=== PATIENT | female | born 1935 | race Caucasian/White ===

== ENCOUNTER 2016-11-30 16:04 | Observation (INO) | payer BC, OTHER ==
--- NOTE | 2016-11-30 16:16 | PDOC ---
History of Present Illness - General History Source: Patient, Old Records, Primary Care Provider Exam Limitations: No Limitations <Garrett Sinclair - Last Filed: 11/30/16 17:12> - General History Source: Patient Exam Limitations: No Limitations <Suzie Martin - Last Filed: 11/30/16 17:41> - General Chief Complaint: Palpitations Stated Complaint: WEAKNESS, NEW ONSET AFIB Time Seen by Provider: 11/30/16 16:11 - History of Present Illness Initial Comments: 11/30/16 17:12 The patient is 81 a year old female, with a significant past medical history of HTN, COPD and colon CA s/p colon resection, who presents to the emergency department after being sent by her PMD for new onset AFIB. She reports that over the last couple of days she has been experience episodes of chest heaviness and fatigue, lasting roughly a couple of minutes before resolving. The patient denies shortness of breath, headache and dizziness. Denies fever, chills, nausea, vomit, diarrhea and constipation. Denies dysuria, frequency, urgency and hematuria. Allergies: Past surgical history: Colon resection (2000) Social history: Cigarette use (5 daily). No alcohol or drug use reported PMD - Dr. Simon (Garrett Sinclair) Past History <Garrett Sinclair - Last Filed: 11/30/16 17:12> - Past Medical History Anemia: No Asthma: No Cancer: Yes (coloc cancer) Cardiac Disorders: No CVA: No COPD: Yes CHF: No Dementia: No Diabetes: No GI Disorders: No Disorders: No HTN: Yes Hypercholesterolemia: No Liver Disease: No Suicide Attempt (Hx): No Seizures: No Thyroid Disease: No - Surgical History Abdominal Surgery: Yes (COLON RESECTION 2000) Appendectomy: No Cardiac Surgery: No Cholecystectomy: No Lung Surgery: No Neurologic Surgery: No Orthopedic Surgery: No - Immunization History Td Vaccination: Yes Immunization Up to Date: Yes - Psycho/Social/Smoking Cessation Hx Anxiety: No Suicidal Ideation: No Smoking Status: Yes Smoking History: Current every day smoker Have you smoked in the past 12 months: Yes Number of Cigarettes Smoked Daily: 5 Information on smoking cessation initiated: Yes 'Breaking Loose' booklet given: 11/30/16 Hx Alcohol Use: No Drug/Substance Use Hx: No Substance Use Type: None Hx Substance Use Treatment: No <Suzie Martin - Last Filed: 11/30/16 17:41> - Past Medical History Allergies/Adverse Reactions: Allergies Allergy/AdvReac Type Severity Reaction Status Date / Time No Known Allergies Allergy Verified 12/06/14 00:38 Home Medications: Ambulatory Orders Albuterol So4/Ipratropium [Combivent] 1 inh PO PRN PRN 01/31/13 Ramipril 10 mg PO DAILY 01/31/13 Albuterol Sulfate [Proair Respiclick] 90 mcg IH PRN PRN 11/30/16 Cardiac Specific PMH - Complaint Specific PMHX Pacemaker: No <Suzie Martin - Last Filed: 11/30/16 17:41> Review of Systems - Review of Systems Able to Perform ROS?: Yes <Garrett Sinclair - Last Filed: 11/30/16 17:12> <Suzie Martin - Last Filed: 11/30/16 17:41> - Review of Systems Comments:: 11/30/16 17:13 GENERAL/CONSTITUTIONAL: No: fever, chills, weakness, loss of appetite. HEAD, EYES, EARS, NOSE AND THROAT: No: change in vision, ear pain, discharge, sore throat, throat swelling. CARDIOVASCULAR: +Chest heaviness. No: lightheadedness, palpitations, syncope RESPIRATORY: No: cough, shortness of breath, wheezing, hemoptysis, stridor. GASTROINTESTINAL: No: nausea, vomiting, abdominal cramping, diarrhea, rectal bleeding, constipation. GENITOURINARY: No: dysuria, hematuria, frequency, urgency, flank pain. MUSCULOSKELETAL: No: back pain, neck pain, joint pain, muscle swelling or pain SKIN AND BREASTS: No: lesions, pallor, rash or easy bruising. NEUROLOGIC: No: headache, vertigo, paresthesias, weakness ENDOCRINE: No: unexplained weight gain or loss HEMATOLOGIC/LYMPHATIC: No: anemia, easy bleeding, swelling nodes (Garrett Sinclair) *Physical Exam <Garrett Sinclair - Last Filed: 11/30/16 17:12> <Suzie Martin - Last Filed: 11/30/16 17:41> - Vital Signs Last Vital Signs Temp Pulse Resp BP Pulse Ox 97.6 F 96 H 18 124/64 95 11/30/16 16:05 11/30/16 17:24 11/30/16 17:24 11/30/16 17:24 11/30/16 17:24 - Physical Exam Comments: 11/30/16 17:13 GENERAL: The patient is in no acute distress. HEAD: Normal with no signs of trauma. EYES: PERRLA, EOMI, sclera anicteric, conjunctiva clear. ENT: Ears normal, nares patent, oropharynx clear without exudates. Moist mucous membranes. NECK: Normal range of motion, supple without lymphadenopathy, JVD, or masses. LUNGS: Breath sounds equal, clear to auscultation bilaterally. No wheezes, and no crackles. HEART:Regular rate and rhythm, normal S1 and S2 without murmur, rub or gallop. ABDOMEN: Soft, nontender, normoactive bowel sounds. No guarding, no rebound. EXTREMITIES: Normal range of motion, no edema. No clubbing or cyanosis. No erythema, or tenderness. NEUROLOGICAL: Cranial nerves II through XII grossly intact. Normal speech. No focal neurological deficits. MUSCULOSKELETAL: Back non-tender to palpation, no CVA tenderness SKIN: Warm, Dry, normal turgor, no rashes or lesions noted. (Garrett Sinclair) Heart Score/ECG Review <Garrett Sinclair - Last Filed: 11/30/16 17:12> #1 ECG reviewed & interpreted by me at: 16:19 General ECG Interpretation: Sinus Rhythm, Normal Rate, Normal Intervals, No acute ischemic changes <Suzie Martin - Last Filed: 11/30/16 17:41> #1 11/30/16 16:19 Left ventricular hypertrophy, no ST segment elevation or depression. Upright T waves (Suzie Martin) ED Treatment Course - LABORATORY CBC & Chemistry Diagram: 11/30/16 16:39 11/30/16 16:39 <Garrett Sinclair - Last Filed: 11/30/16 17:12> - LABORATORY CBC & Chemistry Diagram: 11/30/16 16:39 11/30/16 16:39 <Suzie Martin - Last Filed: 11/30/16 17:41> - ADDITIONAL ORDERS Additional order review: Laboratory Results 11/30/16 11/30/16 11/30/16 16:39 16:39 16:39 INR 1.04 PTT (Actin FS) 30.1 Sodium 135 L Potassium 4.7 Chloride 97 L Carbon Dioxide 30 H Anion Gap 8 BUN 19 H Creatinine 0.8 D Creat Clearance w eGFR > 60 Random Glucose 95 D Calcium 9.9 D Total Bilirubin 0.6 D AST 27 ALT 15 D Alkaline Phosphatase 68 Creatine Kinase 77 Troponin I 0.03 Total Protein 6.5 D Albumin 3.8 D 11/30/16 16:39 RBC 5.59 H MCV 88.6 MCHC 32.9 RDW 13.1 MPV 10.2 D Neutrophils % 80.3 Lymphocytes % 10.1 D Monocytes % 9.0 D Eosinophils % 0.2 D Basophils % 0.4 - RADIOLOGY Radiology Studies Ordered: Category Date Time Status CHEST X-RAY PORTABLE* [RAD] Stat Radiology 11/30/16 16:42 Taken Medical Decision Making <Garrett Sinclair - Last Filed: 11/30/16 17:12> <Suzie Martin - Last Filed: 11/30/16 17:41> - Medical Decision Making 11/30/16 16:16 A portion of this note was documented by scribe services under my direction. I have reviewed the details of the note, within reason, and agree with the documentation with the following case summary and management plan written by me. Nursing documentation reviewed and incorporated into medical decision making 11/30/16 16:46 This is an 81 yo F with a history of HTN, COPD, Colon Cancer who presents from her PMDs office due to chest pain Pt states that two nights ago, she awoke with chest pressure which lasted approximately 1 hour and 15 minutes She took tums and states that it got better This morning at approximately 10 am, she again developed indigestion, unable to eat her breakfast She was seen by her PMD today In the office, EKG = Afib wtih RVR Pt sent to the ER In the ER, EKG SR, no ischemic changes DD: ACS, Paroxysmal Afib Will do: labs, CXR, Cardiology consult Will place on observation to hospitalist 11/30/16 17:01 Laboratory Tests 11/30/16 16:39 WBC 11.3 H D Hgb 16.3 H D Hct 49.5 H Plt Count 226 Neutrophils % 80.3 Lymphocytes % 10.1 D 01/20/17 17:38 Pt heart rate increased to 140s Will repeat EKG Case reviewed with LIABILITY CLAIMS EXAMINER Myranda Pt should be given Lovenox Will give Cardizem if heart rate remains high 11/30/16 17:40 Laboratory Tests 11/30/16 11/30/16 16:39 16:39 Sodium 135 L Potassium 4.7 Chloride 97 L Carbon Dioxide 30 H BUN 19 H Creatinine 0.8 D Random Glucose 95 D Creatine Kinase 77 Troponin I 0.03 (Suzie Martin) *DC/Admit/Observation/Transfer <Garrett Sinclair - Last Filed: 11/30/16 17:12> - Discharge Dispostion Admit: Yes <Suzie Martin - Last Filed: 11/30/16 17:41> Diagnosis at time of Disposition: Paroxysmal atrial fibrillation Chest pain Qualifiers: Chest pain type: other chest pain Qualified Code(s): R07.89 - Other chest pain ; R07.8 - Other chest pain - Discharge Dispostion Condition at time of disposition: Stable - Referrals Referrals: Griffin Simon MD [Primary Care Provider] - - Attestations Scribe Attestion: 11/30/16 17:13 Documentation prepared by Garrett Sinclair, acting as certified medical records coder for Suzie Martin MD. (Garrett Sinclair)
[2016-11-30 16:46] VITALS: BMI 19.9
[2016-11-30 16:50] LABS: BASOPHIL 0.4 % (0-2.0); EOSINOPHIL 0.2 % (0-4.5); MCH 29.1 pg (25.7-33.7); MCHC 32.9 g/dl (32.0-36.0); MEAN CELL VOLUME 88.6 fl (80-96); MEAN PLT VOLUME 10.2 fl (7.5-11.1); NEUTROPHILS 80.3 % (42.8-82.8); PLATELET COUNT 226 K/MM3 (134-434); RDW 13.1 % (11.6-15.6); WHITE BLOOD COUNT 11.3 K/mm3 (4.0-10.0)
[2016-11-30 17:06] LABS: ACTIVATED PTT 30.1 SECONDS (24.0-38.9)
[2016-11-30 17:08] LABS: ALBUMIN 3.8 g/dl (3.5-5.0); ALK PHOS 68 U/L (32-92); ANION GAP 8 (8-16); BILIRUBIN,TOTAL 0.6 mg/dl (0.2-1.0); CALCIUM 9.9 mg/dl (8.4-10.2); CO2 30 mmol/L (22-28); CREATININE 0.8 mg/dl (0.6-1.3); GLUCOSE,RANDOM 95 mg/dl (74-106); SGOT/AST 27 U/L (10-42); SGPT/ALT 15 U/L (10-40); TOT PROT 6.5 g/dl (6.4-8.3)
[2016-11-30 17:11] LABS: INR 1.04 (0.82-1.09); PROTHROMBIN TIME (PATIENT) 11.3 SEC (10.2-13.0)
[2016-11-30 17:18] LABS: TROPONIN I (DFP) 0.03 ng/ml (0.03-0.50)
[2016-11-30] MEDS ORDERED: dilTIAZem HCL 50 MG/10 ML - 10 ML VIAL IVPUSH ONE (17:31)
[2016-11-30] MEDS ORDERED: ENOXAPARIN NA (PORCINE) 60 MG/0.6 ML DISP.SYRIN SQ ONE (17:44)
[2016-11-30] MEDS ORDERED: ENOXAPARIN NA (PORCINE) 80 MG/0.8 ML DISP.SYRIN SQ SCH (17:45)
--- NOTE | 2016-11-30 20:03 | HP ---
CHIEF COMPLAINT: Chest Heaviness, Fatigue PCP: Dr. Simon HISTORY OF PRESENT ILLNESS: This is a 81 year old woman with a past medical history of Hypertension, COPD, Colon Ca (s/p Colon Resection), Smoker. who presents to the emergency department from her PCP's office with New Onset Afib, chest heaviness and fatigue. Patient reports feeling "funny"- heartburn around 2am last Saturday, taking 2 Tums with relief. Patient reports no further episode continuing her daily activities without incident until, this morning, feeling fatigued and shaky. Patient denies fever, chills, dizziness, SOB, CP, palpitations, AP, N/V/D , constipation, dysuria. ER course was notable for: (1) EKG NSR 89 bpm, LVH, cannot rule out Septal Infarct, age undetermined (2) Cardiac Enzyme neg x1 (3) Recent Travel: None PAST MEDICAL HISTORY: See HPI PAST SURGICAL HISTORY: R- femur Hysterectomy Colon Ca resection (2000) Social History: Smoking: Cigarettes 4 per day x 50 yrs Alcohol: None Drugs: None Family History: Father: Cardiac, Stroke Mother: Dementia Sister: Breast Ca Brother: Colon Ca Brother: Prostate Ca Allergies No Known Allergies Allergy (Verified 12/06/14 00:38) HOME MEDICATIONS: Medication Instructions Recorded Albuterol So4/Ipratropium 1 inh PO PRN PRN 01/31/13 [Combivent] Ramipril 10 mg PO DAILY 01/31/13 REVIEW OF SYSTEMS CONSTITUTIONAL: fatigue Absent: fever, chills, diaphoresis, generalized weakness, malaise, loss of appetite, weight change HEENT: Absent: rhinorrhea, nasal congestion, throat pain, throat swelling, difficulty swallowing, mouth swelling, ear pain, eye pain, visual changes CARDIOVASCULAR: chest pain Absent: syncope, palpitations, irregular heart rate, lightheadedness, peripheral edema RESPIRATORY: Absent: cough, shortness of breath, dyspnea with exertion, orthopnea, wheezing, stridor, hemoptysis GASTROINTESTINAL: Absent: abdominal pain, abdominal distension, nausea, vomiting, diarrhea, constipation, melena, hematochezia GENITOURINARY: Absent: dysuria, frequency, urgency, hesitancy, hematuria, flank pain, genital pain MUSCULOSKELETAL: Absent: myalgia, arthralgia, joint swelling, back pain, neck pain SKIN: Absent: rash, itching, pallor HEMATOLOGIC/IMMUNOLOGIC: Absent: easy bleeding, easy bruising, lymphadenopathy, frequent infections ENDOCRINE: Absent: unexplained weight gain, unexplained weight loss, heat intolerance, cold intolerance NEUROLOGIC: Absent: headache, focal weakness or paresthesias, dizziness, unsteady gait, seizure, mental status changes, bladder or bowel incontinence PSYCHIATRIC: Absent: anxiety, depression, suicidal or homicidal ideation, hallucinations. PHYSICAL EXAMINATION Vital Signs - 24 hr 11/30/16 11/30/16 18:21 18:26 Temperature 97.8 F Pulse Rate 97 H Respiratory 19 Rate Blood Pressure 140/67 O2 Sat by Pulse 94 L Oximetry (%) GENERAL: Awake, alert, and fully oriented, in no acute distress. HEAD: Normal with no signs of trauma. EYES: Pupils equal, round and reactive to light, extraocular movements intact, sclera anicteric, conjunctiva clear. No lid lag. EARS, NOSE, THROAT: Ears normal, nares patent, oropharynx clear without exudates. Moist mucous membranes. NECK: Normal range of motion, supple without lymphadenopathy, JVD, or masses. LUNGS: Breath sounds equal, clear to auscultation bilaterally.+Bibasilar wheezes , no crackles. No accessory muscle use. HEART: Irregular rate and rhythm, normal S1 and S2 without murmur, rub or gallop. ABDOMEN: Soft, nontender, not distended, normoactive bowel sounds, no guarding, no rebound, no masses. No hepatomegaly or splenomegaly. MUSCULOSKELETAL: Normal range of motion at all joints. No bony deformities or tenderness. No CVA tenderness. UPPER EXTREMITIES: 2+ pulses, warm, well-perfused. No cyanosis. No clubbing. Cap refill <2 seconds. No peripheral edema. LOWER EXTREMITIES: 2+ pulses, warm, well-perfused. No calf tenderness. No peripheral edema. NEUROLOGICAL: Cranial nerves II-XII intact. Normal speech. Normal gait. PSYCHIATRIC: Cooperative. Good eye contact. Appropriate mood and affect. SKIN: Warm, dry, normal turgor, no rashes or lesions noted. Laboratory Results - last 24 hr 11/30/16 11/30/16 11/30/16 16:35 16:39 16:39 WBC 11.3 H D RBC 5.59 H Hgb 16.3 H D Hct 49.5 H MCV 88.6 MCHC 32.9 RDW 13.1 Plt Count 226 MPV 10.2 D Neutrophils % 80.3 Lymphocytes % 10.1 D Monocytes % 9.0 D Eosinophils % 0.2 D Basophils % 0.4 INR 1.04 PTT (Actin FS) 30.1 Sodium Potassium Chloride Carbon Dioxide Anion Gap BUN Creatinine Creat Clearance w eGFR Random Glucose Calcium Total Bilirubin AST ALT Alkaline Phosphatase Creatine Kinase Troponin I Total Protein Albumin Blood Type A POSITIVE Antibody Screen 11/30/16 11/30/16 11/30/16 16:39 16:39 16:39 WBC RBC Hgb Hct MCV MCHC RDW Plt Count MPV Neutrophils % Lymphocytes % Monocytes % Eosinophils % Basophils % INR PTT (Actin FS) Sodium 135 L Potassium 4.7 Chloride 97 L Carbon Dioxide 30 H Anion Gap 8 BUN 19 H Creatinine 0.8 D Creat Clearance w eGFR > 60 Random Glucose 95 D Calcium 9.9 D Total Bilirubin 0.6 D AST 27 ALT 15 D Alkaline Phosphatase 68 Creatine Kinase 77 Troponin I 0.03 Total Protein 6.5 D Albumin 3.8 D Blood Type A POSITIVE Antibody Screen Negative ASSESSMENT/PLAN: This is a 81 year old woman with a PMHx of: HTN, COPD, Colon Ca ( s/p colon resection), Smoker. Who presents to the ED New Onset Afib, chest heaviness, fatigue. Placed on Tele Observation for New Onset Afib for further evaluation of their emergent condition. Plan: 1. Card: Paroxysmal Afib/HTN - New Onset - Tele monitoring - [id number] Score 4 - Appreciate Cardiology Consult - Lovenox given in ED, will continue - BB - Cardiac Enzyme neg x1, will trend x2 - Continue home med for BP 2. Pulm: COPD - Controlled - Duoneb prn 3. DVT Prophylaxis - OOB - Continue Lovenox 4. F/E/N - PO Fluids - Replete lytes prn - Low Na Diet Code Status: Patient is a Full Code Problem List - Problem (1) Chest pain Code(s): R07.9 - CHEST PAIN, UNSPECIFIED Qualifiers: Chest pain type: other chest pain Qualified Code(s): R07.89 - Other chest pain; R07.8 - Other chest pain (2) Paroxysmal a-fib Code(s): I48.0 - PAROXYSMAL ATRIAL FIBRILLATION (3) HTN (hypertension) Code(s): I10 - ESSENTIAL (PRIMARY) HYPERTENSION (4) History of COPD Code(s): Z87.09 - PERSONAL HISTORY OF OTHER DISEASES OF THE RESPIRATORY SYSTEM (5) History of colon cancer Code(s): Z85.038 - PERSONAL HISTORY OF MALIGNANT NEOPLASM OF LARGE INTESTINE (6) DVT prophylaxis Code(s): MHN8950 - Visit type - Emergency Visit Emergency Visit: Yes ED Registration Date: 11/30/16 Care time: The patient presented to the Emergency Department on the above date and was hospitalized for further evaluation of their emergent condition. - New Patient This patient is new to me today: Yes Date on this admission: 11/30/16 - Critical Care Critical Care patient: No
[2016-11-30] MEDS ORDERED: ALBUTEROL SO4 2.5/IPRATROPIUM 0.5 INH SOL 3 ML VIAL.NEB. NEB PRN (22:03)
[2016-11-30 23:28] LABS: TROPONIN I (DFP) 0.07 ng/ml (0.03-0.50)
[2016-12-01 06:12] VITALS: TEMP 98.4
--- NOTE | 2016-12-01 07:46 | CON.CARD ---
Consult Consult Specialty:: cardio Referred by:: krish Reason for Consultation:: afib - History of Present Illness Chief Complaint: chest discomfort History of Present Illness: 81 yo female sent from pmd office for afib. seated at home one day this week and felt upper chest discomfort, "like indigestion"; and body was shaking slightly; with profuse weakness. took two tums and sx's resolved. no LH/presyncope or sob with that. yesterday felt the weakness again--very active and rushing always but yest couldn't get up and do stuff b/c diffuse weakness. no indigestion/cp with that episode. sx persisted so went to dr rutherford--ekg abnormal--to ER. 3-4 yrs ago was in [employer] and tripped and injured herself--was told of irregular heart rhythm then and doctors wanted to give her blood thinner but she refused never felt palpitations. no cp with exertion; mild sob sometimes longstanding copd baseline she says denies etoh denies h/o GIB/PUD denies h/o balance problems/falls PMH: copd HTN colon Ca s/p resection +cigs--active - Past Medical History ...: No - Alcohol/Substance Use Hx Alcohol Use: No - Smoking History Smoking history: Current every day smoker Have you smoked in the past 12 months: Yes Aproximately how many cigarettes per day: 5 Home Medications - Allergies Allergies/Adverse Reactions: Allergies Allergy/AdvReac Type Severity Reaction Status Date / Time No Known Allergies Allergy Verified 12/06/14 00:38 - Home Medications Home Medications: Ambulatory Orders Albuterol So4/Ipratropium [Combivent] 1 inh PO PRN PRN 01/31/13 Ramipril 10 mg PO DAILY 01/31/13 Family Disease History - Family Disease History Family History: Denies (no cmp) Review of Systems - Review of Systems Constitutional: denies: Chills, Fever Eyes: denies: Eye Pain HENT: denies: Nasal Congestion Neck: denies: Stiffness Cardiovascular: denies: Palpitations Respiratory: denies: Orthopnea, PND Gastrointestinal: denies: Diarrhea, Rectal Bleeding Genitourinary: denies: Burning, Hematuria Musculoskeletal: denies: Muscle Pain Integumentary: denies: Rash Neurological: denies: Numbness, Seizure, Syncope Endocrine: denies: Excessive Sweating Hematology/Lymphatic: denies: Excessive Bleeding Vital Signs: Vital Signs Temperature 98.4 F 12/01/16 06:00 Pulse Rate 92 H 12/01/16 06:00 Respiratory Rate 18 12/01/16 06:00 Blood Pressure 175/80 12/01/16 06:00 O2 Sat by Pulse Oximetry (%) 94 L 11/30/16 18:21 Constitutional: Yes: Well Nourished, No Distress Eyes: No: Sclera Icterus HENT: No: Nasal Congestion Neck: No: Decreased ROM Respiratory: Yes: CTA Bilaterally, Wheezes (faint). No: Accessory Muscle Use Gastrointestinal: Yes: Normal Bowel Sounds. No: Distention, Hepatomegaly, Palpable Mass, Tenderness Cardiovascular: Yes: Regular Rate and Rhythm JVD: No Carotid Bruit: No PMI: Non-Displaced Heart Sounds: Yes: S1, S2. No: Gallop Murmur: No: Systolic Murmur, Diastolic Murmur Musculoskeletal: Yes: Other (No kyphosis) Extremities: No: Cold, Cyanosis Edema: No Peripheral Pulses: 2+ Left Carotid, 2+ Right Carotid, 2+ Left Doralis Pedis, 2+ Right Dorsalis Pedis Integumentary: No: Jaundice Neurological: Yes: Alert, Oriented (x3) Psychiatric: No: Agitated - Other Data Labs, Other Data: INR, PTT INR 1.04 (0.82-1.09) 11/30/16 16:39 Troponin, BNP 11/30/16 22:45 Troponin I 0.07 Troponin, BNP 11/30/16 22:45 Troponin I 0.07 Laboratory Tests 11/30/16 11/30/16 11/30/16 16:39 16:39 16:39 WBC 11.3 H D Hgb 16.3 H D Plt Count 226 Sodium 135 L Potassium 4.7 Carbon Dioxide 30 H BUN 19 H Creatinine 0.8 D AST 27 ALT 15 D Troponin I 0.03 11/30/16 22:45 WBC Hgb Plt Count Sodium Potassium Carbon Dioxide BUN Creatinine AST ALT Troponin I 0.07 ekg 11/30 (15:34)--pmd office: MAT vs afib, HR 130; LVH; ? old septal AR; nonsp ST depressions lateral leads likely LVH related; (no old to compare) ER ekg's x 2: NSR, normal axis/intervals; LVH with CORTEZ; ST depressions resolved telemetry: NSR Imaging - Results Chest X-ray: Image Reviewed ((not yet reported) my read: incr'd marking) Assessment/Plan paroxysmal AF: -initial portion of PMD ecg is suspicious for AF, however cannot definitively diagnose based on that tracing, given the latter half of it looks very much like MAT...possible that she had afib which transitioned into MAT; -was in sinus by the time she had ECGs done in ER--remains in sinus on tele overnight -CHADS VASC = 3, hence non-trivial risk of CVA from recurrent PAF -would recommend erring on the side of CVA prevention (given no hi risk clinical factors for bleeding) and start Eliquis -i d/w'd pt the uncertainty in her dx, but the relative risks of CVA being >> serious bleeding from AC rx; she verbalizes understanding but doesn't want to start AC at this time; she agrees to do outpt tele monitor and reconsider AC then, but insists she wants to wait until back from cruise she is leaving on in 6 days from today; -SHE SHOULD F/U WITH US OUTPT FOR 7-14 DAY MONITOR (when back from cruise) TO TRY TO BETTER CLARIFY THE UNDERLYING RHYTHM and PAF frequency, AND DETERMINE WHETHER IN FACT [facility] AC IS APPROPRIATE TO BE CONTINUED -add diltiazem for HR control purposes in future -no BB given copd with faint wheezing on exam -check TSH -check echo -initial ecg with nonsp ST changes, likely related to LVH in presence of tachycardia--resolved on subsequent -cardiac enzymes x 2 unremarkable--3rd pending -willing to take ASA 81 for now--advised she start -i advised pt she needs to have nuclear stress test (reasons below) and echo PRIOR TO LEAVING FOR HER CRUISE and she agrees to do these in my office saturday and saturday of next week; arrangements made with her -MUST F/U 3RD TROPONIN THIS AM--IF NEGATIVE, PT IS AT LOW-RISK FOR CV EVENTS AND MAY BE D/C'D FROM MY P.O.V. (on aspirin 81, diltiazem 120, ramipril 5mg) atypical CP: -felt like "indigestion", resolved with TUMS--suspect GERD -? atyp angina related to rapid HR at the time, rianna in setting of signif LVH ( LVH noted on CT chest 2012 and present on ekg) -r/o underlying coronary obstruction--will have nuclear stress test saturday HTN: -adding diltiazem (120) for AF/MAT -would reduce ramipril to 5mg daily to avoid over-aggressive bp lowering -currently sbp 170s copd, without a.e.: -stable sx's at home -faint wheezing on exam -per pmd
[2016-12-01 08:03] LABS: BASOPHIL 0.3 % (0-2.0); MCH 28.6 pg (25.7-33.7); MCHC 31.9 g/dl (32.0-36.0); MEAN CELL VOLUME 89.5 fl (80-96); MEAN PLT VOLUME 10.8 fl (7.5-11.1); PLATELET COUNT 218 K/MM3 (134-434); RDW 13.3 % (11.6-15.6); WHITE BLOOD COUNT 9.4 K/mm3 (4.0-10.0)
[2016-12-01 08:11] LABS: ALBUMIN 3.5 g/dl (3.5-5.0); ALK PHOS 63 U/L (32-92); ANION GAP 7 (8-16); BILIRUBIN,TOTAL 0.6 mg/dl (0.2-1.0); CALCIUM 9.1 mg/dl (8.4-10.2); CO2 33 mmol/L (22-28); CREATININE 0.7 mg/dl (0.6-1.3); GLUCOSE,RANDOM 91 mg/dl (74-106); SGOT/AST 23 U/L (10-42); SGPT/ALT 15 U/L (10-40); TOT PROT 5.7 g/dl (6.4-8.3)
[2016-12-01 08:14] LABS: CHOLESTEROL 218 mg/dl
[2016-12-01 08:26] VITALS: BP 155/75; PULSE 99
[2016-12-01 09:53] LABS: TROPONIN I (DFP) 0.06 ng/ml (0.03-0.50)
[2016-12-01] MEDS ORDERED: ASPIRIN COATED 81 MG TABLET.EC PO SCH (10:00)
[2016-12-01] MEDS ORDERED: ENOXAPARIN NA (PORCINE) 40 MG/0.4 ML DISP.SYRIN SQ SCH (10:00)
[2016-12-01] MEDS ORDERED: RAMIPRIL 5 MG CAPSULE (FP) PO SCH ×2 (10:00)
[2016-12-01] MEDS ORDERED: ALBUTEROL SO4 6.7 GM HFA INHALER IH PRN (10:20)
--- NOTE | 2016-12-01 10:25 | DS ---
Physical Exam: SUBJECTIVE: Patient seen and examined. No further complaints on exam. No weakness, palpitations, chest pain or SOB. OBJECTIVE: Vital Signs - 24 hr 3 11/30/16 11/30/16 11/30/16 16:05 17:24 18:21 Temperature 97.6 F Pulse Rate 96 H Pulse Rate [ 96 H Apical] Respiratory 18 18 Rate Blood Pressure 146/73 Blood Pressure 124/64 [Right Arm] O2 Sat by Pulse 95 95 94 L Oximetry (%) 3 11/30/16 11/30/16 12/01/16 18:26 22:44 06:00 Temperature 97.8 F 98.1 F 98.4 F Pulse Rate 97 H 91 H 92 H Pulse Rate [ Apical] Respiratory 19 20 18 Rate Blood Pressure 140/67 170/81 175/80 Blood Pressure [Right Arm] O2 Sat by Pulse Oximetry (%) 3 12/01/16 12/01/16 08:26 08:43 Temperature Pulse Rate 99 H Pulse Rate [ Apical] Respiratory 18 Rate Blood Pressure 155/75 Blood Pressure [Right Arm] O2 Sat by Pulse 92 L Oximetry (%) PHYSICAL EXAM GENERAL: The patient is awake, alert, and fully oriented, in no acute distress. HEAD: Normal with no signs of trauma. EYES: PERRL, extraocular movements intact, sclera anicteric, conjunctiva clear. ENT: Ears normal, nares patent, oropharynx clear without exudates, moist mucous membranes. NECK: Trachea midline, full range of motion, supple. LUNGS: Breath sounds equal, clear to auscultation bilaterally, no crackles, no accessory muscle use. slight expiratory wheeze bilat HEART: Regular rate and rhythm, S1, S2 without rub or gallop. + murmur 5th ICS LSB, 2/6 ABDOMEN: Soft, nontender, nondistended, normoactive bowel sounds, no guarding, no rebound, no hepatosplenomegaly, no masses. EXTREMITIES: 2+ pulses, warm, well-perfused, no edema. NEUROLOGICAL: Cranial nerves II through XII grossly intact. Normal speech, gait not observed. PSYCH: Normal mood, normal affect. SKIN: Warm, dry, normal turgor, no rashes or lesions noted. Laboratory Results - last 24 hr 3 11/30/16 12/01/16 12/01/16 22:45 07:00 07:00 WBC RBC Hgb Hct MCV MCHC RDW Plt Count MPV Neutrophils % Lymphocytes % Monocytes % Eosinophils % Basophils % Sodium 141 Potassium 4.6 Chloride 101 Carbon Dioxide 33 H Anion Gap 7 L BUN 17 Creatinine 0.7 Creat Clearance w eGFR > 60 Random Glucose 91 Calcium 9.1 Total Bilirubin 0.6 AST 23 ALT 15 Alkaline Phosphatase 63 Creatine Kinase 71 61 Troponin I 0.07 0.06 Total Protein 5.7 L Albumin 3.5 Triglycerides Cholesterol Total LDL Cholesterol HDL Cholesterol 3 12/01/16 12/01/16 07:00 07:00 WBC 9.4 RBC 5.32 H Hgb 15.2 Hct 47.6 H MCV 89.5 MCHC 31.9 L RDW 13.3 Plt Count 218 MPV 10.8 Neutrophils % 69.0 Lymphocytes % 19.0 D Monocytes % 10.7 H Eosinophils % 1.0 D Basophils % 0.3 Sodium Potassium Chloride Carbon Dioxide Anion Gap BUN Creatinine Creat Clearance w eGFR Random Glucose Calcium Total Bilirubin AST ALT Alkaline Phosphatase Creatine Kinase Troponin I Total Protein Albumin Triglycerides 132 Cholesterol 218 Total LDL Cholesterol 121 HDL Cholesterol 71 HOSPITAL COURSE: Date of Admission:11/30/16 Date of Discharge: 12/01/16 This is an 81 year old female, with a significant past medical history of HTN, COPD and colon CA s/p colon resection, who presented to the emergency department after being sent by her PMD for new onset AFIB. Pt was admitted to telemetry, acute IA r/o, 3 troponin negative. Rate was controlled with cardizem via IV in the ER and she was started on po. Pt was evaluated by cardiology and cleared for dc as troponins negative and no ectopy on monitor. Pt declined anticoagulation at this time. Pt instructed to contact Dr. Shirley's office for stress test this week (prior to leaving for her cruise next week.) She will also need outpatient 7-14 day monitoring to determine true nature of arrhythmia (afib vs multifocal atrial tachycardia). Beta osmin was not given for rate control as pt with slight wheeze and COPD. Spiriva added to pts medication regimen outpatient and pt instructed to f/u with PCP for further COPD management. Atypical Chest pain - IA r/o, f/u with cardiology as outpatient for stress test. Atrial fibrillation - cardizem for rate control - pt declined AC despite counseling center manager by cardiology - f/u with cardiology as outpatient HTN - decrease ramipril to 5mg daily given addition of cardizem COPD - add spiriva to home regimen - duoneb given x 1 - cont home proair Minutes to complete discharge: 45 Discharge Summary Reason For Visit: CHEST PAIN/ AFIB Current Active Problems Chest pain (Acute) DVT prophylaxis (Acute) HTN (hypertension) (Acute) History of COPD (Acute) History of colon cancer (Acute) Paroxysmal a-fib (Acute) Condition: Stable - Instructions Diet, Activity, Other Instructions: Return to the Emergency Department for any new, worsening or persistent symptoms such as shortness of breath, chest pain or weakness. Call Dr. Shirley's office on SATURDAY MORNING to schedule a stress test for THIS week prior to going on your cruise. Referrals: Emerson Shirley MD [Staff Physician] - (call Saturday for an appointment for a stress test THIS week.) Griffin Simon MD [Primary Care Provider] - Disposition: HOME - Home Medications Comprehensive Discharge Medication List: Ambulatory Orders Albuterol Sulfate Inhaler - [Ventolin HFA Inhaler -] 2 puff IH Q4H PRN #0 inhaler 12/01/16 Aspirin Coated [Ecotrin -] 81 mg PO DAILY #30 tablet.ec 12/01/16 Diltiazem Cd [Cardizem Cd -] 120 mg PO DAILY #30 cap.cd.24h 12/01/16 Ramipril [Altace] 5 mg PO DAILY #30 capsule 12/01/16 Tiotropium [place] [Spiriva] 18 puff IH DAILY #1 inh 12/01/16 This patient is new to me today: Yes Date on this admission: 12/01/16 Emergency Visit: Yes ED Registration Date: 11/30/16 Care time: The patient presented to the Emergency Department on the above date and was hospitalized for further evaluation of their emergent condition. Critical Care patient: No - Discharge Referral Referred to [facility] Yes Physician Referral: Griffin Simon MD ([facility]) (current PCP)
[2016-12-01 12:43] LABS: THYROID STIMULATING HORMONE 2.46 uIU/ml (0.358-3.74)
[2016-12-02] MEDS ORDERED: TIOTROPIUM BROMIDE 18 MCG/INH (DEVICE W/ 30 CAPSULES) IH SCH (10:00)
--- NOTE | 2016-12-03 12:33 | EKG ---
Test Reason : Blood Pressure : / mmHG Vent. Rate : 098 BPM Atrial Rate : 098 BPM P-R Int : 144 ms QRS Dur : 092 ms QT Int : 372 ms P-R-T Axes : 010 048 043 degrees QTc Int : 474 ms NORMAL SINUS RHYTHM SEPTAL INFARCT (CITED ON OR BEFORE 30-NOV-2016) ABNORMAL ECG WHEN COMPARED WITH ECG OF 30-NOV-2016 16:16, T WAVE VARIATION Confirmed by ALISSA ANGEL MD ([id number]) on 12/03/2016 12:32:39 PM Referred By: Confirmed By:ALISSA ANGEL MD
--- NOTE | 2016-12-03 12:47 | EKG ---
Test Reason : Blood Pressure : / mmHG Vent. Rate : 089 BPM Atrial Rate : 089 BPM P-R Int : 160 ms QRS Dur : 082 ms QT Int : 368 ms P-R-T Axes : 080 055 081 degrees QTc Int : 447 ms NORMAL SINUS RHYTHM POSSIBLE LEFT ATRIAL ENLARGEMENT LEFT VENTRICULAR HYPERTROPHY CANNOT RULE OUT SEPTAL INFARCT , AGE UNDETERMINED ABNORMAL ECG NO PREVIOUS ECGS AVAILABLE Confirmed by ALISSA ANGEL MD ([id number]) on 12/03/2016 12:47:33 PM Referred By: MD STOKES Confirmed By:ALISSA ANGEL MD
== END 2016-12-01 11:41 | disposition home or self-care (01) ==
LOC: FER 16:04 → FM/S 17:59
PROVIDERS: ADMIT Internal Medicine; ATTEND Nurse Practitioner Family
DX: I48.0 Paroxysmal atrial fibrillation (principal); K21.9 Gastro-esophageal reflux disease without esophagitis; I10 Essential (primary) hypertension; J44.9 Chronic obstructive pulmonary disease, unspecified; F17.210 Nicotine dependence, cigarettes, uncomplicated; Z85.038 Personal history of other malignant neoplasm of large intestine; R07.89 Other chest pain
CPT/HCPCS: 36415; 71010-TC; 80053; 80061; 82550; 84443; 84484; 85025; 85610; 85730; 86850; 86900; 86901; 93005; 94640; 99285-25; G0378

== ENCOUNTER 2017-01-07 21:56 | Inpatient (IN) | payer OTHER ==
--- NOTE | 2017-01-07 22:06 | PDOC ---
History of Present Illness - History of Present Illness Initial Comments: 01/07/17 23:49 Patient is an 81 year old female with significant medical hx of COPD, HTN, colon CA s/p resection, and new onset paroxysmal AFib who is presenting to the ED for respiratory distress. The patient has been in respiratory distress for the past three days at home; according to family member, this is a chronic issue. The patient does not use O2 at home because she doesn't like using it. She was hypoxic at home for days, today her O2Sat was found at 69% on room air. The patient is having difficulty speaking full sentences and she is using accessory muscles to breathe. She was brought to the ED today because her symptoms worsened. Denies fever, chills. Social Hx: 50 year history of tobacco use Surgical Hx: right femur sx, colon CA resection, hysterectomy PMD: Griffin Simon MD <Neema Moser - Last Filed: 01/07/17 23:48> <Maria Del Carmen Jennings - Last Filed: 01/08/17 01:06> - General Chief Complaint: Respiratory Stated Complaint: SHORTNESS OF BREATH Past History <Neema Moser - Last Filed: 01/07/17 23:48> - Past Medical History Anemia: No Asthma: No Cancer: Yes (coloc cancer) Cardiac Disorders: No CVA: No COPD: Yes CHF: No Dementia: No Diabetes: No GI Disorders: No Disorders: No HTN: Yes Hypercholesterolemia: No Liver Disease: No Suicide Attempt (Hx): No Seizures: No Thyroid Disease: No - Surgical History Abdominal Surgery: Yes (COLON RESECTION 2000) Appendectomy: No Cardiac Surgery: No Cholecystectomy: No Lung Surgery: No Neurologic Surgery: No Orthopedic Surgery: No - Immunization History Td Vaccination: Yes Immunization Up to Date: Yes - Psycho/Social/Smoking Cessation Hx Anxiety: No Suicidal Ideation: No Smoking Status: Yes Smoking History: Current every day smoker Have you smoked in the past 12 months: Yes Number of Cigarettes Smoked Daily: 5 Information on smoking cessation initiated: Yes 'Breaking Loose' booklet given: 01/07/17 Hx Alcohol Use: No Drug/Substance Use Hx: No Substance Use Type: None Hx Substance Use Treatment: No <Maria Del Carmen Jennings - Last Filed: 01/08/17 01:06> - Past Medical History Allergies/Adverse Reactions: Allergies Allergy/AdvReac Type Severity Reaction Status Date / Time No Known Allergies Allergy Verified 01/07/17 22:01 Home Medications: Ambulatory Orders Albuterol Sulfate Inhaler - [Ventolin HFA Inhaler -] 2 puff IH Q4H PRN #0 inhaler 12/01/16 Aspirin Coated [Ecotrin -] 81 mg PO DAILY #30 tablet.ec 12/01/16 Diltiazem Cd [Cardizem Cd -] 120 mg PO DAILY #30 cap.cd.24h 12/01/16 Ramipril [Altace] 5 mg PO DAILY #30 capsule 12/01/16 Tiotropium [place] [Spiriva] 18 puff IH DAILY #1 inh 12/01/16 Review of Systems - Review of Systems Comments:: 01/07/17 23:53 CONSTITUTIONAL: Absent: fever, chills, diaphoresis, generalized weakness, malaise, loss of appetite HEENT: Absent: rhinorrhea, nasal congestion, throat pain, throat swelling, difficulty swallowing, mouth swelling, ear pain, eye pain, visual changes CARDIOVASCULAR: Absent: chest pain, syncope, palpitations, irregular heart rate, lightheadedness , peripheral edema RESPIRATORY: Present: respiratory distress, difficulty speaking sentences Absent: cough, orthopnea, wheezing, stridor, hemoptysis GASTROINTESTINAL: Absent: abdominal pain, abdominal distension, nausea, vomiting, diarrhea, constipation, melena, hematochezia GENITOURINARY: Absent: dysuria, frequency, urgency, hesitancy, hematuria, flank pain, genital pain MUSCULOSKELETAL: Absent: myalgia, arthralgia, joint swelling SKIN: Absent: rash, itching, pallor HEMATOLOGIC/IMMUNOLOGIC: Absent: easy bleeding, easy bruising, lymphadenopathy, frequent infections ENDOCRINE: Absent: unexplained weight gain, unexplained weight loss, heat intolerance, cold intolerance NEUROLOGIC: Absent: headache, focal weakness or paresthesia, dizziness, unsteady gait, seizure, mental status changes, bladder or bowel incontinence. PSYCHIATRIC: Absent: anxiety, depression, suicidal or homicidal ideation, hallucinations <Neema Moser - Last Filed: 01/07/17 23:48> *Physical Exam - Vital Signs Last Vital Signs Temp Pulse Resp BP Pulse Ox 98.2 F 83 18 136/69 98 01/07/17 23:13 01/07/17 23:13 01/07/17 23:13 01/07/17 23:13 01/07/17 23:13 - Physical Exam Comments: 01/07/17 23:54 GENERAL: Well developed, well nourished. Awake and alert. No acute distress. HEENT: Normocephalic, atraumatic. PERRLA, EOMI. No conjunctival pallor. Sclera are non- icteric. Moist mucous membranes. Oropharynx is clear. NECK: Supple. Full ROM. No JVD. Carotid pulses 2+ and symmetric, without bruits. No thyromegaly. No lymphadenopathy. CARDIOVASCULAR: Regular rate and rhythm. No murmurs, rubs, or gallops. Distal pulses are 2+ and symmetric. PULMONARY: Respiratory distress. Silent chest (moving air now). Using accessory muscles. Difficulty speaking in full sentences. O2Sat 69% on room air. ABDOMINAL: Soft. Non-tender. Non-distended. No rebound or guarding. No organomegaly. Normoactive bowel sounds. MUSCULOSKELETAL: Normal range of motion at all joints. No bony deformities or tenderness. No CVA tenderness. EXTREMITIES: No cyanosis. No clubbing. No edema. No calf tenderness. SKIN: Warm and dry. Normal capillary refill. No rashes. No jaundice. NEUROLOGICAL: Alert, awake, appropriate. Cranial nerves 2-12 intact. Normal speech. PSYCHIATRIC: Cooperative. Good eye contact. Appropriate mood and affect. <Neema Moser - Last Filed: 01/07/17 23:48> - Vital Signs Last Vital Signs Temp Pulse Resp BP Pulse Ox 104 H 18 119/59 69 L 01/07/17 22:01 01/07/17 22:01 01/07/17 22:01 01/07/17 22:01 <Maria Del Carmen Jennings - Last Filed: 01/08/17 01:06> ED Treatment Course - ADDITIONAL ORDERS Additional order review: Laboratory Results 01/07/17 22:30 PTT (Actin FS) 29.3 - Medications Given in the ED: ED Medications Discontinued Medications Generic Name Dose Route Start Last Admin Trade Name Freq PRN Reason Stop Dose Admin Albuterol/Ipratropium 1 amp 01/07/17 22:30 01/07/17 23:05 Duoneb - NEB 01/07/17 23:16 1 amp Q15M MASON Administration Magnesium Sulfate 2 gm 01/07/17 22:33 01/07/17 22:34 Magnesium Sulfate IVPB 01/07/17 22:34 2 gm NOW ONE Administration Methylprednisolone Sodium Succinate 125 mg 01/07/17 22:34 01/07/17 22:34 Solu-Medrol - IVPB 01/07/17 22:35 125 mg NOW ONE Administration <Neema Moser - Last Filed: 01/07/17 23:48> *DC/Admit/Observation/Transfer - Attestations Scribe Attestion: 01/07/17 23:56 Documentation prepared by Neema Moser, acting as medical nurse for Maria Del Carmen Jennings MD. <Neema Moser - Last Filed: 01/07/17 23:48> - Discharge Dispostion Admit: Yes <Maria Del Carmen Jennings - Last Filed: 01/08/17 01:06> Diagnosis at time of Disposition: Obstructive chronic bronchitis with exacerbation - Referrals Referrals: Griffin Simon MD [Primary Care Provider] -
[2017-01-07] MEDS ORDERED: MAGNESIUM SULF 50% (8.12 MEQ/2 ML-1 GM VIAL) ONE (22:08)
[2017-01-07] MEDS ORDERED: methylPREDNISolone NA SUCC 125 MG/2 ML VIAL ONE (22:08)
[2017-01-07] MEDS ORDERED: MAGNESIUM SULF 50% (8.12 MEQ/2 ML-1 GM VIAL) IVPB ONE (22:33)
[2017-01-07] MEDS: ALBUTEROL SO4 2.5/IPRATROPIUM 0.5 INH SOL 3 ML VIAL.NEB. NEB SCH ×3 (22:33→23:05)
[2017-01-07] MEDS ORDERED: methylPREDNISolone NA SUCC 125 MG/2 ML VIAL IVPB ONE (22:34)
[2017-01-07] MEDS ORDERED: ALBUTEROL SO4 2.5/IPRATROPIUM 0.5 INH SOL 3 ML VIAL.NEB. NEB ONE (22:42)
[2017-01-07] MEDS ORDERED: ALBUTEROL SO4 0.083% IH SOL 2.5 MG/3 ML VIAL.NEB. NEB ONE (22:43)
--- NOTE | 2017-01-08 00:46 | PN ---
<Miles Garcia - Last Filed: 01/08/17 03:37> Teaching Attending Note ATTENDING PHYSICIAN STATEMENT I saw and evaluated the patient. I reviewed the resident's note and discussed the case with the resident. I agree with the resident's findings and plan as documented. SUBJECTIVE: Patient is an 81 year old female with significant medical history of COPD, HTN, colon CA s/ resection, current smoker, who presented to ED in respiratory distress for three days. The patient stated that she is suppose to be on home O2 but she does not like using O2 at home. Patient reported that before she presented to the ED her O2sat was found to be 69% on room air. Upon arrival patient was found to be hypoxic. In the ED patient was having difficulty speaking in full sentences and was placed on bipap with SOB. OBJECTIVE: Vital Signs: Last Vital Signs Temp Pulse Resp BP Pulse Ox 98.2 F 83 18 136/69 98 01/07/17 23:13 01/07/17 23:13 01/07/17 23:13 01/07/17 23:13 01/07/17 23:13 Physical Exam: GEN: NAD HEENT: NCAT, PERRL CARD: RRR, S1 S2 RESP: Course bilateral breath sounds ABD: NT, BWS x4 EXT: - CCE Labs: Imaging: ASSESSMENT AND PLAN: Patient is an 81 year old female with significant medical history of COPD, HTN, colon CA s/p resection, current smoker who presented with SOB, being admitted for COPD exacerbation. 1. COPD exacerbation -Duoneb -ATC/PRN -Continue with Solumedrol 60 mg Q8H -Sethtriaxone -ABG -Will attempt to wean off bipap -Continue Spiriva in AM 2. Questionable AFIB- Rate controlled -Continue with Brotizolam -Patient refused AC at last visit -Hypertension continue with Ramipril 3. Lung mass -Follow up biopsy at [place] 4. DVT PPX -Heparin 5000 Q8H Admit to med surg. Documentation prepared by Miles Garcia, acting as medical staff credentialing coordinator for Dr. Shona Masters MD. <Shona Masters - Last Filed: 01/08/17 06:02> Teaching Attending Note Name of Resident: [place] AFIB?/MAT - C.w. Diltiazem - Pt. Initially refused AC - Currently in SR ACUTE EXACERBATION of COPD - Ceftriaxone - Duonebs ATC/PRN - Steriods (FS/RAISS) - -93% Rest as per above note
[2017-01-08 00:49] LABS: ARTERIAL BLD GAS O2 SATURATION 97.6 % (90-98.9); ARTERIAL BLOOD GAS BASE EXCESS 3.8 meq/l (-2-2); ARTERIAL BLOOD GAS pH 7.33 (7.35-7.45); METHEMOGLOBIN 1.2 % (0.4-1.5)
[2017-01-08] MEDS ORDERED: ONDANSETRON 4 MG/2 ML VIAL IVPB PRN (00:49)
[2017-01-08] MEDS ORDERED: ALBUTEROL SO4 0.083% IH SOL 2.5 MG/3 ML VIAL.NEB. NEB PRN (00:49)
[2017-01-08] MEDS ORDERED: ACETAMINOPHEN 325 MG TABLET (FP) PO PRN (00:49)
[2017-01-08 00:50] LABS: ALLENS TEST POSITIVE; ART PUNCT SITE LEFT RADIAL; LPM/O2% 50%; PT. ON O2? YES; TYPE OF O2 BIPAP; VENT RATE 14; VT/PRESS 14/4
[2017-01-08 00:51] LABS: ARTERIAL BLOOD GAS HCO3 30.6 meq/L (22-26)
--- NOTE | 2017-01-08 00:52 | HP ---
CHIEF COMPLAINT: SOB PCP: Griffin Simon MD HISTORY OF PRESENT ILLNESS: 81 yo F with PMHx of COPD, HTN, colon CA s/p resection, current smoker, who presented to ED in respiratory distress for three days. Patient admits to being non compliant with home oxygen and inhalers. As per son she was found to have a home O2 sat of 69% today and "looked [place]" She also mentions that for the past week she has been having a runny nose and productive cough. Sputum is clear without hemoptysis. Upon arrival patient was found to be hypoxic. In the ED patient was having difficulty speaking in full sentences and was placed on bipap with SOB. She was discharged last Saturday01/01/17 from [facility] s/p aortic balloon valvuloplasty for stenosis. Her senior design engineer is Dr. Shirley. Also has history of parax. Afib? Denies fevers, CP, BOLES, palpitations, abd. pain, n/v. ER course was notable for: (1)ABG showed respiratory acidosis PCO2 59.5 (2)Given 125mg IV Solumedrol (3)Placed on BiPaP with improvement of symptoms. Recent Travel:Denies PAST MEDICAL HISTORY: COPD, HTN, colon CA s/p resection, PAST SURGICAL HISTORY: Colon resection, balloon valvuloplasty Social History: Smokin-3 cigs/day Alcohol:denies Drugs: denies Family History: Allergies No Known Allergies Allergy (Verified 01/07/17 22:01) HOME MEDICATIONS: Home Medications Medication Instructions Recorded Albuterol Sulfate Inhaler - 2 puff IH Q4H PRN #0 inhaler 12/01/16 [Ventolin HFA Inhaler -] Aspirin Coated [Ecotrin -] 81 mg PO DAILY #30 tablet.ec 12/01/16 Diltiazem Cd [Cardizem Cd -] 120 mg PO DAILY #30 cap.cd.24h 12/01/16 Ramipril [Altace] 5 mg PO DAILY #30 capsule 12/01/16 Tiotropium [place] [Spiriva] 18 puff IH DAILY #1 inh 12/01/16 REVIEW OF SYSTEMS CONSTITUTIONAL: Absent: fever, chills, diaphoresis, generalized weakness, malaise, loss of appetite, weight change HEENT: Absent: rhinorrhea, nasal congestion, throat pain, throat swelling, difficulty swallowing, mouth swelling, ear pain, eye pain, visual changes CARDIOVASCULAR: Absent: chest pain, syncope, palpitations, irregular heart rate, lightheadedness , peripheral edema RESPIRATORY: (+)cough, shortness of breath, dyspnea with exertion,wheezing Absent: orthopnea, , stridor, hemoptysis GASTROINTESTINAL: Absent: abdominal pain, abdominal distension, nausea, vomiting, diarrhea, constipation, melena, hematochezia GENITOURINARY: Absent: dysuria, frequency, urgency, hesitancy, hematuria, flank pain, genital pain MUSCULOSKELETAL: Absent: myalgia, arthralgia, joint swelling, back pain, neck pain SKIN: Absent: rash, itching, pallor HEMATOLOGIC/IMMUNOLOGIC: Absent: easy bleeding, easy bruising, lymphadenopathy, frequent infections ENDOCRINE: Absent: unexplained weight gain, unexplained weight loss, heat intolerance, cold intolerance NEUROLOGIC: Absent: headache, focal weakness or paresthesias, dizziness, unsteady gait, seizure, mental status changes, bladder or bowel incontinence PSYCHIATRIC: Absent: anxiety, depression, suicidal or homicidal ideation, hallucinations. PHYSICAL EXAMINATION Vital Signs - 24 hr 01/07/17 01/07/17 01/07/17 22:01 22:47 22:59 Temperature Pulse Rate 104 H Pulse Rate [ Right Radial] Respiratory 18 Rate Blood Pressure 119/59 Blood Pressure [Left Arm] O2 Sat by Pulse 69 L 70 L 100 Oximetry (%) 01/07/17 23:13 Temperature 98.2 F Pulse Rate Pulse Rate [ 83 Right Radial] Respiratory 18 Rate Blood Pressure Blood Pressure 136/69 [Left Arm] O2 Sat by Pulse 98 Oximetry (%) GENERAL: Awake, alert, and fully oriented, mild distress. HEAD: Normal with no signs of trauma. EYES: Pupils equal, round and reactive to light, extraocular movements intact, sclera anicteric, conjunctiva clear. No lid lag. EARS, NOSE, THROAT: diminished hearing NECK:supple, no jvd or masses LUNGS: On BiPaP, course scattered rhonchi and wheezing, No accessory muscle use. HEART: Regular rate and rhythm, normal S1 and S2, 3/6 Systolic Ejection murmur, no rub or gallop. ABDOMEN: Soft, nontender, not distended, normoactive bowel sounds, no guarding, no rebound, no masses. No hepatomegaly or splenomegaly. MUSCULOSKELETAL: Normal range of motion at all joints. No bony deformities or tenderness. No CVA tenderness. UPPER EXTREMITIES: 2+ pulses, warm, well-perfused. No cyanosis. No peripheral edema. LOWER EXTREMITIES: 2+ pulses, warm, well-perfused. No calf tenderness. No peripheral edema. NEUROLOGICAL: Normal speech. gait not observed. PSYCHIATRIC: Cooperative. Good eye contact. Appropriate mood and affect. SKIN: Warm, dry, normal turgor, no rashes or lesions noted. Laboratory Results - last 24 hr 01/07/17 01/08/17 22:30 00:48 PTT (Actin FS) 29.3 Anticoagulation Therapy Y Puncture Site Left radial ABG pH 7.33 L ABG pCO2 at Pt Temp 59.5 H ABG pO2 at Pt Temp 118.0 H D ABG HCO3 30.6 H ABG O2 Sat (Measured) 97.6 ABG O2 Content 16.2 ABG Base Excess 3.8 H Adrci Test Positive Carboxyhemoglobin 1.9 Methemoglobin 1.2 O2 Delivery Device Bipap Oxygen Flow Rate 50% Vent Mode S/t Vent Rate 14 Mechanical Rate Y PEEP 0.0 Pressure Support Vent 14/4 ASSESSMENT/PLAN: 81 yo F with PMhx of COPD, HTN, colon CA s/p resection, current smoker admitted for acute exacerbation of COPD. Problem List - Problem (1) COPD with acute exacerbation Assessment/Plan: * Continue BiPaP overnight * maintain SpO2 >90% * Duonebs QID * Albuterol Q4H PRN * Solumedrol 40mg IV BID - BGM/RISS ACHS * Rocephin 1gm daily * Continue Aclidinium [place] ([place] -) 1 puff IH BID * ABG in AM (2) Paroxysmal a-fib Assessment/Plan: * Continue Cardizem 120 mg PO daily * not on AC as patient refused. * Consider Cardiology consult; Dr. Shirley - she was scheduled for event monitor as outpatient. (3) HTN (hypertension) Assessment/Plan: * Continue- Ramipril (Altace -) 5 mg PO DAILY * hold for SBP <100 (4) History of colon cancer Assessment/Plan: * s/p resection 2000 (5) DVT prophylaxis Assessment/Plan: * Heparin 5000 units BID. Visit type - Emergency Visit Emergency Visit: Yes ED Registration Date: 01/08/17 Care time: The patient presented to the Emergency Department on the above date and was hospitalized for further evaluation of their emergent condition. - New Patient This patient is new to me today: Yes Date on this admission: 01/08/17 - Critical Care Critical Care patient: No
[2017-01-08] MEDS ORDERED: ALBUTEROL SO4 2.5/IPRATROPIUM 0.5 INH SOL 3 ML VIAL.NEB. NEB ONE ×2 (01:55→06:27)
[2017-01-08] MEDS ORDERED: IPRATROPIUM BR 0.02% 0.5 MG/2.5 ML VIAL.NEB. NEB ONE (01:57)
[2017-01-08] MEDS: ALBUTEROL SO4 2.5/IPRATROPIUM 0.5 INH SOL 3 ML VIAL.NEB. NEB SCH ×4 (01:59→17:14)
[2017-01-08 02:41] LABS: INR 1.11 (0.82-1.09); PROTHROMBIN TIME (PATIENT) 12.2 SEC (9.98-11.88)
[2017-01-08 02:51] LABS: BASOPHIL 0.2 % (0-2.0); MCH 30.1 pg (25.7-33.7); MCHC 32.9 g/dl (32.0-36.0); MEAN CELL VOLUME 91.3 fl (80-96); NEUTROPHILS 94.3 % (42.8-82.8); PLATELET COUNT 217 K/MM3 (134-434); RDW 14.3 % (11.6-15.6); WHITE BLOOD COUNT 9.9 K/mm3 (4.0-10.0)
[2017-01-08 03:05] LABS: ALBUMIN 3.1 g/dl (3.4-5.0); ANION GAP 7 (8-16); BILIRUBIN,TOTAL 0.2 mg/dL (0.2-1.0); CALCIUM 7.9 mg/dL (8.5-10.1); CO2 32 mmol/L (21-32); CREATININE 0.6 mg/dL (0.55-1.02); GLUCOSE,RANDOM 141 mg/dL (74-106); SGOT/AST 23 U/L (15-37); SGPT/ALT 22 U/L (12-78); TOT PROT 5.9 g/dl (6.4-8.2)
[2017-01-08 03:06] LABS: ALK PHOS 64 U/L (45-117); TROPONIN I 0.02 ng/ml (0.00-0.05)
[2017-01-08] MEDS ORDERED: ALBUTEROL SO4 0.083% IH SOL 2.5 MG/3 ML VIAL.NEB. NEB ONE (06:28)
[2017-01-08] MEDS ORDERED: INSULIN SLIDING SCALE (NOVOLOG) 1 VIAL SQ SCH (07:00)
--- NOTE | 2017-01-08 09:34 | MSN ---
Progress Note (short form) - Note Progress Note: SUBJECTIVE: Pt seen and examined at bedside in ED. JAUN overnight. Pt has no complaints this morning and states her breathing is much improved since presenting to the ED last night. Admits to a productive cough with clear mucus and generalized weakness. Denies fevers, chills, chest pain, palpitations, nausea, vomiting, abdominal pain, diaphoresis, change in bowel movement, dysuria, or frequency. Active Medications Generic Name Dose Route Start Last Admin Trade Name Freq PRN Reason Stop Dose Admin Acetaminophen 650 mg 01/08/17 00:49 Tylenol - PO Q4H PRN FEVER OR PAIN Aclidinium [place] 1 puff 01/08/17 10:00 01/08/17 09:55 Tudorza - IH Not Given BID MASON Albuterol Sulfate 1 amp 01/08/17 00:49 Ventolin 0.083% Nebulizer Soln - NEB Q4H PRN SHORT OF BREATH/WHEEZING Albuterol/Ipratropium 1 amp 01/08/17 06:00 01/08/17 06:30 Duoneb - NEB 1 amp QIDR MASON Administration Aspirin 81 mg 01/08/17 10:00 01/08/17 10:01 Ecotrin - PO 81 mg DAILY MASON Administration Ceftriaxone Sodium 1 gm 01/08/17 10:00 01/08/17 10:58 Rocephin 1gm Ivpb (Pre-Docked) IVPB 1 gm DAILY MASON Administration Protocol Diltiazem HCl 120 mg 01/08/17 10:00 01/08/17 10:01 Cardizem Cd - PO 120 mg DAILY MASON Administration Heparin Sodium (Porcine) 5,000 unit 01/08/17 10:00 01/08/17 10:01 Heparin - SQ 5,000 unit BID MASON Administration Methylprednisolone Sodium Succinate 40 mg 01/08/17 10:00 01/08/17 10:02 Solu-Medrol - IVPB 40 mg BID MASON Administration Ondansetron HCl 4 mg 01/08/17 00:49 Zofran Injection IVPB Q6H PRN NAUSEA Pantoprazole Sodium 40 mg 01/08/17 10:00 01/08/17 10:01 Protonix - PO Not Given DAILY MASON Ramipril 5 mg 01/08/17 10:00 01/08/17 10:01 Altace - PO 5 mg DAILY [facility]ON Administration OBJECTIVE: Vital Signs Temperature 98.2 F 01/07/17 23:13 Pulse Rate 79 01/08/17 11:03 Respiratory Rate 18 01/08/17 11:03 Blood Pressure 138/67 01/08/17 11:03 O2 Sat by Pulse Oximetry (%) 95 01/08/17 11:03 GENERAL: AAOx3 in NAD on BiPAP 40% FiO2 HEAD: Normocephalic, atraumatic. PERRLA NECK: Trachea midline. No JVD. No LAD. No carotid bruits BL. Supple HEART: Regular rate and rhythm. +S1/S2. 2/6 systolic murmur heard best at R 2nd ICS > L 2nd ICS. No rubs/gallops LUNGS: CTAB with decreased breath sounds BL. No crackles/wheezing ABDOMEN: Soft, nondistended. Nontender to palpation. Normal BS heard. Dullness to percussion. No guarding/rebound EXTREMITIES: No edema in BL LE. Motor and sensation grossly intact. 5/5 elbow flexion/hip flexion/DF/PF. +2 DP pulse, +2 radial pulse NEURO: Normal speech. CNII-XII intact. CBC, BMP 01/08/17 02:28 01/08/17 02:28 A/P: Pt is a 81 yo F with a PMHx of COPD, HTN, and pAfib, brought into ED by son with respiratory distress and low oxygen saturation levels at home. Pt is being admitted for further management and observation. 1. Acute exacerbation of COPD -Improving. Pt was taken off BiPAP and is now saturating @95% on 3L NC -SoluMedrol 40mg IV BID. Given 125mg IV in ED -Tudorza 1 puff BID -DuoNeb 1 amp QID -Albuterol inhaler 1 amp Q4H prn -Rocephin 1gm IV daily. 1gm IV given in ED. Consider DC'ing. Pt is not presenting with CAP and has not met SIRS criteria since presentation. 2. pAfib -Continue Cardizem -Continue ASA 81mg PO daily -[id number] score: 4. AC indicated. -Discuss starting AC with pt or have pt FU with [employer] outpt 3. HTN -Stable -Continue Ramipril 5mg PO daily 4. Lung mass -s/p PET scan performed at [facility] -FU at [facility] for biopsy -Consider inpatient pulmonary consult 5. Aortic stenosis -s/p balloon valvuloplasty on 01/01/17 6. DVT/GI ppx -Heparin 5000U SQ BID -Protonix 40mg PO daily 7. FEN -No IVF -CBC, BMP WNL -Elevated glucose readings x2 (141, 184) -Start pt on sliding scale and BGMs -PO regular diet 8. Dispo -Admit to telemetry for further monitoring and management Jose Alberto Pelayo, MS3 Problem List - Problems (1) COPD with acute exacerbation (2) DVT prophylaxis (3) HTN (hypertension) (4) History of COPD (5) History of colon cancer (6) Paroxysmal a-fib
[2017-01-08] MEDS: ACLIDINIUM BROMIDE 400 MCG/INH AERO.POWD IH SCH ×2 (09:55→22:37)
[2017-01-08] MEDS: HEPARIN NA (PORCINE) 5,000 UNITS/ML 1ML VIAL SQ SCH ×2 (10:01→21:38)
[2017-01-08] MEDS: RAMIPRIL 5 MG CAPSULE (FP) PO SCH (10:01)
[2017-01-08] MEDS: ASPIRIN COATED 81 MG TABLET.EC PO SCH (10:01)
[2017-01-08] MEDS: PANTOPRAZOLE 40 MG TABLET (FP) PO SCH (10:01)
[2017-01-08] MEDS: methylPREDNISolone NA SUCC 40 MG/1 ML VIAL IVPB SCH ×2 (10:02→21:38)
[2017-01-08] MEDS ORDERED: CEFTRIAXONE 50 ML ONE (10:10)
[2017-01-08] MEDS: cefTRIAXone 1 GM/50 ML BAG (PRE-DOCKED) IVPB SCH (10:58)
[2017-01-08 11:56] VITALS: BMI 19.0
--- NOTE | 2017-01-08 13:08 | EKG ---
Test Reason : Blood Pressure : / mmHG Vent. Rate : 083 BPM Atrial Rate : 083 BPM P-R Int : 172 ms QRS Dur : 088 ms QT Int : 388 ms P-R-T Axes : 088 066 086 degrees QTc Int : 455 ms NORMAL SINUS RHYTHM POOR R WAVE PROGRESSION ANTERIOR INFARCT (CITED ON OR BEFORE 30-NOV-2016) ABNORMAL ECG WHEN COMPARED WITH ECG OF 30-NOV-2016 17:38, VENT. RATE HAS DECREASED Confirmed by ALISSA ANGEL MD ([id number]) on 01/08/2017 1:08:14 PM Referred By: Confirmed By:ALISSA ANGEL MD
--- NOTE | 2017-01-08 13:33 | CON.CARD ---
Cardiology Consult (text) - Consultation Consultation Note: 3/6 early PRESTON heard in apex, radiating to LUSB (?); decreases with Valsalva; no features concerning for severe ; Chief Complaint: sob History of Present Illness: 81 yo smoker with h/o recent diagnosis of severe undergoing [place]AVR eval [place] [facility] htn, afib, copd with hypoxia, recent diagnosis of lung mass , colon ca s/p resection presents with sob. Persistent hypoxia on that recent admission thought to be 2/2 severe copd. Was d/c on home oxygen but she returned it. Was using portable oxygen tank which was less cumbersome but it ran out of oxygen a few days ago. Since then with increasing fatigue. On day of presentation noted that her oxygen was low . + nasal congestion, myalgias 5 days ago. No f/c/s. + cough. hasn't smoked a cigarette in the past two weeks. no cp, stable sob, no orthopnea, pnd, le edema, palps, dizziness, bleeding or transient neurologic symptoms. No f/c/s, n/v/d, headache, rashes. PMH/PSHx: per hpi social: smoker, no etoh fam hx: Denies (no cmp) ros: per hpi Ambulatory Orders Albuterol Sulfate Inhaler - [Ventolin HFA Inhaler -] 2 puff IH Q4H PRN #0 inhaler 12/01/16 Aspirin Coated [Ecotrin -] 81 mg PO DAILY #30 tablet.ec 12/01/16 Diltiazem Cd [Cardizem Cd -] 120 mg PO DAILY #30 cap.cd.24h 12/01/16 Ramipril [Altace] 5 mg PO DAILY #30 capsule 12/01/16 Tiotropium [place] [Spiriva] 18 puff IH DAILY #1 inh 12/01/16 Current Medications Acetaminophen (Tylenol -) 650 mg PO Q4H PRN PRN Reason: FEVER OR PAIN Aclidinium [place] (Tudorza -) 1 puff IH BID [facility] Last Admin: 01/08/17 09:55 Dose: Not Given Albuterol Sulfate (Ventolin 0.083% Nebulizer Soln -) 1 amp NEB Q4H PRN PRN Reason: SHORT OF BREATH/WHEEZING Albuterol/Ipratropium (Duoneb -) 1 amp NEB QIDR [facility] Last Admin: 01/08/17 06:30 Dose: 1 amp Aspirin (Ecotrin -) 81 mg PO DAILY [facility] Last Admin: 01/08/17 10:01 Dose: 81 mg Ceftriaxone Sodium (Rocephin 1gm Ivpb (Pre-Docked)) 1 gm IVPB DAILY [facility] PRN Reason: Protocol Last Admin: 01/08/17 10:58 Dose: 1 gm Diltiazem HCl (Cardizem Cd -) 120 mg PO DAILY [facility] Last Admin: 01/08/17 10:01 Dose: 120 mg Heparin Sodium (Porcine) (Heparin -) 5,000 unit SQ BID [facility] Last Admin: 01/08/17 10:01 Dose: 5,000 unit Methylprednisolone Sodium Succinate (Solu-Medrol -) 40 mg IVPB BID [facility] Last Admin: 01/08/17 10:02 Dose: 40 mg Ondansetron HCl (Zofran Injection) 4 mg IVPB Q6H PRN PRN Reason: NAUSEA Pantoprazole Sodium (Protonix -) 40 mg PO DAILY [facility] Last Admin: 01/08/17 10:01 Dose: Not Given Ramipril (Altace -) 5 mg PO DAILY [facility] Last Admin: 01/08/17 10:01 Dose: 5 mg Vital Signs - 24 hr 01/07/17 01/07/17 01/07/17 22:01 22:47 22:59 Temperature Pulse Rate 104 H Pulse Rate [ Right Radial] Respiratory 18 Rate Blood Pressure 119/59 Blood Pressure [Left Arm] O2 Sat by Pulse 69 L 70 L 100 Oximetry (%) 01/07/17 01/08/17 01/08/17 23:13 02:53 04:30 Temperature 98.2 F Pulse Rate Pulse Rate [ 83 76 Right Radial] Respiratory 18 22 Rate Blood Pressure Blood Pressure 136/69 129/57 [Left Arm] O2 Sat by Pulse 98 90 L 96 Oximetry (%) 01/08/17 01/08/17 01/08/17 07:32 08:30 08:41 Temperature Pulse Rate 77 Pulse Rate [ 80 Right Radial] Respiratory 23 Rate Blood Pressure Blood Pressure 125/73 [Left Arm] O2 Sat by Pulse 98 96 98 Oximetry (%) 01/08/17 01/08/17 01/08/17 10:02 10:15 11:03 Temperature Pulse Rate 66 Pulse Rate [ 78 79 Right Radial] Respiratory 22 18 18 Rate Blood Pressure 117/70 Blood Pressure 146/88 138/67 [Left Arm] O2 Sat by Pulse 95 91 L 95 Oximetry (%) 01/08/17 11:25 Temperature Pulse Rate 73 Pulse Rate [ Right Radial] Respiratory Rate Blood Pressure Blood Pressure [Left Arm] O2 Sat by Pulse 92 L Oximetry (%) Intake & Output 01/06/17 01/07/17 01/08/17 01/09/17 07:59 07:59 07:59 07:59 Weight 91 lb 91 lb 0.003 oz Constitutional: Yes: Well Nourished, No Distress Eyes: No: Sclera Icterus HENT: No: Nasal Congestion Neck: No: Decreased ROM Respiratory: Yes: diminished breath sounds, Wheezes (faint). No: Accessory Muscle Use Gastrointestinal: Yes: Normal Bowel Sounds. No: Distention, Hepatomegaly, Palpable Mass, Tenderness Cardiovascular: Yes: Regular Rate and Rhythm JVD: No Carotid Bruit: No PMI: Non-Displaced Heart Sounds: Yes: S1, S2. No: Gallop Murmur: 2/6 sys murmur at sternal border. Musculoskeletal: Yes: Other (No kyphosis) Extremities: No: Cold, Cyanosis Edema: No Peripheral Pulses: 2+ Left Carotid, 2+ Right Carotid, 2+ Left Doralis Pedis, 2+ Right Dorsalis Pedis Integumentary: No: Jaundice Neurological: Yes: Alert, Oriented (x3) Psychiatric: No: Agitated - Other Data Labs, Other Data: CBC, BMP 01/08/17 02:28 01/08/17 02:28 Laboratory Tests 01/07/17 01/08/17 01/08/17 23:30 00:48 02:28 INR 1.11 ABG pH 7.33 L ABG pCO2 at Pt Temp 59.5 H ABG pO2 at Pt Temp 118.0 H D O2 Delivery Device Bipap Oxygen Flow Rate 50% Total Bilirubin 0.2 AST 23 ALT 22 Alkaline Phosphatase 64 Creatine Kinase Troponin I Albumin 3.1 L 01/08/17 02:28 INR ABG pH ABG pCO2 at Pt Temp ABG pO2 at Pt Temp O2 Delivery Device Oxygen Flow Rate Total Bilirubin AST ALT Alkaline Phosphatase Creatine Kinase 66 Troponin I 0.02 Albumin ekg: NSR, poor rwave progression cxr: no acute abnormalities per report. By my review evidence of chronic interstital changes. Poor penetration to assess YADIRA where patient has known consolidation. RHC/LHC with BAV: Pre and post BAV hemodynamics. LVEDP 22 --> 16, RA 10 --> 8, mPAP 35--> 25 AV peak grad 50 --> 20. 30-50% RCA disease, otherwise nl cors. [place] [facility] [place]: severe , severe calcification of asc aorta with protruding atheroma. severe asymmetric LV hypertrophy (1.8 at base), small focal LV aneursym. LLL spiculated mass concerning for malignancy F/u CT scan 12/2016: new mucus impaction of peripheral bronchial tree. patulous esophagus c/w dysmotility or reflux . PET [facility] [place]: Increased size of LLL area of consolidation 2.8 x 3.3 cm --> 6 x 6 cm. Heterogenous uptake LLL uptake with central focus (suspicious for malignancy). Uptake in left hilar node reactive vs metastatic. YADIRA mildly hypermetabolic ground glass changes infection/ inflammation Assessment/Plan SOB/hypoxia: - Patient with known hypoxia 2/2 copd and was off of home oxygen. - [place] [facility] [place]action of peripheral bronchial tree. At the time pulmonary consult felt there were no clinical signs of infection and therefore did not treat for pna, by their review there was no significant change from earlier CTA that admit. - Recent sick contacts and uri sx's would rule out superimposed infection, aspiration evaluation at discretion of pmd - mgm't of copd and coordination of home oxygen per pmd/pulm paroxysmal AF: - currently in SR. -CHADS VASC = 3, hence non-trivial risk of CVA from recurrent PAF, but has declined AC, willing to take ASA 81 would continue -no BB given copd with faint wheezing on exam. 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 Currently no signs or symptoms of valvular decompensation. HTN: -con't dilt, ramipril copd, without a.e.: -per pmd/pulm + tobacco - smoking cessation counseling.
--- NOTE | 2017-01-08 17:36 | PN ---
Physical Exam: SUBJECTIVE: Patient seen and examined OBJECTIVE: Vital Signs Period Temp Pulse Resp BP Sys/[place] Pulse Ox Last 24 Hr 98.4 F 66-80 18-23 117-146/57-88 90-98 GENERAL: The patient is awake, alert, and fully oriented, in no acute distress. HEAD: Normal with no signs of trauma. EYES: PERRL, extraocular movements intact, sclera anicteric, conjunctiva clear. No ptosis. ENT: Ears normal, nares patent, oropharynx clear without exudates, moist mucous membranes. NECK: Trachea midline, full range of motion, supple. LUNGS: Breath sounds equal, clear to auscultation bilaterally, no wheezes, no crackles, no accessory muscle use. HEART: Regular rate and rhythm, S1, S2 without murmur, rub or gallop. ABDOMEN: Soft, nontender, nondistended, normoactive bowel sounds, no guarding, no rebound, no hepatosplenomegaly, no masses. EXTREMITIES: 2+ pulses, warm, well-perfused, no edema. NEUROLOGICAL: Cranial nerves II through XII grossly intact. Normal speech, gait not observed. PSYCH: Normal mood, normal affect. SKIN: Warm, dry, normal turgor, no rashes or lesions noted Laboratory Results - last 24 hr 01/08/17 01/08/17 01/08/17 02:28 02:28 02:28 WBC 9.9 RBC 4.01 Hgb 12.1 Hct 36.6 MCV 91.3 MCHC 32.9 RDW 14.3 Plt Count 217 MPV 9.0 Neutrophils % 94.3 H Lymphocytes % 2.9 L Monocytes % 2.6 L Eosinophils % 0.0 Basophils % 0.2 Sodium 140 Potassium 4.6 Chloride 101 Carbon Dioxide 32 Anion Gap 7 L BUN 23 H Creatinine 0.6 Creat Clearance w eGFR > 60 POC Glucometer Random Glucose 141 H Calcium 7.9 L Total Bilirubin 0.2 AST 23 ALT 22 Alkaline Phosphatase 64 Creatine Kinase 66 Troponin I 0.02 Total Protein 5.9 L Albumin 3.1 L 01/08/17 08:31 WBC RBC Hgb Hct MCV MCHC RDW Plt Count MPV Neutrophils % Lymphocytes % Monocytes % Eosinophils % Basophils % Sodium Potassium Chloride Carbon Dioxide Anion Gap BUN Creatinine Creat Clearance w eGFR POC Glucometer 184.90000 Random Glucose Calcium Total Bilirubin AST ALT Alkaline Phosphatase Creatine Kinase Troponin I Total Protein Albumin Active Medications Generic Name Dose Route Start Last Admin Trade Name Manoj PRN Reason Stop Dose Admin Acetaminophen 650 mg 01/08/17 00:49 Tylenol - PO Q4H PRN FEVER OR PAIN Aclidinium [place] 1 puff 01/08/17 10:00 01/08/17 09:55 Tudorza - IH Not Given BID MASON Albuterol Sulfate 1 amp 01/08/17 00:49 Ventolin 0.083% Nebulizer Soln - NEB Q4H PRN SHORT OF BREATH/WHEEZING Albuterol/Ipratropium 1 amp 01/08/17 06:00 01/08/17 14:45 Duoneb - NEB Not Given QIDR [facility]ON Aspirin 81 mg 01/08/17 10:00 01/08/17 10:01 Ecotrin - PO 81 mg DAILY [facility]ON Administration Ceftriaxone Sodium 1 gm 01/08/17 10:00 01/08/17 10:58 Rocephin 1gm Ivpb (Pre-Docked) IVPB 1 gm DAILY [facility]ON Administration Protocol Diltiazem HCl 120 mg 01/08/17 10:00 01/08/17 10:01 Cardizem Cd - PO 120 mg DAILY [facility]ON Administration Heparin Sodium (Porcine) 5,000 unit 01/08/17 10:00 01/08/17 10:01 Heparin - SQ 5,000 unit BID MASON Administration Methylprednisolone Sodium Succinate 40 mg 01/08/17 10:00 01/08/17 10:02 Solu-Medrol - IVPB 40 mg BID MASON Administration Ondansetron HCl 4 mg 01/08/17 00:49 Zofran Injection IVPB Q6H PRN NAUSEA Pantoprazole Sodium 40 mg 01/08/17 10:00 01/08/17 10:01 Protonix - PO Not Given DAILY MASON Ramipril 5 mg 01/08/17 10:00 01/08/17 10:01 Altace - PO 5 mg DAILY [facility]ON Administration ASSESSMENT/PLAN:
--- NOTE | 2017-01-08 18:17 | PN ---
Teaching Attending Note Name of Resident: Gosia Espinosa ATTENDING PHYSICIAN STATEMENT I saw and evaluated the patient. I reviewed the resident's note and discussed the case with the resident. I agree with the resident's findings and plan as documented. SUBJECTIVE: Patient says cough and shortness of breath are "98% better". However , she becomes very dyspneic while speaking. OBJECTIVE: Vital Signs Period Temp Pulse Resp BP Sys/[place] Pulse Ox Last 24 Hr 98.2 F-98.4 F 66-104 18-23 117-146/57-88 69-100 HEART: S1 S2, RRR, (+) 2/6 systolic murmur LUNGS: Few wheezes ABDOMEN: Soft, non-tender, non-distended, normal BS EXTREMITIES: No edema ASSESSMENT AND PLAN: This is an 81-year-old woman with a history of COPD, HTN, colon cancer, severe , PAF who presented with cough and SOB. 1. Acute hypoxic and hypercapnic respiratory failure - Continue oxygen to maintain saturation >90% - BiPAP as needed - Pulmonary consult 2. Acute exacerbation of COPD - Continue SoluMedrol, Tudorza, DuoNeb, Albuterol nebs as needed 3. Lung mass - Had PET scan at [facility] 4. Probable chronic hypoxic respiratory failure - Patient was discharged from [facility] with oxygen but she refused it - Will re-evaluate for home O2 when stable prior to discharge 5. Hypertension - Continue Cardizem, Altace 6. Colon cancer, history of resection 7. Severe aortic stenosis - s/p balloon valvuloplasty at [facility] 8. Paroxysmal atrial fibrillation - Currently in sinus rhythm - Continue Cardizem - On aspirin because she has refused anticoagulation
--- NOTE | 2017-01-08 18:45 | PN ---
Physical Exam: SUBJECTIVE: Patient seen and examined. She states that her breathing is much better today. She denies cough, fever, chills, chest pain. She is on NC. OBJECTIVE: Vital Signs Period Temp Pulse Resp BP Sys/[place] Pulse Ox Last 24 Hr 98.4 F 66-80 18-23 117-146/57-88 90-98 GENERAL: The patient is awake, alert, and fully oriented, in no acute distress. HEAD: Normal with no signs of trauma. EYES: PERRL, extraocular movements intact, sclera anicteric, conjunctiva clear. No ptosis. ENT: Ears normal, nares patent, oropharynx clear without exudates, moist mucous membranes. NECK: Trachea midline, full range of motion, supple. LUNGS: wheezing bilaterally, no crackles, no accessory muscle use. HEART: Regular rate and rhythm, S1, S2 systolic murmur over right and left sternal border,no rub or gallop. ABDOMEN: Soft, nontender, nondistended, normoactive bowel sounds, no guarding, no rebound, no hepatosplenomegaly, no masses. EXTREMITIES: 2+ pulses, warm, well-perfused, no edema. NEUROLOGICAL: Normal speech, gait not observed. PSYCH: Normal mood, normal affect. SKIN: Warm, dry, normal turgor, no rashes or lesions noted Laboratory Results - last 24 hr 01/08/17 01/08/17 01/08/17 02:28 02:28 02:28 WBC 9.9 RBC 4.01 Hgb 12.1 Hct 36.6 MCV 91.3 MCHC 32.9 RDW 14.3 Plt Count 217 MPV 9.0 Neutrophils % 94.3 H Lymphocytes % 2.9 L Monocytes % 2.6 L Eosinophils % 0.0 Basophils % 0.2 Sodium 140 Potassium 4.6 Chloride 101 Carbon Dioxide 32 Anion Gap 7 L BUN 23 H Creatinine 0.6 Creat Clearance w eGFR > 60 POC Glucometer Random Glucose 141 H Calcium 7.9 L Total Bilirubin 0.2 AST 23 ALT 22 Alkaline Phosphatase 64 Creatine Kinase 66 Troponin I 0.02 Total Protein 5.9 L Albumin 3.1 L 01/08/17 08:31 WBC RBC Hgb Hct MCV MCHC RDW Plt Count MPV Neutrophils % Lymphocytes % Monocytes % Eosinophils % Basophils % Sodium Potassium Chloride Carbon Dioxide Anion Gap BUN Creatinine Creat Clearance w eGFR POC Glucometer 184.66663 Random Glucose Calcium Total Bilirubin AST ALT Alkaline Phosphatase Creatine Kinase Troponin I Total Protein Albumin Active Medications Generic Name Dose Route Start Last Admin Trade Name Freq PRN Reason Stop Dose Admin Acetaminophen 650 mg 01/08/17 00:49 Tylenol - PO Q4H PRN FEVER OR PAIN Aclidinium [place] 1 puff 01/08/17 10:00 01/08/17 09:55 Tudorza - IH Not Given BID MASON Albuterol Sulfate 1 amp 01/08/17 00:49 Ventolin 0.083% Nebulizer Soln - NEB Q4H PRN SHORT OF BREATH/WHEEZING Albuterol/Ipratropium 1 amp 01/08/17 06:00 01/08/17 17:14 Duoneb - NEB 1 amp QIDR [facility] Administration Aspirin 81 mg 01/08/17 10:00 01/08/17 10:01 Ecotrin - PO 81 mg DAILY [facility] Administration Ceftriaxone Sodium 1 gm 01/08/17 10:00 01/08/17 10:58 Rocephin 1gm Ivpb (Pre-Docked) IVPB 1 gm DAILY [facility] Administration Protocol Diltiazem HCl 120 mg 01/08/17 10:00 01/08/17 10:01 Cardizem Cd - PO 120 mg DAILY [facility] Administration Heparin Sodium (Porcine) 5,000 unit 01/08/17 10:00 01/08/17 10:01 Heparin - SQ 5,000 unit BID [facility] Administration Methylprednisolone Sodium Succinate 40 mg 01/08/17 10:00 01/08/17 10:02 Solu-Medrol - IVPB 40 mg BID [facility] Administration Ondansetron HCl 4 mg 01/08/17 00:49 Zofran Injection IVPB Q6H PRN NAUSEA Pantoprazole Sodium 40 mg 01/08/17 10:00 01/08/17 10:01 Protonix - PO Not Given DAILY [facility] Ramipril 5 mg 01/08/17 10:00 01/08/17 10:01 Altace - PO 5 mg DAILY [facility] Administration ASSESSMENT/PLAN: This is an 81-year-old woman with a history of COPD, HTN, colon cancer, severe , PAF who presented with cough and SOB. Acute hypoxic and hypercapnic respiratory failure/acute exacerbation of COPD - Continue oxygen to maintain saturation >90% - continue nebulizers, Solu-medrol 40 mg BID, - BiPAP as needed - Pulmonary consult -Tudorza, DuoNeb, Albuterol nebs as needed Lung mass - f/u Pulmonary recommendation, possible biopsy -she had PET scan at [facility] - Patient was discharged from [facility] with oxygen but she refused it Hypertension - Continue Cardizem, Altace Colon cancer -history of colon resection Severe aortic stenosis - s/p balloon valvuloplasty at [facility] Paroxysmal atrial fibrillation - Currently in sinus rhythm - Continue Cardizem - On aspirin because she has refused anticoagulation DVT PPX: -Heparin 5000 u SQ Disposition: Med surg, no plan for dc yet Visit type - Emergency Visit Emergency Visit: Yes ED Registration Date: 01/08/17 Care time: The patient presented to the Emergency Department on the above date and was hospitalized for further evaluation of their emergent condition. - New Patient This patient is new to me today: No - Critical Care Critical Care patient: No - Discharge Referral Referred to [facility] No
[2017-01-09] MEDS: ALBUTEROL SO4 2.5/IPRATROPIUM 0.5 INH SOL 3 ML VIAL.NEB. NEB SCH ×4 (00:19→18:35)
[2017-01-09] MEDS ORDERED: ACETAMINOPHEN 325 MG TABLET (FP) ONE (07:46)
[2017-01-09] MEDS ORDERED: PT OWN MED DRAWER 7, Y5N ONE (07:48)
[2017-01-09 07:54] LABS: BASOPHIL 0.2 % (0-2.0); MCH 29.4 pg (25.7-33.7); MCHC 31.8 g/dl (32.0-36.0); MEAN CELL VOLUME 92.4 fl (80-96); MEAN PLT VOLUME 8.9 fl (7.5-11.1); NEUTROPHILS 88.6 % (42.8-82.8); PLATELET COUNT 226 K/MM3 (134-434); RDW 14.1 % (11.6-15.6); WHITE BLOOD COUNT 16.4 K/mm3 (4.0-10.0)
[2017-01-09 08:22] LABS: ALBUMIN 2.7 g/dl (3.4-5.0); ANION GAP 8 (8-16); CO2 33 mmol/L (21-32); GLUCOSE,RANDOM 111 mg/dL (74-106); MAGNESIUM 2.6 mg/dL (1.8-2.4)
[2017-01-09 08:24] LABS: ALK PHOS 60 U/L (45-117); BILIRUBIN,TOTAL 0.2 mg/dL (0.2-1.0); CREATININE 0.5 mg/dL (0.55-1.02); SGOT/AST 31 U/L (15-37); SGPT/ALT 31 U/L (12-78); TOT PROT 5.5 g/dl (6.4-8.2)
[2017-01-09] MEDS: ACLIDINIUM BROMIDE 400 MCG/INH AERO.POWD IH SCH (10:50)
[2017-01-09] MEDS: cefTRIAXone 1 GM/50 ML BAG (PRE-DOCKED) IVPB SCH (10:55)
[2017-01-09] MEDS: PANTOPRAZOLE 40 MG TABLET (FP) PO SCH (10:55)
[2017-01-09] MEDS: HEPARIN NA (PORCINE) 5,000 UNITS/ML 1ML VIAL SQ SCH ×2 (10:55→21:57)
[2017-01-09] MEDS: ASPIRIN COATED 81 MG TABLET.EC PO SCH (10:55)
[2017-01-09] MEDS: RAMIPRIL 5 MG CAPSULE (FP) PO SCH (10:55)
[2017-01-09] MEDS: methylPREDNISolone NA SUCC 40 MG/1 ML VIAL IVPB SCH ×2 (10:55→17:38)
--- NOTE | 2017-01-09 11:15 | MSN ---
Progress Note (short form) - Note Progress Note: SUBJECTIVE: Pt seen and examined at bedside on floor. JAUN overnight. Pt has no complaints this morning and states her breathing is much improved since presenting to the ED. Denies fevers, chills, chest pain, SOB, palpitations, nausea, vomiting, abdominal pain, diaphoresis, change in bowel movement, dysuria, or frequency. Active Medications Generic Name Dose Route Start Last Admin Trade Name Freq PRN Reason Stop Dose Admin Acetaminophen 650 mg 01/08/17 00:49 Tylenol - PO Q4H PRN FEVER OR PAIN Aclidinium [place] 1 puff 01/08/17 10:00 01/09/17 10:50 Tudorza - IH Not Given BID MASON Albuterol Sulfate 1 amp 01/08/17 00:49 Ventolin 0.083% Nebulizer Soln - NEB Q4H PRN SHORT OF BREATH/WHEEZING Albuterol/Ipratropium 1 amp 01/08/17 06:00 01/09/17 05:52 Duoneb - NEB 1 amp QIDR MASON Administration Aspirin 81 mg 01/08/17 10:00 01/09/17 10:55 Ecotrin - PO 81 mg DAILY MASON Administration Ceftriaxone Sodium 1 gm 01/08/17 10:00 01/09/17 10:55 Rocephin 1gm Ivpb (Pre-Docked) IVPB 1 gm DAILY MASON Administration Protocol Diltiazem HCl 120 mg 01/08/17 10:00 01/09/17 10:55 Cardizem Cd - PO 120 mg DAILY MASON Administration Heparin Sodium (Porcine) 5,000 unit 01/08/17 10:00 01/09/17 10:55 Heparin - SQ 5,000 unit BID MASON Administration Methylprednisolone Sodium Succinate 40 mg 01/09/17 10:00 01/09/17 10:55 Solu-Medrol - IVPB 40 mg Q8H-IV MASON Administration Ondansetron HCl 4 mg 01/08/17 00:49 Zofran Injection IVPB Q6H PRN NAUSEA Pantoprazole Sodium 40 mg 01/08/17 10:00 01/09/17 10:55 Protonix - PO 40 mg DAILY MASON Administration Ramipril 5 mg 01/08/17 10:00 01/09/17 10:55 Altace - PO 5 mg DAILY MASON Administration OBJECTIVE: Vital Signs Period Temp Pulse Resp BP Sys/[place] Pulse Ox Last 24 Hr 97.6 F-98.4 F 66-80 18-20 120-136/59-78 91-97 GENERAL: AAOx3 in NAD on 3L NC. HEAD: Normocephalic, atraumatic. PERRLA NECK: Trachea midline. No JVD. Supple HEART: Regular rate and rhythm. +S1/S2. 2/6 systolic murmur heard best at R 2nd ICS > L 2nd ICS. No rubs/gallops LUNGS: Diffuse end expiratory rhonchi heard BL. Decreased lung sounds BL. No crackles heard ABDOMEN: Soft, nondistended. Nontender to palpation. Normal BS heard. Dullness to percussion. No guarding/rebound EXTREMITIES: No edema in BL LE. Motor and sensation grossly intact. NEURO: Normal speech. CNII-XII intact. CBC, BMP 01/09/17 06:00 01/09/17 06:00 A/P: Pt is a 81 yo F with a PMHx of COPD, HTN, and pAfib, brought into ED by son with respiratory distress and low oxygen saturation levels at home. Pt is being admitted for further management and observation. 1. Acute exacerbation of COPD -Improving. Pt was taken off BiPAP and is now saturating @89% on 3L NC -Change to SoluMedrol 40mg IV Q8H -Tudorza 1 puff BID -DuoNeb 1 amp QID -Albuterol inhaler 1 amp Q4H prn -Rocephin 1gm IV daily (3 doses total) 2. pAfib -Cardio consult appreciated -Continue Cardizem 120mg PO daily -Continue ASA 81mg PO daily -[id number] score: 4 -Discuss starting AC with pt or have pt FU with [facility] 3. HTN -Stable -Continue Ramipril 5mg PO daily 4. Lung mass -s/p PET scan performed at [facility] -FU at [facility] for biopsy -Pulmonary consult 5. Aortic stenosis -s/p balloon valvuloplasty on 01/01/17 6. DVT/GI ppx -Heparin 5000U SQ BID -Protonix 40mg PO daily 7. FEN -No IVF -CBC, BMP WNL -Diet changed to sodium restricted 8. Dispo -Admit to telemetry for further monitoring and management -Pt can be discharged home when breathing has improved clinically -Will need SW to assist in getting home oxygen for the pt Jose Alberto Pelayo, MS3 Problem List - Problems (1) COPD with acute exacerbation (2) DVT prophylaxis (3) HTN (hypertension) (4) History of COPD (5) History of colon cancer (6) Paroxysmal a-fib
[2017-01-09 11:18] LABS: URINE APPEARANCE CLEAR; URINE BILIRUBIN NEGATIVE (NEGATIVE); URINE BLOOD NEGATIVE (NEGATIVE); URINE COLOR YELLOW; URINE GLUCOSE (UA) NEGATIVE (NEGATIVE); URINE KETONE NEGATIVE (NEGATIVE); URINE LEUK ESTERASE NEGATIVE (NEGATIVE); URINE NITRITE NEGATIVE (NEGATIVE); URINE PROTEIN NEGATIVE (NEGATIVE); URINE UROBILINOGEN NEGATIVE E.U./dl (0.2-1.0)
--- NOTE | 2017-01-09 11:25 | CONSULT ---
Consultation: REQUESTING PROVIDER: CONSULT REQUEST: We have been asked to medically evaluate this patient for sob. HISTORY OF PRESENT ILLNESS: This is an 81 yo F heavy smoker (quit 2 w ago) with PMH of COPD O2 dependent, lung mass, HTN, Colon CA s/p resection, paroxysmal a fib and aortic stenosis s/ p balloon valvuloplasty, who presents due to worsening sob x 3d. She was at [place] recently for aortic balloon valvuloplasty. At that time CT scan showed a lung mass, It was PET enhancing and needle biopsy is planned outpatient at [facility]. She was d/cd on with home O2 2L (for the first time), with which she has been noncompliant on d/c. She also refused a/c. She states that at baseline she is never sob, even with climbing stairs. She felt well initially on d/c until 3 d ago she developed rhinorrhea, productive cough with clear sputum and worsening sob. her nebs alleviated sob only partially. She was found at home by her son, rivera on color with O2 sat 69%. She was initially placed on BIPAP but now sats 91% on 3L NC. she states she feels better and is ambulating in hallway. She denies f/c. She denies chest pain, abd pain, n/v, hemoptysis, diarrhea, h/a. REVIEW OF SYSTEMS: CONSTITUTIONAL: Absent: fever, chills, malaise, loss of appetite, weight change HEENT: Absent: throat pain, difficulty swallowing CARDIOVASCULAR: Absent: chest pain, syncope, palpitations, peripheral edema RESPIRATORY: Absent: orthopnea, wheezing, stridor, hemoptysis GASTROINTESTINAL: Absent: abdominal pain, abdominal distension, nausea, vomiting, diarrhea GENITOURINARY: Absent: dysuria MUSCULOSKELETAL: Absent:back pain, neck pain SKIN: Absent: rash, itching, pallor HEMATOLOGIC/IMMUNOLOGIC: Absent: frequent infections ENDOCRINE: Absent: unexplained weight gain, unexplained weight loss NEUROLOGIC: Absent: headache, focal weakness or paresthesias, dizziness PSYCHIATRIC: Absent: anxiety, depression PHYSICAL EXAMINATION Vital Signs - 24 hr 01/08/17 01/08/17 01/08/17 14:00 14:48 18:54 Temperature 98.4 F 97.7 F Pulse Rate 80 71 Respiratory 18 18 18 Rate Blood Pressure 120/78 134/59 O2 Sat by Pulse 93 L Oximetry (%) 01/08/17 01/08/17 01/09/17 21:00 22:00 00:19 Temperature 98 F Pulse Rate 74 66 Respiratory 20 Rate Blood Pressure 136/67 O2 Sat by Pulse 97 97 Oximetry (%) 01/09/17 01/09/17 01/09/17 02:00 06:00 10:33 Temperature 97.7 F 97.6 F Pulse Rate 69 70 80 Respiratory 20 18 Rate Blood Pressure 131/77 127/70 O2 Sat by Pulse 91 L Oximetry (%) GENERAL: Awake, alert, and fully oriented, in no acute distress. HEAD: Normal with no signs of trauma. EYES: Pupils equal, round and reactive to light, extraocular movements intact, sclera anicteric, conjunctiva clear. EARS, NOSE, THROAT: Moist mucous membranes. NECK: supple without JVD, or masses. LUNGS: diffusely restricted breath sounds, diffuse wheezed HEART: Regular rate and rhythm, normal S1 and S2 ABDOMEN: Soft, nontender, not distended, normoactive bowel sounds MUSCULOSKELETAL: No CVA tenderness. UPPER EXTREMITIES: 2+ pulses No peripheral edema. LOWER EXTREMITIES: 2+ pulses, No peripheral edema. NEUROLOGICAL: Cranial nerves II-XII grossly intact. PSYCHIATRIC: Cooperative. Good eye contact. Appropriate mood and affect. SKIN: Warm, dry Laboratory Results - last 24 hr 01/09/17 01/09/17 01/09/17 06:00 06:00 06:00 WBC 16.4 H D RBC 4.01 Hgb 11.8 Hct 37.0 MCV 92.4 MCHC 31.8 L RDW 14.1 Plt Count 226 MPV 8.9 Neutrophils % 88.6 H Lymphocytes % 4.2 L D Monocytes % 7.0 D Eosinophils % 0.0 Basophils % 0.2 PTT (Actin FS) 28.7 Sodium 140 Potassium 5.2 H Chloride 99 Carbon Dioxide 33 H Anion Gap 8 BUN 24 H Creatinine 0.5 L Creat Clearance w eGFR > 60 POC Glucometer Random Glucose 111 H D Calcium 8.0 L Phosphorus 4.0 Magnesium 2.6 H Total Bilirubin 0.2 AST 31 D ALT 31 D Alkaline Phosphatase 60 Total Protein 5.5 L Albumin 2.7 L 01/09/17 07:09 WBC RBC Hgb Hct MCV MCHC RDW Plt Count MPV Neutrophils % Lymphocytes % Monocytes % Eosinophils % Basophils % PTT (Actin FS) Sodium Potassium Chloride Carbon Dioxide Anion Gap BUN Creatinine Creat Clearance w eGFR POC Glucometer 120 Random Glucose Calcium Phosphorus Magnesium Total Bilirubin AST ALT Alkaline Phosphatase Total Protein Albumin Active Medications Generic Name Dose Route Start Last Admin Trade Name Freq PRN Reason Stop Dose Admin Acetaminophen 650 mg 01/08/17 00:49 Tylenol - PO Q4H PRN FEVER OR PAIN Aclidinium [place] 1 puff 01/08/17 10:00 01/09/17 10:50 Tudorza - IH Not Given BID MASON Albuterol Sulfate 1 amp 01/08/17 00:49 Ventolin 0.083% Nebulizer Soln - NEB Q4H PRN SHORT OF BREATH/WHEEZING Albuterol/Ipratropium 1 amp 01/08/17 06:00 01/09/17 05:52 Duoneb - NEB 1 amp QIDR MASON Administration Aspirin 81 mg 01/08/17 10:00 01/09/17 10:55 Ecotrin - PO 81 mg DAILY MASON Administration Ceftriaxone Sodium 1 gm 01/08/17 10:00 01/09/17 10:55 Rocephin 1gm Ivpb (Pre-Docked) IVPB 1 gm DAILY MASON Administration Protocol Diltiazem HCl 120 mg 01/08/17 10:00 01/09/17 10:55 Cardizem Cd - PO 120 mg DAILY MASON Administration Heparin Sodium (Porcine) 5,000 unit 01/08/17 10:00 01/09/17 10:55 Heparin - SQ 5,000 unit BID MASON Administration Methylprednisolone Sodium Succinate 40 mg 01/09/17 10:00 01/09/17 10:55 Solu-Medrol - IVPB 40 mg Q8H-IV MASON Administration Ondansetron HCl 4 mg 01/08/17 00:49 Zofran Injection IVPB Q6H PRN NAUSEA Pantoprazole Sodium 40 mg 01/08/17 10:00 01/09/17 10:55 Protonix - PO 40 mg DAILY MASON Administration Ramipril 5 mg 01/08/17 10:00 01/09/17 10:55 Altace - PO 5 mg DAILY MASON Administration ASSESSMENT/PLAN: Acute on chronic COPD exacerbation -likely superimposed URI -cant r/o PNA -afebrile -CXR no obvious infiltrate or mass -leukocytosis resolved -continue supplemental O2, will need O2 outpatient -Rocephin day 1 -albuterol, duoneb, spiriva -medrol 40 q8h Lung Mass -PET enhancing -fine needle biopsy planned at [facility] Aortic stenosis -s/p balloon valvuloplasty -refusing a/c -continue home cardiac meds -f/u with [facility] team Dispo: We will continue to follow the patient. Thank you for this consultative opportunity. Problem List - Problems (1) COPD with acute exacerbation Code(s): J44.1 - CHRONIC OBSTRUCTIVE PULMONARY DISEASE W (ACUTE) EXACERBATION (2) DVT prophylaxis Code(s): DVW9613 - (3) HTN (hypertension) Code(s): I10 - ESSENTIAL (PRIMARY) HYPERTENSION Qualifiers: Hypertension type: essential hypertension Qualified Code(s): I10 - Essential (primary) hypertension (4) History of COPD Code(s): Z87.09 - PERSONAL HISTORY OF OTHER DISEASES OF THE RESPIRATORY SYSTEM (5) History of colon cancer Code(s): Z85.038 - PERSONAL HISTORY OF MALIGNANT NEOPLASM OF LARGE INTESTINE (6) Paroxysmal a-fib Code(s): I48.0 - PAROXYSMAL ATRIAL FIBRILLATION (7) Lung mass Code(s): R91.8 - OTHER NONSPECIFIC ABNORMAL FINDING OF LUNG FIELD Visit type - Emergency Visit Emergency Visit: Yes ED Registration Date: 01/08/17 Care time: The patient presented to the Emergency Department on the above date and was hospitalized for further evaluation of their emergent condition. - New Patient This patient is new to me today: Yes Date on this admission: 01/09/17 - Critical Care Critical Care patient: No
--- NOTE | 2017-01-09 12:22 | CON.PULM ---
Consult Consult Specialty:: PULMONARY Referred by:: TRAN Reason for Consultation:: COPD/RESP FAILURE/HYPOXEMIA - History of Present Illness Chief Complaint: SOB/COUGH/WHEEZE History of Present Illness: 81 W FEMALE RECENT BALOON AORTIC VALVE REPAIR AT [facility] 2-3 WEEKS AGO FOUND TO HAVE A HYPERMETABOLIC LESION ON PET OF CHEST AND A NODE WITH [facility] ALSO RECENT AF TREATED WITH CARDIAZEM/PATIENT DECLINED ANTICOAGULTION NOW ADMITTED WITH ACUTE ON CHRONIC HYPOXEMIC RESPIRATORY FAILURE PATIENT WAS DISCHARGED FROM [facility] WITH HOME O2 WHICH SHE RETURNED. SHE HAD A RECENT SICK CONTACT AT HOME AND DOES ADMIT TO NASAL CONGESTION AND INCREASE IN COUGH WITH SCANT SPUTUM. - History Source History Provided By: Patient, Medical Record, Caregiver Limitations to Obtaining History: No Limitations - Past Medical History DENIAL RESOLUTION SPECIALIST: No: Alzheimer's Cardio/Vascular: Yes: AFIB, Aortic Stenosis, HTN, Pulmonary Hypertension Pulmonary: Yes: COPD, O2 Dependent, Pneumonia Gastrointestinal: No: Ascites Hepatobiliary: No: Cirrhosis Renal/: No: Renal Failure Reproductive: Yes: Postmenopausal Heme/Onc: Yes: Anemia Infectious Disease: No: AIDS Psych: No: Addictions Musculoskeletal: Yes: Osteoarthritis Rheumatology: No: Fibromyalgia Endocrine: No: Diabetes Mellitus - Past Surgical History Past Surgical History: Yes: Colectomy Additional Surgical History: BALLOON AORTIC LINDA RECENT REPAIR. AWAITING TAVR - Alcohol/Substance Use Hx Alcohol Use: No History of Substance Use: denies: None - Smoking History Smoking history: Current every day smoker Have you smoked in the past 12 months: Yes Aproximately how many cigarettes per day: 5 - Social History Usual Living Arrangement: With Child ADL: Independent Place of : [facility] History of Recent Travel: Yes ([place]) Home Medications - Allergies Allergies/Adverse Reactions: Allergies Allergy/AdvReac Type Severity Reaction Status Date / Time No Known Allergies Allergy Verified 01/07/17 22:01 - Home Medications Home Medications: Ambulatory Orders Albuterol Sulfate Inhaler - [Ventolin HFA Inhaler -] 2 puff IH Q4H PRN #0 inhaler 12/01/16 Aspirin Coated [Ecotrin -] 81 mg PO DAILY #30 tablet.ec 12/01/16 Diltiazem Cd [Cardizem Cd -] 120 mg PO DAILY #30 cap.cd.24h 12/01/16 Ramipril [Altace] 5 mg PO DAILY #30 capsule 12/01/16 Tiotropium [place] [Spiriva] 18 puff IH DAILY #1 inh 12/01/16 Family Disease History - Family Disease History Family History: Unremarkable Review of Systems - Review of Systems Constitutional: denies: Chills, Fever, Night Sweats, Unintentional Wgt. Loss Eyes: denies: Blind Spots HENT: denies: Difficult Swallowing Neck: denies: Decreased ROM Cardiovascular: reports: Palpitations, Shortness of Breath Respiratory: reports: Cough, SOB, SOB on Exertion, Wheezing. denies: Hemoptysis Gastrointestinal: denies: Abdominal Pain Genitourinary: reports: No Symptoms Breasts: reports: No Symptoms Reported Musculoskeletal: reports: No Symptoms Integumentary: reports: No Symptoms Neurological: reports: No Symptoms Endocrine: reports: No Symptoms Hematology/Lymphatic: reports: No Symptoms Psychiatric: reports: No Symptoms Physical Exam Vital Sings: Vital Signs Temperature 97.6 F 01/09/17 06:00 Pulse Rate 80 01/09/17 10:33 Respiratory Rate 18 01/09/17 06:00 Blood Pressure 127/70 01/09/17 06:00 O2 Sat by Pulse Oximetry (%) 91 L 01/09/17 10:33 Constitutional: Yes: Calm Eyes: Yes: EOM Intact HENT: Yes: Normocephalic Neck: Yes: Trachea Midline Cardiovascular: Yes: Regular Rate and Rhythm, Tachycardia Respiratory: Yes: Cough, Wheezes ...Clubbing: No Gastrointestinal: Yes: Normal Bowel Sounds Renal/: Yes: WNL Musculoskeletal: Yes: WNL Extremities: Yes: WNL Neurological: Yes: Alert ...Motor Strength: WNL Psychiatric: Yes: WNL Labs: CBC, BMP 01/09/17 06:00 01/09/17 06:00 ABG Results ABG pH 7.33 (7.35-7.45) L 01/08/17 00:48 ABG pCO2 at Pt Temp 59.5 mmHg (35-45) H 01/08/17 00:48 ABG pO2 at Pt Temp 118.0 mmHg (68-100) H D 01/08/17 00:48 ABG HCO3 30.6 meq/L (22-26) H 01/08/17 00:48 ABG O2 Sat (Measured) 97.6 % (90-98.9) 01/08/17 00:48 ABG O2 Content 16.2 % vol (15-22) 01/08/17 00:48 ABG Base Excess 3.8 meq/l (-2-2) H 01/08/17 00:48 REST REVIEWED Imaging - Results Chest X-ray: Image Reviewed EKG: Image Reviewed Problem List - Problems (1) COPD with acute exacerbation Code(s): J44.1 - CHRONIC OBSTRUCTIVE PULMONARY DISEASE W (ACUTE) EXACERBATION (2) HTN (hypertension) Code(s): I10 - ESSENTIAL (PRIMARY) HYPERTENSION Qualifiers: Hypertension type: essential hypertension Qualified Code(s): I10 - Essential (primary) hypertension (3) History of colon cancer Code(s): Z85.038 - PERSONAL HISTORY OF MALIGNANT NEOPLASM OF LARGE INTESTINE (4) Paroxysmal a-fib Code(s): I48.0 - PAROXYSMAL ATRIAL FIBRILLATION Assessment/Plan HAVE SPOKEN AT LENGTH WITH CUSTOM STUDIO COORDINATOR(DR GREY) WILL TREAT A/E COPD/CHRONIC RESP FAILURE PATIENT HAS A TEAM OF PHYSICIANS AT [facility] THAT WILL PERFORM A TRANS-THORACIC NEEDLE BX WHEN SHE IS CLINICALLY STABLE WE WILL TREAT WITH [facility]/LAMA/LABA/ICS/O2 SUPPLEMENTATION/ANTIBIOTICS WOULD ORDER INFLUENZA SWAB/SPUTUM CULTURE/GRAM STAIN/URINE ANTIGENS PATIENT NEEDS HOME O2 WILL FOLLOW THANKS FOR THE CONSULT Edmundo KENNY MD
[2017-01-09] MEDS ORDERED: ALBUTEROL SO4 0.083% IH SOL 2.5 MG/3 ML VIAL.NEB. NEB PRN (12:34)
--- NOTE | 2017-01-09 15:28 | PN ---
Teaching Attending Note Name of Resident: Gosia Espinosa ATTENDING PHYSICIAN STATEMENT I saw and evaluated the patient. I reviewed the resident's note and discussed the case with the resident. I agree with the resident's findings and plan as documented. Comfortable but still having some Rhonchi. Vital Signs Temperature 98.6 F 01/09/17 13:49 Pulse Rate 63 01/09/17 13:49 Respiratory Rate 16 01/09/17 13:49 Blood Pressure 110/51 01/09/17 13:49 O2 Sat by Pulse Oximetry (%) 91 L 01/09/17 14:40 CBCD WBC 16.4 K/mm3 (4.0-10.0) H D 01/09/17 06:00 RBC 4.01 M/mm3 (3.60-5.2) 01/09/17 06:00 Hgb 11.8 GM/dL (10.7-15.3) 01/09/17 06:00 Hct 37.0 % (32.4-45.2) 01/09/17 06:00 MCV 92.4 fl (80-96) 01/09/17 06:00 MCHC 31.8 g/dl (32.0-36.0) L 01/09/17 06:00 RDW 14.1 % (11.6-15.6) 01/09/17 06:00 Plt Count 226 K/MM3 (134-434) 01/09/17 06:00 MPV 8.9 fl (7.5-11.1) 01/09/17 06:00 CMP Sodium 140 mmol/L (136-145) 01/09/17 06:00 Potassium 5.2 mmol/L (3.5-5.1) H 01/09/17 06:00 Chloride 99 mmol/L (98-107) 01/09/17 06:00 Carbon Dioxide 33 mmol/L (21-32) H 01/09/17 06:00 Anion Gap 8 (8-16) 01/09/17 06:00 BUN 24 mg/dL (7-18) H 01/09/17 06:00 Creatinine 0.5 mg/dL (0.55-1.02) L 01/09/17 06:00 Creat Clearance w eGFR > 60 (>60) 01/09/17 06:00 Random Glucose 111 mg/dL (74-106) H D 01/09/17 06:00 Calcium 8.0 mg/dL (8.5-10.1) L 01/09/17 06:00 Total Bilirubin 0.2 mg/dL (0.2-1.0) 01/09/17 06:00 AST 31 U/L (15-37) D 01/09/17 06:00 ALT 31 U/L (12-78) D 01/09/17 06:00 Alkaline Phosphatase 60 U/L (45-117) 01/09/17 06:00 Total Protein 5.5 g/dl (6.4-8.2) L 01/09/17 06:00 Albumin 2.7 g/dl (3.4-5.0) L 01/09/17 06:00 CARDIAC ENZYMES Creatine Kinase 66 IU/L (26-192) 01/08/17 02:28 Troponin I 0.02 ng/ml (0.00-0.05) 01/08/17 02:28 Current Medications Generic Name Dose Route Start Last Admin Trade Name Freq PRN Reason Stop Dose Admin Acetaminophen 650 mg 01/08/17 00:49 Tylenol - PO Q4H PRN FEVER OR PAIN Albuterol Sulfate 1 amp 01/09/17 12:34 01/09/17 14:46 Ventolin 0.083% Nebulizer Soln - NEB 1 amp Q1H PRN Administration SHORT OF BREATH/WHEEZING Albuterol/Ipratropium 1 amp 01/08/17 06:00 01/09/17 12:10 Duoneb - NEB 1 amp QIDR MASON Administration Aspirin 81 mg 01/08/17 10:00 01/09/17 10:55 Ecotrin - PO 81 mg DAILY MASON Administration Ceftriaxone Sodium 1 gm 01/08/17 10:00 01/09/17 10:55 Rocephin 1gm Ivpb (Pre-Docked) IVPB 1 gm DAILY MASON Administration Protocol Diltiazem HCl 120 mg 01/08/17 10:00 01/09/17 10:55 Cardizem Cd - PO 120 mg DAILY MASON Administration Heparin Sodium (Porcine) 5,000 unit 01/08/17 10:00 01/09/17 10:55 Heparin - SQ 5,000 unit BID MASON Administration Methylprednisolone Sodium Succinate 40 mg 01/09/17 10:00 01/09/17 10:55 Solu-Medrol - IVPB 40 mg Q8H-IV MASON Administration Ondansetron HCl 4 mg 01/08/17 00:49 Zofran Injection IVPB Q6H PRN NAUSEA Pantoprazole Sodium 40 mg 01/08/17 10:00 01/09/17 10:55 Protonix - PO 40 mg DAILY MASON Administration Ramipril 5 mg 01/08/17 10:00 01/09/17 10:55 Altace - PO 5 mg DAILY MASON Administration Home Medications Medication Instructions Recorded Albuterol Sulfate Inhaler - 2 puff IH Q4H PRN #0 inhaler 12/01/16 [Ventolin HFA Inhaler -] Aspirin Coated [Ecotrin -] 81 mg PO DAILY #30 tablet.ec 12/01/16 Diltiazem Cd [Cardizem Cd -] 120 mg PO DAILY #30 cap.cd.24h 12/01/16 Ramipril [Altace] 5 mg PO DAILY #30 capsule 12/01/16 Tiotropium [place] [Spiriva] 18 puff IH DAILY #1 inh 12/01/16 HEART: S1 S2, RRR, (+) 2/6 systolic murmur LUNGS: positive for Rhonchi BL ABDOMEN: Soft, non-tender, non-distended, normal BS EXTREMITIES: No edema, no C/C/E ASSESSMENT AND PLAN: This is an 81-year-old woman with a history of COPD, HTN, colon cancer, severe , PAF who presented with cough and SOB. # Acute hypoxic on chronic hypoxic respiratory failure and hypercapnic respiratory failure due to COPD exacerbation and due to having Lung Mass on 3L oxygen keep saturation >90%, Patient was discharged from [facility] with oxygen but she refused it. On Rocephin continue BiPAP as needed, Pulmonary consult appreciated , on Neb.treatments, Will re- evaluate for home O2 prior to discharge, but as per patient is getting Oxygen delivered to her house . will check with a family member. # Acute Leukocytosis due to SoluMedrol will monitor # Acute exacerbation of COPD on SoluMedrol, Tudorza, DuoNeb, Albuterol nebs as needed # Lung mass s/p PET scan at [facility], don't have the result , upon discharge patient will follow up with her own Physicians at [place] # Hypertension continue Cardizem, Altace #Hx of Colon cancer with resection # Severe aortic stenosis s/p balloon valvuloplasty at [facility] # Paroxysmal atrial fibrillation currently in sinus rhythm, continue Cardizem, on aspirin 81mg since patient is refusing anticoagulation DVT Px: Heparin sq
--- NOTE | 2017-01-09 15:32 | PN ---
Physical Exam: SUBJECTIVE: Patient seen and examined. She is feeling good today. Her SOB improved. No overnight events. OBJECTIVE: Vital Signs Period Temp Pulse Resp BP Sys/Monroe Pulse Ox Last 24 Hr 97.6 F-98.6 F 63-80 16-20 110-136/51-77 91-97 GENERAL: The patient is awake, alert, and fully oriented, in no acute distress. HEAD: Normal with no signs of trauma. EYES: PERRL, extraocular movements intact, sclera anicteric, conjunctiva clear. No ptosis. ENT: Ears normal, nares patent, oropharynx clear without exudates, moist mucous membranes. NECK: Trachea midline, full range of motion, supple. LUNGS: wheezing bilaterally, no crackles, no accessory muscle use. HEART: Regular rate and rhythm, S1, S2 systolic murmur, rub or gallop. ABDOMEN: Soft, nontender, nondistended, normoactive bowel sounds, no guarding, no rebound, no hepatosplenomegaly, no masses. EXTREMITIES: 2+ pulses, warm, well-perfused, no edema. NEUROLOGICAL: Normal speech, gait not observed. PSYCH: Normal mood, normal affect. SKIN: Warm, dry, normal turgor, no rashes or lesions noted Laboratory Results - last 24 hr 01/09/17 01/09/17 01/09/17 06:00 06:00 06:00 WBC 16.4 H D RBC 4.01 Hgb 11.8 Hct 37.0 MCV 92.4 MCHC 31.8 L RDW 14.1 Plt Count 226 MPV 8.9 Neutrophils % 88.6 H Lymphocytes % 4.2 L D Monocytes % 7.0 D Eosinophils % 0.0 Basophils % 0.2 PTT (Actin FS) 28.7 Sodium 140 Potassium 5.2 H Chloride 99 Carbon Dioxide 33 H Anion Gap 8 BUN 24 H Creatinine 0.5 L Creat Clearance w eGFR > 60 POC Glucometer Random Glucose 111 H D Calcium 8.0 L Phosphorus 4.0 Magnesium 2.6 H Total Bilirubin 0.2 AST 31 D ALT 31 D Alkaline Phosphatase 60 Total Protein 5.5 L Albumin 2.7 L Urine Color Urine Appearance Urine pH Ur Specific [place] Urine Protein Urine Glucose (UA) Urine Ketones Urine Blood Urine Nitrite Urine Bilirubin Urine Urobilinogen Ur Leukocyte Esterase 01/09/17 01/09/17 07:09 10:30 WBC RBC Hgb Hct MCV MCHC RDW Plt Count MPV Neutrophils % Lymphocytes % Monocytes % Eosinophils % Basophils % PTT (Actin FS) Sodium Potassium Chloride Carbon Dioxide Anion Gap BUN Creatinine Creat Clearance w eGFR POC Glucometer 120 Random Glucose Calcium Phosphorus Magnesium Total Bilirubin AST ALT Alkaline Phosphatase Total Protein Albumin Urine Color Yellow Urine Appearance Clear Urine pH 6.0 Ur Specific [place] 1.025 Urine Protein Negative Urine Glucose (UA) Negative Urine Ketones Negative Urine Blood Negative Urine Nitrite Negative Urine Bilirubin Negative Urine Urobilinogen Negative Ur Leukocyte Esterase Negative Active Medications Generic Name Dose Route Start Last Admin Trade Name Freq PRN Reason Stop Dose Admin Acetaminophen 650 mg 01/08/17 00:49 Tylenol - PO Q4H PRN FEVER OR PAIN Albuterol Sulfate 1 amp 01/09/17 12:34 01/09/17 14:46 Ventolin 0.083% Nebulizer Soln - NEB 1 amp Q1H PRN Administration SHORT OF BREATH/WHEEZING Albuterol/Ipratropium 1 amp 01/08/17 06:00 01/09/17 12:10 Duoneb - NEB 1 amp QIDR [facility] Administration Aspirin 81 mg 01/08/17 10:00 01/09/17 10:55 Ecotrin - PO 81 mg DAILY [facility] Administration Ceftriaxone Sodium 1 gm 01/08/17 10:00 01/09/17 10:55 Rocephin 1gm Ivpb (Pre-Docked) IVPB 1 gm DAILY [facility] Administration Protocol Diltiazem HCl 120 mg 01/08/17 10:00 01/09/17 10:55 Cardizem Cd - PO 120 mg DAILY [facility] Administration Heparin Sodium (Porcine) 5,000 unit 01/08/17 10:00 01/09/17 10:55 Heparin - SQ 5,000 unit BID [facility] Administration Methylprednisolone Sodium Succinate 40 mg 01/09/17 10:00 01/09/17 10:55 Solu-Medrol - IVPB 40 mg Q8H-IV [facility] Administration Ondansetron HCl 4 mg 01/08/17 00:49 Zofran Injection IVPB Q6H PRN NAUSEA Pantoprazole Sodium 40 mg 01/08/17 10:00 01/09/17 10:55 Protonix - PO 40 mg DAILY [facility] Administration Ramipril 5 mg 01/08/17 10:00 01/09/17 10:55 Altace - PO 5 mg DAILY [facility] Administration ASSESSMENT/PLAN: This is an 81-year-old woman with a history of COPD, HTN, colon cancer, severe , PAF who presented with cough and SOB. Acute hypoxic and hypercapnic respiratory failure/acute exacerbation of COPD - Continue oxygen to maintain saturation >90% - continue nebulizers, Solu-medrol 40 mg BID, changed to Q8H - BiPAP as needed, currently on venti mask 40% - f/u Pulmonary consult -Tudorviolette DuoNeb, Albuterol nebs as needed Lung mass - f/u Pulmonary recommendation, possible biopsy -she had PET scan at [facility] - Patient was discharged from [facility] with oxygen but she refused it Hypertension - Continue Cardizem, Altace Colon cancer -history of colon resection Severe aortic stenosis - s/p balloon valvuloplasty at [facility] Paroxysmal atrial fibrillation - Currently in sinus rhythm - Continue Cardizem - On aspirin because she has refused anticoagulation DVT PPX: -Heparin 5000 u SQ Disposition: Med surg, no plan for dc yet Problem List - Problems (1) COPD with acute exacerbation Code(s): J44.1 - CHRONIC OBSTRUCTIVE PULMONARY DISEASE W (ACUTE) EXACERBATION (2) Lung mass Code(s): R91.8 - OTHER NONSPECIFIC ABNORMAL FINDING OF LUNG FIELD (3) DVT prophylaxis Code(s): NGN4298 - (4) History of colon cancer Code(s): Z85.038 - PERSONAL HISTORY OF MALIGNANT NEOPLASM OF LARGE INTESTINE Visit type - Emergency Visit Emergency Visit: Yes ED Registration Date: 01/08/17 Care time: The patient presented to the Emergency Department on the above date and was hospitalized for further evaluation of their emergent condition. - New Patient This patient is new to me today: No - Critical Care Critical Care patient: No - Discharge Referral Referred to [facility] Med [facility] No
--- NOTE | 2017-01-09 15:49 | PN ---
Progress Note (short form) - Note Progress Note: Chief Complaint: sob S: Denies sob, cp, palps, dizziness, cough. Still with overall fatigue. Ambulating. Hyperkalemic today Current Medications Acetaminophen (Tylenol -) 650 mg PO Q4H PRN PRN Reason: FEVER OR PAIN Albuterol Sulfate (Ventolin 0.083% Nebulizer Soln -) 1 amp NEB Q1H PRN PRN Reason: SHORT OF BREATH/WHEEZING Last Admin: 01/09/17 14:46 Dose: 1 amp Albuterol/Ipratropium (Duoneb -) 1 amp NEB QIDR [facility] Last Admin: 01/09/17 12:10 Dose: 1 amp Aspirin (Ecotrin -) 81 mg PO DAILY [facility] Last Admin: 01/09/17 10:55 Dose: 81 mg Ceftriaxone Sodium (Rocephin 1gm Ivpb (Pre-Docked)) 1 gm IVPB DAILY [facility] PRN Reason: Protocol Last Admin: 01/09/17 10:55 Dose: 1 gm Diltiazem HCl (Cardizem Cd -) 120 mg PO DAILY [facility] Last Admin: 01/09/17 10:55 Dose: 120 mg Heparin Sodium (Porcine) (Heparin -) 5,000 unit SQ BID [facility] Last Admin: 01/09/17 10:55 Dose: 5,000 unit Methylprednisolone Sodium Succinate (Solu-Medrol -) 40 mg IVPB Q8H-IV [facility] Last Admin: 01/09/17 10:55 Dose: 40 mg Ondansetron HCl (Zofran Injection) 4 mg IVPB Q6H PRN PRN Reason: NAUSEA Pantoprazole Sodium (Protonix -) 40 mg PO DAILY [facility] Last Admin: 01/09/17 10:55 Dose: 40 mg Ramipril (Altace -) 5 mg PO DAILY [facility] Last Admin: 01/09/17 10:55 Dose: 5 mg Vital Signs - 24 hr 01/08/17 01/08/17 01/08/17 18:54 21:00 22:00 Temperature 97.7 F 98 F Pulse Rate 71 74 Respiratory 18 20 Rate Blood Pressure 134/59 136/67 O2 Sat by Pulse 97 Oximetry (%) 01/09/17 01/09/17 01/09/17 00:19 02:00 06:00 Temperature 97.7 F 97.6 F Pulse Rate 66 69 70 Respiratory 20 18 Rate Blood Pressure 131/77 127/70 O2 Sat by Pulse 97 Oximetry (%) 01/09/17 01/09/17 01/09/17 09:00 10:33 13:49 Temperature 98.6 F Pulse Rate 80 63 Respiratory 16 16 Rate Blood Pressure 110/51 O2 Sat by Pulse 93 L 91 L Oximetry (%) 01/09/17 14:40 Temperature Pulse Rate Respiratory Rate Blood Pressure O2 Sat by Pulse 91 L Oximetry (%) Intake & Output 01/07/17 01/08/17 01/09/17 01/10/17 07:59 07:59 07:59 07:59 Intake Total 1400 350 Balance 1400 350 Weight 91 lb 91 lb 0.003 oz Constitutional: Yes: Well Nourished, No Distress Eyes: No: Sclera Icterus HENT: No: Nasal Congestion Neck: No: Decreased ROM Respiratory: Yes: diminished breath sounds, Wheezes (faint). No: Accessory Muscle Use Gastrointestinal: Yes: Normal Bowel Sounds. No: Distention, Hepatomegaly, Palpable Mass, Tenderness Cardiovascular: Yes: Regular Rate and Rhythm JVD: No Carotid Bruit: No PMI: Non-Displaced Heart Sounds: Yes: S1, S2. No: Gallop Murmur: 2/6 sys murmur at sternal border. Musculoskeletal: Yes: Other (No kyphosis) Extremities: No: Cold, Cyanosis Edema: No Peripheral Pulses: 2+ Left Carotid, 2+ Right Carotid, 2+ Left Doralis Pedis, 2+ Right Dorsalis Pedis Integumentary: No: Jaundice Neurological: Yes: Alert, Oriented (x3) Psychiatric: No: Agitated - Other Data Labs, Other Data: CBC, BMP 01/09/17 06:00 01/09/17 06:00 Laboratory Tests 01/09/17 06:00 Magnesium 2.6 H Albumin 2.7 L ekg: NSR, poor rwave progression cxr: no acute abnormalities per report. By my review evidence of chronic interstital changes. Poor penetration to assess YADIRA where patient has known consolidation. RHC/LHC with BAV: Pre and post BAV hemodynamics. LVEDP 22 --> 16, RA 10 --> 8, mPAP 35--> 25 AV peak grad 50 --> 20. 30-50% RCA disease, otherwise nl cors. [place] [facility] [place]: severe , severe calcification of asc aorta with protruding atheroma. severe asymmetric LV hypertrophy (1.8 at base), small focal LV aneursym. LLL spiculated mass concerning for malignancy F/u CT scan 12/2016: new mucus impaction of peripheral bronchial tree. patulous esophagus c/w dysmotility or reflux . [place] [facility] [place]: Increased size of LLL area of consolidation 2.8 x 3.3 cm --> 6 x 6 cm. Heterogenous uptake LLL uptake with central focus (suspicious for malignancy). Uptake in left hilar node reactive vs metastatic. YADIRA mildly hypermetabolic ground glass changes infection/ inflammation Assessment/Plan SOB/hypoxia: - Patient with known hypoxia thought to be 2/2 copd and was off of home oxygen. - Recent CT scan at [facility] [place] with mucus impaction of peripheral bronchial tree. At the time pulmonary consult felt there were no clinical signs of infection and therefore did not treat for pna, by their review there was no significant change from earlier CTA that admit. - Recent sick contacts and uri sx's. Infectous evaluation per pmd/pulm - mgm't of copd and coordination of home oxygen per pmd/pulm paroxysmal AF: - currently in SR. -CHADS VASC = 3, hence non-trivial risk of CVA from recurrent PAF, but has declined AC, willing to take ASA 81 would continue -no BB given copd with faint wheezing on exam. 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 Currently no signs or symptoms of valvular decompensation. - currently off diuretics. daily standing weights. HTN: -con't dilt, ramipril. Hyperkalemic today. Will hold ramipril tomorrow. copd, without a.e.: -per pmd/pulm + tobacco - smoking cessation counseling.
[2017-01-10] MEDS: ALBUTEROL SO4 2.5/IPRATROPIUM 0.5 INH SOL 3 ML VIAL.NEB. NEB SCH ×3 (00:17→11:45)
[2017-01-10] MEDS: methylPREDNISolone NA SUCC 40 MG/1 ML VIAL IVPB SCH ×3 (02:45→18:14)
[2017-01-10 07:39] LABS: MCH 29.9 pg (25.7-33.7); MCHC 32.4 g/dl (32.0-36.0); MEAN CELL VOLUME 92.2 fl (80-96); MEAN PLT VOLUME 9.3 fl (7.5-11.1); PLATELET COUNT 248 K/MM3 (134-434); RDW 14.4 % (11.6-15.6); WHITE BLOOD COUNT 22.2 K/mm3 (4.0-10.0)
[2017-01-10 08:03] LABS: CALCIUM 8.1 mg/dL (8.5-10.1)
[2017-01-10 08:06] LABS: CREATININE 0.7 mg/dL (0.55-1.02)
--- NOTE | 2017-01-10 08:24 | MSN ---
Progress Note (short form) - Note Progress Note: SUBJECTIVE: Pt seen and examined at bedside on floor. JAUN overnight. Pt c/o noticing new onset of swelling in her feet. Pt states she feels much better and breathing has improved significantly. Denies fevers, chills, chest pain, SOB, palpitations , nausea, vomiting, abdominal pain, diaphoresis, change in bowel movement, dysuria, or frequency. Pt admits to having BM yesterday. Active Medications Generic Name Dose Route Start Last Admin Trade Name Freq PRN Reason Stop Dose Admin Acetaminophen 650 mg 01/08/17 00:49 Tylenol - PO Q4H PRN FEVER OR PAIN Albuterol Sulfate 1 amp 01/09/17 12:34 01/09/17 14:46 Ventolin 0.083% Nebulizer Soln - NEB 1 amp Q1H PRN Administration SHORT OF BREATH/WHEEZING Albuterol/Ipratropium 1 amp 01/08/17 06:00 01/10/17 06:50 Duoneb - NEB 1 amp QIDR [facility] Administration Aspirin 81 mg 01/08/17 10:00 01/09/17 10:55 Ecotrin - PO 81 mg DAILY [facility] Administration Ceftriaxone Sodium 1 gm 01/08/17 10:00 01/09/17 10:55 Rocephin 1gm Ivpb (Pre-Docked) IVPB 1 gm DAILY [facility] Administration Protocol Diltiazem HCl 120 mg 01/08/17 10:00 01/09/17 10:55 Cardizem Cd - PO 120 mg DAILY [facility] Administration Heparin Sodium (Porcine) 5,000 unit 01/08/17 10:00 01/09/17 21:57 Heparin - SQ 5,000 unit BID [facility] Administration Methylprednisolone Sodium Succinate 40 mg 01/09/17 10:00 01/10/17 02:45 Solu-Medrol - IVPB 40 mg Q8H-IV [facility] Administration Ondansetron HCl 4 mg 01/08/17 00:49 Zofran Injection IVPB Q6H PRN NAUSEA Pantoprazole Sodium 40 mg 01/08/17 10:00 01/09/17 10:55 Protonix - PO 40 mg DAILY [facility] Administration OBJECTIVE: Vital Signs Period Temp Pulse Resp BP Sys/Monroe Pulse Ox Last 24 Hr 98 F-98.6 F 63-80 16-18 110-134/51-58 91-94 GENERAL: AAOx3 in NAD on 3L NC. HEAD: Normocephalic, atraumatic. PERRLA NECK: Trachea midline. No JVD. Supple HEART: Regular rate and rhythm. +S1/S2. 2/6 systolic murmur heard globally. LUNGS: Diffuse end expiratory rhonchi heard BL. Decreased lung sounds BL. No crackles heard ABDOMEN: Soft, nondistended. Nontender to palpation. Normal BS heard. No guarding/rebound EXTREMITIES: BL trace pedal edema. Motor and sensation grossly intact. NEURO: Normal speech. CNII-XII intact. A/P: Pt is a 81 yo F with a PMHx of COPD, HTN, and pAfib, brought into ED by son with respiratory distress and low oxygen saturation levels at home. Pt was admitted for further management and observation. 1. Acute exacerbation of COPD -Improving. Pt is saturating >90% on 3L NC consistently. -SoluMedrol 40mg IV Q8H -DuoNeb 1 amp QID -Albuterol inhaler 1 amp Q4H prn -Rocephin 1gm IV daily (3 doses total). 4th dose today -Pre/Post Results: Pre - 86% no O2. During - 84% no O2, 93% w/ 3L NC. 2. pAfib -Cardio consult appreciated -Continue Cardizem 120mg PO daily -Continue ASA 81mg PO daily -[id number] score: 4 -Have pt FU with seasoner hand to discuss AC 3. HTN -Stable -Ramipril 5mg PO daily held today per cardio rec 2/2 K+ of 5.2 yesterday 4. Lung mass -Pulmonary consult appreciated -Flu swab negative -Sputum gram stain/Cx pending -Urine Ag for legionella and S. pneumoniae negative -s/p PET scan performed at [facility] -FU at [facility] for biopsy per pulm rec 5. Aortic stenosis -s/p balloon valvuloplasty on 01/01/17 6. DVT/GI ppx -Heparin 5000U SQ BID -Protonix 40mg PO daily 7. FEN -No IVF -Elevated K+ of 5.2 same as yesterday -Consider EKG -CBC, BMP in AM -Diet changed to sodium restricted 8. Dispo -Admitted for further monitoring and management -Pt can be discharged home when breathing has improved clinically -Will need SW to assist in getting home oxygen for the pt Jose Alberto Pelayo, MS3 Problem List - Problems (1) COPD with acute exacerbation (2) DVT prophylaxis (3) HTN (hypertension) (4) History of COPD (5) History of colon cancer
[2017-01-10] MEDS: cefTRIAXone 1 GM/50 ML BAG (PRE-DOCKED) IVPB SCH (10:42)
[2017-01-10] MEDS: PANTOPRAZOLE 40 MG TABLET (FP) PO SCH (10:42)
[2017-01-10] MEDS: ASPIRIN COATED 81 MG TABLET.EC PO SCH (10:42)
[2017-01-10] MEDS: HEPARIN NA (PORCINE) 5,000 UNITS/ML 1ML VIAL SQ SCH (10:42)
[2017-01-10 11:14] LABS: PLATELET ESTIMATE ADEQUATE (NORMAL)
--- NOTE | 2017-01-10 11:16 | PN ---
Physical Exam: SUBJECTIVE: Patient seen and examined Patient resting in bed NAD. No acute events. Afebrile and hemodynamically stable. feels less sob. cough resolved. ambulating down hallway on 3L (94% at rest). denies f/c, cheest pain, abd pain, n/v, diarrhea or dysuria. . OBJECTIVE: Vital Signs Period Temp Pulse Resp BP Sys/Monroe Pulse Ox Last 24 Hr 98 F-98.6 F 63-76 16-18 110-134/51-58 91-94 GENERAL: Awake, alert, and fully oriented, in no acute distress. HEAD: Normal with no signs of trauma. EYES: Pupils equal, round and reactive to light, extraocular movements intact, sclera anicteric, conjunctiva clear. EARS, NOSE, THROAT: Moist mucous membranes. NECK: supple without JVD, or masses. LUNGS: decreased wheezing, better air movement. HEART: Regular rate and rhythm, normal S1 and S2 ABDOMEN: Soft, nontender, not distended, normoactive bowel sounds MUSCULOSKELETAL: No CVA tenderness. UPPER EXTREMITIES: 2+ pulses No peripheral edema. LOWER EXTREMITIES: 2+ pulses, No peripheral edema. NEUROLOGICAL: Cranial nerves II-XII grossly intact. PSYCHIATRIC: Cooperative. Good eye contact. Appropriate mood and affect. SKIN: Warm, dry Laboratory Results - last 24 hr 01/09/17 01/09/17 01/10/17 10:30 17:37 06:00 WBC RBC Hgb Hct MCV MCHC RDW Plt Count MPV Neutrophils % Lymphocytes % Band Neutrophils Differential Comment Platelet Estimate Sodium 141 Potassium 5.2 H Chloride 101 Carbon Dioxide 35 H Anion Gap 5 L BUN 24 H Creatinine 0.7 D POC Glucometer 140 Random Glucose 116 H Calcium 8.1 L Urine Color Yellow Urine Appearance Clear Urine pH 6.0 Ur Specific [place] 1.025 Urine Protein Negative Urine Glucose (UA) Negative Urine Ketones Negative Urine Blood Negative Urine Nitrite Negative Urine Bilirubin Negative Urine Urobilinogen Negative Ur Leukocyte Esterase Negative 01/10/17 06:00 WBC 22.2 H D RBC 4.05 Hgb 12.1 Hct 37.3 MCV 92.2 MCHC 32.4 RDW 14.4 Plt Count 248 MPV 9.3 Neutrophils % 97.0 H Lymphocytes % 2.0 L D Band Neutrophils 1.0 Differential Comment Manual diff done Platelet Estimate Adequate Sodium Potassium Chloride Carbon Dioxide Anion Gap BUN Creatinine POC Glucometer Random Glucose Calcium Urine Color Urine Appearance Urine pH Ur Specific [place] Urine Protein Urine Glucose (UA) Urine Ketones Urine Blood Urine Nitrite Urine Bilirubin Urine Urobilinogen Ur Leukocyte Esterase Active Medications Generic Name Dose Route Start Last Admin Trade Name Freq PRN Reason Stop Dose Admin Acetaminophen 650 mg 01/08/17 00:49 Tylenol - PO Q4H PRN FEVER OR PAIN Albuterol Sulfate 1 amp 01/09/17 12:34 01/09/17 14:46 Ventolin 0.083% Nebulizer Soln - NEB 1 amp Q1H PRN Administration SHORT OF BREATH/WHEEZING Albuterol/Ipratropium 1 amp 01/08/17 06:00 01/10/17 06:50 Duoneb - NEB 1 amp QIDR [facility] Administration Aspirin 81 mg 01/08/17 10:00 01/10/17 10:42 Ecotrin - PO 81 mg DAILY [facility] Administration Ceftriaxone Sodium 1 gm 01/08/17 10:00 01/10/17 10:42 Rocephin 1gm Ivpb (Pre-Docked) IVPB 1 gm DAILY [facility] Administration Protocol Diltiazem HCl 120 mg 01/08/17 10:00 01/10/17 10:42 Cardizem Cd - PO 120 mg DAILY [facility] Administration Heparin Sodium (Porcine) 5,000 unit 01/08/17 10:00 01/10/17 10:42 Heparin - SQ 5,000 unit BID [facility] Administration Methylprednisolone Sodium Succinate 40 mg 01/09/17 10:00 01/10/17 10:42 Solu-Medrol - IVPB 40 mg Q8H-IV [facility] Administration Ondansetron HCl 4 mg 01/08/17 00:49 Zofran Injection IVPB Q6H PRN NAUSEA Pantoprazole Sodium 40 mg 01/08/17 10:00 01/10/17 10:42 Protonix - PO 40 mg DAILY [facility] Administration ASSESSMENT/PLAN: Acute on chronic COPD exacerbation -likely superimposed URI -cant r/o PNA -afebrile -CXR no obvious infiltrate or mass -leukocytosis resolved -continue supplemental O2, will need O2 outpatient -Rocephin day 2 -albuterol, duoneb, spiriva -can switch to PO steroids. -primary team planning d/c on home O2 Lung Mass -PET enhancing -fine needle biopsy planned at [facility] Aortic stenosis -s/p balloon valvuloplasty -refusing a/c -continue home cardiac meds -f/u with [facility] team Dispo: We will continue to follow the patient. Thank you for this consultative opportunity. Problem List - Problems (1) COPD with acute exacerbation Code(s): J44.1 - CHRONIC OBSTRUCTIVE PULMONARY DISEASE W (ACUTE) EXACERBATION (2) DVT prophylaxis Code(s): ZNF2504 - (3) HTN (hypertension) Code(s): I10 - ESSENTIAL (PRIMARY) HYPERTENSION Qualifiers: Hypertension type: essential hypertension Qualified Code(s): I10 - Essential (primary) hypertension (4) History of COPD Code(s): Z87.09 - PERSONAL HISTORY OF OTHER DISEASES OF THE RESPIRATORY SYSTEM (5) History of colon cancer Code(s): Z85.038 - PERSONAL HISTORY OF MALIGNANT NEOPLASM OF LARGE INTESTINE (6) Paroxysmal a-fib Code(s): I48.0 - PAROXYSMAL ATRIAL FIBRILLATION (7) Lung mass Code(s): R91.8 - OTHER NONSPECIFIC ABNORMAL FINDING OF LUNG FIELD Visit type - Emergency Visit Emergency Visit: Yes ED Registration Date: 01/08/17 Care time: The patient presented to the Emergency Department on the above date and was hospitalized for further evaluation of their emergent condition. - New Patient This patient is new to me today: No - Critical Care Critical Care patient: No - Discharge Referral Referred to [facility] Med P.C.: No
--- NOTE | 2017-01-10 12:43 | PN ---
Progress Note, Physician History of Present Illness: pulmonary alert,oob-chair,feeling better,less dyspneic. - Current Medication List Current Medications: Active Medications Acetaminophen (Tylenol -) 650 mg PO Q4H PRN PRN Reason: FEVER OR PAIN Albuterol Sulfate (Ventolin 0.083% Nebulizer Soln -) 1 amp NEB Q1H PRN PRN Reason: SHORT OF BREATH/WHEEZING Last Admin: 01/09/17 14:46 Dose: 1 amp Albuterol/Ipratropium (Duoneb -) 1 amp NEB QIDR [facility] Last Admin: 01/10/17 11:45 Dose: 1 amp Aspirin (Ecotrin -) 81 mg PO DAILY [facility] Last Admin: 01/10/17 10:42 Dose: 81 mg Ceftriaxone Sodium (Rocephin 1gm Ivpb (Pre-Docked)) 1 gm IVPB DAILY [facility] PRN Reason: Protocol Last Admin: 01/10/17 10:42 Dose: 1 gm Diltiazem HCl (Cardizem Cd -) 120 mg PO DAILY [facility] Last Admin: 01/10/17 10:42 Dose: 120 mg Heparin Sodium (Porcine) (Heparin -) 5,000 unit SQ BID [facility] Last Admin: 01/10/17 10:42 Dose: 5,000 unit Methylprednisolone Sodium Succinate (Solu-Medrol -) 40 mg IVPB Q8H-IV [facility] Last Admin: 01/10/17 10:42 Dose: 40 mg Ondansetron HCl (Zofran Injection) 4 mg IVPB Q6H PRN PRN Reason: NAUSEA Pantoprazole Sodium (Protonix -) 40 mg PO DAILY [facility] Last Admin: 01/10/17 10:42 Dose: 40 mg - Objective Vital Signs: Vital Signs Temperature 98.2 F 01/10/17 06:00 Pulse Rate 78 01/10/17 11:47 Respiratory Rate 18 01/10/17 06:00 Blood Pressure 134/58 01/10/17 06:00 O2 Sat by Pulse Oximetry (%) 93 L 01/10/17 11:47 Constitutional: Yes: Calm, Thin Eyes: Yes: WNL HENT: Yes: WNL Neck: Yes: Supple Cardiovascular: Yes: Regular Rate and Rhythm, S1, S2 Respiratory: Yes: Diminished, Wheezes (FEW WHEEZES) Gastrointestinal: Yes: WNL Extremities: Yes: WNL Edema: No Labs: CBC, BMP 01/10/17 06:00 01/10/17 06:00 INR, PTT INR 1.11 (0.82-1.09) 01/07/17 23:30 - ....Imaging Chest X-ray: Report Reviewed, Image Reviewed Problem List - Problems (1) Acute on chronic respiratory failure with hypoxia and hypercapnia Code(s): J96.21 - ACUTE AND CHRONIC RESPIRATORY FAILURE WITH HYPOXIA J96.22 - ACUTE AND CHRONIC RESPIRATORY FAILURE WITH HYPERCAPNIA Assessment/Plan Problem List - Problems (1) COPD with acute exacerbation Code(s): J44.1 - CHRONIC OBSTRUCTIVE PULMONARY DISEASE W (ACUTE) EXACERBATION (2) HTN (hypertension) Code(s): I10 - ESSENTIAL (PRIMARY) HYPERTENSION Qualifiers: Hypertension type: essential hypertension Qualified Code(s): I10 - Essential (primary) hypertension (3) History of colon cancer Code(s): Z85.038 - PERSONAL HISTORY OF MALIGNANT NEOPLASM OF LARGE INTESTINE (4) Paroxysmal a-fib Code(s): I48.0 - PAROXYSMAL ATRIAL FIBRILLATION ACUTE ON CHRONIC HYPOXEMIC/HYPERCAPNEIC RESPIRATORY FAILURE Assessment/Plan INHALED BRONCHODILATORS STEROID TAPER O2 BIPAP PRN ANTIBIOTICS PATIENT NEEDS HOME O2 CT GUIDED BX [facility] RYAN
[2017-01-10] MEDS ORDERED: ALBUTEROL SO4 0.083% IH SOL 2.5 MG/3 ML VIAL.NEB. NEB PRN (12:47)
[2017-01-10] MEDS ORDERED: BUDESONIDE/FORMETEROL FUMARATE 160/4.5 mcg INHALER IH SCH (13:00)
[2017-01-10] MEDS ORDERED: TIOTROPIUM BROMIDE 18 MCG/INH (DEVICE W/ 5 CAPSULES) IH SCH (13:15)
[2017-01-10 14:22] VITALS: BP 135/53; PULSE 66; TEMP 97.7
--- NOTE | 2017-01-10 15:00 | PN ---
Teaching Attending Note Name of Resident: Gosia Espinosa ATTENDING PHYSICIAN STATEMENT I saw and evaluated the patient. I reviewed the resident's note and discussed the case with the resident. I agree with the resident's findings and plan as documented. Vital Signs Temperature 97.7 F 01/10/17 14:20 Pulse Rate 66 01/10/17 14:20 Respiratory Rate 18 01/10/17 14:20 Blood Pressure 135/53 01/10/17 14:20 O2 Sat by Pulse Oximetry (%) 93 L 01/10/17 11:47 CBCD WBC 22.2 K/mm3 (4.0-10.0) H D 01/10/17 06:00 RBC 4.05 M/mm3 (3.60-5.2) 01/10/17 06:00 Hgb 12.1 GM/dL (10.7-15.3) 01/10/17 06:00 Hct 37.3 % (32.4-45.2) 01/10/17 06:00 MCV 92.2 fl (80-96) 01/10/17 06:00 MCHC 32.4 g/dl (32.0-36.0) 01/10/17 06:00 RDW 14.4 % (11.6-15.6) 01/10/17 06:00 Plt Count 248 K/MM3 (134-434) 01/10/17 06:00 MPV 9.3 fl (7.5-11.1) 01/10/17 06:00 CMP Sodium 141 mmol/L (136-145) 01/10/17 06:00 Potassium 5.2 mmol/L (3.5-5.1) H 01/10/17 06:00 Chloride 101 mmol/L (98-107) 01/10/17 06:00 Carbon Dioxide 35 mmol/L (21-32) H 01/10/17 06:00 Anion Gap 5 (8-16) L 01/10/17 06:00 BUN 24 mg/dL (7-18) H 01/10/17 06:00 Creatinine 0.7 mg/dL (0.55-1.02) D 01/10/17 06:00 Creat Clearance w eGFR > 60 (>60) 01/09/17 06:00 Random Glucose 116 mg/dL (74-106) H 01/10/17 06:00 Calcium 8.1 mg/dL (8.5-10.1) L 01/10/17 06:00 Total Bilirubin 0.2 mg/dL (0.2-1.0) 01/09/17 06:00 AST 31 U/L (15-37) D 01/09/17 06:00 ALT 31 U/L (12-78) D 01/09/17 06:00 Alkaline Phosphatase 60 U/L (45-117) 01/09/17 06:00 Total Protein 5.5 g/dl (6.4-8.2) L 01/09/17 06:00 Albumin 2.7 g/dl (3.4-5.0) L 01/09/17 06:00 CARDIAC ENZYMES Creatine Kinase 66 IU/L (26-192) 01/08/17 02:28 Troponin I 0.02 ng/ml (0.00-0.05) 01/08/17 02:28 Current Medications Generic Name Dose Route Start Last Admin Trade Name Freq PRN Reason Stop Dose Admin Acetaminophen 650 mg 01/08/17 00:49 Tylenol - PO Q4H PRN FEVER OR PAIN Albuterol Sulfate 1 amp 01/09/17 12:34 01/09/17 14:46 Ventolin 0.083% Nebulizer Soln - NEB 1 amp Q1H PRN Administration SHORT OF BREATH/WHEEZING Albuterol Sulfate 1 amp 01/10/17 12:47 Ventolin 0.083% Nebulizer Soln - NEB Q4H PRN SHORT OF BREATH/WHEEZING Aspirin 81 mg 01/08/17 10:00 01/10/17 10:42 Ecotrin - PO 81 mg DAILY MASON Administration Budesonide/Formoterol Fumarate 2 puff 01/10/17 13:00 Symbicort 160/4.5mcg - IH BID MASON Ceftriaxone Sodium 1 gm 01/08/17 10:00 01/10/17 10:42 Rocephin 1gm Ivpb (Pre-Docked) IVPB 1 gm DAILY MASON Administration Protocol Diltiazem HCl 120 mg 01/08/17 10:00 01/10/17 10:42 Cardizem Cd - PO 120 mg DAILY MASON Administration Heparin Sodium (Porcine) 5,000 unit 01/08/17 10:00 01/10/17 10:42 Heparin - SQ 5,000 unit BID MASON Administration Methylprednisolone Sodium Succinate 40 mg 01/09/17 10:00 01/10/17 10:42 Solu-Medrol - IVPB 40 mg Q8H-IV MASON Administration Ondansetron HCl 4 mg 01/08/17 00:49 Zofran Injection IVPB Q6H PRN NAUSEA Pantoprazole Sodium 40 mg 01/08/17 10:00 01/10/17 10:42 Protonix - PO 40 mg DAILY [facility]ON Administration Tiotropium [place] 1 puff 01/10/17 13:15 Spiriva - IH DAILY [facility] Home Medications Medication Instructions Recorded Albuterol Sulfate Inhaler - 2 puff IH Q4H PRN #0 inhaler 12/01/16 [Ventolin HFA Inhaler -] Aspirin Coated [Ecotrin -] 81 mg PO DAILY #30 tablet.ec 12/01/16 Diltiazem Cd [Cardizem Cd -] 120 mg PO DAILY #30 cap.cd.24h 12/01/16 Ramipril [Altace] 5 mg PO DAILY #30 capsule 12/01/16 Tiotropium [place] [Spiriva] 18 puff IH DAILY #1 inh 12/01/16 Cefuroxime Axetil [Ceftin -] 500 mg PO Q12H #14 tablet 01/10/17 Prednisone [Deltasone -] 40 mg PO ASDIR #30 tab 01/10/17 Patient is comfortable with no acute distress, no shortness of breath, No fever or chills. Wants to go home. HEART: S1 S2, RRR, (+) 2/6 systolic murmur LUNGS: minimal rhonchi on the right upper lung ABDOMEN: Soft, non-tender, non-distended, normal BS EXTREMITIES: No edema, no C/C/E NEURO: AA0x3 ASSESSMENT AND PLAN: This is an 81-year-old woman with a history of COPD, HTN, colon cancer, severe , PAF who presented with cough and SOB. # Acute hypoxic on chronic hypoxic respiratory failure and hypercapnic respiratory failure due to COPD exacerbation and due to having Lung Mass on 3L oxygen keep saturation >90%, Patient Pre and post oxygen on RA 86% and 84% ; 93% on 3liter oxygen. will discharge patient home on Oxygen 3liter, prednisone tepered dose and ceftin 500mg po q12h x 7 more days. # Leukocytosis due to SoluMedrol will discontinue with prdnisone tepered dose # Acute exacerbation of COPD improved ,getting discharged on Prednisone , Tudorza, DuoNeb, Albuterol nebs as needed # Lung mass s/p PET scan at [facility], don't have the result , upon discharge patient will follow up with her own Physicians at [place] # Hypertension continue Cardizem, , hold Altace since potassium is 5.2 #Hx of Colon cancer with resection # Severe aortic stenosis s/p balloon valvuloplasty at [facility] # Paroxysmal atrial fibrillation currently in sinus rhythm, continue Cardizem, on aspirin 81mg since patient is refusing anticoagulation discharge patient home.
--- NOTE | 2017-01-10 16:41 | DS ---
Physical Exam: SUBJECTIVE: Patient seen and examined. She is feeling much better today. Her SOB improved. She denies cough fever, chest pain. OBJECTIVE: Vital Signs Period Temp Pulse Resp BP Sys/[place] Pulse Ox Last 24 Hr 97.7 F-98.4 F 66-78 18-20 124-135/48-58 92-96 PHYSICAL EXAM GENERAL: The patient is awake, alert, and fully oriented, in no acute distress. HEAD: Normal with no signs of trauma. EYES: extraocular movements intact, sclera anicteric, conjunctiva clear. ENT: Ears normal, nares patent, oropharynx clear without exudates, moist mucous membranes. NECK: Trachea midline, full range of motion, supple. LUNGS: wheezing bilaterally, no crackles, no accessory muscle use. HEART: Regular rate and rhythm, S1, S2 systolic murmur over right and left sternal border, radiating to neck. ABDOMEN: Soft, nontender, nondistended, normoactive bowel sounds, no guarding, no rebound, no hepatosplenomegaly, no masses. EXTREMITIES: 2+ pulses, warm, well-perfused, no edema. NEUROLOGICAL: Normal speech, gait not observed. PSYCH: Normal mood, normal affect. SKIN: Warm, dry, normal turgor, no rashes or lesions noted LABS Laboratory Results - last 24 hr 01/09/17 01/10/17 01/10/17 17:37 06:00 06:00 WBC 22.2 H D RBC 4.05 Hgb 12.1 Hct 37.3 MCV 92.2 MCHC 32.4 RDW 14.4 Plt Count 248 MPV 9.3 Neutrophils % 97.0 H Lymphocytes % 2.0 L D Band Neutrophils 1.0 Differential Comment Manual diff done Platelet Estimate Adequate Sodium 141 Potassium 5.2 H Chloride 101 Carbon Dioxide 35 H Anion Gap 5 L BUN 24 H Creatinine 0.7 D POC Glucometer 140 Random Glucose 116 H Calcium 8.1 L HOSPITAL COURSE: Date of Admission:01/08/17 Date of Discharge: 01/10/17 Minutes to complete discharge: 50 Discharge Summary Reason For Visit: COPD EXACERBATION Current Active Problems Acute on chronic respiratory failure with hypoxia and hypercapnia (Acute) Aortic stenosis (Acute) COPD with acute exacerbation (Acute) Lung mass (Acute) Hospital Course: This is an 81-year-old woman with a history of COPD, HTN, colon cancer, severe , PAF who presented with cough and SOB. Hospital course: Acute hypoxic and hypercapnic respiratory failure/acute exacerbation of COPD: we started Oxygen supplementation to maintain saturation >90%, Bi-Pap, then NC 3 L, nebulizers, Solu-medrol, Tudorza, consulted Pulmonary. Lung mass:she had PET scan at [facility]. Patient was discharged from [facility] with oxygen but she refused it. She will get oxygen order from our hospital on discharge. Hypertension:continued home medications Colon cancer:history of colon resection Severe aortic stenosis:s/p balloon valvuloplasty at [facility] Paroxysmal atrial fibrillation: Currently in sinus rhythm, continue Cardizem. On aspirin because she refused anticoagulation Hyperkalemia: We held Ramipril today. The pt clinically improved. She was discharged from the hospital to continue Ceftin for 7 days and with Prednisone ta[per for 12 days. We recommended to f/u with her PCP, schedule lung biopsy. - Instructions Diet, Activity, Other Instructions: Please see your PCP, Pulmunologist Dr. Elizabeth within a week. Take your medications and use Oxygen everyday. Take Ceftin (antibiotic) twice a day for 7 days. Take Prednisone 40 mg (4 pills) for 3 days then 30 mg for 3 days then 20 mg for 3 days then 10 mg for 3 days then you may stop taking Prednisone. If your symptoms worsen come back to Emergency Room as soon as possible. Altace is on hold since potassiun is 5.2 , Potassium level needs to be done within a week, follow with your primary care and operational test mechanic office before start taking Altace again. Referrals: Jose Alberto Elizabeth MD [Staff Physician] - Antonia Guerrero MD [Staff Physician] - Griffin Simon MD [Primary Care Provider] - - Home Medications Comprehensive Discharge Medication List: Ambulatory Orders Albuterol Sulfate Inhaler - [Ventolin HFA Inhaler -] 2 puff IH Q4H PRN #0 inhaler 12/01/16 Aspirin Coated [Ecotrin -] 81 mg PO DAILY #30 tablet.ec 12/01/16 Diltiazem Cd [Cardizem Cd -] 120 mg PO DAILY #30 cap.cd.24h 12/01/16 Tiotropium [place] [Spiriva] 18 puff IH DAILY #1 inh 01/21/17 Cefuroxime Axetil [Ceftin -] 500 mg PO Q12H #14 tablet 01/10/17 Prednisone [Deltasone -] 40 mg PO ASDIR #30 tab 01/10/17 Problem List - Problems (1) COPD with acute exacerbation Code(s): J44.1 - CHRONIC OBSTRUCTIVE PULMONARY DISEASE W (ACUTE) EXACERBATION (2) Lung mass Code(s): R91.8 - OTHER NONSPECIFIC ABNORMAL FINDING OF LUNG FIELD (3) DVT prophylaxis Code(s): RWX3933 - (4) History of colon cancer Code(s): Z85.038 - PERSONAL HISTORY OF MALIGNANT NEOPLASM OF LARGE INTESTINE This patient is new to me today: Yes Date on this admission: 01/10/17 Emergency Visit: No Critical Care patient: No - Discharge Referral Referred to [facility] Med P.C.: No
== END 2017-01-10 18:46 | disposition home health service (06) | DRG 190 ==
LOC: JER 21:56 → JERBED 01-08 01:06 → J8W 01-08 11:55
PROVIDERS: ADMIT Internal Medicine; ATTEND Internal Medicine
DX: J44.1 Chronic obstructive pulmonary disease with (acute) exacerbation (principal); J96.01 Acute respiratory failure with hypoxia; J96.02 Acute respiratory failure with hypercapnia; I10 Essential (primary) hypertension; R91.8 Other nonspecific abnormal finding of lung field; F17.210 Nicotine dependence, cigarettes, uncomplicated; I48.0 Paroxysmal atrial fibrillation; I35.0 Nonrheumatic aortic (valve) stenosis; M19.90 Unspecified osteoarthritis, unspecified site; I27.2 Other secondary pulmonary hypertension; Z85.038 Personal history of other malignant neoplasm of large intestine; Z99.81 Dependence on supplemental oxygen; D72.828 Other elevated white blood cell count
CPT/HCPCS: 36415; 36600; 71010-TC; 80048; 80053; 81003; 82375; 82550; 82803; 83050; 83735; 84100; 84484; 85025; 85610; 85730; 87070; 87205; 87254; 87804; 87899; 93005; 93010; 94010; 94640; 94660; 94761; 99285-25; J1644

== ENCOUNTER 2017-03-19 06:51 | Inpatient (IN) | payer OTHER ==
[2017-03-19] MEDS ORDERED: SODIUM CHLORIDE 1,000 ML IV STA (07:18)
--- NOTE | 2017-03-19 07:18 | PDOC ---
History of Present Illness - General History Source: Patient, Family, Old Records Exam Limitations: No Limitations <Anu Lua - Last Filed: 03/19/17 09:24> - General History Source: Patient Exam Limitations: No Limitations - History of Present Illness Initial Comments: 03/19/17 07:17 The patient is an 81-year-old woman with a significant past medical history of hypertension, chronic obstructive pulmonary disease (home O2 dependent; on 4L; baseline O2% is high 80s- low 90s), atrial fibrillation, colon cancer and newly diagnosed "lung mass" who presents ti the emergency department via EMS for further evaluation of shortness of breath since 06:00AM this morning. Vitals upon ER arrival are indicative for a blood pressure of 144/121, oxygen saturation of 90% on room air, heart rate of 72 bpm and respiratory rate of 28. Patient states that she was helping her to sit on a chair and all of a sudden got short of breath. She was given one Combivent on the field without much significant improvement of her shortness of breath., Patient was placed on a non-rebreather and placed on a Duo-Neb treatment with noted significant improvement of her shortness of breath and her O2 saturation - 100%. She denies any associated symptoms of nausea, vomiting, cough, chest plain, headaches, lightheadedness, dizziness, visual changes, fever,chills. Patient underwent stress test on 12/06/2016 which showed a normal myocardial perfusion, no ischemia and normal LVEF. Allergies: No Known Drug Allergies Past Surgical History: Colon resection (2010) Social History: Former smoker. No EtOH and recreational drug use Primary Care Physician: Dr. Griffin Simon. <Rosa M العلي - Last Filed: 03/19/17 10:22> - General Chief Complaint: Shortness of Breath Stated Complaint: DIFFICULTY BREATHING Time Seen by Provider: 03/19/17 07:17 Past History - Past Medical History Anemia: No Cancer: Yes (colon cancer) COPD: Yes HTN: Yes Suicide Attempt (Hx): No - Surgical History Abdominal Surgery: Yes (COLON RESECTION 2000) - Immunization History Td Vaccination: Yes Immunization Up to Date: Yes - Psycho/Social/Smoking Cessation Hx Anxiety: No Suicidal Ideation: No Smoking Status: Yes Smoking History: Former smoker Have you smoked in the past 12 months: No Number of Cigarettes Smoked Daily: 5 If you are a former smoker, when did you quit?: 5 months ago Information on smoking cessation initiated: No 'Breaking Loose' booklet given: 01/07/17 Hx Alcohol Use: No Drug/Substance Use Hx: No Substance Use Type: None Hx Substance Use Treatment: No <Anu Lua - Last Filed: 03/19/17 09:24> <Rosa M العلي - Last Filed: 03/19/17 10:22> - Past Medical History Allergies/Adverse Reactions: Allergies Allergy/AdvReac Type Severity Reaction Status Date / Time No Known Allergies Allergy Verified 03/19/17 07:01 Home Medications: Ambulatory Orders Albuterol Sulfate Inhaler - [Ventolin HFA Inhaler -] 2 puff IH Q4H PRN #0 inhaler 12/01/16 Aspirin Coated [Ecotrin -] 81 mg PO DAILY #30 tablet.ec 12/01/16 Diltiazem Cd [Cardizem Cd -] 120 mg PO DAILY #30 cap.cd.24h 12/01/16 Cefuroxime Axetil [Ceftin -] 500 mg PO Q12H #14 tablet 01/10/17 Ipratropium/Albuterol Sulfate [Combivent Respimat Inhal [employer]] 4 gm IH QID 01/10 Prednisone [Deltasone -] 40 mg PO ASDIR #30 tab 01/10/17 Review of Systems - Review of Systems Able to Perform ROS?: Yes Comments:: 03/19/17 07:17 CONSTITUTIONAL: Absent: fever, chills, diaphoresis, generalized weakness, malaise, loss of appetite HEENT: Absent: rhinorrhea, nasal congestion, throat pain, throat swelling, difficulty swallowing, mouth swelling, ear pain, eye pain, visual Changes CARDIOVASCULAR: Absent: chest pain, syncope, palpitations, irregular heart rate , lightheadedness, peripheral edema RESPIRATORY: Present: +Shortness of breath. Absent: cough, dyspnea with exertion , orthopnea, wheezing, stridor, hemoptysis GASTROINTESTINAL:Absent: abdominal pain, abdominal distension, nausea, vomiting , diarrhea, constipation, melena, hematochezia GENITOURINARY: Absent: dysuria, frequency, urgency, hesitancy, hematuria, flank pain, genital pain MUSCULOSKELETAL: Absent: myalgia, arthralgia, joint swelling SKIN: Absent: rash, itching, pallor HEMATOLOGIC/IMMUNOLOGIC: Absent: easy bleeding, easy bruising, lymphadenopathy, frequent infections ENDOCRINE:Absent: unexplained weight gain, unexplained weight loss, heat intolerance, cold intolerance NEUROLOGIC: Absent: headache, focal weakness or paresthesias, dizziness, unsteady gait, seizure, mental status changes, bladder or bowel incontinence PSYCHIATRIC: Absent: anxiety, depression, suicidal or homicidal ideation, hallucinations <Rosa M العلي - Last Filed: 03/19/17 10:22> *Physical Exam - Vital Signs Last Vital Signs Temp Pulse Resp BP Pulse Ox 97.4 F L 72 28 H 144/121 90 L 03/19/17 07:01 03/19/17 07:01 03/19/17 07:01 03/19/17 07:01 03/19/17 07:01 <Anu Lua - Last Filed: 03/19/17 09:24> - Vital Signs Last Vital Signs Temp Pulse Resp BP Pulse Ox 97.4 F L 72 28 H 144/121 90 L 03/19/17 07:01 03/19/17 07:01 03/19/17 07:01 03/19/17 07:01 03/19/17 07:01 - Physical Exam Comments: 03/19/17 07:17 GENERAL: Well developed, well nourished. Awake and alert. On Non-rebreather. HEENT: Normocephalic, atraumatic. PERRLA, EOMI. No conjunctival pallor. Sclera are non-icteric. Dry mucous membranes. Oropharynx is clear. NECK: Supple. Full ROM. No JVD. CARDIOVASCULAR: +Tachycardic but regular rate and rhythm. No murmurs, rubs, or gallops. PULMONARY: +Rhonchorous breath sounds all throughout both bases. ABDOMINAL: Soft. Non-tender. Non-distended. No rebound or guarding. No organomegaly. Normoactive bowel sounds. MUSCULOSKELETAL: Normal range of motion at all joints. No bony deformities or tenderness. No CVA tenderness. EXTREMITIES: No cyanosis. No clubbing. No edema. No calf tenderness. SKIN: Warm and dry. Normal capillary refill. No rashes. No jaundice. NEUROLOGICAL: Alert, awake, appropriate. Cranial nerves 2-12 intact. Normal speech. PSYCHIATRIC: Cooperative. Good eye contact. Appropriate mood and affect. <Rosa M العلي - Last Filed: 03/19/17 10:22> ED Treatment Course - LABORATORY CBC & Chemistry Diagram: 03/19/17 07:25 03/19/17 07:25 <Anu Lua - Last Filed: 03/19/17 09:24> - LABORATORY CBC & Chemistry Diagram: 03/19/17 07:25 03/19/17 07:25 - ADDITIONAL ORDERS Additional order review: Laboratory Results 03/19/17 07:40 VBG pH 7.40 POC VBG pCO2 57.5 H POC VBG pO2 70.4 H Mixed VBG HCO3 35.0 H - RADIOLOGY Radiograph Interpretation: 03/19/17 08:20 EXAM: RAD/CHEST X-RAY PORTABLE IMPRESSION: Comparison study January 07, 2017. Large left pleural effusion with compressive atelectasis involving the lower half of the left lung. No evidence of congestive changes. No evidence of blunting of the right costophrenic angle. No pneumothorax is seen. <Rosa M العلي - Last Filed: 03/19/17 10:22> Medical Decision Making - Medical Decision Making 03/19/17 08:44 81-year-old female with history of atrial fibrillation, hypertension, COPDon home O2 and recently diagnosed with a left lung massstage I lung cancer receiving radiation therapy presents to the emergency department with complaints of shortness of breath since 6 AM this morning. The patient was found to be tachycardic to 150 and a flutter and hypoxic on room air. Differential diagnosis includes but is not limited to: Pneumonia, COPD exacerbation, atrial flutter and not rate controlled, electrolyte abnormality, anemia, toxic/metabolic derangement, dehydration. Plan: 1. Chest x-ray 2. EKG 3. Labs 4. Blood cultures and lactate 5. DuoNeb treatment 6. Rate control with Cardizem 7. Observe and reevaluate Addendum: The patient responded well to Cardizem 20 mg IV and has a heart rate in the 90s right now. The patient's oxygen saturation improved to 100% on a nonrebreather and after a DuoNeb treatment the patient shortness of breath has markedly resolved. Her chest x-ray is significant for a moderate left pleural effusion. Her labs are significant for white blood cell count of 15,000. Her troponin was also elevated at 0.15.Given her symptoms and white count will treat for hospital-acquired pneumonia. Will admit for IV antibiotics and further evaluation and monitoring of hypoxemia. <Anu Lua - Last Filed: 03/19/17 09:24> - Critical Care Time Total Critical Care Time (minutes): 35 Critical Care Statement: The care of this patient involved high complexity decision making to prevent further life threatening deterioration of the patient 's condition and/or to evalute & treat vital organ system(s) failure or risk of failure. - Medical Decision Making 03/19/17 08:[address] of [address] Griffin Simon. Informed by phone service that he is retired and Dr. Isaura Francois now manages his patients. Also informed that Dr. Francois admits to the Hospitalist Service. Will [employer] Hospitalist. 03/19/17 08:57 [employer]Blogged Hospitalist. 03/19/17 09:17 Response by Nurse Practitioner, Sasha Whitmore. Case was discussed. Accepts case. <Rosa M العلي - Last Filed: 03/19/17 10:22> *DC/Admit/Observation/Transfer - Discharge Dispostion Admit: Yes - Attestations Physician Attestion: 03/19/17 08:50 I, Dr. Anu Lua, attest that the scribes documentation that appears above has been prepared under my direction and personally reviewed by me in its entirety. I confirmed that the note above accurately reflects all work, treatment, procedures, and medical decision-making performed by me. <Anu Lua - Last Filed: 03/19/17 09:24> - Attestations Scribe Attestion: 03/19/17 08:39 Documentation prepared by Rosa M العلي, acting as emergency medical service coordinator for Anu Lua MD. <Rosa M العلي - Last Filed: 03/19/17 10:22> Diagnosis at time of Disposition: Pleural effusion, left, Pneumonia, Atrial flutter - Discharge Dispostion Condition at time of disposition: Good - Referrals Referrals: Griffin Simon MD [Primary Care Provider] -
[2017-03-19] MEDS ORDERED: dilTIAZem HCL 50 MG/10 ML - 10 ML VIAL IVPUSH ONE ×2 (07:20→14:14)
[2017-03-19] MEDS ORDERED: ALBUTEROL SO4 2.5/IPRATROPIUM 0.5 INH SOL 3 ML VIAL.NEB. NEB ONE ×2 (07:25→09:59)
[2017-03-19] MEDS ORDERED: dilTIAZem HCL 125 MG/25 ML - 25 ML VIAL ONE (07:26)
[2017-03-19 07:38] LABS: BASOPHIL 0.2 % (0-2.0); EOSINOPHIL 0.2 % (0-4.5); MCH 28.6 pg (25.7-33.7); MCHC 31.7 g/dl (32.0-36.0); MEAN CELL VOLUME 90.1 fl (80-96); MEAN PLT VOLUME 8.5 fl (7.5-11.1); NEUTROPHILS 84.1 % (42.8-82.8); PLATELET COUNT 288 K/MM3 (134-434); RDW 14.2 % (11.6-15.6); WHITE BLOOD COUNT 15.3 K/mm3 (4.0-10.0)
[2017-03-19 07:46] LABS: VENOUS PH 7.4 (7.32-7.42)
[2017-03-19 08:03] LABS: ALBUMIN 2.6 g/dl (3.4-5.0); ANION GAP 8 (8-16); BILIRUBIN,TOTAL 0.3 mg/dL (0.2-1.0); CALCIUM 7.9 mg/dL (8.5-10.1); CO2 36 mmol/L (21-32); CREATININE 0.5 mg/dL (0.55-1.02); GLUCOSE,RANDOM 139 mg/dL (74-106); SGOT/AST 15 U/L (15-37); SGPT/ALT 14 U/L (12-78); TOT PROT 5.9 g/dl (6.4-8.2)
[2017-03-19 08:05] LABS: ALK PHOS 63 U/L (45-117); TROPONIN I 0.15 ng/ml (0.00-0.05)
[2017-03-19 08:24] LABS: INR 1.42 (0.82-1.09); PROTHROMBIN TIME (PATIENT) 15.7 SEC (9.98-11.88)
[2017-03-19 08:27] LABS: ACTIVATED PTT 29.1 SECONDS (26.9-34.4)
[2017-03-19] MEDS ORDERED: PIPERACILLIN/TAZOB 3.375 GM/50 ML PRE-DOCKED IV ONE (08:44)
[2017-03-19] MEDS ORDERED: VANCOMYCIN 1,000 MG in DEXTROSE 5%-WATER - 250 ML IVPB ONE (08:44)
[2017-03-19] MEDS ORDERED: ALBUTEROL SO4 0.083% IH SOL 2.5 MG/3 ML VIAL.NEB. NEB PRN ×2 (09:39→18:54)
--- NOTE | 2017-03-19 09:42 | HP ---
CHIEF COMPLAINT: Shortness of breath PCP: Dr. Simon (retired) Electronics Installer: Dr. Shirley Radiation oncologist & hotbed lever operator: At [facility], cannot recall names HISTORY OF PRESENT ILLNESS: This is an 81 year old female with a history of COPD (on home O2 3L), lung ca (diagnosed in November of this year, on RTX at [facility], last treatment yesterday), colon ca s/p resection in 2000, atrial fibrillation on Eliquis, HTN, and aortic stenosis s/p balloon valvuloplasty who presented to the ED via EMS today complaining of shortness of breath. She reports that after radiation yesterday, she felt more fatigued than normal and did not have an appetite. She woke up this morning very short of breath. She denies change in her chronic cough, chest pain, fevers/chills, or any other symptoms. ER course was notable for: (1) EKG: Atrial flutter with ventricular rate 154; treated with 20mg Cardizem IVP with good response (2) CXR: Large left pleural effusion with compressive atelectasis (3) RR 28, SpO2 90% on RA; improved on 50% VentiMask (4) WBC 15.3 Recent Travel: None Social History: Lives alone, independent in ADLs, was scheduled to have first [employer]OC[employer] visit today Smoking: Former smoker, quit 4 months ago Alcohol: None Family History: Non-contributory to this admission Allergies No Known Allergies Allergy (Verified 03/19/17 07:01) HOME MEDICATIONS: Home Medications Medication Instructions Recorded Albuterol Sulfate Inhaler - 2 puff IH Q4H PRN #0 inhaler 12/01/16 [Ventolin HFA Inhaler -] Aspirin Coated [Ecotrin -] 81 mg PO DAILY #30 tablet.ec 12/01/16 Diltiazem Cd [Cardizem Cd -] 120 mg PO DAILY #30 cap.cd.24h 12/01/16 Cefuroxime Axetil [Ceftin -] 500 mg PO Q12H #14 tablet 01/10/17 Ipratropium/Albuterol Sulfate 4 gm IH QID 01/10/17 [Combivent Respimat Inhal [place]] Prednisone [Deltasone -] 40 mg PO ASDIR #30 tab 01/10/17 REVIEW OF SYSTEMS CONSTITUTIONAL: Fatigue, loss of appetite, generalized weakness Absent: fever, chills, diaphoresis, weight change HEENT: Absent: rhinorrhea, nasal congestion, throat pain, throat swelling, difficulty swallowing, mouth swelling, ear pain, eye pain, visual changes CARDIOVASCULAR: Burning chest pain at RTX site, normal for her following treatments. Absent: syncope, palpitations, irregular heart rate, lightheadedness, peripheral edema RESPIRATORY: Chronic cough productive of scant white sputum. Shortness of breath. Absent: stridor, hemoptysis GASTROINTESTINAL: Absent: abdominal pain, abdominal distension, nausea, vomiting, diarrhea, constipation, melena, hematochezia GENITOURINARY: Absent: dysuria, frequency, urgency, hesitancy, hematuria, flank pain, genital pain MUSCULOSKELETAL: Absent: myalgia, arthralgia, joint swelling, back pain, neck pain SKIN: Absent: rash, itching, pallor HEMATOLOGIC/IMMUNOLOGIC: Absent: easy bleeding, easy bruising, lymphadenopathy, frequent infections ENDOCRINE: Absent: unexplained weight gain, unexplained weight loss, heat intolerance, cold intolerance NEUROLOGIC: Absent: headache, focal weakness or paresthesias, dizziness, unsteady gait, seizure, mental status changes, bladder or bowel incontinence PSYCHIATRIC: Absent: anxiety, depression, suicidal or homicidal ideation, hallucinations. PHYSICAL EXAMINATION Vital Signs - 24 hr 03/19/17 03/19/17 07:01 07:50 Temperature 97.4 F L Pulse Rate 72 Respiratory 28 H Rate Blood Pressure 144/121 137/54 O2 Sat by Pulse 90 L Oximetry (%) GENERAL: Awake, alert, and fully oriented, in no acute distress. HEAD: Normal with no signs of trauma. EYES: Pupils equal, round and reactive to light, extraocular movements intact, sclera anicteric, conjunctiva clear. No lid lag. EARS, NOSE, THROAT: Ears normal, nares patent, oropharynx clear without exudates. Moist mucous membranes. NECK: Normal range of motion, supple without lymphadenopathy, JVD, or masses. LUNGS: Diffuse ronchi, decreased breath sounds left base, tachypnea. HEART: Regular rate and rhythm, normal S1 and S2 without murmur, rub or gallop. ABDOMEN: Soft, nontender, not distended, normoactive bowel sounds, no guarding, no rebound, no masses. No hepatomegaly or splenomegaly. MUSCULOSKELETAL: Normal range of motion at all joints. No bony deformities or tenderness. No CVA tenderness. UPPER EXTREMITIES: 2+ pulses, warm, well-perfused. No cyanosis. No clubbing. No peripheral edema. LOWER EXTREMITIES: 2+ pulses, warm, well-perfused. No calf tenderness. Venous stasis changes bilaterally with two ulcerations anteriorly over right tibia without surrounding erythema. 1+ LLE edema. NEUROLOGICAL: Cranial nerves II-XII intact. Normal speech. PSYCHIATRIC: Cooperative. Good eye contact. Appropriate mood and affect. SKIN: Warm, dry, normal turgor, no rashes or lesions noted, normal capillary refill. Laboratory Results - last 24 hr 03/19/17 03/19/17 03/19/17 07:25 07:25 07:25 WBC 15.3 H D RBC 4.04 Hgb 11.5 Hct 36.4 MCV 90.1 MCHC 31.7 L RDW 14.2 Plt Count 288 MPV 8.5 Neutrophils % 84.1 H Lymphocytes % 4.1 L D Monocytes % 11.4 H Eosinophils % 0.2 D Basophils % 0.2 INR 1.42 H PTT (Actin FS) 29.1 VBG pH POC VBG pCO2 POC VBG pO2 Mixed VBG HCO3 Sodium 140 Potassium 4.2 Chloride 96 L Carbon Dioxide 36 H Anion Gap 8 BUN 11 D Creatinine 0.5 L D Creat Clearance w eGFR > 60 Random Glucose 139 H Lactic Acid Calcium 7.9 L Total Bilirubin 0.3 D AST 15 D ALT 14 D Alkaline Phosphatase 63 Creatine Kinase 50 Troponin I 0.15 H Total Protein 5.9 L Albumin 2.6 L Blood Type Antibody Screen 03/19/17 03/19/17 03/19/17 07:25 07:25 07:40 WBC RBC Hgb Hct MCV MCHC RDW Plt Count MPV Neutrophils % Lymphocytes % Monocytes % Eosinophils % Basophils % INR PTT (Actin FS) VBG pH 7.40 POC VBG pCO2 57.5 H POC VBG pO2 70.4 H Mixed VBG HCO3 35.0 H Sodium Potassium Chloride Carbon Dioxide Anion Gap BUN Creatinine Creat Clearance w eGFR Random Glucose Lactic Acid 1.707 Calcium Total Bilirubin AST ALT Alkaline Phosphatase Creatine Kinase Troponin I Total Protein Albumin Blood Type A POSITIVE Antibody Screen Negative ASSESSMENT/PLAN: 81 year old female with respiratory failure. Problem List - Problem (1) Atrial flutter Assessment/Plan: -Given Cardizem 20mg IVP with good resolution -Continue Cardizem 120mg CD daily -Monitor on telemetry -Serial troponins to rule out NM (initial troponin elevated at 0.15, suspect may be rate-related) -Hold Eliquis (last dose last night) and start heparin gtt in anticipation of thoracentesis -Patient's private direct selling counselor consulted Code(s): I48.92 - UNSPECIFIED ATRIAL FLUTTER (2) Pleural effusion, left Assessment/Plan: -Obtain CT to better characterize -Continue Vancomycin/Zosyn for possible PNA (hospitalized in January) -Supplemental O2 as needed to maintain saturation -Consider diagnostic/therapeutic thoracentesis -Pulmonary consultation requested Code(s): J90 - PLEURAL EFFUSION, NOT ELSEWHERE CLASSIFIED (3) Pneumonia Assessment/Plan: -Consider post-obstructive PNA -Follow up CT -Follow up blood cultures -Send urine antigens, sputum -Follow fever/WBC curve -Abx as above Code(s): J18.9 - PNEUMONIA, UNSPECIFIED ORGANISM (4) COPD with acute exacerbation Assessment/Plan: -DuoNebs prn -SoluMedrol 40mg IVP q8h -Supplemental O2 as needed to maintain saturation, work of breathing -ABG to assess acid/base status and CO2 retention (elevated HCO3- on chemistry) Code(s): J44.1 - CHRONIC OBSTRUCTIVE PULMONARY DISEASE W (ACUTE) EXACERBATION (5) HTN (hypertension) Assessment/Plan: -At goal -Continue Cardizem, Lasix, Ramipril Code(s): I10 - ESSENTIAL (PRIMARY) HYPERTENSION Qualifiers: Qualified Code(s): I10 - Essential (primary) hypertension (6) Lung cancer Assessment/Plan: -Follow up CT/assessment of pleural effusion as above Code(s): C34.90 - MALIGNANT NEOPLASM OF UNSP PART OF UNSP BRONCHUS OR LUNG (7) Sepsis Assessment/Plan: -Suspected with leukocytosis and tachypnea -Lactic acid within normal limits -Follow up cultures -Antibiotics as above Code(s): A41.9 - SEPSIS, UNSPECIFIED ORGANISM (8) DVT prophylaxis Assessment/Plan: -Therapeutic AC -Early ambulation Addendum 14:10: Patient increasingly tachypneic. HR 145. Cardizem 10mg IVP ordered. BiPap initiated. Pulmonary notified. Throcentesis requested from IR. 15:00: Patient re-evaluated and appears to be in worsening respiratory distress. Will transfer to ICU; accepted by Dr. Main. Code(s): DTB1504 - Visit type - Emergency Visit Emergency Visit: Yes ED Registration Date: 03/19/17 Care time: The patient presented to the Emergency Department on the above date and was hospitalized for further evaluation of their emergent condition. - New Patient This patient is new to me today: Yes Date on this admission: 03/19/17 - Critical Care Critical Care patient: Yes Total Critical Care Time (in minutes): 40 Critical Care Statement: The care of this patient involved high complexity decision making to prevent further life threatening deterioration of the patient 's condition and/or to evalute & treat vital organ system(s) failure or risk of failure.
[2017-03-19] MEDS ORDERED: predniSONE 10 MG TABLET (UD) PO SCH (09:45)
[2017-03-19] MEDS ORDERED: VANCOMYCIN 1 GRAM (PRE-DOCKED) 250 ML IVPB ONE (09:57)
[2017-03-19 10:00] LABS: URINE APPEARANCE CLEAR; URINE BILIRUBIN NEGATIVE (NEGATIVE); URINE BLOOD NEGATIVE (NEGATIVE); URINE COLOR YELLOW; URINE GLUCOSE (UA) NEGATIVE (NEGATIVE); URINE KETONE TRACE (NEGATIVE); URINE LEUK ESTERASE NEGATIVE (NEGATIVE); URINE NITRITE NEGATIVE (NEGATIVE); URINE UROBILINOGEN NEGATIVE E.U./dl (0.2-1.0)
[2017-03-19] MEDS ORDERED: PATIENT'S OWN MEDICATION (NON-FORMULARY) (Ipratropium/Albuterol Sulfate [Combivent Respima IH SCH (10:00)
[2017-03-19] MEDS ORDERED: ASPIRIN COATED 81 MG TABLET.EC PO SCH (10:00)
[2017-03-19] MEDS ORDERED: PIPERACILLIN/TAZOB 3.375 GM 50 ML IVPB ONE (10:03)
[2017-03-19 10:05] LABS: URINE PROTEIN 1+ (NEGATIVE)
[2017-03-19 10:07] LABS: URINE MUCUS FEW; URINE WBC 4 /hpf (3-5)
[2017-03-19 10:08] LABS: URINE RBC 3 /hpf (0-3)
[2017-03-19] MEDS ORDERED: ACETAMINOPHEN 325 MG TABLET (FP) PO PRN ×2 (10:40→18:54)
[2017-03-19] MEDS ORDERED: ONDANSETRON 4 MG/2 ML VIAL IVPB PRN ×2 (10:40→18:54)
--- NOTE | 2017-03-19 10:42 | EKG ---
Test Reason : Blood Pressure : / mmHG Vent. Rate : 153 BPM Atrial Rate : 344 BPM P-R Int : 000 ms QRS Dur : 070 ms QT Int : 282 ms P-R-T Axes : 083 068 017 degrees QTc Int : 450 ms ATRIAL FLUTTER WITH VARIABLE A-V BLOCK SEPTAL INFARCT (CITED ON OR BEFORE 30-NOV-2016) ABNORMAL ECG WHEN COMPARED WITH ECG OF 08-JAN-2017 01:15, ATRIAL FLUTTER HAS REPLACED SINUS RHYTHM VENT. RATE HAS INCREASED BY 70 BPM NONSPECIFIC T WAVE ABNORMALITY NOW EVIDENT IN INFERIOR LEADS T WAVE INVERSION NOW EVIDENT IN LATERAL LEADS CLINICAL CORRELATION IS RECOMMENDED Confirmed by CRISPIN CHAVIS, TOERY ([id number]) on 03/19/2017 10:41:49 AM Referred By: Confirmed By:TOREY ROA MD
[2017-03-19] MEDS ORDERED: predniSONE 20 MG TABLET (UD) PO SCH (11:30)
[2017-03-19] MEDS ORDERED: ALBUTEROL SO4 2.5/IPRATROPIUM 0.5 INH SOL 3 ML VIAL.NEB. NEB PRN ×2 (12:57→18:54)
[2017-03-19] MEDS ORDERED: methylPREDNISolone NA SUCC 40 MG/1 ML VIAL ONE (12:59)
[2017-03-19] MEDS ORDERED: ONDANSETRON 4 MG/2 ML VIAL ONE (12:59)
[2017-03-19] MEDS ORDERED: APIXABAN 5 MG TABLET PO SCH (13:00)
[2017-03-19] MEDS: methylPREDNISolone NA SUCC 40 MG/1 ML VIAL IVPB SCH ×2 (13:05→18:36)
--- NOTE | 2017-03-19 13:10 | CON.PULM ---
Consult Consult Specialty:: PULMONARY Referred by:: CARMEN Whitmore Reason for Consultation:: respiratory failure - History of Present Illness Chief Complaint: shortness of breath History of Present Illness: 81yo female with h/o HTN, COPD, chronic hypoxic and hypercapneic respiratory failure, atrial fibrillation, h/o colon ca, stage I lung ca s/p RT, not a candidate for surgery due to COPD/emphysema who presents with worsening shortness of breath. Denies chest pain or palpitations. Reports nausea without vomiting. +subjective chills. Tried nebulizer treatments at home without significant relief. Found to be in rapid atrial fibrillation in the ER, given cardizem IVP with improvement in her rate and symptoms but still with nausea. - History Source History Provided By: Patient, Medical Record Limitations to Obtaining History: Clinical Condition - Past Medical History Cardio/Vascular: Yes: AFIB, Aortic Stenosis, HTN, Pulmonary Hypertension Pulmonary: Yes: COPD, O2 Dependent, Pneumonia Musculoskeletal: Yes: Osteoarthritis - Past Surgical History Past Surgical History: Yes: Colectomy - Alcohol/Substance Use Hx Alcohol Use: No - Smoking History Smoking history: Former smoker Have you smoked in the past 12 months: No Aproximately how many cigarettes per day: 5 If you are a former smoker, when did you quit?: 5 months ago - Social History Usual Living Arrangement: With Child ADL: Independent History of Recent Travel: Yes ([place]) Home Medications - Allergies Allergies/Adverse Reactions: Allergies Allergy/AdvReac Type Severity Reaction Status Date / Time No Known Allergies Allergy Verified 03/19/17 07:01 - Home Medications Home Medications: Ambulatory Orders Albuterol Sulfate Inhaler - [Ventolin HFA Inhaler -] 2 puff IH Q4H PRN #0 inhaler 12/01/16 Aspirin Coated [Ecotrin -] 81 mg PO DAILY #30 tablet.ec 12/01/16 Diltiazem Cd [Cardizem Cd -] 120 mg PO DAILY #30 cap.cd.24h 12/01/16 Ipratropium/Albuterol Sulfate [Combivent Respimat Inhal [place]] 4 gm IH QID 01/10 Albuterol Sulfate [Proair Respiclick] 90 PRN 03/19/17 Apixaban [Eliquis -] 5 mg PO DAILY 03/19/17 Furosemide [Lasix] 20 mg PO DAILY 05/09/17 Ramipril 5 mg PO DAILY 03/19/17 Family Disease History - Family Disease History Other Family History: non-contributory Review of Systems - Review of Systems Constitutional: reports: Chills, Weakness. denies: Fever Eyes: denies: Recent Change in Vision HENT: denies: Nasal Congestion, Throat Pain Neck: denies: Stiffness, Tenderness Cardiovascular: reports: Shortness of Breath. denies: Chest Pain, Edema, Palpitations Respiratory: reports: Orthopnea, SOB, SOB on Exertion. denies: Cough, Hemoptysis, Wheezing Gastrointestinal: reports: Nausea. denies: Abdominal Pain, Vomiting Genitourinary: denies: Dysuria, Hematuria Neurological: denies: Headache Physical Exam Vital Sings: Vital Signs Temperature 97.6 F 03/19/17 07:18 Pulse Rate 97 H 03/19/17 11:29 Respiratory Rate 26 H 03/19/17 11:29 Blood Pressure 120/70 03/19/17 11:29 O2 Sat by Pulse Oximetry (%) 98 03/19/17 11:29 Constitutional: Yes: Anxious, Moderate Distress Eyes: Yes: Conjunctiva Clear, EOM Intact, Other (dry mucous membranes) HENT: Yes: Atraumatic, Normocephalic Neck: Yes: Supple, Trachea Midline Cardiovascular: Yes: Tachycardia, Pulse Irregular, Murmur (systolic) Respiratory: Yes: Diminished (decreased breath sounds left base, distant in general) ...Clubbing: No Gastrointestinal: Yes: Normal Bowel Sounds, Soft. No: Tenderness Edema: No Neurological: Yes: Alert, Oriented Imaging - Results Chest X-ray: Report Reviewed, Image Reviewed (moderate-large left effusion) Assessment/Plan Acute on Chronic Hypoxic and Hypercapneic Respiratory Failure Atrial Fibrillation with RVR Stage I Lung Ca s/p RT COPD/Emphysema Left Pleural Effusion r/o Pneumonia HTN h/o Colon Ca - pt appears clinically dry, would start IVF - rate control - hold anticoagulation or start heparin gtt for left thoracentesis, last eliquis dose 5/ night - would obtain CT chest noncontrast post thoracentesis to evaluate underlying lung parenchyma/disease - empiric medrol - inhaled bronchodilators standing and PRN - O2 to keep SpO2 >90% - BiPAP as needed to assist in work of breathing - start empiric antibiotics - f/u cutures - pulse oximetry monitoring Thank you for this consult Hermes Main MD
[2017-03-19] MEDS ORDERED: HEPARIN NA (PORCINE) 5,000 UNITS/ML 1ML VIAL IVPUSH PRN ×6 (13:17→18:54)
[2017-03-19] MEDS ORDERED: SODIUM CHLORIDE 1,000 ML IV SCH (13:30)
[2017-03-19] MEDS ORDERED: HEPARIN INFUSION - 500 ML IVPB SCH ×2 (13:30→18:54)
[2017-03-19] MEDS ORDERED: DOCUSATE SODIUM 100 MG CAPSULE (FP) PO SCH (14:00)
[2017-03-19 14:15] LABS: ARTERIAL BLD GAS O2 SATURATION 86.4 % (90-98.9); ARTERIAL BLOOD GAS BASE EXCESS 6.6 meq/l (-2-2); ARTERIAL BLOOD GAS HCO3 34.2 meq/L (22-26); ARTERIAL BLOOD GAS PO2 60.8 mmHg (68-100); ARTERIAL BLOOD GAS pH 7.32 (7.35-7.45)
[2017-03-19 14:17] LABS: ALLENS TEST POSITIVE
[2017-03-19 14:18] LABS: ART PUNCT SITE LEFT RADIAL; LPM/O2% 40%; PT. ON O2? YES; TYPE OF O2 VENTI MASK
--- NOTE | 2017-03-19 14:49 | CON.CARD ---
Consult Consult Specialty:: cardio Referred by:: hospitalist Reason for Consultation:: rapid afib, aortic stenosis - History of Present Illness Chief Complaint: sob History of Present Illness: 81 yo female presented with increased sob. also c/o subjective chills and nausea. in ER, was in rapid AF--improved HRs after iv diltiazem. CXR showed moderat to large L effusion--plan is for thoracentesis once eliquis is out of her system. she describes sudden sob waking her from sleep last night. no assctd chest pain/tightness. + mild palpitations with it. no fevers, sore throat at home currently her breathing is comfortable with bipap on per son, she was at pulm within the past week and lung exam was fine then. 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) parox afib severe copd recent dx lung adenoCa started XRT (no surgery planned) HTN + cigs--quit recently - Past Medical History Cardio/Vascular: Yes: AFIB, Aortic Stenosis, HTN, Pulmonary Hypertension Pulmonary: Yes: COPD, O2 Dependent, Pneumonia Musculoskeletal: Yes: Osteoarthritis - Past Surgical History Past Surgical History: Yes: Colectomy - Alcohol/Substance Use Hx Alcohol Use: No - Smoking History Smoking history: Former smoker Have you smoked in the past 12 months: No Aproximately how many cigarettes per day: 5 If you are a former smoker, when did you quit?: 5 months ago - Social History Usual Living Arrangement: With Child ADL: Independent History of Recent Travel: Yes ([place]) Home Medications - Allergies Allergies/Adverse Reactions: Allergies Allergy/AdvReac Type Severity Reaction Status Date / Time No Known Allergies Allergy Verified 03/19/17 07:01 - Home Medications Home Medications: Ambulatory Orders Albuterol Sulfate Inhaler - [Ventolin HFA Inhaler -] 2 puff IH Q4H PRN #0 inhaler 12/01/16 Aspirin Coated [Ecotrin -] 81 mg PO DAILY #30 tablet.ec 12/01/16 Diltiazem Cd [Cardizem Cd -] 120 mg PO DAILY #30 cap.cd.24h 12/01/16 Ipratropium/Albuterol Sulfate [Combivent Respimat Inhal [place]] 4 gm IH QID 01/10 Albuterol Sulfate [Proair Respiclick] 90 PRN 03/19/17 Apixaban [Eliquis -] 5 mg PO DAILY 03/19/17 Furosemide [Lasix] 20 mg PO DAILY 03/19/17 Ramipril 5 mg PO DAILY 03/19/17 Family Disease History - Family Disease History Family History: Denies (no cmp) Other Family History: non-contributory Review of Systems - Review of Systems Constitutional: reports: Chills. denies: Fever Eyes: denies: Eye Pain HENT: denies: Nasal Congestion Neck: denies: Stiffness Cardiovascular: denies: Palpitations Respiratory: reports: PND. denies: Orthopnea Gastrointestinal: denies: Diarrhea, Rectal Bleeding Genitourinary: denies: Burning, Hematuria Musculoskeletal: denies: Muscle Pain Integumentary: denies: Rash Neurological: denies: Numbness, Seizure, Syncope Endocrine: denies: Excessive Sweating Hematology/Lymphatic: denies: Excessive Bleeding Vital Signs: Vital Signs Temperature 98.3 F 03/19/17 14:21 Pulse Rate 154 H 03/19/17 14:21 Respiratory Rate 20 03/19/17 14:21 Blood Pressure 129/74 03/19/17 14:21 O2 Sat by Pulse Oximetry (%) 99 03/19/17 13:14 Constitutional: Yes: Well Nourished, No Distress Eyes: No: Sclera Icterus HENT: No: Nasal Congestion Neck: No: Decreased ROM Respiratory: Yes: CTA Bilaterally, Diminished (L base). No: Accessory Muscle Use, Rales, Wheezes Gastrointestinal: Yes: Normal Bowel Sounds. No: Distention, Hepatomegaly, Palpable Mass, Tenderness Cardiovascular: Yes: Pulse Irregular JVD: Yes Carotid Bruit: No PMI: Non-Displaced Heart Sounds: Yes: S1, S2. No: Gallop Murmur: Yes: Systolic Murmur (hi-pitched PRESTON LUSB). No: Diastolic Murmur Musculoskeletal: Yes: Other (No kyphosis) Extremities: No: Cold Edema: No Peripheral Pulses: 2+ Left Carotid, 2+ Right Carotid, 2+ Left Doralis Pedis, 2+ Right Dorsalis Pedis Integumentary: No: Jaundice Neurological: Yes: Alert, Oriented (x3) Psychiatric: No: Agitated - Other Data Labs, Other Data: INR, PTT INR 1.42 (0.82-1.09) H 03/19/17 07:25 Laboratory Tests 03/19/17 03/19/17 03/19/17 07:25 07:25 14:10 WBC 15.3 H D Hgb 11.5 Plt Count 288 ABG pH 7.32 L ABG pCO2 at Pt Temp 67.8 H* ABG pO2 at Pt Temp 60.8 L D Oxygen Flow Rate 40% Sodium 140 Potassium 4.2 Carbon Dioxide 36 H BUN 11 D Creatinine 0.5 L D AST 15 D ALT 14 D Troponin I 0.15 H ekg 03/19: rapid atrial flutter; ? old ASMI (no change vs prior); no signif ST-T abnormalities when accounting for flutter waves tele: afib HRs 140s-->currently 110s-120s Imaging - Results Chest X-ray: Report Reviewed, Image Reviewed Assessment/Plan L/RHC 12/28: wedge 22 (down to 16 post BAV); PA 55/25 (40/18 post); CI 3.0 (3.1 post); AV 50/38 mmHg-->20/16 post; CHASE 0.5-->1.0 post; 30-50% pRCA with mild/diffuse dz LAD/LCX [place] [facility] [place] 12[place]2016: severe , severe calcification of asc aorta with protruding atheroma. severe asymmetric LV hypertrophy (1.8 at base), small focal LV aneursym. LLL spiculated mass concerning for malignancy F/u CT scan 12/2016: new mucus impaction of peripheral bronchial tree. patulous esophagus c/w dysmotility or reflux . PET [facility] [place] 12/2016: Increased size of LLL area of consolidation 2.8 x 3.3 cm --> 6 x 6 cm. Heterogenous uptake LLL uptake with central focus (suspicious for malignancy). Uptake in left hilar node reactive vs metastatic. YADIRA mildly hypermetabolic ground glass changes infection/ inflammation Assessment/Plan acute on chronic hypoxic/hypercapneic resp failure, COPD, lung adenoCa, pleural effusion: - being followed and tx'd by pulm at [facility] - on home O2 - deemed prohibitive surgical risk for lung resection by thoracic surgery at [place], started RT recently - being followed by pulm here, for thoracentesis tomorrow or next day (eliquis taken 5/8 at night) - defer ? of abx (for ? PNA) to pulmonary team - note: 01/15/17 CXR at [place] showed no effusions - given mild hi wedge persisted after BAV, and pt likely with some degree of AV restenosis now 3 mo later, will give dose of lasix 20mg ivp today and observe bp response and labs in AM - AF heart rate control (to minimize worsening diast chf) paroxysmal AF: - with rapid HRs when in afib in hospital previously, including at [place] on diltiazem (no BB given wheezing/copd severity) -CHADS VASC = 3, on Eliquis -holding AC in anticipation of thoracentesis (not on ASA--will d/c order) -rapid HR being driveing by acute dyspnea, pleural eff, ? 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 - s/p BAV, with TAVR on hold while new dx of lung Ca is treated - never had clinical chf, despite wedge of 22 at pre-BAV cath--not on diuretics for several weeks (initially was on low dose PO as outpt) - mild residual incr'd wedge post-BAV with mild pulm HTN - possible restenosis of AV (3 mo out) - rpt echo once heart rates better controlled (plan to do it on )-- please allow us to order it when deemed appropriate - doubt pulm venous congestion on CXR--defer lasix (can give prn if incr sob) - BNP 1700 - test dose lasix 20mg ivp as disc'd above HTN: -on dilt and ramipril 5mg at home -bp currently reasonably controlled -hold JERI to allow diltiazem and lasix without hypotension + tobacco - smoking cessation counseling. preop CV risk eval: -for thoracentesis, low risk procedure -RCRI = 1, decr'd functional status -doubt decompensated chf (as discussed) -at low risk for periop CV complications from thoracentesis -would wait 24-48 hrs from last eliquis dose prior to thoracentesis (product insert recommends 48 hrs for all procedures except those associated with lowest risk for serious bleeding complications)--precise timing to be left to I.R. ( Dr. Meyers) est crit care time 35 min
[2017-03-19 15:46] LABS: TROPONIN I 0.22 ng/ml (0.00-0.05)
[2017-03-19 15:52] VITALS: BMI 17.4
--- NOTE | 2017-03-19 15:52 | CONSULT ---
Consultation: REQUESTING PROVIDER: CONSULT REQUEST: We have been asked to medically evaluate this patient for ICU admission, respiratory distress. HISTORY OF PRESENT ILLNESS: 81 yr old woman with hx of lung Ca(currently undergoing radiation therapy at [facility], completed 5 session, recently on Saturday), afib, COPD depend on 4Lpm O2 continous on nasal cannula at home, lives alone and was experiencing difficulty breathing while walking around at home. Home nebs and oxygen therapy did not provide relief so she called her neighbor for help to call 911. denies chest pain, LOC, headache, fall, vomiting, fever, abdominal pain. REVIEW OF SYSTEMS: CONSTITUTIONAL: Present: loss of appetite Absent: fever, chills, diaphoresis, generalized weakness, malaise, HEENT: Absent: rhinorrhea, nasal congestion, throat pain, throat swelling, difficulty swallowing, mouth swelling, ear pain, eye pain, visual changes CARDIOVASCULAR: Present: palpitations,irregular heart rate, l Absent: chest pain, syncope, ightheadedness, peripheral edema RESPIRATORY: Present: Absent: cough, shortness of breath, dyspnea with exertion, orthopnea, wheezing, stridor, hemoptysis GASTROINTESTINAL: Absent: abdominal pain, abdominal distension, nausea, vomiting, diarrhea, constipation, melena, hematochezia GENITOURINARY: Absent: dysuria, frequency, urgency, hesitancy, hematuria, flank pain, genital pain MUSCULOSKELETAL: Absent: myalgia, arthralgia, joint swelling, back pain, neck pain SKIN: Absent: rash, itching, pallor HEMATOLOGIC/IMMUNOLOGIC: Absent: easy bleeding, easy bruising, lymphadenopathy, frequent infections ENDOCRINE: Absent: unexplained weight gain, unexplained weight loss, heat intolerance, cold intolerance PHYSICAL EXAMINATION Vital Signs - 24 hr 03/19/17 03/19/17 03/19/17 11:29 13:14 14:21 Temperature 98.3 F Pulse Rate 154 H Pulse Rate [ 97 H 96 H Left Radial] Respiratory 26 H 28 H 20 Rate Blood Pressure 129/74 Blood Pressure 120/70 120/70 [Left Arm] O2 Sat by Pulse 98 99 Oximetry (%) 03/19/17 03/19/17 03/19/17 14:45 15:30 15:37 Temperature 98 F 98.3 F Pulse Rate 136 H 154 H Pulse Rate [ Left Radial] Respiratory 36 H 20 Rate Blood Pressure 127/89 129/74 Blood Pressure [Left Arm] O2 Sat by Pulse 90 L 85 L Oximetry (%) GENERAL: cachectic, Awake, alert, and fully oriented. HEAD: Normal with no signs of trauma. EYES: Pupils equal, round and reactive to light, extraocular movements intact, sclera anicteric, conjunctiva clear. No lid lag. EARS, NOSE, THROAT: Ears normal, nares patent, oropharynx clear without exudates. Moist mucous membranes. NECK: Normal range of motion, supple without lymphadenopathy, JVD, or masses. LUNGS: Diminished at left base, right basilar wheezing, on bipap HEART: rapid Afib, normal S1 and S2, systolic murmur. ABDOMEN: Soft, nontender, not distended, normoactive bowel sounds, no guarding, no rebound, no masses. No hepatomegaly or splenomegaly. MUSCULOSKELETAL: Normal range of motion at all joints. No bony deformities or tenderness. No CVA tenderness. UPPER EXTREMITIES: 2+ pulses, warm, well-perfused. No cyanosis. No clubbing. Cap refill <2 seconds. No peripheral edema. LOWER EXTREMITIES: 2+ pulses, warm, well-perfused. No calf tenderness. No peripheral edema. NEUROLOGICAL: Cranial nerves II-XII intact. facial symmetry PSYCHIATRIC: Cooperative. Good eye contact. Appropriate mood and affect. Laboratory Results - last 24 hr 03/19/17 03/19/17 03/19/17 09:30 13:11 14:10 Puncture Site Left radial ABG pH 7.32 L ABG pCO2 at Pt Temp 67.8 H* ABG pO2 at Pt Temp 60.8 L D ABG HCO3 34.2 H ABG O2 Sat (Measured) 86.4 L ABG O2 Content 14.7 L ABG Base Excess 6.6 H Darci Test Positive O2 Delivery Device Venti mask Oxygen Flow Rate 40% Lactic Acid 1.606 Troponin I B-Natriuretic Peptide Urine Color Yellow Urine Appearance Clear Urine pH 5.0 Urine Protein 1+ H Urine Glucose (UA) Negative Urine Ketones Trace H Urine Blood Negative Urine Nitrite Negative Urine Bilirubin Negative Urine Urobilinogen Negative Ur Leukocyte Esterase Negative Urine RBC 3 Urine WBC 4 Ur Epithelial Cells Rare Urine Mucus Few 03/19/17 03/19/17 14:30 15:15 Puncture Site ABG pH ABG pCO2 at Pt Temp ABG pO2 at Pt Temp ABG HCO3 ABG O2 Sat (Measured) ABG O2 Content ABG Base Excess Darci Test O2 Delivery Device Oxygen Flow Rate Lactic Acid Troponin I 0.22 H B-Natriuretic Peptide 1799.97 H Cancelled Urine Color Urine Appearance Urine pH Urine Protein Urine Glucose (UA) Urine Ketones Urine Blood Urine Nitrite Urine Bilirubin Urine Urobilinogen Ur Leukocyte Esterase Urine RBC Urine WBC Ur Epithelial Cells Urine Mucus Active Medications Generic Name Dose Route Start Last Admin Trade Name Freq PRN Reason Stop Dose Admin Acetaminophen 650 mg 03/19/17 10:40 Tylenol - PO Q6H PRN FEVER OR PAIN Albuterol Sulfate 1 amp 03/19/17 09:39 03/19/17 14:10 Ventolin 0.083% Nebulizer Soln - NEB 1 amp Q8H PRN Administration SHORT OF BREATH/WHEEZING Albuterol/Ipratropium 1 amp 03/19/17 12:57 Duoneb - NEB Q4H PRN SHORTNESS OF BREATH Diltiazem HCl 180 mg 03/20/17 10:00 Cardizem Cd - PO DAILY MASON Docusate Sodium 100 mg 03/19/17 14:00 03/19/17 13:56 Colace - PO 100 mg TID MASON Administration Heparin Sodium (Porcine) 1,000 unit 03/19/17 13:17 Heparin - IVPUSH PRN PRN Heparin Heparin Sodium (Porcine) 5,000 unit 03/19/17 13:17 Heparin - IVPUSH PRN PRN Heparin Vancomycin HCl 750 mg/ 250 mls @ 250 mls/hr 03/19/17 22:00 Dextrose IVPB BID MASON Protocol Heparin Sodium/Dextrose 500 mls @ 16 mls/hr 03/19/17 13:30 03/19/17 14:17 Heparin Infusion - IVPB 16 mls/hr TITR MASON Administration Protocol 800 UNITS/HR Sodium Chloride 1,000 mls @ 83 mls/hr 03/19/17 13:30 Normal Saline - IV ASDIR MASON Methylprednisolone Sodium Succinate 40 mg 03/19/17 12:30 03/19/17 13:05 Solu-Medrol - IVPB 40 mg Q8H-IV MASON Administration Ondansetron HCl 4 mg 03/19/17 10:40 03/19/17 13:05 Zofran Injection IVPB 4 mg Q6H PRN Administration NAUSEA Piperacillin Sod/Tazobactam Sod 3.375 gm 03/19/17 18:00 Zosyn 3.375gm Ivpb (Pre-Docked) IVPB Q8H-IV MASON Protocol Ramipril 5 mg 03/20/17 10:00 Altace - PO DAILY MASON Uses [facility] near [place], to verify medication list ASSESSMENT/PLAN: 81 yr old woman with afib on eliquis, lung adenocarcinoma currently undergoing radiation, COPD dependent on home oxygen presents in respiratory distress and rapid Afib found to have significant pleural effusion on cxry Pulmonary Acute hypoxic hypercapnic respiratory failure in setting of rapid afib and pleural effusion - Bipap continous to support work of breathing, maintian o2 sat >90% - nebulizer treatments - IR consulted to drain effusion, (pt on eliquis at home, wait 24hr-48hr prior to thoracentesis) - medrol consult Dr. Meyers (IR) for thoracentesis Cardiovascular Rapid AFib - Diltiaziam 180mg po - diltiazam IVpush - lasix 20mg ivp - heparin drip, follow protocol - trend trops - defer echo to cardiology HTN hold home medications: ramipril consult: Dr. Shirley Infectious Disease pneumonia cannot be r/o vanc + zosyn cx pending, urine Ags pending Consult: Dr. Aly Hematologic/Oncologic s/p rtx therapy yesterday f/u with [facility] DVT Heparin drip Diet; low sodium, NPO while on Bipap Fluids no IVF as per cardiology Dispo: We will continue to follow the patient. Thank you for this consultative opportunity. Visit type - Emergency Visit Emergency Visit: No - New Patient This patient is new to me today: Yes Date on this admission: 03/19/17 - Critical Care Critical Care patient: Yes Total Critical Care Time (in minutes): 35 Critical Care Statement: The care of this patient involved high complexity decision making to prevent further life threatening deterioration of the patient 's condition and/or to evalute & treat vital organ system(s) failure or risk of failure.
--- NOTE | 2017-03-19 16:00 | CONSULT ---
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 Patient states that at home and and could not catch her breath, she tried to use nebulizer treatments, no relief. Patient found to be in rapid a fib in the emergency room with hypoxic hypecarbic respiratory failure. Patient denies fever, chill, n, v, light headedness, abdominal pain, cough , sore throat, changes on bowel or bladder PMHx also includes colon ca REVIEW OF SYSTEMS: CONSTITUTIONAL: Positive: generalized weakness, malaise Absent: fever, chills, diaphoresis, loss of appetite, weight change HEENT: Absent: rhinorrhea, nasal congestion, throat pain, throat swelling, difficulty swallowing, mouth swelling, ear pain, eye pain, visual changes CARDIOVASCULAR: Positive: irregular heart rate Absent: chest pain, syncope, palpitations, lightheadedness, peripheral edema RESPIRATORY: Positive:chronic cough unchanged, shortness of breath,dyspnea with exertion, Absent: orthopnea, wheezing, stridor, hemoptysis GASTROINTESTINAL: Absent: abdominal pain, abdominal distension, nausea, vomiting, diarrhea, constipation, melena, hematochezia GENITOURINARY: Absent: dysuria, frequency, urgency, hesitancy, hematuria, flank pain, genital pain MUSCULOSKELETAL: Absent: myalgia, arthralgia, joint swelling, back pain, neck pain SKIN: Absent: rash, itching, pallor HEMATOLOGIC/IMMUNOLOGIC: Absent: easy bleeding, easy bruising, lymphadenopathy, frequent infections ENDOCRINE: Absent: unexplained weight gain, unexplained weight loss, heat intolerance, cold intolerance NEUROLOGIC: Absent: headache, focal weakness or paresthesias, dizziness, unsteady gait, seizure, mental status changes, bladder or bowel incontinence PSYCHIATRIC: Absent: anxiety, depression, suicidal or homicidal ideation, hallucinations. PHYSICAL EXAMINATION Vital Signs - 24 hr 03/19/17 03/19/17 03/19/17 11:29 13:14 14:21 Temperature 98.3 F Pulse Rate 154 H Pulse Rate [ 97 H 96 H Left Radial] Respiratory 26 H 28 H 20 Rate Blood Pressure 129/74 Blood Pressure 120/70 120/70 [Left Arm] O2 Sat by Pulse 98 99 Oximetry (%) 03/19/17 03/19/17 03/19/17 14:45 15:30 15:37 Temperature 98 F 98.3 F Pulse Rate 136 H 154 H Pulse Rate [ Left Radial] Respiratory 36 H 20 Rate Blood Pressure 127/89 129/74 Blood Pressure [Left Arm] O2 Sat by Pulse 90 L 85 L Oximetry (%) GENERAL: Awake, alert, and fully oriented, in no acute distress. HEAD: Normal with no signs of trauma. EYES: Pupils equal, round and reactive to light, extraocular movements intact, sclera anicteric, conjunctiva clear. No lid lag. EARS, NOSE, THROAT: Ears normal, nares patent, oropharynx clear without exudates. Moist mucous membranes. NECK: Normal range of motion, supple without lymphadenopathy, JVD, or masses. LUNGS: decreased breath sounds; L>R; coarse breath sounds HEART: tachycardic irregular heart rate, normal S1 and S2 without murmur, rub or gallop. ABDOMEN: Soft, nontender, not distended, normoactive bowel sounds, no guarding, no rebound, no masses. No hepatomegaly or splenomegaly. MUSCULOSKELETAL: Normal range of motion at all joints. No bony deformities or tenderness. No CVA tenderness. UPPER EXTREMITIES: 2+ pulses, warm, well-perfused. No cyanosis. No clubbing. Cap refill <2 seconds. No peripheral edema. LOWER EXTREMITIES: 2+ pulses, warm, well-perfused. No calf tenderness. No peripheral edema. NEUROLOGICAL: Cranial nerves II-XII intact. Normal speech. Normal gait. PSYCHIATRIC: Cooperative. Good eye contact. Appropriate mood and affect. SKIN: Warm, dry, normal turgor, no rashes or lesions noted. scattered ecchymosis ; Laboratory Results - last 24 hr 03/19/17 03/19/17 03/19/17 09:30 13:11 14:10 Puncture Site Left radial ABG pH 7.32 L ABG pCO2 at Pt Temp 67.8 H* ABG pO2 at Pt Temp 60.8 L D ABG HCO3 34.2 H ABG O2 Sat (Measured) 86.4 L ABG O2 Content 14.7 L ABG Base Excess 6.6 H Darci Test Positive O2 Delivery Device Venti mask Oxygen Flow Rate 40% Lactic Acid 1.606 Troponin I B-Natriuretic Peptide Urine Color Yellow Urine Appearance Clear Urine pH 5.0 Urine Protein 1+ H Urine Glucose (UA) Negative Urine Ketones Trace H Urine Blood Negative Urine Nitrite Negative Urine Bilirubin Negative Urine Urobilinogen Negative Ur Leukocyte Esterase Negative Urine RBC 3 Urine WBC 4 Ur Epithelial Cells Rare Urine Mucus Few 03/19/17 03/19/17 14:30 15:15 Puncture Site ABG pH ABG pCO2 at Pt Temp ABG pO2 at Pt Temp ABG HCO3 ABG O2 Sat (Measured) ABG O2 Content ABG Base Excess Darci Test O2 Delivery Device Oxygen Flow Rate Lactic Acid Troponin I 0.22 H B-Natriuretic Peptide 1799.97 H Cancelled Urine Color Urine Appearance Urine pH Urine Protein Urine Glucose (UA) Urine Ketones Urine Blood Urine Nitrite Urine Bilirubin Urine Urobilinogen Ur Leukocyte Esterase Urine RBC Urine WBC Ur Epithelial Cells Urine Mucus Active Medications Generic Name Dose Route Start Last Admin Trade Name Freq PRN Reason Stop Dose Admin Acetaminophen 650 mg 03/19/17 10:40 Tylenol - PO Q6H PRN FEVER OR PAIN Albuterol Sulfate 1 amp 03/19/17 09:39 03/19/17 14:10 Ventolin 0.083% Nebulizer Soln - NEB 1 amp Q8H PRN Administration SHORT OF BREATH/WHEEZING Albuterol/Ipratropium 1 amp 03/19/17 12:57 Duoneb - NEB Q4H PRN SHORTNESS OF BREATH Diltiazem HCl 180 mg 03/20/17 10:00 Cardizem Cd - PO DAILY MASON Docusate Sodium 100 mg 03/19/17 14:00 03/19/17 13:56 Colace - PO 100 mg TID MASON Administration Heparin Sodium (Porcine) 1,000 unit 03/19/17 13:17 Heparin - IVPUSH PRN PRN Heparin Heparin Sodium (Porcine) 5,000 unit 03/19/17 13:17 Heparin - IVPUSH PRN PRN Heparin Vancomycin HCl 750 mg/ 250 mls @ 250 mls/hr 03/19/17 22:00 Dextrose IVPB BID MASON Protocol Heparin Sodium/Dextrose 500 mls @ 16 mls/hr 03/19/17 13:30 03/19/17 14:17 Heparin Infusion - IVPB 16 mls/hr TITR MASON Administration Protocol 800 UNITS/HR Sodium Chloride 1,000 mls @ 83 mls/hr 03/19/17 13:30 Normal Saline - IV ASDIR MASON Methylprednisolone Sodium Succinate 40 mg 03/19/17 12:30 03/19/17 13:05 Solu-Medrol - IVPB 40 mg Q8H-IV MASON Administration Ondansetron HCl 4 mg 03/19/17 10:40 03/19/17 13:05 Zofran Injection IVPB 4 mg Q6H PRN Administration NAUSEA Piperacillin Sod/Tazobactam Sod 3.375 gm 03/19/17 18:00 Zosyn 3.375gm Ivpb (Pre-Docked) IVPB Q8H-IV MASON Protocol Ramipril 5 mg 03/20/17 10:00 Altace - PO DAILY MASON ASSESSMENT/PLAN: 81 year old female withAF, , COPD, lung CA, chronic hypoxia on 2L o2 at home ; lung adenocarcinmoa, presents to the emergency room with progressive shortness of breath after radiation therapy. In ER patient found to be in acute hypoxic hypercapneic respiratory failure with elevated leukocyte count, afebrile. She was also in rapid atrial fibrillation. Chest xray showing significant large left pleural effusion. Will need thoracocentesis. Will treat treat for pneumonia. Dispo: We will continue to follow the patient. Thank you for this consultative opportunity. #acute hypoxic hyypercapneic respiratory failure secondary to possible PNA with COPD s/p radiation for Lung CA; -BiPAP -CXR large left pleural effusion -thoracocentesisi when appropriate (was on eliquis wait 24-48hrs) -start empiric IV vanco and zosyn -follow up blood cultures #paroxysmal atrial fibrillation with rvr -on heparin drip -diltiazem Problem List - Problems (1) Atrial flutter Code(s): I48.92 - UNSPECIFIED ATRIAL FLUTTER (2) Lung cancer Code(s): C34.90 - MALIGNANT NEOPLASM OF UNSP PART OF UNSP BRONCHUS OR LUNG (3) Pleural effusion, left Code(s): J90 - PLEURAL EFFUSION, NOT ELSEWHERE CLASSIFIED (4) Pneumonia Code(s): J18.9 - PNEUMONIA, UNSPECIFIED ORGANISM (5) Acute on chronic respiratory failure with hypoxia and hypercapnia Code(s): J96.21 - ACUTE AND CHRONIC RESPIRATORY FAILURE WITH HYPOXIA J96.22 - ACUTE AND CHRONIC RESPIRATORY FAILURE WITH HYPERCAPNIA (6) Aortic stenosis Code(s): I35.0 - NONRHEUMATIC AORTIC (VALVE) STENOSIS (7) COPD with acute exacerbation Code(s): J44.1 - CHRONIC OBSTRUCTIVE PULMONARY DISEASE W (ACUTE) EXACERBATION (8) HTN (hypertension) Code(s): I10 - ESSENTIAL (PRIMARY) HYPERTENSION Qualifiers: Hypertension type: essential hypertension Qualified Code(s): I10 - Essential (primary) hypertension (9) History of COPD Code(s): Z87.09 - PERSONAL HISTORY OF OTHER DISEASES OF THE RESPIRATORY SYSTEM (10) History of colon cancer Code(s): Z85.038 - PERSONAL HISTORY OF MALIGNANT NEOPLASM OF LARGE INTESTINE Visit type - Emergency Visit Emergency Visit: Yes ED Registration Date: 03/19/17 Care time: The patient presented to the Emergency Department on the above date and was hospitalized for further evaluation of their emergent condition. - New Patient This patient is new to me today: Yes Date on this admission: 03/19/17 - Critical Care Critical Care patient: Yes Total Critical Care Time (in minutes): 35 Critical Care Statement: The care of this patient involved high complexity decision making to prevent further life threatening deterioration of the patient 's condition and/or to evalute & treat vital organ system(s) failure or risk of failure.
--- NOTE | 2017-03-19 16:14 | PN ---
Teaching Attending Note Name of Resident: Lizz Cramer ATTENDING PHYSICIAN STATEMENT I saw and evaluated the patient. I reviewed the resident's note and discussed the case with the resident. I agree with the resident's findings and plan as documented. SUBJECTIVE: awake and alert on bipap dry oral mucosa s/p RT OBJECTIVE: Vital Signs Period Temp Pulse Resp BP Sys/[place] Pulse Ox Last 24 Hr 97.4 F-98.3 F 72-154 20-36 120-180/54-121 85-99 cor-rrr harsh 2/6 macrina llungs decreased BS on bases abd- soft, nt ext no edema CBC, BMP 03/19/17 07:25 03/19/17 07:25 cultures pending ASSESSMENT AND PLAN: respiratory failure rapid afib lung cancer s/p RT valvular heart disease pleural effusion agree with thoracentesis vancomycin zosyn f/u cultures legionella urinary antigen
[2017-03-19] MEDS ORDERED: PIPERACILLIN/TAZOB 3.375 GM/50 ML PRE-DOCKED IVPB SCH (18:00)
[2017-03-19] MEDS ORDERED: FUROSEMIDE 40 MG/4 ML INJECTABLE VIAL IVPUSH ONE (18:07)
[2017-03-19] MEDS ORDERED: dilTIAZem HCL 60 MG TABLET (FP) PO ONE (18:07)
[2017-03-19] MEDS ORDERED: dilTIAZem HCL 50 MG/10 ML - 10 ML VIAL IVPUSH PRN (18:08)
[2017-03-19] MEDS: PIPERACILLIN/TAZOB 3.375 GM/50 ML PRE-DOCKED IVPB SCH (18:36)
[2017-03-19] MEDS ORDERED: PT OWN MED DRAWER 7, Y5N ONE (21:44)
[2017-03-19] MEDS ORDERED: VANCOMYCIN 750 MG in DEXTROSE 5%-WATER - 250 ML IVPB SCH (22:00)
[2017-03-19] MEDS: VANCOMYCIN 750 MG in DEXTROSE 5%-WATER - 250 ML IVPB SCH (22:03)
[2017-03-19] MEDS: DOCUSATE SODIUM 100 MG CAPSULE (FP) PO SCH (22:03)
[2017-03-20] MEDS: methylPREDNISolone NA SUCC 40 MG/1 ML VIAL IVPB SCH ×3 (02:00→19:05)
[2017-03-20] MEDS: PIPERACILLIN/TAZOB 3.375 GM/50 ML PRE-DOCKED IVPB SCH ×3 (02:00→19:06)
[2017-03-20] MEDS: DOCUSATE SODIUM 100 MG CAPSULE (FP) PO SCH ×3 (05:58→21:28)
[2017-03-20 06:17] LABS: MCH 28.5 pg (25.7-33.7); MCHC 31.9 g/dl (32.0-36.0); MEAN CELL VOLUME 89.2 fl (80-96); MEAN PLT VOLUME 8.7 fl (7.5-11.1); NEUTROPHILS 96.1 % (42.8-82.8); PLATELET COUNT 259 K/MM3 (134-434); WHITE BLOOD COUNT 16.1 K/mm3 (4.0-10.0)
[2017-03-20 06:46] LABS: ALBUMIN 2.4 g/dl (3.4-5.0); ANION GAP 6 (8-16); BILIRUBIN,TOTAL 0.2 mg/dL (0.2-1.0); CALCIUM 7.8 mg/dL (8.5-10.1); CO2 38 mmol/L (21-32); CREATININE 0.5 mg/dL (0.55-1.02); GLUCOSE,RANDOM 155 mg/dL (74-106); MAGNESIUM 2.2 mg/dL (1.8-2.4); SGOT/AST 15 U/L (15-37); SGPT/ALT 16 U/L (12-78); TOT PROT 5.6 g/dl (6.4-8.2)
[2017-03-20 06:47] LABS: ALK PHOS 53 U/L (45-117); TROPONIN I 0.33 ng/ml (0.00-0.05)
--- NOTE | 2017-03-20 08:12 | PN ---
Physical Exam: SUBJECTIVE: Patient seen and examined. Says she feels better, denies chest pain, difficulty breathing. doesn't have much of an appetite wants to call son to bring dentures. OBJECTIVE: Vital Signs Period Temp Pulse Resp BP Sys/Monroe Pulse Ox Last 24 Hr 98 F-98.5 F 88-154 20-36 107-144/48-89 85-99 GENERAL: cachexia, The patient is awake, alert, and fully oriented, in no acute distress. HEAD: Normal with no signs of trauma. EYES: PERRL, extraocular movements intact, sclera anicteric, conjunctiva clear, pallor. No ptosis. ENT: nares patent, oropharynx clear without exudates, mild erythema, dry mucous membranes. NECK: Trachea midline, full range of motion, supple. no LAD, no JVD. venti mask in place. LUNGS: Breath sounds diminished posteriorly, anterior b/l diffuse intermittent wheezing and rhonchi HEART: afib, S1, S2 with systolic murmur. ABDOMEN: Soft, mild tenderness in left upper quadrant, nondistended, normoactive bowel sounds, no guarding EXTREMITIES: 2+ pulses, warm, well-perfused, no edema. hyperpigment rash 5x4 cm anterior b/l le NEUROLOGICAL: Cranial nerves II through XII grossly intact. Normal speech. SKIN: Warm, dry, normal turgor, no rashes or lesions noted Laboratory Results - last 24 hr 03/19/17 03/19/17 03/19/17 09:30 13:11 14:10 WBC RBC Hgb Hct MCV MCHC RDW Plt Count MPV Neutrophils % Lymphocytes % Monocytes % Eosinophils % Basophils % PTT (Actin FS) Puncture Site Left radial ABG pH 7.32 L ABG pCO2 at Pt Temp 67.8 H* ABG pO2 at Pt Temp 60.8 L D ABG HCO3 34.2 H ABG O2 Sat (Measured) 86.4 L ABG O2 Content 14.7 L ABG Base Excess 6.6 H Darci Test Positive O2 Delivery Device Venti mask Oxygen Flow Rate 40% Sodium Potassium Chloride Carbon Dioxide Anion Gap BUN Creatinine Creat Clearance w eGFR Random Glucose Lactic Acid 1.606 Calcium Magnesium Total Bilirubin AST ALT Alkaline Phosphatase Creatine Kinase Troponin I B-Natriuretic Peptide Total Protein Albumin Urine Color Yellow Urine Appearance Clear Urine pH 5.0 Ur Specific Rhodelia 1.020 Urine Protein 1+ H Urine Glucose (UA) Negative Urine Ketones Trace H Urine Blood Negative Urine Nitrite Negative Urine Bilirubin Negative Urine Urobilinogen Negative Ur Leukocyte Esterase Negative Urine RBC 3 Urine WBC 4 Ur Epithelial Cells Rare Urine Mucus Few 03/19/17 03/19/17 03/19/17 14:30 15:15 20:00 WBC RBC Hgb Hct MCV MCHC RDW Plt Count MPV Neutrophils % Lymphocytes % Monocytes % Eosinophils % Basophils % PTT (Actin FS) 37.4 H Puncture Site ABG pH ABG pCO2 at Pt Temp ABG pO2 at Pt Temp ABG HCO3 ABG O2 Sat (Measured) ABG O2 Content ABG Base Excess Darci Test O2 Delivery Device Oxygen Flow Rate Sodium Potassium Chloride Carbon Dioxide Anion Gap BUN Creatinine Creat Clearance w eGFR Random Glucose Lactic Acid Calcium Magnesium Total Bilirubin AST ALT Alkaline Phosphatase Creatine Kinase Troponin I 0.22 H B-Natriuretic Peptide 1799.97 H Cancelled Total Protein Albumin Urine Color Urine Appearance Urine pH Ur Specific Rhodelia Urine Protein Urine Glucose (UA) Urine Ketones Urine Blood Urine Nitrite Urine Bilirubin Urine Urobilinogen Ur Leukocyte Esterase Urine RBC Urine WBC Ur Epithelial Cells Urine Mucus 03/20/17 03/20/17 05:10 05:10 WBC 16.1 H RBC 3.65 Hgb 10.4 L Hct 32.6 MCV 89.2 MCHC 31.9 L RDW 14.0 Plt Count 259 MPV 8.7 Neutrophils % 96.1 H Lymphocytes % 1.2 L D Monocytes % 2.7 L Eosinophils % 0.0 D Basophils % 0.0 PTT (Actin FS) Puncture Site ABG pH ABG pCO2 at Pt Temp ABG pO2 at Pt Temp ABG HCO3 ABG O2 Sat (Measured) ABG O2 Content ABG Base Excess Darci Test O2 Delivery Device Oxygen Flow Rate Sodium 137 Potassium 4.4 Chloride 93 L Carbon Dioxide 38 H Anion Gap 6 L BUN 12 Creatinine 0.5 L Creat Clearance w eGFR > 60 Random Glucose 155 H Lactic Acid Calcium 7.8 L Magnesium 2.2 Total Bilirubin 0.2 D AST 15 ALT 16 Alkaline Phosphatase 53 Creatine Kinase 40 Troponin I 0.33 H B-Natriuretic Peptide Total Protein 5.6 L Albumin 2.4 L Urine Color Urine Appearance Urine pH Ur Specific Rhodelia Urine Protein Urine Glucose (UA) Urine Ketones Urine Blood Urine Nitrite Urine Bilirubin Urine Urobilinogen Ur Leukocyte Esterase Urine RBC Urine WBC Ur Epithelial Cells Urine Mucus Active Medications Generic Name Dose Route Start Last Admin Trade Name Freq PRN Reason Stop Dose Admin Acetaminophen 650 mg 03/19/17 18:54 Tylenol - PO Q6H PRN FEVER OR PAIN Albuterol Sulfate 1 amp 03/19/17 18:54 Ventolin 0.083% Nebulizer Soln - NEB Q8H PRN SHORT OF BREATH/WHEEZING Albuterol/Ipratropium 1 amp 03/19/17 18:54 Duoneb - NEB Q4H PRN SHORTNESS OF BREATH Diltiazem HCl 10 mg 03/19/17 18:08 Cardizem Injection - IVPUSH Q1H PRN TACHYCARDIA Diltiazem HCl 180 mg 03/20/17 10:00 Cardizem Cd - PO DAILY MASON Docusate Sodium 100 mg 03/19/17 22:00 03/20/17 05:58 Colace - PO Not Given TID MASON Heparin Sodium (Porcine) 1,000 unit 03/19/17 18:54 Heparin - IVPUSH PRN PRN Heparin Heparin Sodium (Porcine) 5,000 unit 03/19/17 18:54 03/20/17 05:59 Heparin - IVPUSH 5,000 unit PRN PRN Administration Heparin Heparin Sodium/Dextrose 500 mls @ 16 mls/hr 03/19/17 18:54 03/20/17 05:58 Heparin Infusion - IVPB 950 units/hr TITR MASON Titration Protocol 800 UNITS/HR Vancomycin HCl 750 mg/ 250 mls @ 250 mls/hr 03/19/17 22:00 03/19/17 22:03 Dextrose IVPB 250 mls/hr BID MASON Administration Protocol Methylprednisolone Sodium Succinate 40 mg 03/20/17 02:00 03/20/17 02:00 Solu-Medrol - IVPB 40 mg Q8H-IV MASON Administration Ondansetron HCl 4 mg 03/19/17 18:54 Zofran Injection IVPB Q6H PRN NAUSEA Piperacillin Sod/Tazobactam Sod 3.375 gm 03/19/17 18:00 03/20/17 02:00 Zosyn 3.375gm Ivpb (Pre-Docked) IVPB 3.375 gm Q8H-IV MASON Administration Protocol ASSESSMENT/PLAN: 81 yr old woman with afib on eliquis, lung adenocarcinoma currently undergoing radiation, COPD dependent on home oxygen presents in respiratory distress and rapid Afib found to have significant pleural effusion on cxry Pulmonary Acute hypoxic hypercapnic respiratory failure in setting of rapid afib and pleural effusion - continues to require respiratory support - Bipap continous to support work of breathing, maintian o2 sat >90% - nebulizer treatments - ventolin q8hr prn, duonebs q4h prn - IR consulted to drain effusion, (pt on eliquis at home, wait 24hr-48hr prior to thoracentesis) - medrol 40mg Ivpb q8hr - day 2 - Plan for chest CT w/o contrast post-thoracentesis -- thoracentesis completed on left; 870 cc of serous fluid removed. - resume eliquis this evening, hold heparin until elquis dosing this evening. consult Dr. Meyers (IR) for thoracentesis Cardiovascular Rapid AFib - improved HR - Diltiaziam 180mg po daily - diltiazam IVpush prn - heparin drip, follow protocol - defer echo to cardiology HTN hold home medications: ramipril consult: Dr. Shirley Infectious Disease pneumonia cannot be r/o, bacteremia in bld cx - continue abx vanc 750mg BID + zosyn 3.375 q8hr - day 2 Consult: Dr. Aly Hematologic/Oncologic s/p rtx therapy yesterday f/u with [facility] DVT Heparin drip, hold after thoracentesis until eliquis dose later this evening Diet; low sodium, NPO while on Bipap Fluids no IVF as per cardiology Visit type - Emergency Visit Emergency Visit: No - New Patient This patient is new to me today: No - Critical Care Critical Care patient: Yes Total Critical Care Time (in minutes): 36 Critical Care Statement: The care of this patient involved high complexity decision making to prevent further life threatening deterioration of the patient 's condition and/or to evalute & treat vital organ system(s) failure or risk of failure.
--- NOTE | 2017-03-20 09:35 | PN ---
Progress Note (short form) - Note Progress Note: remains tachypneic, unable to eat breakfast, back on bipap no c/o chest pain or abd pain Vital Signs Period Temp Pulse Resp BP Sys/[place] Pulse Ox Last 24 Hr 98 F-98.5 F 88-154 20-36 107-144/48-89 85-99 cor-rrr2/5 hearsh macrina lungs decreased bs at bases abd soft,nt ext no edema CBC, BMP 03/20/17 05:10 03/20/17 05:10 Microbiology 03/19/17 07:25 Blood - Peripheral Venous Blood Culture - Preliminary Pending Organism 03/19/17 07:25 Blood - Peripheral Venous Blood Culture - Preliminary NO GROWTH OBTAINED AFTER 24 HOURS, INCUBATION TO CONTINUE FOR 4 DAYS. Microbiology 03/19/17 07:25 Blood Culture - Preliminary Blood - Peripheral Venous Pending Organism 03/19/17 07:25 Blood Culture - Preliminary Blood - Peripheral Venous NO GROWTH OBTAINED AFTER 24 HOURS, INCUBATION TO CONTINUE FOR 4 DAYS. Current Medications Acetaminophen (Tylenol -) 650 mg PO Q6H PRN PRN Reason: FEVER OR PAIN Albuterol Sulfate (Ventolin 0.083% Nebulizer Soln -) 1 amp NEB Q8H PRN PRN Reason: SHORT OF BREATH/WHEEZING Last Admin: 03/20/17 09:30 Dose: 1 amp Albuterol/Ipratropium (Duoneb -) 1 amp NEB Q4H PRN PRN Reason: SHORTNESS OF BREATH Diltiazem HCl (Cardizem Injection -) 10 mg IVPUSH Q1H PRN PRN Reason: TACHYCARDIA Diltiazem HCl (Cardizem Cd -) 180 mg PO DAILY MASON Docusate Sodium (Colace -) 100 mg PO TID MASON Last Admin: 03/20/17 05:58 Dose: Not Given Heparin Sodium (Porcine) (Heparin -) 1,000 unit IVPUSH PRN PRN PRN Reason: Heparin Heparin Sodium (Porcine) (Heparin -) 5,000 unit IVPUSH PRN PRN PRN Reason: Heparin Last Admin: 03/20/17 05:59 Dose: 5,000 unit Heparin Sodium/Dextrose (Heparin Infusion -) 500 mls @ 16 mls/hr IVPB TITR MASON ; 800 UNITS/HR PRN Reason: Protocol Last Titration: 03/20/17 05:58 Dose: 950 units/hr Vancomycin HCl 750 mg/ (Dextrose) 250 mls @ 250 mls/hr IVPB BID MASON PRN Reason: Protocol Last Admin: 03/19/17 22:03 Dose: 250 mls/hr Methylprednisolone Sodium Succinate (Solu-Medrol -) 40 mg IVPB Q8H-IV MASON Last Admin: 03/20/17 02:00 Dose: 40 mg Ondansetron HCl (Zofran Injection) 4 mg IVPB Q6H PRN PRN Reason: NAUSEA Piperacillin Sod/Tazobactam Sod (Zosyn 3.375gm Ivpb (Pre-Docked)) 3.375 gm IVPB Q8H-IV MASON PRN Reason: Protocol Last Admin: 03/20/17 02:00 Dose: 3.375 gm a/p continued SOB will order cxray pleural effusion- awaiting thoracentesis bacteremia- ?real, continue vancomycin, check level before 4th dose impending resp failure valvular heart disease lung cancer s/p radiation continue vanco/zosyn f/u blood culture f/u repeat cxray ?advanced directives
[2017-03-20] MEDS ORDERED: FUROSEMIDE 20 MG TABLET (FP) PO SCH (10:00)
[2017-03-20] MEDS ORDERED: RAMIPRIL 5 MG CAPSULE (FP) PO SCH (10:00)
[2017-03-20] MEDS: VANCOMYCIN 750 MG in DEXTROSE 5%-WATER - 250 ML IVPB SCH ×2 (11:00→21:28)
--- NOTE | 2017-03-20 12:48 | PN ---
Teaching Attending Note Name of Resident: Lori Mendoza ATTENDING PHYSICIAN STATEMENT I saw and evaluated the patient. I reviewed the resident's note and discussed the case with the resident. I agree with the resident's findings and plan as documented. SUBJECTIVE: Pt seen and examined in the ICU. Remains dependent on BiPAP. States breathing slightly improved. No fevers or chills. No cough or wheezing. OBJECTIVE: Last Vital Signs Temp Pulse Resp BP Pulse Ox 98.5 F 88 26 H 144/57 98 03/20/17 02:00 03/20/17 06:00 03/20/17 06:00 03/20/17 06:00 03/20/17 09:28 Intake & Output 03/17/17 03/18/17 03/19/17 03/20/17 23:59 23:59 23:59 23:59 Intake Total 542 Balance 542 Weight 95 lb 0.308 oz 89 lb 1 oz Gen: tachypneic on BiPAP Heart: RRR Lung: distant breath sounds, scattered rhonchi Abd: soft, nontender Ext: no edema CBC, BMP 03/20/17 05:10 03/20/17 05:10 Active Medications Acetaminophen (Tylenol -) 650 mg PO Q6H PRN PRN Reason: FEVER OR PAIN Albuterol Sulfate (Ventolin 0.083% Nebulizer Soln -) 1 amp NEB Q8H PRN PRN Reason: SHORT OF BREATH/WHEEZING Last Admin: 03/20/17 09:30 Dose: 1 amp Albuterol/Ipratropium (Duoneb -) 1 amp NEB Q4H PRN PRN Reason: SHORTNESS OF BREATH Diltiazem HCl (Cardizem Injection -) 10 mg IVPUSH Q1H PRN PRN Reason: TACHYCARDIA Diltiazem HCl (Cardizem Cd -) 180 mg PO DAILY MASON Docusate Sodium (Colace -) 100 mg PO TID MASON Last Admin: 03/20/17 05:58 Dose: Not Given Heparin Sodium (Porcine) (Heparin -) 1,000 unit IVPUSH PRN PRN PRN Reason: Heparin Heparin Sodium (Porcine) (Heparin -) 5,000 unit IVPUSH PRN PRN PRN Reason: Heparin Last Admin: 03/20/17 05:59 Dose: 5,000 unit Heparin Sodium/Dextrose (Heparin Infusion -) 500 mls @ 16 mls/hr IVPB TITR MASON ; 800 UNITS/HR PRN Reason: Protocol Last Titration: 03/20/17 05:58 Dose: 950 units/hr Vancomycin HCl 750 mg/ (Dextrose) 250 mls @ 250 mls/hr IVPB BID MASON PRN Reason: Protocol Last Admin: 03/19/17 22:03 Dose: 250 mls/hr Methylprednisolone Sodium Succinate (Solu-Medrol -) 40 mg IVPB Q8H-IV MASON Last Admin: 03/20/17 02:00 Dose: 40 mg Ondansetron HCl (Zofran Injection) 4 mg IVPB Q6H PRN PRN Reason: NAUSEA Piperacillin Sod/Tazobactam Sod (Zosyn 3.375gm Ivpb (Pre-Docked)) 3.375 gm IVPB Q8H-IV MASON PRN Reason: Protocol Last Admin: 03/20/17 02:00 Dose: 3.375 gm ASSESSMENT AND PLAN: Acute on Chronic Hypoxic and Hypercapneic Respiratory Failure Atrial Fibrillation with RVR Stage I Lung Ca s/p RT COPD/Emphysema Left Pleural Effusion r/o Pneumonia HTN h/o Colon Ca - continue antibiotics - f/u cultures - BiPAP to assist in work of breathing - taper fio2 to keep SpO2 >90% - rate control - hold anticoagulation or start heparin gtt for left thoracentesis, last eliquis dose 03/18 night - would obtain CT chest noncontrast post thoracentesis to evaluate underlying lung parenchyma/disease - continue empiric medrol - inhaled bronchodilators standing and PRN - O2 to keep SpO2 >90% - pulse oximetry monitoring - continue ICU monitoring critical care time spent in reviewing chart, evaluating patient and formulating plan 36 min
--- NOTE | 2017-03-20 13:38 | PN ---
Physical Exam: SUBJECTIVE: Patient seen and examined very short of breath, currently on BiPAP, depressed about her illness. OBJECTIVE: Vital Signs Period Temp Pulse Resp BP Sys/[place] Pulse Ox Last 24 Hr 98 F-98.5 F 88-154 20-36 107-144/48-89 85-98 GENERAL: The patient is awake, alert, and fully oriented, on BiPAP HEAD: Normal with no signs of trauma. NECK: Trachea midline, full range of motion, supple. LUNGS: Breath sounds decreased, scattered rhonchi with accessory muscle use. HEART: tachycardic irregular rhythm, S1, S2 without murmur, rub or gallop. ABDOMEN: Soft, nontender, nondistended, normoactive bowel sounds, no guarding, no rebound, no hepatosplenomegaly, no masses. EXTREMITIES: 2+ pulses, warm, well-perfused, no edema. NEUROLOGICAL: Cranial nerves II through XII grossly intact. Normal speech, gait not observed. PSYCH: depressed mood SKIN: bleeding from IV sites, scattered dried blood CBC, BMP 03/20/17 05:10 03/20/17 05:10 Active Medications Generic Name Dose Route Start Last Admin Trade Name Freq PRN Reason Stop Dose Admin Acetaminophen 650 mg 03/19/17 18:54 Tylenol - PO Q6H PRN FEVER OR PAIN Albuterol Sulfate 1 amp 03/19/17 18:54 03/20/17 09:30 Ventolin 0.083% Nebulizer Soln - NEB 1 amp Q8H PRN Administration SHORT OF BREATH/WHEEZING Albuterol/Ipratropium 1 amp 03/19/17 18:54 Duoneb - NEB Q4H PRN SHORTNESS OF BREATH Diltiazem HCl 10 mg 03/19/17 18:08 Cardizem Injection - IVPUSH Q1H PRN TACHYCARDIA Diltiazem HCl 180 mg 03/20/17 10:00 Cardizem Cd - PO DAILY MASON Docusate Sodium 100 mg 03/19/17 22:00 03/20/17 05:58 Colace - PO Not Given TID MASON Heparin Sodium (Porcine) 1,000 unit 03/19/17 18:54 Heparin - IVPUSH PRN PRN Heparin Heparin Sodium (Porcine) 5,000 unit 03/19/17 18:54 03/20/17 05:59 Heparin - IVPUSH 5,000 unit PRN PRN Administration Heparin Heparin Sodium/Dextrose 500 mls @ 16 mls/hr 03/19/17 18:54 03/20/17 05:58 Heparin Infusion - IVPB 950 units/hr TITR MASON Titration Protocol 800 UNITS/HR Vancomycin HCl 750 mg/ 250 mls @ 250 mls/hr 03/19/17 22:00 03/19/17 22:03 Dextrose IVPB 250 mls/hr BID MASON Administration Protocol Methylprednisolone Sodium Succinate 40 mg 03/20/17 02:00 03/20/17 02:00 Solu-Medrol - IVPB 40 mg Q8H-IV MASON Administration Ondansetron HCl 4 mg 03/19/17 18:54 Zofran Injection IVPB Q6H PRN NAUSEA Piperacillin Sod/Tazobactam Sod 3.375 gm 03/19/17 18:00 03/20/17 02:00 Zosyn 3.375gm Ivpb (Pre-Docked) IVPB 3.375 gm Q8H-IV MASON Administration Protocol Microbiology 03/19/17 09:30 Urine - Urine Clean Catch Urine Culture - Final Contaminated: Please Repeat 03/19/17 07:25 Blood - Peripheral Venous Blood Culture - Preliminary Pending Organism 03/19/17 07:25 Blood - Peripheral Venous Blood Culture - Preliminary NO GROWTH OBTAINED AFTER 24 HOURS, INCUBATION TO CONTINUE FOR 4 DAYS. ASSESSMENT/PLAN: 81 year old female with AF, , COPD, lung CA, chronic hypoxia on 2L o2 at home ; lung adenocarcinmoa, presents to the emergency room with progressive shortness of breath after radiation therapy. In ER patient found to be in acute hypoxic hypercapneic respiratory failure with elevated leukocyte count, afebrile. She was also in rapid atrial fibrillation. Chest xray showing significant large left pleural effusion. Will need thoracocentesis. Will treat treat for pneumonia. Dispo: We will continue to follow the patient. Thank you for this consultative opportunity. #acute hypoxic hypercapneic respiratory failure secondary to possible PNA bacteremia -BiPAP -CXR large left pleural effusion -thoracocentesis when appropriate (was on eliquis wait 24-48hrs) -continue IV vanco and zosyn day 2 -blood cultures pending organism : bacteremia #paroxysmal atrial fibrillation with rvr -on heparin drip -diltiazem #COPD/Emphysema #h/o colon CA Problem List - Problems (1) Atrial flutter Code(s): I48.92 - UNSPECIFIED ATRIAL FLUTTER (2) Lung cancer Code(s): C34.90 - MALIGNANT NEOPLASM OF UNSP PART OF UNSP BRONCHUS OR LUNG (3) Pleural effusion, left Code(s): J90 - PLEURAL EFFUSION, NOT ELSEWHERE CLASSIFIED (4) Pneumonia Code(s): J18.9 - PNEUMONIA, UNSPECIFIED ORGANISM (5) Acute on chronic respiratory failure with hypoxia and hypercapnia Code(s): J96.21 - ACUTE AND CHRONIC RESPIRATORY FAILURE WITH HYPOXIA J96.22 - ACUTE AND CHRONIC RESPIRATORY FAILURE WITH HYPERCAPNIA (6) Aortic stenosis Code(s): I35.0 - NONRHEUMATIC AORTIC (VALVE) STENOSIS (7) COPD with acute exacerbation Code(s): J44.1 - CHRONIC OBSTRUCTIVE PULMONARY DISEASE W (ACUTE) EXACERBATION (8) HTN (hypertension) Code(s): I10 - ESSENTIAL (PRIMARY) HYPERTENSION Qualifiers: Hypertension type: essential hypertension Qualified Code(s): I10 - Essential (primary) hypertension (9) History of COPD Code(s): Z87.09 - PERSONAL HISTORY OF OTHER DISEASES OF THE RESPIRATORY SYSTEM (10) History of colon cancer Code(s): Z85.038 - PERSONAL HISTORY OF MALIGNANT NEOPLASM OF LARGE INTESTINE Visit type - Emergency Visit Emergency Visit: Yes ED Registration Date: 03/19/17 Care time: The patient presented to the Emergency Department on the above date and was hospitalized for further evaluation of their emergent condition. - New Patient This patient is new to me today: No - Critical Care Critical Care patient: No
--- NOTE | 2017-03-20 14:58 | PN ---
Physical Exam: SUBJECTIVE: Patient seen and examined at bedside. She's in good spirits while on BiPAP. Per family at bedside, the patient has been comfortable on BiPAP, no fever, chills, chest pain, urinary or bowel symptoms. OBJECTIVE: On BiPAP 15, 6, FiO2 50% Vital Signs Period Temp Pulse Resp BP Sys/Monroe Pulse Ox Last 24 Hr 98 F-98.5 F 88-154 20-36 107-144/48-89 85-98 GENERAL: AAO x 3, mild respiratory distress on BiPAP 50%. NECK: no JVD. LUNGS: CTAB HEART: irregularly irregular, S1, S2 present with systolic murmur. ABDOMEN: Soft, tenderness upon touch in LUQ, NT, ND EXTREMITIES: no edema. hyperpigmentation b/l NEUROLOGICAL: Cranial nerves II through XII grossly intact. Normal speech. SKIN: Warm, dry, normal turgor, no rashes or lesions noted CBCD WBC 16.1 K/mm3 (4.0-10.0) H 03/20/17 05:10 RBC 3.65 M/mm3 (3.60-5.2) 03/20/17 05:10 Hgb 10.4 GM/dL (10.7-15.3) L 03/20/17 05:10 Hct 32.6 % (32.4-45.2) 03/20/17 05:10 MCV 89.2 fl (80-96) 03/20/17 05:10 MCHC 31.9 g/dl (32.0-36.0) L 03/20/17 05:10 RDW 14.0 % (11.6-15.6) 03/20/17 05:10 Plt Count 259 K/MM3 (134-434) 03/20/17 05:10 MPV 8.7 fl (7.5-11.1) 03/20/17 05:10 CMP Sodium 137 mmol/L (136-145) 03/20/17 05:10 Potassium 4.4 mmol/L (3.5-5.1) 03/20/17 05:10 Chloride 93 mmol/L (98-107) L 03/20/17 05:10 Carbon Dioxide 38 mmol/L (21-32) H 03/20/17 05:10 Anion Gap 6 (8-16) L 03/20/17 05:10 BUN 12 mg/dL (7-18) 03/20/17 05:10 Creatinine 0.5 mg/dL (0.55-1.02) L 03/20/17 05:10 Creat Clearance w eGFR > 60 (>60) 03/20/17 05:10 Calcium 7.8 mg/dL (8.5-10.1) L 03/20/17 05:10 Total Bilirubin 0.2 mg/dL (0.2-1.0) D 03/20/17 05:10 AST 15 U/L (15-37) 03/20/17 05:10 ALT 16 U/L (12-78) 03/20/17 05:10 Alkaline Phosphatase 53 U/L (45-117) 03/20/17 05:10 Total Protein 5.6 g/dl (6.4-8.2) L 03/20/17 05:10 Albumin 2.4 g/dl (3.4-5.0) L 03/20/17 05:10 ABG Results ABG pH 7.32 (7.35-7.45) L 03/19/17 14:10 ABG pCO2 at Pt Temp 67.8 mmHg (35-45) H* 03/19/17 14:10 ABG pO2 at Pt Temp 60.8 mmHg (68-100) L D 03/19/17 14:10 ABG HCO3 34.2 meq/L (22-26) H 03/19/17 14:10 ABG O2 Sat (Measured) 86.4 % (90-98.9) L 03/19/17 14:10 ABG O2 Content 14.7 % vol (15-22) L 03/19/17 14:10 ABG Base Excess 6.6 meq/l (-2-2) H 03/19/17 14:10 Active Medications Generic Name Dose Route Start Last Admin Trade Name Freq PRN Reason Stop Dose Admin Acetaminophen 650 mg 03/19/17 18:54 Tylenol - PO Q6H PRN FEVER OR PAIN Albuterol Sulfate 1 amp 03/19/17 18:54 03/20/17 09:30 Ventolin 0.083% Nebulizer Soln - NEB 1 amp Q8H PRN Administration SHORT OF BREATH/WHEEZING Albuterol/Ipratropium 1 amp 03/19/17 18:54 Duoneb - NEB Q4H PRN SHORTNESS OF BREATH Diltiazem HCl 10 mg 03/19/17 18:08 Cardizem Injection - IVPUSH Q1H PRN TACHYCARDIA Diltiazem HCl 180 mg 03/20/17 10:00 Cardizem Cd - PO DAILY [facility] Docusate Sodium 100 mg 03/19/17 22:00 03/20/17 05:58 Colace - PO Not Given TID [facility] Heparin Sodium (Porcine) 1,000 unit 03/19/17 18:54 Heparin - IVPUSH PRN PRN Heparin Heparin Sodium (Porcine) 5,000 unit 03/19/17 18:54 03/20/17 05:59 Heparin - IVPUSH 5,000 unit PRN PRN Administration Heparin Heparin Sodium/Dextrose 500 mls @ 16 mls/hr 03/19/17 18:54 03/20/17 05:58 Heparin Infusion - IVPB 950 units/hr TITR [facility] Titration Protocol 800 UNITS/HR Vancomycin HCl 750 mg/ 250 mls @ 250 mls/hr 03/19/17 22:00 03/19/17 22:03 Dextrose IVPB 250 mls/hr BID [facility] Administration Protocol Methylprednisolone Sodium Succinate 40 mg 03/20/17 02:00 03/20/17 02:00 Solu-Medrol - IVPB 40 mg Q8H-IV [facility] Administration Ondansetron HCl 4 mg 03/19/17 18:54 Zofran Injection IVPB Q6H PRN NAUSEA Piperacillin Sod/Tazobactam Sod 3.375 gm 03/19/17 18:00 03/20/17 02:00 Zosyn 3.375gm Ivpb (Pre-Docked) IVPB 3.375 gm Q8H-IV [facility] Administration Protocol Intake & Output 03/17/17 03/18/17 03/19/17 03/20/17 23:59 23:59 23:59 23:59 Intake Total 542 Balance 542 Weight 43.1 kg 40.398 kg Microbiology 03/19/17 09:30 Urine Culture - Final Urine - Urine Clean Catch Contaminated: Please Repeat 03/19/17 07:25 Blood Culture - Preliminary Blood - Peripheral Venous Pending Organism 03/19/17 07:25 Blood Culture - Preliminary Blood - Peripheral Venous NO GROWTH OBTAINED AFTER 24 HOURS, INCUBATION TO CONTINUE FOR 4 DAYS. IMAGING CXR on 03/20: moderate L pleural effusion with compressive atelectasis Duplex on 03/19: No DVT ASSESSMENT/PLAN: 81 yo F h/o COPD on 3L [place] home O2, lung ca on radiation therapy last on Saturday, colon ca s/p resection in 2000, atrial fibrillation on Eliquis and cardizem, HTN , and aortic stenosis s/p balloon valvuloplasty admitted to the ICU for acute on chronic hypercapnic respiratory failure. ID: [id number]; Positive blood culture - Met SIRS criteria with unknown source of infection - CXR negative but cannot r/o pneumonia - Prelim blood culture positive * will f/u final report - Leukocytosis but afrebile - Cont. broad spectrum abx (Vanc and zosyn day 2) Pulm: Acute on chronic hypercapnic respiratory failure - Likely maglinant pleural effusion from lung CA - Bedside thoracentesis * eliquis held * currently on heparin gtt * repeat CT chest - Duoneb PRN - Solu-medrol 40mg IVP Q8H - BiPAP PRN - Daily ABG and CXR Cardio: elevated cardiac enzyme; paroxysmal a-fib; HTN - Elevated troponins x 3 likely 2/2 demand ischemia - Rated controlled at the moment - CHADSVASC =3 - Cardizem 180mg PO DAILY with 10mg IVPUSH PRN - Cont. lasix and ramipril FEN - IVF not indicated - Cont. to monitor lytes - Sodium controlled diet Prophylaxis - DVT: On heparin gtt - GI: not indicated Disposition - Cont. to monitor in ICU Code status - Full code Visit type - Emergency Visit Emergency Visit: No - New Patient This patient is new to me today: Yes Date on this admission: 03/20/17 - Critical Care Critical Care patient: Yes Total Critical Care Time (in minutes): 40 Critical Care Statement: The care of this patient involved high complexity decision making to prevent further life threatening deterioration of the patient 's condition and/or to evalute & treat vital organ system(s) failure or risk of failure.
--- NOTE | 2017-03-20 16:22 | PN ---
Progress Note (short form) - Note Progress Note: Chief Complaint: sob S: On bipap. S/p thoracentesis. Current Medications Acetaminophen (Tylenol -) 650 mg PO Q6H PRN PRN Reason: FEVER OR PAIN Albuterol Sulfate (Ventolin 0.083% Nebulizer Soln -) 1 amp NEB Q8H PRN PRN Reason: SHORT OF BREATH/WHEEZING Last Admin: 03/20/17 09:30 Dose: 1 amp Albuterol/Ipratropium (Duoneb -) 1 amp NEB Q4H PRN PRN Reason: SHORTNESS OF BREATH Diltiazem HCl (Cardizem Injection -) 10 mg IVPUSH Q1H PRN PRN Reason: TACHYCARDIA Diltiazem HCl (Cardizem Cd -) 180 mg PO DAILY [facility] Docusate Sodium (Colace -) 100 mg PO TID [facility]ON Last Admin: 03/20/17 05:58 Dose: Not Given Heparin Sodium (Porcine) (Heparin -) 1,000 unit IVPUSH PRN PRN PRN Reason: Heparin Heparin Sodium (Porcine) (Heparin -) 5,000 unit IVPUSH PRN PRN PRN Reason: Heparin Last Admin: 03/20/17 05:59 Dose: 5,000 unit Heparin Sodium/Dextrose (Heparin Infusion -) 500 mls @ 16 mls/hr IVPB TITR MASON ; 800 UNITS/HR PRN Reason: Protocol Last Titration: 03/20/17 05:58 Dose: 950 units/hr Vancomycin HCl 750 mg/ (Dextrose) 250 mls @ 250 mls/hr IVPB BID [facility] PRN Reason: Protocol Last Admin: 03/19/17 22:03 Dose: 250 mls/hr Methylprednisolone Sodium Succinate (Solu-Medrol -) 40 mg IVPB Q8H-IV MASON Last Admin: 03/20/17 02:00 Dose: 40 mg Ondansetron HCl (Zofran Injection) 4 mg IVPB Q6H PRN PRN Reason: NAUSEA Piperacillin Sod/Tazobactam Sod (Zosyn 3.375gm Ivpb (Pre-Docked)) 3.375 gm IVPB Q8H-IV [facility]ON PRN Reason: Protocol Last Admin: 03/20/17 02:00 Dose: 3.375 gm Vital Signs - 24 hr 03/19/17 03/19/17 03/20/17 19:00 20:36 00:00 Temperature Pulse Rate 90 88 Respiratory 20 24 Rate Blood Pressure 107/56 113/48 O2 Sat by Pulse 95 Oximetry (%) 03/20/17 03/20/17 03/20/17 02:00 04:00 06:00 Temperature 98.5 F Pulse Rate 88 89 88 Respiratory 22 24 26 H Rate Blood Pressure 122/64 133/57 144/57 O2 Sat by Pulse Oximetry (%) 03/20/17 03/20/17 09:28 10:00 Temperature Pulse Rate Respiratory Rate Blood Pressure O2 Sat by Pulse 98 96 Oximetry (%) Intake & Output 03/18/17 03/19/17 03/20/17 03/21/17 07:59 07:59 07:59 07:59 Intake Total 542 Balance 542 Weight 115 lb 89 lb 1 oz Constitutional: Yes: Well Nourished, No Distress Eyes: No: Sclera Icterus HENT: No: Nasal Congestion Neck: No: Decreased ROM Respiratory: Yes: CTA bibasilar rales. No: Accessory Muscle Use, Rales, Wheezes Gastrointestinal: Yes: Normal Bowel Sounds. No: Distention, Hepatomegaly, Palpable Mass, Tenderness Cardiovascular: Yes: Pulse regular JVD: No Carotid Bruit: No PMI: Non-Displaced Heart Sounds: Yes: S1, S2. No: Gallop Murmur: Yes: Systolic Murmur (hi-pitched PRESTON LUSB radiating throughout precordium). No: Diastolic Murmur Musculoskeletal: Yes: Other (No kyphosis) Extremities: No: Cold Edema: No Peripheral Pulses: 2+ Left Carotid, 2+ Right Carotid, 2+ Left Doralis Pedis, 2+ Right Dorsalis Pedis Integumentary: No: Jaundice Neurological: Yes: Alert, Oriented (x3) Psychiatric: No: Agitated - Other Data Labs, Other Data: CBC, BMP 03/20/17 05:10 03/20/17 05:10 ekg 03/19: rapid atrial flutter; ? old ASMI (no change vs prior); no signif ST-T abnormalities when accounting for flutter waves tele: afib --> conversion to sr Imaging - Results Chest X-ray: Report Reviewed, Image Reviewed Assessment/Plan L/RHC 12/28: wedge 22 (down to 16 post BAV); PA 55/25 (40/18 post); CI 3.0 (3.1 post); AV 50/38 mmHg-->20/16 post; CHASE 0.5-->1.0 post; 30-50% pRCA with mild/diffuse dz LAD/LCX CTA [facility] 12/2016: severe , severe calcification of asc aorta with protruding atheroma. severe asymmetric LV hypertrophy (1.8 at base), small focal LV aneursym. LLL spiculated mass concerning for malignancy F/u CT scan 12/2016: new mucus impaction of peripheral bronchial tree. patulous esophagus c/w dysmotility or reflux . PET [facility] 12/2016: Increased size of LLL area of consolidation 2.8 x 3.3 cm --> 6 x 6 cm. Heterogenous uptake LLL uptake with central focus (suspicious for malignancy). Uptake in left hilar node reactive vs metastatic. YADIRA mildly hypermetabolic ground glass changes infection/ inflammation Assessment/Plan 81 yo afib, as s/p bav 12/2016, phtn, severe copd, recent dx lung adenoCa started XRT (no surgery planned), htn p/w respiratory failure acute on chronic hypoxic/hypercapneic resp failure, COPD, lung adenoCa, pleural effusion: - being followed and tx'd by pulm at [place] - on home O2 - deemed prohibitive surgical risk for lung resection by thoracic surgery at [facility], started RT recently - being followed by pulm here, for thoracentesis - defer ? of abx (for ? PNA) to pulmonary team - note: 01/15/17 CXR at [facility] showed no effusions - given mild hi wedge persisted after BAV, and pt likely with some degree of AV restenosis now 3 mo later, will give dose of lasix 20mg ivp today and observe bp response and labs in AM - 5/10: s/p thoracentesis today. remains on bipap. appears euvolemic and bicarb creeping up. will hold off on further lasix today. (pt not on standing outpatient dose) Reassess tomorrow. paroxysmal AF: - with rapid HRs when in afib in hospital previously, including at [facility] on diltiazem (no BB given wheezing/copd severity) -CHADS VASC = 3, on Eliquis -holding AC in anticipation of thoracentesis (not on ASA--will d/c order) -rapid HR being driveing by acute dyspnea, pleural eff, ? PNA, steroids-- received diltiazem IVPs here -will incr diltiazem 120 to 180, use prn doses here -continue heparin gtt for AC while hold eliquis preop - 03/20: converted to SR. On heparin drip. Resume eliquis when no further procedures planned. 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 converted to SR today. Will plan on echo tomorrow. HTN: -on dilt and ramipril 5mg at home -bp currently reasonably controlled -hold JERI to allow diltiazem and lasix without hypotension -03/20 bp trending up. may be able to add back ramipril tomorrow. + tobacco - smoking cessation counseling. preop CV risk eval: -s/p thoracentesis, low risk procedure -RCRI = 1, decr'd functional status -doubt decompensated chf (as discussed) -at low risk for periop CV complications from thoracentesis. On heparin bridge. est crit care time 35 min
[2017-03-20 17:10] LABS: GLUCOSE,PLEURAL FLUID 172.482
--- NOTE | 2017-03-20 17:24 | PN ---
Teaching Attending Note Name of Resident: Luisito Evangelista ATTENDING PHYSICIAN STATEMENT I saw and evaluated the patient. I reviewed the resident's note and discussed the case with the resident. I agree with the resident's findings and plan as documented. SUBJECTIVE: OBJECTIVE: Vital Signs Period Temp Pulse Resp BP Sys/Monroe Pulse Ox Last 24 Hr 98.5 F 88-90 20-26 107-144/48-64 95-98 ASSESSMENT AND PLAN: This is an 81-year-old woman with a history of COPD, chronic hypoxic respiratory failure, lung cancer, colon cancer, atrial fibrillation, HTN, with balloon valvuloplasty who presented to the ER with shortness of breath. 1. Atrial fibrillation with RVR - Rate is better - Continue Cardizem, Eliquis (resume when ok with IR) 2. Left pleural effusion, likely malignant - Thoracentesis done today - Follow up fluid studies - Chest CT shows bilateral effusions and atelectasis 3. Acute on chronic hypoxic and hypercapnic respiratory failure - Continue oxygen, BiPAP as needed 4. Acute exacerbation of COPD - Continue SoluMedrol, DuoNeb 5. Sepsis secondary to possible pneumonia, possible bacteremia - Continue Zosyn, Vancomycin - Follow up blood cultures 6. HTN -Continue Cardizem CD 7. Lung cancer - Currently receiving XRT at [facility] 8. History of colon cancer, resection 9. Aortic stenosis, history of balloon valvuloplasty
[2017-03-20 18:40] LABS: PLEURAL FLUID APPEARANCE HAZY; PLEURAL FLUID COLOR YELLOW; PLEURAL FLUID SOURCE PLEURAL
[2017-03-20 18:57] LABS: PLEURAL FLUID LYMPHOCYTES 38 %; PLEURAL FLUID MACROPHAGES 12 %; PLEURAL FLUID NEUTROPHIL 34 %
[2017-03-20] MEDS ORDERED: PT OWN MED DRAWER 7, Y5N ONE (21:25)
[2017-03-20] MEDS: APIXABAN 5 MG TABLET PO SCH (21:29)
[2017-03-21] MEDS: methylPREDNISolone NA SUCC 40 MG/1 ML VIAL IVPB SCH ×3 (03:00→17:12)
[2017-03-21] MEDS: PIPERACILLIN/TAZOB 3.375 GM/50 ML PRE-DOCKED IVPB SCH ×3 (03:00→17:12)
[2017-03-21] MEDS: DOCUSATE SODIUM 100 MG CAPSULE (FP) PO SCH ×4 (05:41→23:16)
[2017-03-21 06:48] LABS: ALBUMIN 2.3 g/dl (3.4-5.0); ANION GAP 9 (8-16); CALCIUM 8.4 mg/dL (8.5-10.1); CO2 40 mmol/L (21-32); GLUCOSE,RANDOM 123 mg/dL (74-106); SGOT/AST 15 U/L (15-37); SGPT/ALT 13 U/L (12-78)
[2017-03-21 06:50] LABS: ALK PHOS 51 U/L (45-117); BILIRUBIN,TOTAL 0.2 mg/dL (0.2-1.0); CREATININE 0.7 mg/dL (0.55-1.02); TOT PROT 5.2 g/dl (6.4-8.2)
--- NOTE | 2017-03-21 07:54 | PN ---
Physical Exam: SUBJECTIVE: Patient seen and examined c/o feeling hungry, tired of using bipap denies chest pain, sob, palpitations, fever, cough. OBJECTIVE: Vital Signs Period Temp Pulse Resp BP Sys/Monroe Pulse Ox Last 24 Hr 98.1 F-98.7 F 78-90 18-25 103-142/50-100 82-98 GENERAL: cachexia, The patient is awake, alert, and fully oriented, in no acute distress. EYES: PERRL, EOMI. ENT: nares patent, oropharynx clear without exudates, dry mucous membranes. NECK: Trachea midline, full range of motion, supple. no LAD, no JVD. nasal cannular in place LUNGS: decreased at bases L>R, poor air entry, few fine wheezes HEART: afib, S1, S2 with systolic murmur. ABDOMEN: Soft, nontender, nondistended, normoactive bowel sounds, no guarding EXTREMITIES: 2+ pulses, warm, well-perfused, no edema. hyperpigment rash 5x4 cm anterior b/l le Laboratory Results - last 24 hr 03/20/17 03/20/17 03/21/17 11:45 14:00 05:20 PTT (Actin FS) 27.5 Sodium 142 Potassium 4.6 Chloride 93 L Carbon Dioxide 40 H Anion Gap 9 BUN 16 D Creatinine 0.7 D Creat Clearance w eGFR > 60 Random Glucose 123 H D Calcium 8.4 L Total Bilirubin 0.2 AST 15 ALT 13 Alkaline Phosphatase 51 Total Protein 5.2 L Albumin 2.3 L Pleural Fluid Source Pleural Pleural Color Yellow Pleural Appearance Hazy Pleural WBC 716 Pleural RBC 1983 Pleural Neutrophils 34 Pleural Lymphocytes 38 Pleural Monocytes 4 Pleural Macrophages 12 Pleural Mesothelial 12 Pleural Total Protein 2.680 Pleural Albumin 2 Pleural LDH 112.531 Pleural Glucose 172.482 Pleural Amylase 16.431 Pleural Triglycerides 15 Active Medications Generic Name Dose Route Start Last Admin Trade Name Freq PRN Reason Stop Dose Admin Acetaminophen 650 mg 03/19/17 18:54 03/20/17 21:29 Tylenol - PO 650 mg Q6H PRN Administration FEVER OR PAIN Albuterol Sulfate 1 amp 03/19/17 18:54 03/20/17 09:30 Ventolin 0.083% Nebulizer Soln - NEB 1 amp Q8H PRN Administration SHORT OF BREATH/WHEEZING Albuterol/Ipratropium 1 amp 03/19/17 18:54 Duoneb - NEB Q4H PRN SHORTNESS OF BREATH Apixaban 5 mg 03/20/17 22:00 03/20/17 21:29 Eliquis - PO 5 mg BID [facility] Administration Diltiazem HCl 10 mg 03/19/17 18:08 Cardizem Injection - IVPUSH Q1H PRN TACHYCARDIA Diltiazem HCl 180 mg 03/20/17 10:00 03/20/17 10:30 Cardizem Cd - PO 180 mg DAILY [facility] Administration Docusate Sodium 100 mg 03/19/17 22:00 03/21/17 05:41 Colace - PO Not Given TID [facility]ON Vancomycin HCl 750 mg/ 250 mls @ 250 mls/hr 03/19/17 22:00 03/20/17 21:28 Dextrose IVPB 250 mls/hr BID [facility] Administration Protocol Methylprednisolone Sodium Succinate 40 mg 03/20/17 02:00 03/21/17 03:00 Solu-Medrol - IVPB 40 mg Q8H-IV [facility] Administration Ondansetron HCl 4 mg 03/19/17 18:54 Zofran Injection IVPB Q6H PRN NAUSEA Piperacillin Sod/Tazobactam Sod 3.375 gm 03/19/17 18:00 03/21/17 03:00 Zosyn 3.375gm Ivpb (Pre-Docked) IVPB 3.375 gm Q8H-IV [facility] Administration Protocol ASSESSMENT/PLAN: 81 yr old woman with afib on eliquis, lung adenocarcinoma currently undergoing radiation, COPD dependent on home oxygen presents in respiratory distress and rapid Afib found to have significant pleural effusion on cxry Pulmonary Acute hypoxic hypercapnic respiratory failure in setting of rapid afib and pleural effusion - improved s/p thoracentesis - Bipap prn to support work of breathing, maintian o2 sat >90% - nebulizer treatments - ventolin q8hr prn, duonebs q4h prn - medrol 40mg Ivpb q8hr - day 3, taper since pt's breathing has improved -- thoracentesis completed on left; 870 cc of serous fluid removed. Cardiovascular Rapid AFib - resolved - Diltiaziam 180mg po daily - diltiazam IVpush prn - eliquis 5mg BID po - echo report pending HTN hold home medications: ramipril consult: Dr. Shirley Infectious Disease pneumonia cannot be r/o, bacteremia in bld cx - continue abx vanc 750mg BID + zosyn 3.375 q8hr - day 3 Consult: Dr. Aly Hematologic/Oncologic s/p rtx therapy yesterday f/u with [facility] DVT Eliquis 5mg po BID Diet; low sodium, NPO while on Bipap Dispo: patient is stable for telemetry monitoring. Transfer to Tele today. Visit type - Emergency Visit Emergency Visit: No - New Patient This patient is new to me today: No - Critical Care Critical Care patient: Yes Total Critical Care Time (in minutes): 38 Critical Care Statement: The care of this patient involved high complexity decision making to prevent further life threatening deterioration of the patient 's condition and/or to evalute & treat vital organ system(s) failure or risk of failure.
[2017-03-21] MEDS ORDERED: PT OWN MED DRAWER 7, Y5N ONE (09:22)
[2017-03-21] MEDS: APIXABAN 5 MG TABLET PO SCH ×2 (09:23→23:16)
[2017-03-21] MEDS: VANCOMYCIN 750 MG in DEXTROSE 5%-WATER - 250 ML IVPB SCH (09:23)
[2017-03-21 10:03] LABS: MCH 28.3 pg (25.7-33.7); MCHC 31.8 g/dl (32.0-36.0); MEAN CELL VOLUME 88.9 fl (80-96); MEAN PLT VOLUME 8.8 fl (7.5-11.1); PLATELET COUNT 243 K/MM3 (134-434); RDW 13.8 % (11.6-15.6); WHITE BLOOD COUNT 28.4 K/mm3 (4.0-10.0)
--- NOTE | 2017-03-21 10:10 | PN ---
Physical Exam: SUBJECTIVE:Infectious Disease f/u : Patient seen and examined , awake and alert , off BiPAP, currently eating breakfast, breathing improved, s/p thoracentesis yesterday. No new complaints, denies chest pain, cough, n,v, GI or complaints. OBJECTIVE: Vital Signs Period Temp Pulse Resp BP Sys/Monroe Pulse Ox Last 24 Hr 98.1 F-98.7 F 78-88 18-24 103-157/50-96 82-96 GENERAL: The patient is frail, awake, alert, and fully oriented, in no acute distress. HEAD: Normal with no signs of trauma. NECK: Trachea midline, full range of motion, supple. LUNGS: decreased Breath sounds bilateral lung arredondo, no wheezes, no crackles, no accessory muscle use. HEART: irregular rate and rhythm, S1, S2 with systolic murmur radiating to right clavicle, rub or gallop. ABDOMEN: Soft, nontender, nondistended, normoactive bowel sounds, no guarding, no rebound, no hepatosplenomegaly, no masses. EXTREMITIES: 2+ pulses, warm, well-perfused, no edema. NEUROLOGICAL: Cranial nerves II through XII grossly intact. Normal speech, gait not observed. PSYCH: Normal mood, normal affect. SKIN: Warm, dry, normal turgor, no rashes or lesions noted, scattered ecchymosis CBC, BMP 03/21/17 05:20 Active Medications Generic Name Dose Route Start Last Admin Trade Name Freq PRN Reason Stop Dose Admin Acetaminophen 650 mg 03/19/17 18:54 03/20/17 21:29 Tylenol - PO 650 mg Q6H PRN Administration FEVER OR PAIN Albuterol Sulfate 1 amp 03/19/17 18:54 03/20/17 09:30 Ventolin 0.083% Nebulizer Soln - NEB 1 amp Q8H PRN Administration SHORT OF BREATH/WHEEZING Albuterol/Ipratropium 1 amp 03/19/17 18:54 Duoneb - NEB Q4H PRN SHORTNESS OF BREATH Apixaban 5 mg 03/20/17 22:00 03/21/17 09:23 Eliquis - PO 5 mg BID MASON Administration Diltiazem HCl 10 mg 03/19/17 18:08 Cardizem Injection - IVPUSH Q1H PRN TACHYCARDIA Diltiazem HCl 180 mg 03/20/17 10:00 03/21/17 09:23 Cardizem Cd - PO 180 mg DAILY MASON Administration Docusate Sodium 100 mg 03/19/17 22:00 03/21/17 05:41 Colace - PO Not Given TID MASON Vancomycin HCl 750 mg/ 250 mls @ 250 mls/hr 03/19/17 22:00 03/21/17 09:23 Dextrose IVPB 250 mls/hr BID MASON Administration Protocol Methylprednisolone Sodium Succinate 40 mg 03/20/17 02:00 03/21/17 09:24 Solu-Medrol - IVPB 40 mg Q8H-IV MASON Administration Ondansetron HCl 4 mg 03/19/17 18:54 Zofran Injection IVPB Q6H PRN NAUSEA Piperacillin Sod/Tazobactam Sod 3.375 gm 03/19/17 18:00 03/21/17 09:23 Zosyn 3.375gm Ivpb (Pre-Docked) IVPB 3.375 gm Q8H-IV MASON Administration Protocol Microbiology 03/20/17 14:00 Pleural Fluid AFB Smear Concentration - Preliminary 03/20/17 14:00 Pleural Fluid Mycobacterial Culture - Preliminary 03/19/17 07:25 Blood - Peripheral Venous Blood Culture - Preliminary NO GROWTH OBTAINED AFTER 48 HOURS, INCUBATION TO CONTINUE FOR 3 DAYS. 03/19/17 09:30 Urine - Urine Clean Catch Urine Culture - Final Contaminated: Please Repeat 03/19/17 07:25 Blood - Peripheral Venous Blood Culture - Preliminary Pending Organism ASSESSMENT/PLAN: 81 year old female with AF, , COPD, lung CA, chronic hypoxia on 2L o2 at home ; lung adenocarcinmoa, presents to the emergency room with progressive shortness of breath after radiation therapy. In ER patient found to be in acute hypoxic hypercapneic respiratory failure with elevated leukocyte count, afebrile. She was also in rapid atrial fibrillation. Chest xray showing significant large left pleural effusion. S/p thoracocentesis yesterday. Currently being treated with IV antibiotics for PNA. 1. Atrial fibrillation with RVR 2. Left pleural effusion 3. Acute on chronic hypoxic and hypercapnic respiratory failure 4. Acute exacerbation of COPD 5. Sepsis secondary bacteremia 6. HTN 7. Lung cancer 8. History of colon cancer 9. Aortic stenosis #bacteremia with acute hypoxic hypercapneic respiratory failure -cultures pending; currently gram + cocci -cont IV zosyn until cultures/S available -d/v vanco, due to gram +cocci -s/p thoracentesis yesterday: gram stain/culture/johan/afb/cytology pending ID will continue to follow, thank you. Problem List - Problems (1) Atrial flutter Code(s): I48.92 - UNSPECIFIED ATRIAL FLUTTER (2) Lung cancer Code(s): C34.90 - MALIGNANT NEOPLASM OF UNSP PART OF UNSP BRONCHUS OR LUNG (3) Pleural effusion, left Code(s): J90 - PLEURAL EFFUSION, NOT ELSEWHERE CLASSIFIED (4) Pneumonia Code(s): J18.9 - PNEUMONIA, UNSPECIFIED ORGANISM (5) Acute on chronic respiratory failure with hypoxia and hypercapnia Code(s): J96.21 - ACUTE AND CHRONIC RESPIRATORY FAILURE WITH HYPOXIA J96.22 - ACUTE AND CHRONIC RESPIRATORY FAILURE WITH HYPERCAPNIA (6) Aortic stenosis Code(s): I35.0 - NONRHEUMATIC AORTIC (VALVE) STENOSIS (7) COPD with acute exacerbation Code(s): J44.1 - CHRONIC OBSTRUCTIVE PULMONARY DISEASE W (ACUTE) EXACERBATION (8) HTN (hypertension) Code(s): I10 - ESSENTIAL (PRIMARY) HYPERTENSION Qualifiers: Hypertension type: essential hypertension Qualified Code(s): I10 - Essential (primary) hypertension (9) History of COPD Code(s): Z87.09 - PERSONAL HISTORY OF OTHER DISEASES OF THE RESPIRATORY SYSTEM (10) History of colon cancer Code(s): Z85.038 - PERSONAL HISTORY OF MALIGNANT NEOPLASM OF LARGE INTESTINE Visit type - Emergency Visit Emergency Visit: Yes ED Registration Date: 03/19/17 Care time: The patient presented to the Emergency Department on the above date and was hospitalized for further evaluation of their emergent condition. - New Patient This patient is new to me today: No - Critical Care Critical Care patient: Yes Total Critical Care Time (in minutes): 35 Critical Care Statement: The care of this patient involved high complexity decision making to prevent further life threatening deterioration of the patient 's condition and/or to evalute & treat vital organ system(s) failure or risk of failure.
[2017-03-21] MEDS ORDERED: FUROSEMIDE 40 MG/4 ML INJECTABLE VIAL IVPUSH ONE (12:30)
--- NOTE | 2017-03-21 12:43 | PN ---
Teaching Attending Note Name of Resident: Lizz Cramer ATTENDING PHYSICIAN STATEMENT I saw and evaluated the patient. I reviewed the resident's note and discussed the case with the resident. I agree with the resident's findings and plan as documented. SUBJECTIVE: Awake , alert Offers no complaints Dyspneic on mask Afebrile marked increase in WBC OBJECTIVE: Cor S1S2 +pansystolic murmur decreased BS bilaterally abdo soft, non tender ASSESSMENT AND PLAN: S/P thoracentesis Leukocytosis ? steroid-induced +BC SCN x 1 bottle, probable contaminant S/S BAV Lung ca Await pleural fluid c/s , cytology Continue zosyn D/C vancomycin Discussed with son at bedside
--- NOTE | 2017-03-21 13:20 | PN ---
Teaching Attending Note Name of Resident: Lori Mendoza ATTENDING PHYSICIAN STATEMENT I saw and evaluated the patient. I reviewed the resident's note and discussed the case with the resident. I agree with the resident's findings and plan as documented. SUBJECTIVE: Patient seen and examined in the ICU. Mildly tachypneic on VM O2. Reports breathing is slightly better today. No fevers or chills. No cough or wheezing. OBJECTIVE: Intake & Output 03/18/17 03/19/17 03/20/17 03/21/17 23:59 23:59 23:59 23:59 Intake Total 922 400 Output Total 300 60 Balance 622 340 Weight 95 lb 0.308 oz 89 lb 1 oz 90 lb 3 oz Last Vital Signs Temp Pulse Resp BP Pulse Ox 98.2 F 86 22 121/55 95 03/21/17 10:00 03/21/17 12:00 03/21/17 12:00 03/21/17 12:00 03/21/17 12:32 Active Medications Acetaminophen (Tylenol -) 650 mg PO Q6H PRN PRN Reason: FEVER OR PAIN Last Admin: 03/20/17 21:29 Dose: 650 mg Albuterol Sulfate (Ventolin 0.083% Nebulizer Soln -) 1 amp NEB Q8H PRN PRN Reason: SHORT OF BREATH/WHEEZING Last Admin: 03/20/17 09:30 Dose: 1 amp Albuterol/Ipratropium (Duoneb -) 1 amp NEB Q4H PRN PRN Reason: SHORTNESS OF BREATH Apixaban (Eliquis -) 5 mg PO BID [facility] Last Admin: 03/21/17 09:23 Dose: 5 mg Diltiazem HCl (Cardizem Injection -) 10 mg IVPUSH Q1H PRN PRN Reason: TACHYCARDIA Diltiazem HCl (Cardizem Cd -) 180 mg PO DAILY [facility] Last Admin: 03/21/17 09:23 Dose: 180 mg Docusate Sodium (Colace -) 100 mg PO TID [facility] Last Admin: 03/21/17 13:16 Dose: 100 mg Furosemide (Lasix -) 20 mg PO DAILY [facility] Methylprednisolone Sodium Succinate (Solu-Medrol -) 40 mg IVPB Q8H-IV MASON Last Admin: 03/21/17 09:24 Dose: 40 mg Ondansetron HCl (Zofran Injection) 4 mg IVPB Q6H PRN PRN Reason: NAUSEA Piperacillin Sod/Tazobactam Sod (Zosyn 3.375gm Ivpb (Pre-Docked)) 3.375 gm IVPB Q8H-IV MASON PRN Reason: Protocol Last Admin: 03/21/17 09:23 Dose: 3.375 gm Gen: Mildly tachypneic on VM O2 Heart: RRR Lung: decreased BS at the bases, scattered rhonchi Abd: soft, nontender Ext: no edema Laboratory Results - last 24 hr 03/20/17 03/21/17 03/21/17 14:00 05:20 09:30 WBC 28.4 H D RBC 3.72 Hgb 10.5 L Hct 33.0 MCV 88.9 MCHC 31.8 L RDW 13.8 Plt Count 243 MPV 8.8 PTT (Actin FS) Sodium 142 Potassium 4.6 Chloride 93 L Carbon Dioxide 40 H Anion Gap 9 BUN 16 D Creatinine 0.7 D Creat Clearance w eGFR > 60 Random Glucose 123 H D Calcium 8.4 L Total Bilirubin 0.2 AST 15 ALT 13 Alkaline Phosphatase 51 Total Protein 5.2 L Albumin 2.3 L Pleural Fluid Source Pleural Pleural Color Yellow Pleural Appearance Hazy Pleural WBC 716 Pleural RBC 1983 Pleural Neutrophils 34 Pleural Lymphocytes 38 Pleural Monocytes 4 Pleural Macrophages 12 Pleural Mesothelial 12 Pleural Total Protein 2.680 Pleural Albumin 2 Pleural LDH 112.531 Pleural Glucose 172.482 Pleural Amylase 16.431 Pleural Triglycerides 15 03/21/17 09:30 WBC RBC Hgb Hct MCV MCHC RDW Plt Count MPV PTT (Actin FS) 25.8 L Sodium Potassium Chloride Carbon Dioxide Anion Gap BUN Creatinine Creat Clearance w eGFR Random Glucose Calcium Total Bilirubin AST ALT Alkaline Phosphatase Total Protein Albumin Pleural Fluid Source Pleural Color Pleural Appearance Pleural WBC Pleural RBC Pleural Neutrophils Pleural Lymphocytes Pleural Monocytes Pleural Macrophages Pleural Mesothelial Pleural Total Protein Pleural Albumin Pleural LDH Pleural Glucose Pleural Amylase Pleural Triglycerides ASSESSMENT AND PLAN: Acute on Chronic Hypoxic and Hypercapneic Respiratory Failure Atrial Fibrillation with RVR Stage I Lung Ca s/p RT COPD/Emphysema Left Pleural Effusion r/o Pneumonia HTN h/o Colon Ca - continue antibiotics - f/u final cultures - BiPAP PRN to assist in work of breathing - rate control - Eliquis BID - Medrol taper - inhaled bronchodilators standing and PRN - O2 to keep SpO2 >90% - pulse oximetry monitoring - continue ICU monitoring Dr Asif critical care time spent in reviewing chart, evaluating patient and formulating plan 36 min
[2017-03-21 14:38] LABS: PLATELET ESTIMATE ADEQUATE (NORMAL)
--- NOTE | 2017-03-21 15:34 | PN ---
Physical Exam: SUBJECTIVE: Patient seen and examined at bedside. She's much less short of breath yesterday after thoracentesis. Required BiPAP overnight but refused it this AM. Became short of breath again while eating and sating at 85 to 89% on 4L NC. Per family at bedside, the patient has always been sating in this range at home. Denies fever, chills, chest pain, urinary or bowel symptoms. OBJECTIVE: Vital Signs Period Temp Pulse Resp BP Sys/[place] Pulse Ox Last 24 Hr 98.1 F-98.5 F 78-87 18-23 109-157/50-93 82-96 GENERAL: AAO x 3, mild respiratory distress on NC 4L NECK: no JVD. LUNGS: CTAB HEART: irregularly irregular, S1, S2 present with systolic murmur. ABDOMEN: Soft, NT, ND, +bs EXTREMITIES: no edema. hyperpigmentation b/l NEUROLOGICAL: Cranial nerves II through XII grossly intact. Normal speech. SKIN: Warm, dry, normal turgor CBCD WBC 28.4 K/mm3 (4.0-10.0) H D 03/21/17 09:30 RBC 3.72 M/mm3 (3.60-5.2) 03/21/17 09:30 Hgb 10.5 GM/dL (10.7-15.3) L 03/21/17 09:30 Hct 33.0 % (32.4-45.2) 03/21/17 09:30 MCV 88.9 fl (80-96) 03/21/17 09:30 MCHC 31.8 g/dl (32.0-36.0) L 03/21/17 09:30 RDW 13.8 % (11.6-15.6) 03/21/17 09:30 Plt Count 243 K/MM3 (134-434) 03/21/17 09:30 MPV 8.8 fl (7.5-11.1) 03/21/17 09:30 CMP Sodium 142 mmol/L (136-145) 03/21/17 05:20 Potassium 4.6 mmol/L (3.5-5.1) 03/21/17 05:20 Chloride 93 mmol/L (98-107) L 03/21/17 05:20 Carbon Dioxide 40 mmol/L (21-32) H 03/21/17 05:20 Anion Gap 9 (8-16) 03/21/17 05:20 BUN 16 mg/dL (7-18) D 03/21/17 05:20 Creatinine 0.7 mg/dL (0.55-1.02) D 03/21/17 05:20 Creat Clearance w eGFR > 60 (>60) 03/21/17 05:20 Calcium 8.4 mg/dL (8.5-10.1) L 03/21/17 05:20 Total Bilirubin 0.2 mg/dL (0.2-1.0) 03/21/17 05:20 AST 15 U/L (15-37) 03/21/17 05:20 ALT 13 U/L (12-78) 03/21/17 05:20 Alkaline Phosphatase 51 U/L (45-117) 03/21/17 05:20 Total Protein 5.2 g/dl (6.4-8.2) L 03/21/17 05:20 Albumin 2.3 g/dl (3.4-5.0) L 03/21/17 05:20 Intake & Output 03/18/17 03/19/17 03/20/17 03/21/17 23:59 23:59 23:59 23:59 Intake Total 922 1080 Output Total 300 1260 Balance 622 -180 Weight 43.1 kg 40.398 kg 40.908 kg Active Medications Generic Name Dose Route Start Last Admin Trade Name Freq PRN Reason Stop Dose Admin Acetaminophen 650 mg 03/19/17 18:54 03/20/17 21:29 Tylenol - PO 650 mg Q6H PRN Administration FEVER OR PAIN Albuterol Sulfate 1 amp 03/19/17 18:54 03/20/17 09:30 Ventolin 0.083% Nebulizer Soln - NEB 1 amp Q8H PRN Administration SHORT OF BREATH/WHEEZING Albuterol/Ipratropium 1 amp 03/19/17 18:54 Duoneb - NEB Q4H PRN SHORTNESS OF BREATH Apixaban 5 mg 03/20/17 22:00 03/21/17 09:23 Eliquis - PO 5 mg BID MASON Administration Diltiazem HCl 10 mg 03/19/17 18:08 Cardizem Injection - IVPUSH Q1H PRN TACHYCARDIA Diltiazem HCl 180 mg 03/20/17 10:00 03/21/17 09:23 Cardizem Cd - PO 180 mg DAILY MASON Administration Docusate Sodium 100 mg 03/19/17 22:00 03/21/17 13:26 Colace - PO Not Given TID MASON Furosemide 20 mg 03/22/17 10:00 Lasix - PO DAILY MASON Methylprednisolone Sodium Succinate 40 mg 03/20/17 02:00 03/21/17 09:24 Solu-Medrol - IVPB 40 mg Q8H-IV MASON Administration Ondansetron HCl 4 mg 03/19/17 18:54 Zofran Injection IVPB Q6H PRN NAUSEA Piperacillin Sod/Tazobactam Sod 3.375 gm 03/19/17 18:00 03/21/17 09:23 Zosyn 3.375gm Ivpb (Pre-Docked) IVPB 3.375 gm Q8H-IV MASON Administration Protocol Microbiology 03/20/17 21:45 Legionella Antigen - Final Urine For Antigen Detection Streptococcus pneumoniae Antigen (M - Final 03/20/17 14:00 ALICIA Preparation - Preliminary Pleural Fluid Fungal Culture - Preliminary 03/19/17 07:25 Blood Culture - Preliminary Blood - Peripheral Venous Staphylococcus Coagulase Neg 03/20/17 14:00 AFB Smear Concentration - Preliminary Pleural Fluid Mycobacterial Culture - Preliminary 03/19/17 07:25 Blood Culture - Preliminary Blood - Peripheral Venous NO GROWTH OBTAINED AFTER 48 HOURS, INCUBATION TO CONTINUE FOR 3 DAYS. IMAGING CXR on 03/21: No change compared to prior study CT chest after thoracentesis on 03/20: Bilateral pleural effusions left greater than right. Atelectasis of the left lower lobe and right middle lobe with atelectatic changes at the right lung base noted as well. CXR on 03/21 after thoracentesis: Since 03/20/2017, there is interval better evaluation of the left lower lobe with residual consolidation/atelectasis, medially. Mild atelectatic changes and infiltrates are again noted in the right lung base. Residual small left and persistent small right pleural effusion are present CXR on 03/20 before thoracentesis: moderate L pleural effusion with compressive atelectasis Duplex on 03/19: No DVT ASSESSMENT/PLAN: 81 yo F h/o COPD on 3L [place] home O2, lung ca on radiation therapy last on Saturday, colon ca s/p resection in 2000, atrial fibrillation on Eliquis and cardizem, HTN , and aortic stenosis s/p balloon valvuloplasty admitted to the ICU for acute on chronic hypercapnic respiratory failure. ID: [id number]; Positive blood culture - Resolved - Leukocytosis likely 2/2 steroid - Prelim blood culture positive for coagulase -ve staph * will f/u final report * d/c vanco - Cont. zosyn day 3 Pulm: Acute on chronic hypercapnic respiratory failure - 2/2 pleural effusion - Pleural protein/serum protein = 0.5 * likely mixed transdate and exudate - Morning CXR shows new effusion building up * received lasix this PM * daily lasix as needed - Duoneb PRN - Solu-medrol 40mg IVP Q8H * taper to 40mg IV Q12 tomorrow - BiPAP PRN - Daily CXR Cardio: elevated cardiac enzyme; paroxysmal a-fib; HTN - Elevated troponins x 3 likely 2/2 demand ischemia - Rated controlled at the moment - CHADSVASC =3 - Cardizem 180mg PO DAILY with 10mg IVPUSH PRN - Cont. ramipril FEN - IVF not indicated - Cont. to monitor lytes - Sodium controlled diet Prophylaxis - DVT: on eliquis - GI: not indicated Disposition - Transfer to telemetry Code status - Full code Visit type - Emergency Visit Emergency Visit: No - New Patient This patient is new to me today: No - Critical Care Critical Care patient: Yes Total Critical Care Time (in minutes): 40 Critical Care Statement: The care of this patient involved high complexity decision making to prevent further life threatening deterioration of the patient 's condition and/or to evalute & treat vital organ system(s) failure or risk of failure.
[2017-03-21] MEDS ORDERED: ACETAMINOPHEN 325 MG TABLET (FP) PO PRN (16:38)
[2017-03-21] MEDS ORDERED: ALBUTEROL SO4 2.5/IPRATROPIUM 0.5 INH SOL 3 ML VIAL.NEB. NEB PRN (16:38)
[2017-03-21] MEDS ORDERED: ONDANSETRON 4 MG/2 ML VIAL IVPB PRN (16:38)
[2017-03-21] MEDS ORDERED: ALBUTEROL SO4 0.083% IH SOL 2.5 MG/3 ML VIAL.NEB. NEB PRN (16:38)
[2017-03-21] MEDS ORDERED: dilTIAZem HCL 50 MG/10 ML - 10 ML VIAL IVPUSH PRN (16:38)
--- NOTE | 2017-03-21 17:16 | PN ---
Teaching Attending Note Name of Resident: Luisito Evangelista ATTENDING PHYSICIAN STATEMENT I saw and evaluated the patient. I reviewed the resident's note and discussed the case with the resident. I agree with the resident's findings and plan as documented. SUBJECTIVE: Patient feels less SOB. OBJECTIVE: Vital Signs Period Temp Pulse Resp BP Sys/[place] Pulse Ox Last 24 Hr 98.1 F-98.5 F 78-87 18-23 109-157/50-93 82-96 HEART: S1S2, RRR LUNGS: Clear with decreased BS at bases ABDOMEN: Soft, non-tender, non-distended, normal BS EXTREMITIES: No edema ASSESSMENT AND PLAN: This is an 81-year-old woman with a history of COPD, chronic hypoxic respiratory failure, lung cancer, colon cancer, atrial fibrillation, HTN, with balloon valvuloplasty who presented to the ER with shortness of breath. 1. Atrial fibrillation with RVR - Rate is better - Continue Cardizem, Eliquis 2. Left pleural effusion, likely malignant - s/p thoracentesis 03/20 - Follow up fluid studies - Chest CT after thoracentesis shows bilateral effusions and atelectasis 3. Acute on chronic hypoxic and hypercapnic respiratory failure - Continue oxygen, BiPAP as needed 4. Acute exacerbation of COPD - Continue SoluMedrol, DuoNeb 5. Sepsis secondary to possible pneumonia, possible bacteremia - Continue Zosyn, Vancomycin - Follow up blood cultures 6. HTN -Continue Cardizem CD 7. Lung cancer - Currently receiving XRT at [facility] 8. History of colon cancer, resection 9. Aortic stenosis, history of balloon valvuloplasty
--- NOTE | 2017-03-21 19:30 | PN ---
Progress Note (short form) - Note Progress Note: Chief Complaint: sob S: transferred to floor today. breathing improved. no cp, palps, dizziness, sob Current Medications Acetaminophen (Tylenol -) 650 mg PO Q6H PRN PRN Reason: FEVER OR PAIN Albuterol Sulfate (Ventolin 0.083% Nebulizer Soln -) 1 amp NEB Q8H PRN PRN Reason: SHORT OF BREATH/WHEEZING Albuterol/Ipratropium (Duoneb -) 1 amp NEB Q4H PRN PRN Reason: SHORTNESS OF BREATH Apixaban (Eliquis -) 5 mg PO BID [facility] Diltiazem HCl (Cardizem Cd -) 180 mg PO DAILY [facility] Diltiazem HCl (Cardizem Injection -) 10 mg IVPUSH Q1H PRN PRN Reason: TACHYCARDIA Docusate Sodium (Colace -) 100 mg PO TID [facility] Furosemide (Lasix -) 20 mg PO DAILY [facility] Methylprednisolone Sodium Succinate (Solu-Medrol -) 40 mg IVPB Q8H-IV [facility] Last Admin: 03/21/17 17:12 Dose: 40 mg Ondansetron HCl (Zofran Injection) 4 mg IVPB Q6H PRN PRN Reason: NAUSEA Piperacillin Sod/Tazobactam Sod (Zosyn 3.375gm Ivpb (Pre-Docked)) 3.375 gm IVPB Q8H-IV [facility]ON PRN Reason: Protocol Last Admin: 03/21/17 17:12 Dose: 3.375 gm Vital Signs - 24 hr 03/20/17 03/20/17 03/20/17 20:00 21:00 22:00 Temperature 98.1 F Pulse Rate 87 81 Respiratory 20 21 23 Rate Blood Pressure 122/55 134/61 O2 Sat by Pulse 96 Oximetry (%) 03/21/17 03/21/17 03/21/17 00:00 02:00 04:00 Temperature 98.5 F Pulse Rate 83 78 79 Respiratory 23 19 18 Rate Blood Pressure 142/60 125/51 123/50 O2 Sat by Pulse Oximetry (%) 03/21/17 03/21/17 03/21/17 05:30 05:45 06:00 Temperature 98.4 F Pulse Rate 79 Respiratory 22 Rate Blood Pressure 116/51 O2 Sat by Pulse 82 L 92 L Oximetry (%) 05/09/2703/21/17 03/21/17 08:00 09:00 10:00 Temperature 98.2 F Pulse Rate 84 84 Respiratory 22 22 Rate Blood Pressure 157/59 109/76 O2 Sat by Pulse 92 L 92 L Oximetry (%) 03/21/17 03/21/17 03/21/17 10:20 12:00 12:32 Temperature Pulse Rate 86 86 Respiratory 22 Rate Blood Pressure 121/55 O2 Sat by Pulse 96 95 Oximetry (%) 03/21/17 03/21/17 03/21/17 14:00 15:27 17:31 Temperature 98.4 F Pulse Rate 86 Respiratory 18 Rate Blood Pressure 149/93 O2 Sat by Pulse 91 L 93 L Oximetry (%) Intake & Output 03/19/17 03/20/17 03/21/17 03/22/17 07:59 07:59 07:59 07:59 Intake Total 542 780 680 Output Total 360 1200 Balance 542 420 -520 Weight 115 lb 89 lb 1 oz 90 lb 3 oz Constitutional: Yes: Well Nourished, No Distress Eyes: No: Sclera Icterus HENT: No: Nasal Congestion Neck: No: Decreased ROM Respiratory: Yes: CTA bibasilar rales. No: Accessory Muscle Use, Rales, Wheezes Gastrointestinal: Yes: Normal Bowel Sounds. No: Distention, Hepatomegaly, Palpable Mass, Tenderness Cardiovascular: Yes: Pulse regular JVD: No Carotid Bruit: No PMI: Non-Displaced Heart Sounds: Yes: S1, S2. No: Gallop Murmur: Yes: Systolic Murmur (hi-pitched PRESTON LUSB radiating throughout precordium). No: Diastolic Murmur Musculoskeletal: Yes: Other (No kyphosis) Extremities: No: Cold Edema: No Peripheral Pulses: 2+ Left Carotid, 2+ Right Carotid, 2+ Left Doralis Pedis, 2+ Right Dorsalis Pedis Integumentary: No: Jaundice Neurological: Yes: Alert, Oriented (x3) Psychiatric: No: Agitated - Other Data Labs, Other Data: CBC, BMP 03/21/17 09:30 03/21/17 05:20 Laboratory Tests 03/19/17 03/19/17 03/20/17 07:25 14:30 05:10 Creatine Kinase 50 40 Troponin I 0.15 H 0.22 H 0.33 H Albumin 03/21/17 05:20 Creatine Kinase Troponin I Albumin 2.3 L ekg 03/19: rapid atrial flutter; ? old ASMI (no change vs prior); no signif ST-T abnormalities when accounting for flutter waves tele: sr Imaging - Results Chest X-ray: Report Reviewed, Image Reviewed Assessment/Plan L/RHC 12/28: wedge 22 (down to 16 post BAV); PA 55/25 (40/18 post); CI 3.0 (3.1 post); AV 50/38 mmHg-->20/16 post; CHASE 0.5-->1.0 post; 30-50% pRCA with mild/diffuse dz LAD/[place]X [place] [facility] [place]: severe , severe calcification of asc aorta with protruding atheroma. severe asymmetric LV hypertrophy (1.8 at base), small focal LV aneursym. LLL spiculated mass concerning for malignancy F/u CT scan 12/2016: new mucus impaction of peripheral bronchial tree. patulous esophagus c/w dysmotility or reflux . PET [facility] [place] 12/2016: Increased size of LLL area of consolidation 2.8 x 3.3 cm --> 6 x 6 cm. Heterogenous uptake LLL uptake with central focus (suspicious for malignancy). Uptake in left hilar node reactive vs metastatic. YADIRA mildly hypermetabolic ground glass changes infection/ inflammation Assessment/Plan 81 yo afib, as s/p bav 12/2016, phtn, severe copd, recent dx lung adenoCa started XRT (no surgery planned), htn p/w respiratory failure acute on chronic hypoxic/hypercapneic resp failure, COPD, lung adenoCa, pleural effusion: - being followed and tx'd by pulm at [place] - on home O2 - deemed prohibitive surgical risk for lung resection by thoracic surgery at [facility], started RT recently - being followed by pulm here, for thoracentesis - defer ? of abx (for ? PNA) to pulmonary team - note: 01/15/17 CXR at [facility] showed no effusions - given mild hi wedge persisted after BAV, and pt likely with some degree of AV restenosis now 3 mo later, will give dose of lasix 20mg ivp today and observe bp response and labs in AM - 03/20: s/p thoracentesis today. remains on bipap. appears euvolemic and bicarb creeping up. will hold off on further lasix today. (pt not on standing outpatient dose) Reassess tomorrow. paroxysmal AF: - with rapid HRs when in afib in hospital previously, including at [facility] on diltiazem (no BB given wheezing/copd severity) -CHADS VASC = 3, on Eliquis -holding AC in anticipation of thoracentesis (not on ASA--will d/c order) -rapid HR being driveing by acute dyspnea, pleural eff, ? PNA, steroids-- received diltiazem IVPs here -will incr diltiazem 120 to 180, use prn doses here -continue heparin gtt for AC while hold eliquis preop - 03/20: converted to SR. On heparin drip. Resume eliquis when no further procedures planned. 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 echo report pending HTN: -on dilt and ramipril 5mg at home -bp currently reasonably controlled -hold JERI to allow diltiazem and lasix without hypotension -03/21 bp trending up. may be able to add back ramipril tomorrow. + tobacco - smoking cessation counseling. preop CV risk eval: -s/p thoracentesis, low risk procedure -RCRI = 1, decr'd functional status -doubt decompensated chf (as discussed) -at low risk for periop CV complications from thoracentesis. On heparin bridge.
[2017-03-21 21:39] LABS: URINE APPEARANCE CLEAR; URINE BILIRUBIN NEGATIVE (NEGATIVE); URINE COLOR LTYELLOW; URINE GLUCOSE (UA) NEGATIVE (NEGATIVE); URINE KETONE NEGATIVE (NEGATIVE); URINE LEUK ESTERASE NEGATIVE (NEGATIVE); URINE NITRITE NEGATIVE (NEGATIVE); URINE PROTEIN NEGATIVE (NEGATIVE); URINE UROBILINOGEN NEGATIVE E.U./dl (0.2-1.0)
[2017-03-21 22:21] LABS: URINE BLOOD 2+ (NEGATIVE)
[2017-03-21 22:26] LABS: URINE HYALINE CAST 1 /lpf; URINE MUCUS RARE; URINE RBC 46 /hpf (0-3); URINE WBC 4 /hpf (3-5)
[2017-03-22] MEDS: methylPREDNISolone NA SUCC 40 MG/1 ML VIAL IVPB SCH ×2 (04:15→21:36)
[2017-03-22] MEDS: PIPERACILLIN/TAZOB 3.375 GM/50 ML PRE-DOCKED IVPB SCH ×3 (04:16→17:06)
[2017-03-22] MEDS: DOCUSATE SODIUM 100 MG CAPSULE (FP) PO SCH ×3 (06:40→21:35)
[2017-03-22 09:42] LABS: MCH 28.4 pg (25.7-33.7); MCHC 31.9 g/dl (32.0-36.0); MEAN PLT VOLUME 8.5 fl (7.5-11.1); PLATELET COUNT 214 K/MM3 (134-434); WHITE BLOOD COUNT 23.7 K/mm3 (4.0-10.0)
[2017-03-22] MEDS: FUROSEMIDE 20 MG TABLET (FP) PO SCH (09:59)
[2017-03-22] MEDS: APIXABAN 5 MG TABLET PO SCH ×2 (09:59→21:36)
[2017-03-22] MEDS ORDERED: FUROSEMIDE 20 MG TABLET (FP) PO SCH (10:00)
--- NOTE | 2017-03-22 10:56 | PN ---
Progress Note (short form) - Note Progress Note: S: no cp palps dizzy; sob present but better Current Medications Generic Name Dose Route Start Last Admin Trade Name Freq PRN Reason Stop Dose Admin Acetaminophen 650 mg 03/21/17 16:38 Tylenol - PO Q6H PRN FEVER OR PAIN Albuterol Sulfate 1 amp 03/21/17 16:38 Ventolin 0.083% Nebulizer Soln - NEB Q8H PRN SHORT OF BREATH/WHEEZING Albuterol/Ipratropium 1 amp 03/21/17 16:38 03/21/17 21:06 Duoneb - NEB 1 amp Q4H PRN Administration SHORTNESS OF BREATH Apixaban 5 mg 03/21/17 22:00 03/22/17 09:59 Eliquis - PO 5 mg BID [facility]ON Administration Diltiazem HCl 180 mg 03/22/17 10:00 03/22/17 09:59 Cardizem Cd - PO 180 mg DAILY [facility]ON Administration Diltiazem HCl 10 mg 03/21/17 16:38 03/21/17 23:23 Cardizem Injection - IVPUSH 10 mg Q1H PRN Administration TACHYCARDIA Docusate Sodium 100 mg 03/21/17 22:00 03/22/17 06:40 Colace - PO Not Given TID MASON Furosemide 20 mg 03/22/17 10:00 03/22/17 09:59 Lasix - PO 20 mg DAILY [facility] Administration Methylprednisolone Sodium Succinate 40 mg 03/22/17 22:00 Solu-Medrol - IVPB BID [facility]ON Ondansetron HCl 4 mg 03/21/17 16:38 Zofran Injection IVPB Q6H PRN NAUSEA Piperacillin Sod/Tazobactam Sod 3.375 gm 03/21/17 18:00 03/22/17 10:00 Zosyn 3.375gm Ivpb (Pre-Docked) IVPB 3.375 gm Q8H-IV [facility] Administration Protocol Vital Signs Period Temp Pulse Resp BP Sys/Monroe Pulse Ox Last 24 Hr 97.8 F-98.7 F 80-90 18-22 119-149/55-93 91-95 Constitutional: nad Eyes: No: Sclera Icterus HENT: No: Nasal Congestion Respiratory: Yes: CTA bibasilar rales. No: Accessory Muscle Use, Rales, Wheezes Gastrointestinal: Yes: Normal Bowel Sounds. No: Distention, Hepatomegaly, Palpable Mass, Tenderness Cardiovascular: Yes: Pulse regular JVD: No Heart Sounds: Yes: S1, S2. No: Gallop Murmur: Yes: Systolic Murmur (hi-pitched PRESTON LUSB radiating throughout precordium). No: Diastolic Murmur Extremities: No: Cold Edema: No Integumentary: No: Jaundice diaphoresis Neurological: Yes: Alert, Oriented (x3) Psychiatric: No: Agitated - Other Data Labs, Other Data: CBC, BMP 03/22/17 09:20 03/21/17 05:20 ekg 03/19: rapid atrial flutter; ? old ASMI (no change vs prior); no signif ST-T abnormalities when accounting for flutter waves tele: afib --> conversion to sr, remains in sr L/RHC 12/28: wedge 22 (down to 16 post BAV); PA 55/25 (40/18 post); CI 3.0 (3.1 post); AV 50/38 mmHg-->20/16 post; CHASE 0.5-->1.0 post; 30-50% pRCA with mild/diffuse dz LAD/LCX CTA [facility] [place] 12/2016: severe , severe calcification of asc aorta with protruding atheroma. severe asymmetric LV hypertrophy (1.8 at base), small focal LV aneursym. LLL spiculated mass concerning for malignancy F/u CT scan 12/2016: new mucus impaction of peripheral bronchial tree. patulous esophagus c/w dysmotility or reflux . PET [facility] [place] 12/2016: Increased size of LLL area of consolidation 2.8 x 3.3 cm --> 6 x 6 cm. Heterogenous uptake LLL uptake with central focus (suspicious for malignancy). Uptake in left hilar node reactive vs metastatic. YADIRA mildly hypermetabolic ground glass changes infection/ inflammation echo 03/2017: nl lv/rv, mild mr, rvsp 30-40, severe , trace AR Assessment/Plan 81 yo afib, as s/p bav 12/2016, phtn, severe copd, recent dx lung adenoCa started XRT (no surgery planned), htn p/w respiratory failure acute on chronic hypoxic/hypercapneic resp failure, COPD, lung adenoCa, pleural effusion: - being followed and tx'd by pulm at [place] - on home O2 - deemed prohibitive surgical risk for lung resection by thoracic surgery at [facility], started RT recently - note: 01/15/17 CXR at [facility] showed no effusions - s/p thoracentesis 03/20 paroxysmal AF: - with rapid HRs when in afib in hospital previously, including at [facility] on diltiazem (no BB given wheezing/copd severity) -CHADS VASC = 3, on Eliquis -holding AC in anticipation of thoracentesis (not on ASA--will d/c order) -rapid HR being driveing by acute dyspnea, pleural eff, ? PNA, steroids-- received diltiazem IVPs here -will incr diltiazem 120 to 180, use prn doses here -continue heparin gtt for AC while hold eliquis preop - 03/20: converted to SR. On heparin drip. Resume eliquis when no further procedures planned. 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
--- NOTE | 2017-03-22 11:01 | PN ---
Physical Exam: SUBJECTIVE: Patient seen and examined at bedside. She's transferred from ICU to telemetry yesterday. On Ventimask 50% overnight and AM. Denies fever, chills, chest pain, urinary or bowel symptoms. OBJECTIVE: Vital Signs Period Temp Pulse Resp BP Sys/Monroe Pulse Ox Last 24 Hr 97.8 F-98.7 F 80-90 18-22 119-149/55-93 91-95 GENERAL: AAO x 3, mild to moderate respiratory distress on Venti-mask 50% NECK: no JVD. LUNGS: CTAB HEART: irregularly irregular, S1, S2 present with systolic murmur. ABDOMEN: Soft, NT, ND, +bs EXTREMITIES: no edema NEUROLOGICAL: Cranial nerves II through XII grossly intact. Normal speech. SKIN: Warm, dry, normal turgor CBCD WBC 23.7 K/mm3 (4.0-10.0) H 03/22/17 09:20 RBC 3.65 M/mm3 (3.60-5.2) 03/22/17 09:20 Hgb 10.4 GM/dL (10.7-15.3) L 03/22/17 09:20 Hct 32.5 % (32.4-45.2) 03/22/17 09:20 MCV 89.0 fl (80-96) 03/22/17 09:20 MCHC 31.9 g/dl (32.0-36.0) L 03/22/17 09:20 RDW 14.0 % (11.6-15.6) 03/22/17 09:20 Plt Count 214 K/MM3 (134-434) 03/22/17 09:20 MPV 8.5 fl (7.5-11.1) 03/22/17 09:20 Active Medications Generic Name Dose Route Start Last Admin Trade Name Freq PRN Reason Stop Dose Admin Acetaminophen 650 mg 03/21/17 16:38 Tylenol - PO Q6H PRN FEVER OR PAIN Albuterol Sulfate 1 amp 03/21/17 16:38 Ventolin 0.083% Nebulizer Soln - NEB Q8H PRN SHORT OF BREATH/WHEEZING Albuterol/Ipratropium 1 amp 03/21/17 16:38 03/21/17 21:06 Duoneb - NEB 1 amp Q4H PRN Administration SHORTNESS OF BREATH Apixaban 5 mg 03/21/17 22:00 03/22/17 09:59 Eliquis - PO 5 mg BID [facility]ON Administration Diltiazem HCl 180 mg 03/22/17 10:00 03/22/17 09:59 Cardizem Cd - PO 180 mg DAILY [facility]ON Administration Diltiazem HCl 10 mg 03/21/17 16:38 03/21/17 23:23 Cardizem Injection - IVPUSH 10 mg Q1H PRN Administration TACHYCARDIA Docusate Sodium 100 mg 03/21/17 22:00 03/22/17 06:40 Colace - PO Not Given TID MASON Furosemide 20 mg 03/22/17 10:00 03/22/17 09:59 Lasix - PO 20 mg DAILY [facility]ON Administration Methylprednisolone Sodium Succinate 40 mg 03/22/17 22:00 Solu-Medrol - IVPB BID [facility] Ondansetron HCl 4 mg 03/21/17 16:38 Zofran Injection IVPB Q6H PRN NAUSEA Piperacillin Sod/Tazobactam Sod 3.375 gm 03/21/17 18:00 03/22/17 10:00 Zosyn 3.375gm Ivpb (Pre-Docked) IVPB 3.375 gm Q8H-IV [facility]ON Administration Protocol IMAGING CXR on 03/21: No change compared to prior study CT chest after thoracentesis on 03/20: Bilateral pleural effusions left greater than right. Atelectasis of the left lower lobe and right middle lobe with atelectatic changes at the right lung base noted as well. CXR on 03/21 after thoracentesis: Since 03/20/2017, there is interval better evaluation of the left lower lobe with residual consolidation/atelectasis, medially. Mild atelectatic changes and infiltrates are again noted in the right lung base. Residual small left and persistent small right pleural effusion are present CXR on 03/20 before thoracentesis: moderate L pleural effusion with compressive atelectasis Duplex on 03/19: No DVT ASSESSMENT/PLAN: 81 yo F h/o COPD on 3L [place] home O2, lung ca on radiation therapy last on Saturday, colon ca s/p resection in 2000, atrial fibrillation on Eliquis and cardizem, HTN , and aortic stenosis s/p balloon valvuloplasty admitted to the ICU for acute on chronic hypercapnic respiratory failure. ID: [id number]; Positive blood culture - Resolved - Leukocytosis likely 2/2 steroid - Prelim blood culture positive for coagulase -ve staph * will f/u final report * d/c vanco - Cont. zosyn day 4 Pulm: Acute on chronic hypercapnic respiratory failure - 2/2 pleural effusion - Pleural protein/serum protein = 0.5 * likely mixed transdate and exudate - Cont. lasix 20 PO daily - Solu-medrol 40mg IV Q12 - BiPAP PRN - Duoneb PRN - CXR if symptomatic Cardio: elevated cardiac enzyme; paroxysmal a-fib; HTN - Demand ischemia - Rated controlled at the moment - CHADSVASC =3 on eliquis 5mg PO BID - Cardizem 180mg PO DAILY with 10mg IVPUSH PRN - Cont. ramipril FEN - IVF not indicated - Cont. to monitor lytes - Sodium controlled diet Prophylaxis - DVT: on eliquis - GI: not indicated Disposition - Will discharge if patient's respiratory condition remains baseline Code status - Full code Visit type - Emergency Visit Emergency Visit: No - New Patient This patient is new to me today: No - Critical Care Critical Care patient: No
--- NOTE | 2017-03-22 11:37 | PN ---
Progress Note, Physician History of Present Illness: pulmonary alert,less dyspneic,feels very weak,O2 sat 86% ra - Current Medication List Current Medications: Active Medications Acetaminophen (Tylenol -) 650 mg PO Q6H PRN PRN Reason: FEVER OR PAIN Albuterol Sulfate (Ventolin 0.083% Nebulizer Soln -) 1 amp NEB Q8H PRN PRN Reason: SHORT OF BREATH/WHEEZING Albuterol/Ipratropium (Duoneb -) 1 amp NEB Q4H PRN PRN Reason: SHORTNESS OF BREATH Last Admin: 03/21/17 21:06 Dose: 1 amp Apixaban (Eliquis -) 5 mg PO BID [facility] Last Admin: 03/22/17 09:59 Dose: 5 mg Diltiazem HCl (Cardizem Cd -) 180 mg PO DAILY [facility] Last Admin: 03/22/17 09:59 Dose: 180 mg Diltiazem HCl (Cardizem Injection -) 10 mg IVPUSH Q1H PRN PRN Reason: TACHYCARDIA Last Admin: 03/21/17 23:23 Dose: 10 mg Docusate Sodium (Colace -) 100 mg PO TID [facility] Last Admin: 03/22/17 06:40 Dose: Not Given Furosemide (Lasix -) 20 mg PO DAILY [facility] Last Admin: 03/22/17 09:59 Dose: 20 mg Methylprednisolone Sodium Succinate (Solu-Medrol -) 40 mg IVPB BID [facility] Ondansetron HCl (Zofran Injection) 4 mg IVPB Q6H PRN PRN Reason: NAUSEA Piperacillin Sod/Tazobactam Sod (Zosyn 3.375gm Ivpb (Pre-Docked)) 3.375 gm IVPB Q8H-IV [facility]ON PRN Reason: Protocol Last Admin: 03/22/17 10:00 Dose: 3.375 gm - Objective Vital Signs: Vital Signs Temperature 97.8 F 03/22/17 05:42 Pulse Rate 80 03/22/17 05:42 Respiratory Rate 20 03/22/17 05:42 Blood Pressure 124/64 03/22/17 05:42 O2 Sat by Pulse Oximetry (%) 91 L 03/21/17 21:00 Constitutional: Yes: Calm, Thin Eyes: Yes: WNL HENT: Yes: WNL Neck: Yes: WNL Cardiovascular: Yes: Pulse Irregular, S1, S2 Respiratory: Yes: Diminished Gastrointestinal: Yes: Normal Bowel Sounds, Soft Extremities: Yes: WNL Edema: No Labs: CBC, BMP 03/22/17 09:20 03/21/17 05:20 INR, PTT INR 1.42 (0.82-1.09) H 03/19/17 07:25 Problem List - Problems (1) Atrial flutter Code(s): I48.92 - UNSPECIFIED ATRIAL FLUTTER (2) Lung cancer Code(s): C34.90 - MALIGNANT NEOPLASM OF UNSP PART OF UNSP BRONCHUS OR LUNG (3) Pleural effusion, left Code(s): J90 - PLEURAL EFFUSION, NOT ELSEWHERE CLASSIFIED (4) Pneumonia Code(s): J18.9 - PNEUMONIA, UNSPECIFIED ORGANISM (5) Sepsis Code(s): A41.9 - SEPSIS, UNSPECIFIED ORGANISM (6) Acute on chronic respiratory failure with hypoxia and hypercapnia Code(s): J96.21 - ACUTE AND CHRONIC RESPIRATORY FAILURE WITH HYPOXIA J96.22 - ACUTE AND CHRONIC RESPIRATORY FAILURE WITH HYPERCAPNIA (7) Aortic stenosis Code(s): I35.0 - NONRHEUMATIC AORTIC (VALVE) STENOSIS (8) COPD with acute exacerbation Code(s): J44.1 - CHRONIC OBSTRUCTIVE PULMONARY DISEASE W (ACUTE) EXACERBATION (9) HTN (hypertension) Code(s): I10 - ESSENTIAL (PRIMARY) HYPERTENSION Qualifiers: Hypertension type: essential hypertension Qualified Code(s): I10 - Essential (primary) hypertension (10) History of colon cancer Code(s): Z85.038 - PERSONAL HISTORY OF MALIGNANT NEOPLASM OF LARGE INTESTINE Assessment/Plan ASSESSMENT AND PLAN: Acute on Chronic Hypoxic and Hypercapneic Respiratory Failure Atrial Fibrillation with RVR Stage I Lung Ca s/p RT COPD/Emphysema Left Pleural Effusion transudate r/o Pneumonia HTN h/o Colon Ca - antibiotics - BiPAP PRN to assist in work of breathing - rate control - Eliquis BID - Continue Medrol taper - inhaled bronchodilators standing and PRN - O2 to keep SpO2 >90% - continue pulse oximetry monitoring DR RYAN
--- NOTE | 2017-03-22 14:30 | PN ---
Progress Note, Physician History of Present Illness: Awake, alert C/O generalized weakness Appears mildly dyspneic at rest S/P thoracentesis - Current Medication List Current Medications: Active Medications Acetaminophen (Tylenol -) 650 mg PO Q6H PRN PRN Reason: FEVER OR PAIN Albuterol Sulfate (Ventolin 0.083% Nebulizer Soln -) 1 amp NEB Q8H PRN PRN Reason: SHORT OF BREATH/WHEEZING Albuterol/Ipratropium (Duoneb -) 1 amp NEB Q4H PRN PRN Reason: SHORTNESS OF BREATH Last Admin: 03/21/17 21:06 Dose: 1 amp Apixaban (Eliquis -) 5 mg PO BID [facility] Last Admin: 03/22/17 09:59 Dose: 5 mg Diltiazem HCl (Cardizem Cd -) 180 mg PO DAILY [facility] Last Admin: 03/22/17 09:59 Dose: 180 mg Diltiazem HCl (Cardizem Injection -) 10 mg IVPUSH Q1H PRN PRN Reason: TACHYCARDIA Last Admin: 03/21/17 23:23 Dose: 10 mg Docusate Sodium (Colace -) 100 mg PO TID [facility] Last Admin: 03/22/17 06:40 Dose: Not Given Furosemide (Lasix -) 20 mg PO DAILY [facility] Last Admin: 03/22/17 09:59 Dose: 20 mg Methylprednisolone Sodium Succinate (Solu-Medrol -) 40 mg IVPB BID [facility] Ondansetron HCl (Zofran Injection) 4 mg IVPB Q6H PRN PRN Reason: NAUSEA Piperacillin Sod/Tazobactam Sod (Zosyn 3.375gm Ivpb (Pre-Docked)) 3.375 gm IVPB Q8H-IV [facility] PRN Reason: Protocol Last Admin: 03/22/17 10:00 Dose: 3.375 gm - Objective Vital Signs: Vital Signs Temperature 98.2 F 03/22/17 09:00 Pulse Rate 88 03/22/17 09:00 Respiratory Rate 20 03/22/17 09:00 Blood Pressure 114/56 03/22/17 09:00 O2 Sat by Pulse Oximetry (%) 91 L 03/22/17 09:00 Constitutional: Yes: No Distress Cardiovascular: Yes: Regular Rate and Rhythm, S1, S2 Respiratory: Yes: Rhonchi Gastrointestinal: Yes: Normal Bowel Sounds, Soft. No: Tenderness Edema: No Labs: CBC, BMP 03/22/17 09:20 03/21/17 05:20 INR, PTT INR 1.42 (0.82-1.09) H 03/19/17 07:25 Assessment/Plan S/P thoracentesis- pleural fluid c/s no growth Exacerbation COPD Leukocytosis- likely steroid-induced S/P BAV +BC SCN = contaminant Lung ca Continue zosyn
--- NOTE | 2017-03-22 16:05 | PATH ---
Cytology Non-Gynecological Report Patient Name: LATOSHA ROQUE [facility]. Rec. #: [id number] /Age/Gender: 1935 (Age: 81) / F Account: [id number] Location: 4 W TELEMETRY U Taken: 03/20/2017 Received: 03/21/2017 Reported: 03/22/2017 Physicians: Storm Heller M.D. Hermes Main M.D. Jose Alberto Elizabeth M.D. Nikhil Ruiz M.D. Specimen(s) Received A: LEFT PLEURAL FLUID IN 50% ALCOHOL B: LEFT PLEURAL FLUID FRESH Clinical History Pleural effusion, h/o lung cancer, h/o colon cancer Final Diagnosis A,B. PLEURAL FLUID, LEFT, THORACENTESIS: SATISFACTORY FOR EVALUATION. POSITIVE FOR MALIGNANT CELLS. INVOLVEMENT BY ADENOCARCINOMA (SEE COMMENT). Comment: The specimen the cell block shows scattered large neoplastic cells with irregular nuclei and intracytoplasmic mucin. History of lung cancer and colon cancer is noted. Immunohistochemical stains performed and interpreted [facility] on cell block A show the following: neoplastic cells in the effusion are positive for CK and BerEp4/IDALMIS immunostain and appear negative for TTF1. The cytomorphologic findings and the immunoprofile are consistent with involvement by adenocarcinoma. Additional immunohistochemical stains with an attempt to elucidate the origin of this tumor are pending; results will be reported in an addendum. Electronically Signed Aakash Mayorga M.D. Addendum Reported: 03/25/2017 Addendum Diagnosis Additional immunohistochemical stains performed at [place], [place] ([id number]) and interpreted at [facility] show the following: The neoplastic cells in the effusion are positive for MOC31 immunostain; negative for CK20, CDX2, Napsin A, PAX8, ANMOL-3, mammaglobin, GCDFP15 and calretinin immunostains. While these results are supportive of involvement by adenocarcinoma, they are not specific for a particular site of tumor origin. Prior history of lung cancer and colon cancer are noted. The immunoprofile profile is not characteristic of colon adenocarcinoma; and while the findings are not specific for the lung origin of the tumor; they would be compatible with metastatic lung adenocarcinoma in proper clinical and imaging settings. The case was discussed with Dr. Main on 03/25/17. Aakash Mayorga M.D. Gross Description A. Received is a 50 cc of yellow fluid in 50% alcohol. One cytofunnel slide and one cell block are made. B. Received is 600 cc of yellow fluid fresh. One cytofunnel slide and one cell block are made.
--- NOTE | 2017-03-22 16:59 | PN ---
Teaching Attending Note Name of Resident: Luisito Evangelista ATTENDING PHYSICIAN STATEMENT I saw and evaluated the patient. I reviewed the resident's note and discussed the case with the resident. I agree with the resident's findings and plan as documented. SUBJECTIVE: Patient is feeling less SOB. OBJECTIVE: Vital Signs Period Temp Pulse Resp BP Sys/Monroe Pulse Ox Last 24 Hr 97.8 F-98.7 F 80-90 20-20 114-154/56-72 91-93 HEART: S1S2, RRR LUNGS: Few rhonchi bilaterally, decreased BS at bases ABDOMEN: Soft, non-tender, non-distended, normal BS EXTREMITIES: No edema ASSESSMENT AND PLAN: This is an 81-year-old woman with a history of COPD, chronic hypoxic respiratory failure, lung cancer, colon cancer, atrial fibrillation, HTN, with balloon valvuloplasty who presented to the ER with shortness of breath. 1. Paroxysmal atrial fibrillation with RVR - Remains in sinus rhythm - Continue Cardizem, Eliquis 2. Left pleural effusion, transudative - s/p thoracentesis 03/20 - Chest CT after thoracentesis shows bilateral effusions and atelectasis 3. Acute on chronic hypoxic and hypercapnic respiratory failure - Continue oxygen, BiPAP as needed 4. Acute exacerbation of COPD - Continue SoluMedrol, DuoNeb 5. Sepsis secondary to possible pneumonia - Continue Zosyn - Coagulase negative Staph in 1 of 2 blood cultures likely contaminant 6. HTN -Continue Cardizem CD 7. Lung cancer - Currently receiving XRT at [facility] 8. History of colon cancer, resection 9. Aortic stenosis, history of balloon valvuloplasty
[2017-03-22] MEDS: ALPRAZolam 0.25 MG TABLET PO SCH (21:36)
[2017-03-23] MEDS: PIPERACILLIN/TAZOB 3.375 GM/50 ML PRE-DOCKED IVPB SCH ×3 (04:12→17:54)
[2017-03-23] MEDS: DOCUSATE SODIUM 100 MG CAPSULE (FP) PO SCH ×3 (06:22→22:26)
--- NOTE | 2017-03-23 09:17 | PN ---
Physical Exam: SUBJECTIVE: Patient seen and examined OBJECTIVE: Vital Signs Period Temp Pulse Resp BP Sys/Monroe Pulse Ox Last 24 Hr 98.6 F-99.1 F 80-92 20-20 100-154/61-72 92 GENERAL: The patient is awake, alert, and fully oriented, in mild respiratory distress. LUNGS: Bilateral rhonchi. Decreased breath sounds at bases. HEART: Regular rate and rhythm, S1, S2, (+) 3/6 SM ABDOMEN: Soft, nontender, nondistended, normoactive bowel sounds. EXTREMITIES: 2+ pulses, warm, well-perfused, no edema. Laboratory Results - last 24 hr 03/22/17 03/22/17 09:20 09:20 WBC 23.7 H RBC 3.65 Hgb 10.4 L Hct 32.5 MCV 89.0 MCHC 31.9 L RDW 14.0 Plt Count 214 MPV 8.5 PTT (Actin FS) 27.1 Active Medications Generic Name Dose Route Start Last Admin Trade Name Freq PRN Reason Stop Dose Admin Acetaminophen 650 mg 03/21/17 16:38 Tylenol - PO Q6H PRN FEVER OR PAIN Albuterol Sulfate 1 amp 03/21/17 16:38 Ventolin 0.083% Nebulizer Soln - NEB Q8H PRN SHORT OF BREATH/WHEEZING Albuterol/Ipratropium 1 amp 03/21/17 16:38 03/21/17 21:06 Duoneb - NEB 1 amp Q4H PRN Administration SHORTNESS OF BREATH Alprazolam 0.25 mg 03/22/17 22:00 03/22/17 21:36 Xanax - PO 03/29/17 21:59 0.25 mg BID MASON Administration Apixaban 5 mg 03/21/17 22:00 03/22/17 21:36 Eliquis - PO 5 mg BID MASON Administration Diltiazem HCl 180 mg 03/22/17 10:00 03/22/17 09:59 Cardizem Cd - PO 180 mg DAILY MASON Administration Diltiazem HCl 10 mg 03/21/17 16:38 03/21/17 23:23 Cardizem Injection - IVPUSH 10 mg Q1H PRN Administration TACHYCARDIA Docusate Sodium 100 mg 03/21/17 22:00 03/23/17 06:22 Colace - PO Not Given TID MASON Furosemide 20 mg 03/22/17 10:00 03/22/17 09:59 Lasix - PO 20 mg DAILY MASON Administration Methylprednisolone Sodium Succinate 40 mg 03/22/17 22:00 03/22/17 21:36 Solu-Medrol - IVPB 40 mg BID MASON Administration Ondansetron HCl 4 mg 03/21/17 16:38 Zofran Injection IVPB Q6H PRN NAUSEA Piperacillin Sod/Tazobactam Sod 3.375 gm 03/21/17 18:00 03/23/17 04:12 Zosyn 3.375gm Ivpb (Pre-Docked) IVPB Not Given Q8H-IV MASON Protocol ASSESSMENT/PLAN: This is an 81-year-old woman with a history of COPD, chronic hypoxic respiratory failure, lung cancer, colon cancer, atrial fibrillation, HTN, with balloon valvuloplasty who presented to the ER with shortness of breath. 1. Paroxysmal atrial fibrillation with RVR - Remains in sinus rhythm - Continue Cardizem, Eliquis 2. 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 Acute on chronic hypoxic and hypercapnic respiratory failure - Continue oxygen, BiPAP as needed 4. Acute exacerbation of COPD - SoluMedrol being tapered - Continue DuoNeb 5. Sepsis secondary to possible pneumonia - Continue Zosyn - Coagulase negative Staph in 1 of 2 blood cultures likely contaminant 6. HTN -Continue Cardizem CD, Lasix 7. History of colon cancer, resection 8. Severe aortic stenosis, history of balloon valvuloplasty Visit type - Emergency Visit Emergency Visit: Yes ED Registration Date: 03/19/17 Care time: The patient presented to the Emergency Department on the above date and was hospitalized for further evaluation of their emergent condition. - New Patient This patient is new to me today: No - Critical Care Critical Care patient: No - Discharge Referral Referred to [facility] No
--- NOTE | 2017-03-23 10:52 | PN ---
Progress Note (short form) - Note Progress Note: S: no cp palps dizzy; sob present but better, has not needed bipap Current Medications Generic Name Dose Route Start Last Admin Trade Name Freq PRN Reason Stop Dose Admin Acetaminophen 650 mg 03/21/17 16:38 Tylenol - PO Q6H PRN FEVER OR PAIN Albuterol Sulfate 1 amp 03/21/17 16:38 Ventolin 0.083% Nebulizer Soln - NEB Q8H PRN SHORT OF BREATH/WHEEZING Albuterol/Ipratropium 1 amp 03/21/17 16:38 03/21/17 21:06 Duoneb - NEB 1 amp Q4H PRN Administration SHORTNESS OF BREATH Alprazolam 0.25 mg 03/22/17 22:00 03/22/17 21:36 Xanax - PO 03/29/17 21:59 0.25 mg BID MASON Administration Apixaban 5 mg 03/21/17 22:00 03/22/17 21:36 Eliquis - PO 5 mg BID MASON Administration Diltiazem HCl 180 mg 03/22/17 10:00 03/22/17 09:59 Cardizem Cd - PO 180 mg DAILY MASON Administration Diltiazem HCl 10 mg 03/21/17 16:38 03/21/17 23:23 Cardizem Injection - IVPUSH 10 mg Q1H PRN Administration TACHYCARDIA Docusate Sodium 100 mg 03/21/17 22:00 03/23/17 06:22 Colace - PO Not Given TID MASON Furosemide 20 mg 03/22/17 10:00 03/22/17 09:59 Lasix - PO 20 mg DAILY MASON Administration Methylprednisolone Sodium Succinate 40 mg 03/22/17 22:00 03/22/17 21:36 Solu-Medrol - IVPB 40 mg BID MASON Administration Ondansetron HCl 4 mg 03/21/17 16:38 Zofran Injection IVPB Q6H PRN NAUSEA Piperacillin Sod/Tazobactam Sod 3.375 gm 03/21/17 18:00 03/23/17 04:12 Zosyn 3.375gm Ivpb (Pre-Docked) IVPB Not Given Q8H-IV MASON Protocol Vital Signs Period Temp Pulse Resp BP Sys/Monroe Pulse Ox Last 24 Hr 98.6 F-99.1 F 80-92 20-20 100-154/61-72 92 Constitutional: nad Eyes: No: Sclera Icterus HENT: No: Nasal Congestion Respiratory: Yes: scattered rhonchi, nl eff. No: Accessory Muscle Use, Rales, Wheezes Gastrointestinal: Yes: Normal Bowel Sounds. No: Distention, Hepatomegaly, Palpable Mass, Tenderness Cardiovascular: Yes: Pulse regular JVD: No Heart Sounds: Yes: S1, S2. No: Gallop Murmur: Yes: Systolic Murmur (hi-pitched PRESTON LUSB radiating throughout precordium). No: Diastolic Murmur Extremities: No: Cold Edema: No Integumentary: No: Jaundice diaphoresis Neurological: Yes: Alert, Oriented (x3) Psychiatric: No: Agitated - Other Data Labs, Other Data: CBC, BMP 03/22/17 09:20 03/21/17 05:20 ekg 03/19: rapid atrial flutter; ? old ASMI (no change vs prior); no signif ST-T abnormalities when accounting for flutter waves tele: sr L/RHC 12/28: wedge 22 (down to 16 post BAV); PA 55/25 (40/18 post); CI 3.0 (3.1 post); AV 50/38 mmHg-->20/16 post; CHASE 0.5-->1.0 post; 30-50% pRCA with mild/diffuse dz LAD/LCX CTA [facility] 12/2016: severe , severe calcification of asc aorta with protruding atheroma. severe asymmetric LV hypertrophy (1.8 at base), small focal LV aneursym. LLL spiculated mass concerning for malignancy F/u CT scan 12/2016: new mucus impaction of peripheral bronchial tree. patulous esophagus c/w dysmotility or reflux . PET [facility] 12/2016: Increased size of LLL area of consolidation 2.8 x 3.3 cm --> 6 x 6 cm. Heterogenous uptake LLL uptake with central focus (suspicious for malignancy). Uptake in left hilar node reactive vs metastatic. YADIRA mildly hypermetabolic ground glass changes infection/ inflammation echo 03/2017: nl lv/rv, mild mr, rvsp 30-40, severe , trace AR Assessment/Plan 81 yo afib, as s/p bav 12/2016, phtn, severe copd, recent dx lung adenoCa started XRT (no surgery planned), htn p/w respiratory failure acute on chronic hypoxic/hypercapneic resp failure, COPD, lung adenoCa, pleural effusion: - being followed and tx'd by pulm [facility] - on home O2 - deemed prohibitive surgical risk for lung resection by thoracic surgery at [place], started RT recently - note: 01/15/17 CXR at [place] showed no effusions - s/p thoracentesis 03/20 paroxysmal AF: - with rapid HRs when in afib in hospital previously, including at [place] on diltiazem (no BB given wheezing/copd severity) -CHADS VASC = 3, on Eliquis -holding AC in anticipation of thoracentesis (not on ASA--will d/c order) -rapid HR being driveing by acute dyspnea, pleural eff, ? PNA, steroids-- received diltiazem IVPs here -will incr diltiazem 120 to 180, use prn doses here -continue heparin gtt for AC while hold eliquis preop - 03/20: converted to SR. On heparin drip. Resume eliquis when no further procedures planned. 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
[2017-03-23] MEDS: ALPRAZolam 0.25 MG TABLET PO SCH ×2 (10:59→22:26)
[2017-03-23] MEDS: APIXABAN 5 MG TABLET PO SCH ×2 (10:59→22:26)
[2017-03-23] MEDS: FUROSEMIDE 20 MG TABLET (FP) PO SCH (10:59)
[2017-03-23] MEDS: methylPREDNISolone NA SUCC 40 MG/1 ML VIAL IVPB SCH ×2 (11:00→22:26)
--- NOTE | 2017-03-23 11:04 | PN ---
Progress Note (short form) - Note Progress Note: PULMONARY Still feeling weak, dyspneic on exertion. No chest pain. +nonproductive cough. Remains on 50% ventimask. Last Vital Signs Temp Pulse Resp BP Pulse Ox 99.1 F 80 20 100/61 92 L 03/23/17 02:00 03/23/17 02:00 03/23/17 02:00 03/23/17 02:00 03/22/17 20:42 Intake & Output 03/20/17 03/21/17 03/22/17 03/23/17 23:59 23:59 23:59 23:59 Intake Total 922 1080 580 Output Total 300 1260 Balance 622 -180 580 Weight 89 lb 1 oz 90 lb 3 oz 89 lb 9.6 oz Gen: tachypneic with speaking Heart: RRR, +systolic murmur RUSB Lung: distant breath sounds Abd: soft, nontender Ext: no edema CBC, BMP 03/22/17 09:20 03/21/17 05:20 Active Medications Acetaminophen (Tylenol -) 650 mg PO Q6H PRN PRN Reason: FEVER OR PAIN Albuterol Sulfate (Ventolin 0.083% Nebulizer Soln -) 1 amp NEB Q8H PRN PRN Reason: SHORT OF BREATH/WHEEZING Albuterol/Ipratropium (Duoneb -) 1 amp NEB Q4H PRN PRN Reason: SHORTNESS OF BREATH Last Admin: 03/21/17 21:06 Dose: 1 amp Alprazolam (Xanax -) 0.25 mg PO BID [facility] Stop: 03/29/17 21:59 Last Admin: 03/23/17 10:59 Dose: 0.25 mg Apixaban (Eliquis -) 5 mg PO BID [facility] Last Admin: 03/23/17 10:59 Dose: 5 mg Diltiazem HCl (Cardizem Cd -) 180 mg PO DAILY [facility] Last Admin: 03/23/17 10:59 Dose: 180 mg Diltiazem HCl (Cardizem Injection -) 10 mg IVPUSH Q1H PRN PRN Reason: TACHYCARDIA Last Admin: 03/21/17 23:23 Dose: 10 mg Docusate Sodium (Colace -) 100 mg PO TID [facility] Last Admin: 03/23/17 06:22 Dose: Not Given Furosemide (Lasix -) 20 mg PO DAILY [facility] Last Admin: 03/23/17 10:59 Dose: 20 mg Methylprednisolone Sodium Succinate (Solu-Medrol -) 40 mg IVPB BID [facility] Last Admin: 03/23/17 11:00 Dose: 40 mg Ondansetron HCl (Zofran Injection) 4 mg IVPB Q6H PRN PRN Reason: NAUSEA Piperacillin Sod/Tazobactam Sod (Zosyn 3.375gm Ivpb (Pre-Docked)) 3.375 gm IVPB Q8H-IV MASON PRN Reason: Protocol Last Admin: 03/23/17 11:00 Dose: 3.375 gm A/P Acute on Chronic Hypoxic and Hypercapneic Respiratory Failure Atrial Fibrillation with RVR NSCLC (Adenocarcinoma) with malignant effusion COPD/Emphysema r/o Pneumonia HTN h/o Colon Ca - continue antibiotics - BiPAP PRN to assist in work of breathing - taper FiO2 to keep SpO2 >90% - rate control - continue anticoagulation - medrol taper - inhaled bronchodilators standing and PRN - continue pulse oximetry monitoring
[2017-03-23 11:17] LABS: MCH 28.6 pg (25.7-33.7); MCHC 31.9 g/dl (32.0-36.0); MEAN CELL VOLUME 89.8 fl (80-96); PLATELET COUNT 207 K/MM3 (134-434); RDW 14.1 % (11.6-15.6); WHITE BLOOD COUNT 21.8 K/mm3 (4.0-10.0)
--- NOTE | 2017-03-23 13:39 | PN ---
Progress Note, Physician History of Present Illness: Dyspneic at rest on No c/o chest pain/ cough Afebrile WBC remains elevated - Current Medication List Current Medications: Active Medications Acetaminophen (Tylenol -) 650 mg PO Q6H PRN PRN Reason: FEVER OR PAIN Albuterol Sulfate (Ventolin 0.083% Nebulizer Soln -) 1 amp NEB Q8H PRN PRN Reason: SHORT OF BREATH/WHEEZING Albuterol/Ipratropium (Duoneb -) 1 amp NEB TID [facility] Alprazolam (Xanax -) 0.25 mg PO BID [facility] Stop: 03/29/17 21:59 Last Admin: 03/23/17 10:59 Dose: 0.25 mg Apixaban (Eliquis -) 5 mg PO BID [facility] Last Admin: 03/23/17 10:59 Dose: 5 mg Diltiazem HCl (Cardizem Cd -) 180 mg PO DAILY [facility] Last Admin: 03/23/17 10:59 Dose: 180 mg Diltiazem HCl (Cardizem Injection -) 10 mg IVPUSH Q1H PRN PRN Reason: TACHYCARDIA Last Admin: 03/21/17 23:23 Dose: 10 mg Docusate Sodium (Colace -) 100 mg PO TID [facility] Last Admin: 03/23/17 06:22 Dose: Not Given Furosemide (Lasix -) 20 mg PO DAILY [facility] Last Admin: 03/23/17 10:59 Dose: 20 mg Methylprednisolone Sodium Succinate (Solu-Medrol -) 40 mg IVPB BID [facility] Last Admin: 03/23/17 11:00 Dose: 40 mg Ondansetron HCl (Zofran Injection) 4 mg IVPB Q6H PRN PRN Reason: NAUSEA Piperacillin Sod/Tazobactam Sod (Zosyn 3.375gm Ivpb (Pre-Docked)) 3.375 gm IVPB Q8H-IV MASON PRN Reason: Protocol Last Admin: 03/23/17 11:00 Dose: 3.375 gm - Objective Vital Signs: Vital Signs Temperature 99.1 F 03/23/17 02:00 Pulse Rate 88 03/23/17 11:26 Respiratory Rate 20 03/23/17 02:00 Blood Pressure 100/61 03/23/17 02:00 O2 Sat by Pulse Oximetry (%) 95 03/23/17 11:26 Constitutional: Yes: Cachectic Eyes: Yes: Conjunctiva Clear Cardiovascular: Yes: Regular Rate and Rhythm, S1, S2 Respiratory: Yes: Diminished Gastrointestinal: Yes: Normal Bowel Sounds, Soft Edema: No Labs: CBC, BMP 03/23/17 10:31 03/21/17 05:20 INR, PTT INR 1.42 (0.82-1.09) H 03/19/17 07:25 Assessment/Plan S/P thoracentesis- pleural fluid c/s no growth Exacerbation COPD Leukocytosis- likely steroid-induced S/P BAV +BC SCN = contaminant Lung ca Continue zosyn
[2017-03-23] MEDS: ALBUTEROL SO4 2.5/IPRATROPIUM 0.5 INH SOL 3 ML VIAL.NEB. NEB SCH ×2 (14:15→23:24)
[2017-03-24] MEDS: PIPERACILLIN/TAZOB 3.375 GM/50 ML PRE-DOCKED IVPB SCH ×3 (01:37→17:59)
[2017-03-24] MEDS: DOCUSATE SODIUM 100 MG CAPSULE (FP) PO SCH ×4 (05:41→23:19)
[2017-03-24] MEDS: ALBUTEROL SO4 2.5/IPRATROPIUM 0.5 INH SOL 3 ML VIAL.NEB. NEB SCH ×3 (06:13→22:05)
--- NOTE | 2017-03-24 09:42 | PN ---
Progress Note, Physician History of Present Illness: Awake, alert No c/o chest pain/ dyspnea Appears more comfortable Afebrile WBC improved Pleural fluid c/s negative - Current Medication List Current Medications: Active Medications Acetaminophen (Tylenol -) 650 mg PO Q6H PRN PRN Reason: FEVER OR PAIN Albuterol Sulfate (Ventolin 0.083% Nebulizer Soln -) 1 amp NEB Q8H PRN PRN Reason: SHORT OF BREATH/WHEEZING Albuterol/Ipratropium (Duoneb -) 1 amp NEB TID [facility] Last Admin: 03/24/17 06:13 Dose: 1 amp Alprazolam (Xanax -) 0.25 mg PO BID [facility] Stop: 03/29/17 21:59 Last Admin: 03/23/17 22:26 Dose: 0.25 mg Apixaban (Eliquis -) 5 mg PO BID [facility] Last Admin: 03/23/17 22:26 Dose: 5 mg Diltiazem HCl (Cardizem Cd -) 180 mg PO DAILY [facility] Last Admin: 03/23/17 10:59 Dose: 180 mg Diltiazem HCl (Cardizem Injection -) 10 mg IVPUSH Q1H PRN PRN Reason: TACHYCARDIA Last Admin: 03/21/17 23:23 Dose: 10 mg Docusate Sodium (Colace -) 100 mg PO TID [facility] Last Admin: 03/24/17 05:41 Dose: Not Given Furosemide (Lasix -) 20 mg PO DAILY [facility] Last Admin: 03/23/17 10:59 Dose: 20 mg Methylprednisolone Sodium Succinate (Solu-Medrol -) 40 mg IVPB BID [facility] Last Admin: 03/23/17 22:26 Dose: 40 mg Ondansetron HCl (Zofran Injection) 4 mg IVPB Q6H PRN PRN Reason: NAUSEA Piperacillin Sod/Tazobactam Sod (Zosyn 3.375gm Ivpb (Pre-Docked)) 3.375 gm IVPB Q8H-IV MASON PRN Reason: Protocol Last Admin: 03/24/17 01:37 Dose: 3.375 gm Ramipril (Altace -) 5 mg PO DAILY [facility] - Objective Vital Signs: Vital Signs Temperature 97.8 F 03/24/17 06:00 Pulse Rate 86 03/24/17 06:00 Respiratory Rate 20 03/24/17 06:00 Blood Pressure 146/86 03/24/17 06:00 O2 Sat by Pulse Oximetry (%) 93 L 03/23/17 21:00 Constitutional: Yes: No Distress, Cachectic Cardiovascular: Yes: Regular Rate and Rhythm, Murmur, S1, S2 Respiratory: Yes: Rhonchi Gastrointestinal: Yes: Normal Bowel Sounds, Soft. No: Tenderness Edema: No Labs: CBC, BMP 03/23/17 10:31 03/21/17 05:20 INR, PTT INR 1.42 (0.82-1.09) H 03/19/17 07:25 Assessment/Plan S/P thoracentesis- pleural fluid c/s no growth Exacerbation COPD Leukocytosis- likely steroid-induced S/P BAV +BC SCN = contaminant Lung ca Continue zosyn
[2017-03-24] MEDS: methylPREDNISolone NA SUCC 40 MG/1 ML VIAL IVPB SCH ×2 (10:37→21:50)
[2017-03-24] MEDS: RAMIPRIL 5 MG CAPSULE (FP) PO SCH (10:37)
[2017-03-24] MEDS: ALPRAZolam 0.25 MG TABLET PO SCH ×2 (10:37→21:50)
[2017-03-24] MEDS: FUROSEMIDE 20 MG TABLET (FP) PO SCH (10:37)
[2017-03-24] MEDS: APIXABAN 5 MG TABLET PO SCH ×2 (10:38→21:50)
[2017-03-24 11:13] LABS: MCH 28.2 pg (25.7-33.7); MCHC 31.3 g/dl (32.0-36.0); PLATELET COUNT 177 K/MM3 (134-434); WHITE BLOOD COUNT 25.1 K/mm3 (4.0-10.0)
--- NOTE | 2017-03-24 11:21 | PN ---
Progress Note (short form) - Note Progress Note: S: no cp palps dizzy; sob present but better, has not needed bipap Current Medications Generic Name Dose Route Start Last Admin Trade Name Freq PRN Reason Stop Dose Admin Acetaminophen 650 mg 03/21/17 16:38 Tylenol - PO Q6H PRN FEVER OR PAIN Albuterol Sulfate 1 amp 03/21/17 16:38 Ventolin 0.083% Nebulizer Soln - NEB Q8H PRN SHORT OF BREATH/WHEEZING Albuterol/Ipratropium 1 amp 03/23/17 14:00 03/24/17 06:13 Duoneb - NEB 1 amp TID MASON Administration Alprazolam 0.25 mg 03/22/17 22:00 03/24/17 10:37 Xanax - PO 03/29/17 21:59 0.25 mg BID MASON Administration Apixaban 5 mg 03/21/17 22:00 03/24/17 10:38 Eliquis - PO 5 mg BID [facility]ON Administration Diltiazem HCl 180 mg 03/22/17 10:00 03/24/17 10:38 Cardizem Cd - PO 180 mg DAILY [facility]ON Administration Diltiazem HCl 10 mg 03/21/17 16:38 03/21/17 23:23 Cardizem Injection - IVPUSH 10 mg Q1H PRN Administration TACHYCARDIA Docusate Sodium 100 mg 03/21/17 22:00 03/24/17 05:41 Colace - PO Not Given TID MASON Furosemide 20 mg 03/22/17 10:00 03/24/17 10:37 Lasix - PO 20 mg DAILY [facility]ON Administration Methylprednisolone Sodium Succinate 40 mg 03/22/17 22:00 03/24/17 10:37 Solu-Medrol - IVPB 40 mg BID [facility]ON Administration Ondansetron HCl 4 mg 03/21/17 16:38 Zofran Injection IVPB Q6H PRN NAUSEA Piperacillin Sod/Tazobactam Sod 3.375 gm 03/21/17 18:00 03/24/17 10:37 Zosyn 3.375gm Ivpb (Pre-Docked) IVPB 3.375 gm Q8H-IV MASON Administration Protocol Ramipril 5 mg 03/24/17 10:00 03/24/17 10:37 Altace - PO 5 mg DAILY MASON Administration CBC, BMP 03/21/17 05:20 Constitutional: nad Eyes: No: Sclera Icterus HENT: No: Nasal Congestion Respiratory: Yes: scattered rhonchi, nl eff. No: Accessory Muscle Use, Rales, Wheezes Gastrointestinal: Yes: Normal Bowel Sounds. No: Distention, Hepatomegaly, Palpable Mass, Tenderness Cardiovascular: Yes: Pulse regular JVD: No Heart Sounds: Yes: S1, S2. No: Gallop Murmur: Yes: Systolic Murmur (hi-pitched PRESTON LUSB radiating throughout precordium). No: Diastolic Murmur Extremities: No: Cold Edema: No Integumentary: No: Jaundice diaphoresis Neurological: Yes: Alert, Oriented (x3) Psychiatric: No: Agitated - Other Data Labs, Other Data: CBC, BMP 03/21/17 05:20 ekg 03/19: rapid atrial flutter; ? old ASMI (no change vs prior); no signif ST-T abnormalities when accounting for flutter waves tele: sr now, intermittent pafib L/RHC 12/28: wedge 22 (down to 16 post BAV); PA 55/25 (40/18 post); CI 3.0 (3.1 post); AV 50/38 mmHg-->20/16 post; CHASE 0.5-->1.0 post; 30-50% pRCA with mild/diffuse dz LAD/LCX CTA [facility] [place] 12/2016: severe , severe calcification of asc aorta with protruding atheroma. severe asymmetric LV hypertrophy (1.8 at base), small focal LV aneursym. LLL spiculated mass concerning for malignancy F/u CT scan 12/2016: new mucus impaction of peripheral bronchial tree. patulous esophagus c/w dysmotility or reflux . PET [facility] [place] 12/2016: Increased size of LLL area of consolidation 2.8 x 3.3 cm --> 6 x 6 cm. Heterogenous uptake LLL uptake with central focus (suspicious for malignancy). Uptake in left hilar node reactive vs metastatic. YADIRA mildly hypermetabolic ground glass changes infection/ inflammation echo 03/2017: nl lv/rv, mild mr, rvsp 30-40, severe , trace AR Assessment/Plan 81 yo afib, as s/p bav 12/2016, phtn, severe copd, recent dx lung adenoCa started XRT (no surgery planned), htn p/w respiratory failure acute on chronic hypoxic/hypercapneic resp failure, COPD, lung adenoCa, pleural effusion: - being followed and tx'd by pulm at [place] - on home O2 - deemed prohibitive surgical risk for lung resection by thoracic surgery at [place], started RT recently - note: 01/15/17 CXR at [place] showed no effusions - s/p thoracentesis 03/20 - on abx and steroids per ID/pulm paroxysmal AF: - with rapid HRs when in afib in hospital previously, including at [place] on diltiazem (no BB given wheezing/copd severity) -CHADS VASC = 3, on Eliquis -cont dilt 180 qd, in SR now 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
[2017-03-24 12:13] LABS: PLATELET ESTIMATE ADEQUATE (NORMAL)
--- NOTE | 2017-03-24 12:17 | PN ---
Physical Exam: SUBJECTIVE: Patient seen and examined. She continues to feel SOB. OBJECTIVE: Vital Signs Period Temp Pulse Resp BP Sys/[place] Pulse Ox Last 24 Hr 97.3 F-98 F 81-97 20-22 139-166/63-86 93 GENERAL: The patient is awake, alert, oriented, mild respiratory distress. LUNGS: Scattered rhonchi. HEART: Regular rate and rhythm, S1, S2, (+) 3/6 SM ABDOMEN: Soft, nontender, nondistended, normoactive bowel sounds, no guarding, no rebound, no hepatosplenomegaly, no masses. EXTREMITIES: 2+ pulses, warm, well-perfused, no edema. Laboratory Results - last 24 hr 03/23/17 03/24/17 03/24/17 10:31 10:20 10:20 WBC 25.1 H RBC 3.89 Hgb 11.0 Hct 35.0 MCV 90.0 MCHC 31.3 L RDW 14.0 Plt Count 177 MPV 9.0 PTT (Actin FS) 25.0 L 23.7 L Active Medications Generic Name Dose Route Start Last Admin Trade Name Freq PRN Reason Stop Dose Admin Acetaminophen 650 mg 03/21/17 16:38 Tylenol - PO Q6H PRN FEVER OR PAIN Albuterol Sulfate 1 amp 03/21/17 16:38 Ventolin 0.083% Nebulizer Soln - NEB Q8H PRN SHORT OF BREATH/WHEEZING Albuterol/Ipratropium 1 amp 03/23/17 14:00 03/24/17 06:13 Duoneb - NEB 1 amp TID [facility]ON Administration Alprazolam 0.25 mg 03/22/17 22:00 03/24/17 10:37 Xanax - PO 03/29/17 21:59 0.25 mg BID [facility]ON Administration Apixaban 5 mg 03/21/17 22:00 03/24/17 10:38 Eliquis - PO 5 mg BID [facility] Administration Diltiazem HCl 180 mg 03/22/17 10:00 03/24/17 10:38 Cardizem Cd - PO 180 mg DAILY [facility] Administration Diltiazem HCl 10 mg 03/21/17 16:38 03/21/17 23:23 Cardizem Injection - IVPUSH 10 mg Q1H PRN Administration TACHYCARDIA Docusate Sodium 100 mg 03/21/17 22:00 03/24/17 05:41 Colace - PO Not Given TID MASON Furosemide 20 mg 03/22/17 10:00 03/24/17 10:37 Lasix - PO 20 mg DAILY [facility] Administration Methylprednisolone Sodium Succinate 40 mg 03/22/17 22:00 03/24/17 10:37 Solu-Medrol - IVPB 40 mg BID [facility] Administration Ondansetron HCl 4 mg 03/21/17 16:38 Zofran Injection IVPB Q6H PRN NAUSEA Piperacillin Sod/Tazobactam Sod 3.375 gm 03/21/17 18:00 03/24/17 10:37 Zosyn 3.375gm Ivpb (Pre-Docked) IVPB 3.375 gm Q8H-IV [facility]ON Administration Protocol Ramipril 5 mg 03/24/17 10:00 03/24/17 10:37 Altace - PO 5 mg DAILY [facility]ON Administration ASSESSMENT/PLAN: This is an 81-year-old woman with a history of COPD, chronic hypoxic respiratory failure, lung cancer, colon cancer, atrial fibrillation, HTN, with balloon valvuloplasty who presented to the ER with shortness of breath. 1. Paroxysmal atrial fibrillation with RVR - Remains in sinus rhythm - Continue Cardizem, Eliquis 2. 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 Acute on chronic hypoxic and hypercapnic respiratory failure - Continue oxygen, BiPAP as needed 4. Acute exacerbation of COPD - SoluMedrol being tapered - Continue DuoNeb, albuterol as needed, oxygen 5. Sepsis secondary to possible pneumonia - Continue Zosyn - Coagulase negative Staph in 1 of 2 blood cultures likely contaminant 6. HTN - Continue Cardizem CD, Lasix - Altace restarted 7. History of colon cancer, resection 8. Severe aortic stenosis, history of balloon valvuloplasty Visit type - Emergency Visit Emergency Visit: Yes ED Registration Date: 03/19/17 Care time: The patient presented to the Emergency Department on the above date and was hospitalized for further evaluation of their emergent condition. - New Patient This patient is new to me today: No - Critical Care Critical Care patient: No - Discharge Referral Referred to [facility] Med P.C.: No
--- NOTE | 2017-03-24 13:38 | PN ---
Progress Note (short form) - Note Progress Note: PULMONARY More comfortable today. Saturating well on nasal cannula. Last Vital Signs Temp Pulse Resp BP Pulse Ox 97.8 F 86 20 146/86 93 L 03/24/17 06:00 03/24/17 06:00 03/24/17 06:00 03/24/17 06:00 03/23/17 21:00 Gen: less tachypneic Heart: RRR, +systolic murmur RUSB Lung: distant breath sounds Abd: soft, nontender Ext: no edema CBC, BMP 03/24/17 10:20 03/21/17 05:20 Active Medications Acetaminophen (Tylenol -) 650 mg PO Q6H PRN PRN Reason: FEVER OR PAIN Albuterol Sulfate (Ventolin 0.083% Nebulizer Soln -) 1 amp NEB Q8H PRN PRN Reason: SHORT OF BREATH/WHEEZING Albuterol/Ipratropium (Duoneb -) 1 amp NEB TID [facility] Last Admin: 03/24/17 06:13 Dose: 1 amp Alprazolam (Xanax -) 0.25 mg PO BID [facility] Stop: 03/29/17 21:59 Last Admin: 03/24/17 10:37 Dose: 0.25 mg Apixaban (Eliquis -) 5 mg PO BID [facility] Last Admin: 03/24/17 10:38 Dose: 5 mg Diltiazem HCl (Cardizem Cd -) 180 mg PO DAILY [facility] Last Admin: 03/24/17 10:38 Dose: 180 mg Diltiazem HCl (Cardizem Injection -) 10 mg IVPUSH Q1H PRN PRN Reason: TACHYCARDIA Last Admin: 03/21/17 23:23 Dose: 10 mg Docusate Sodium (Colace -) 100 mg PO TID [facility] Last Admin: 03/24/17 05:41 Dose: Not Given Furosemide (Lasix -) 20 mg PO DAILY [facility] Last Admin: 03/24/17 10:37 Dose: 20 mg Methylprednisolone Sodium Succinate (Solu-Medrol -) 40 mg IVPB BID [facility] Last Admin: 03/24/17 10:37 Dose: 40 mg Ondansetron HCl (Zofran Injection) 4 mg IVPB Q6H PRN PRN Reason: NAUSEA Piperacillin Sod/Tazobactam Sod (Zosyn 3.375gm Ivpb (Pre-Docked)) 3.375 gm IVPB Q8H-IV [facility]ON PRN Reason: Protocol Last Admin: 03/24/17 10:37 Dose: 3.375 gm Ramipril (Altace -) 5 mg PO DAILY [facility] Last Admin: 03/24/17 10:37 Dose: 5 mg A/P Acute on Chronic Hypoxic and Hypercapneic Respiratory Failure improving Atrial Fibrillation with RVR NSCLC (Adenocarcinoma) with malignant effusion COPD/Emphysema r/o Pneumonia HTN h/o Colon Ca - complete antibiotics - BiPAP PRN to assist in work of breathing - taper FiO2 to keep SpO2 >90% - rate control - continue anticoagulation - medrol taper - inhaled bronchodilators standing and PRN - continue pulse oximetry monitoring
[2017-03-25] MEDS: PIPERACILLIN/TAZOB 3.375 GM/50 ML PRE-DOCKED IVPB SCH ×2 (02:19→13:33)
[2017-03-25] MEDS: DOCUSATE SODIUM 100 MG CAPSULE (FP) PO SCH ×3 (05:18→22:07)
[2017-03-25] MEDS: ALBUTEROL SO4 2.5/IPRATROPIUM 0.5 INH SOL 3 ML VIAL.NEB. NEB SCH ×3 (06:44→22:59)
[2017-03-25 08:43] LABS: MCH 28.1 pg (25.7-33.7); MCHC 31.1 g/dl (32.0-36.0); MEAN CELL VOLUME 90.4 fl (80-96); MEAN PLT VOLUME 9.1 fl (7.5-11.1); PLATELET COUNT 171 K/MM3 (134-434); RDW 14.6 % (11.6-15.6)
--- NOTE | 2017-03-25 09:18 | PN ---
Progress Note, Physician Chief Complaint: resp failure, acute History of Present Illness: feels somewhat breathless--FM olegen put on this am; +intermittent (tolerable) palpitations no cp no leg swelling - Current Medication List Current Medications: Active Medications Acetaminophen (Tylenol -) 650 mg PO Q6H PRN PRN Reason: FEVER OR PAIN Albuterol Sulfate (Ventolin 0.083% Nebulizer Soln -) 1 amp NEB Q8H PRN PRN Reason: SHORT OF BREATH/WHEEZING Albuterol/Ipratropium (Duoneb -) 1 amp NEB TID [facility] Last Admin: 03/25/17 06:44 Dose: 1 amp Alprazolam (Xanax -) 0.25 mg PO BID [facility] Stop: 03/29/17 21:59 Last Admin: 03/24/17 21:50 Dose: 0.25 mg Apixaban (Eliquis -) 5 mg PO BID [facility] Last Admin: 03/24/17 21:50 Dose: 5 mg Diltiazem HCl (Cardizem Cd -) 180 mg PO DAILY [facility] Last Admin: 03/24/17 10:38 Dose: 180 mg Diltiazem HCl (Cardizem Injection -) 10 mg IVPUSH Q1H PRN PRN Reason: TACHYCARDIA Last Admin: 03/21/17 23:23 Dose: 10 mg Docusate Sodium (Colace -) 100 mg PO TID [facility] Last Admin: 03/25/17 05:18 Dose: Not Given Furosemide (Lasix -) 20 mg PO DAILY [facility] Last Admin: 03/24/17 10:37 Dose: 20 mg Methylprednisolone Sodium Succinate (Solu-Medrol -) 40 mg IVPB BID [facility] Last Admin: 03/24/17 21:50 Dose: 40 mg Ondansetron HCl (Zofran Injection) 4 mg IVPB Q6H PRN PRN Reason: NAUSEA Piperacillin Sod/Tazobactam Sod (Zosyn 3.375gm Ivpb (Pre-Docked)) 3.375 gm IVPB Q8H-IV [facility] PRN Reason: Protocol Last Admin: 03/25/17 02:19 Dose: 3.375 gm Ramipril (Altace -) 5 mg PO DAILY [facility] Last Admin: 03/24/17 10:37 Dose: 5 mg - Objective Vital Signs: Vital Signs Temperature 98.2 F 03/25/17 05:17 Pulse Rate 86 03/25/17 05:17 Respiratory Rate 16 03/25/17 05:17 Blood Pressure 138/62 03/25/17 05:17 O2 Sat by Pulse Oximetry (%) 97 03/24/17 21:00 Constitutional: Yes: No Distress, Calm Eyes: No: Sclera Icterus HENT: No: Nasal Congestion Cardiovascular: Yes: Pulse Irregular, Murmur ( murmur LUSB), S1, S2, Other ( PMI non diplaced). No: JVD, Gallop Respiratory: Yes: Diminished (R side vs L), Wheezes. No: Accessory Muscle Use, Rales Gastrointestinal: Yes: Normal Bowel Sounds, Soft. No: Tenderness Musculoskeletal: Yes: Other (No kyphosis) Extremities: No: Cold, Cyanosis Edema: No Integumentary: No: Jaundice Neurological: Yes: Alert, Oriented (x3) Psychiatric: No: Agitated Labs: CBC, BMP 03/25/17 08:30 03/21/17 05:20 INR, PTT INR 1.42 (0.82-1.09) H 03/19/17 07:25 - ....Imaging EKG: Other (tele: NSR-->AF hr 130s, now up to 140s-150) Assessment/Plan L/RHC 12/28: wedge 22 (down to 16 post BAV); PA 55/25 (40/18 post); CI 3.0 (3.1 post); AV 50/38 mmHg-->20/16 post; CHASE 0.5-->1.0 post; 30-50% pRCA with mild/diffuse dz LAD/LCX CTA [facility] [place] 12/2016: severe , severe calcification of asc aorta with protruding atheroma. severe asymmetric LV hypertrophy (1.8 at base), small focal LV aneursym. LLL spiculated mass concerning for malignancy F/u CT scan 12/2016: new mucus impaction of peripheral bronchial tree. patulous esophagus c/w dysmotility or reflux . PET [facility] [place] 12/2016: Increased size of LLL area of consolidation 2.8 x 3.3 cm --> 6 x 6 cm. Heterogenous uptake LLL uptake with central focus (suspicious for malignancy). Uptake in left hilar node reactive vs metastatic. YADIRA mildly hypermetabolic ground glass changes infection/ inflammation echo 03/2017: nl lv/rv, mild mr, rvsp 30-40, severe , trace AR Assessment/Plan 81 yo afib, as s/p bav 12/2016, phtn, severe copd, recent dx lung adenoCa started XRT (no surgery planned), htn p/w respiratory failure acute on chronic hypoxic/hypercapneic resp failure, COPD, lung adenoCa with malignant pleural effusion: - being followed and tx'd by pulm, onc and rad onc at [place] - on home O2 - deemed prohibitive surgical risk for lung resection by thoracic surgery at [place], started RT recently - dx'd malign effusion here--plan per pulm and onc paroxysmal AF: -with rapid HRs when in afib in hospital previously, including at [place] on diltiazem (no BB given wheezing/copd severity) -CHADS VASC = 3, on Eliquis -dilt incr'd here to 180 qd, which she received about 1 hr ago this am -currently back in AF (sinus yest) with HR climbing 130s, now 140s--likely being driven by ongoing resp distress -extra diltiazem 10 ivp now, then 60 po now and at 4pm today--then start CD 240 qd in am -add low dose dig 0.125 (level ordered) 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
[2017-03-25] MEDS: methylPREDNISolone NA SUCC 40 MG/1 ML VIAL IVPB SCH ×2 (10:32→22:07)
[2017-03-25] MEDS: RAMIPRIL 5 MG CAPSULE (FP) PO SCH (10:44)
[2017-03-25] MEDS: APIXABAN 5 MG TABLET PO SCH ×2 (10:44→22:07)
[2017-03-25] MEDS: FUROSEMIDE 20 MG TABLET (FP) PO SCH (10:44)
[2017-03-25] MEDS: ALPRAZolam 0.25 MG TABLET PO SCH ×2 (10:44→22:07)
--- NOTE | 2017-03-25 12:00 | PN ---
Progress Note, Physician History of Present Illness: pulmonary alert,feeling better,less dyspneic,nad,on nasal o2 - Current Medication List Current Medications: Active Medications Acetaminophen (Tylenol -) 650 mg PO Q6H PRN PRN Reason: FEVER OR PAIN Albuterol Sulfate (Ventolin 0.083% Nebulizer Soln -) 1 amp NEB Q8H PRN PRN Reason: SHORT OF BREATH/WHEEZING Albuterol/Ipratropium (Duoneb -) 1 amp NEB TID [facility] Last Admin: 03/25/17 06:44 Dose: 1 amp Alprazolam (Xanax -) 0.25 mg PO BID [facility] Stop: 03/29/17 21:59 Last Admin: 03/25/17 10:44 Dose: 0.25 mg Apixaban (Eliquis -) 5 mg PO BID [facility] Last Admin: 03/25/17 10:44 Dose: 5 mg Digoxin (Lanoxin -) 0.125 mg PO ONCE ONE Stop: 03/25/17 11:33 Digoxin (Lanoxin -) 0.125 mg PO DAILY [facility] Diltiazem HCl (Cardizem Injection -) 10 mg IVPUSH Q1H PRN PRN Reason: TACHYCARDIA Last Admin: 03/21/17 23:23 Dose: 10 mg Diltiazem HCl (Cardizem Injection -) 10 mg IVPUSH ONCE ONE Stop: 03/25/17 11:31 Diltiazem HCl (Cardizem -) 60 mg PO ONCE ONE Stop: 03/25/17 11:32 Diltiazem HCl (Cardizem -) 60 mg PO ONCE ONE Stop: 03/25/17 16:01 Diltiazem HCl (Cardizem Cd -) 240 mg PO DAILY [facility] Docusate Sodium (Colace -) 100 mg PO TID [facility] Last Admin: 03/25/17 05:18 Dose: Not Given Furosemide (Lasix -) 20 mg PO DAILY [facility] Last Admin: 03/25/17 10:44 Dose: 20 mg Methylprednisolone Sodium Succinate (Solu-Medrol -) 40 mg IVPB BID [facility] Last Admin: 03/24/17 21:50 Dose: 40 mg Ondansetron HCl (Zofran Injection) 4 mg IVPB Q6H PRN PRN Reason: NAUSEA Piperacillin Sod/Tazobactam Sod (Zosyn 3.375gm Ivpb (Pre-Docked)) 3.375 gm IVPB Q8H-IV [facility] PRN Reason: Protocol Last Admin: 03/25/17 02:19 Dose: 3.375 gm Ramipril (Altace -) 5 mg PO DAILY [facility] Last Admin: 03/25/17 10:44 Dose: 5 mg - Objective Vital Signs: Vital Signs Temperature 98.2 F 03/25/17 09:00 Pulse Rate 93 H 03/25/17 09:00 Respiratory Rate 20 03/25/17 09:00 Blood Pressure 140/55 03/25/17 09:00 O2 Sat by Pulse Oximetry (%) 97 03/24/17 21:00 Constitutional: Yes: Calm, Thin Eyes: Yes: WNL HENT: Yes: WNL Cardiovascular: Yes: Pulse Irregular, S1, S2 Respiratory: Yes: Diminished Gastrointestinal: Yes: Normal Bowel Sounds, Soft Extremities: Yes: WNL Edema: No Labs: CBC, BMP 03/25/17 08:30 Problem List - Problems (1) Atrial flutter Code(s): I48.92 - UNSPECIFIED ATRIAL FLUTTER (2) Lung cancer Code(s): C34.90 - MALIGNANT NEOPLASM OF UNSP PART OF UNSP BRONCHUS OR LUNG (3) Pleural effusion, left Code(s): J90 - PLEURAL EFFUSION, NOT ELSEWHERE CLASSIFIED (4) Pneumonia Code(s): J18.9 - PNEUMONIA, UNSPECIFIED ORGANISM (5) Sepsis Code(s): A41.9 - SEPSIS, UNSPECIFIED ORGANISM (6) Acute on chronic respiratory failure with hypoxia and hypercapnia Code(s): J96.21 - ACUTE AND CHRONIC RESPIRATORY FAILURE WITH HYPOXIA J96.22 - ACUTE AND CHRONIC RESPIRATORY FAILURE WITH HYPERCAPNIA (7) Aortic stenosis Code(s): I35.0 - NONRHEUMATIC AORTIC (VALVE) STENOSIS (8) COPD with acute exacerbation Code(s): J44.1 - CHRONIC OBSTRUCTIVE PULMONARY DISEASE W (ACUTE) EXACERBATION (9) HTN (hypertension) Code(s): I10 - ESSENTIAL (PRIMARY) HYPERTENSION Qualifiers: Hypertension type: essential hypertension Qualified Code(s): I10 - Essential (primary) hypertension (10) History of colon cancer Code(s): Z85.038 - PERSONAL HISTORY OF MALIGNANT NEOPLASM OF LARGE INTESTINE Assessment/Plan ASSESSMENT AND PLAN: Acute on Chronic Hypoxic and Hypercapneic Respiratory Failure improving Atrial Fibrillation with RVR Stage I Lung Ca s/p RT COPD/Emphysema Left Pleural Effusion transudate r/o Pneumonia HTN h/o Colon Ca - antibiotics as per id - BiPAP PRN - rate control - Eliquis BID - Prednisone 60mg - inhaled bronchodilators standing and PRN - O2 to keep SpO2 >90% - continue pulse oximetry monitoring DR RYAN
[2017-03-25] MEDS ORDERED: DIGOXIN 0.125 MG TABLET (FP) PO ONE (12:30)
[2017-03-25] MEDS ORDERED: dilTIAZem HCL 50 MG/10 ML - 10 ML VIAL IVPUSH ONE (12:30)
[2017-03-25] MEDS ORDERED: dilTIAZem HCL 60 MG TABLET (FP) PO ONE ×2 (12:45→17:00)
--- NOTE | 2017-03-25 14:15 | PN ---
Teaching Attending Note Name of Resident: Luisito Evangelista ATTENDING PHYSICIAN STATEMENT I saw and evaluated the patient. I reviewed the resident's note and discussed the case with the resident. I agree with the resident's findings and plan as documented. SUBJECTIVE: Patient feels more SOB. OBJECTIVE: Vital Signs Period Temp Pulse Resp BP Sys/[place] Pulse Ox Last 24 Hr 97.5 F-98.8 F 82-142 16-20 121-140/52-65 90-97 GENERAL: The patient is awake, alert, oriented, mild respiratory distress. LUNGS: Decreased BS with few rhonchi bilaterally. HEART: Irregularly irregular, tachycardic. ABDOMEN: Soft, nontender, nondistended, normoactive bowel sounds, no guarding, no rebound, no hepatosplenomegaly, no masses. EXTREMITIES: 2+ pulses, warm, well-perfused, no edema. ASSESSMENT AND PLAN: This is an 81-year-old woman with a history of COPD, chronic hypoxic respiratory failure, lung cancer, colon cancer, atrial fibrillation, HTN, with balloon valvuloplasty who presented to the ER with shortness of breath. 1. Paroxysmal atrial fibrillation with RVR - Currently in rapid a fib - Cardizem IV given and PO dose being increased - Digoxin started - Continue Eliquis 2. 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 Acute on chronic hypoxic and hypercapnic respiratory failure - Continue oxygen, BiPAP as needed 4. Acute exacerbation of COPD - SoluMedrol being tapered - Continue DuoNeb, albuterol as needed, oxygen 5. Sepsis secondary to possible pneumonia - Continue Zosyn - Coagulase negative Staph in 1 of 2 blood cultures likely contaminant 6. HTN - Continue Cardizem CD, Lasix - Altace restarted 7. History of colon cancer, resection 8. Severe aortic stenosis, history of balloon valvuloplasty
--- NOTE | 2017-03-25 15:23 | PN ---
Progress Note, Physician History of Present Illness: Awake, responsive No c/o dyspnea/ cough Appears comfortable on nasal cannula O2 Afebrile - Current Medication List Current Medications: Active Medications Acetaminophen (Tylenol -) 650 mg PO Q6H PRN PRN Reason: FEVER OR PAIN Albuterol Sulfate (Ventolin 0.083% Nebulizer Soln -) 1 amp NEB Q8H PRN PRN Reason: SHORT OF BREATH/WHEEZING Albuterol/Ipratropium (Duoneb -) 1 amp NEB TID [facility] Last Admin: 03/25/17 13:41 Dose: 1 amp Alprazolam (Xanax -) 0.25 mg PO BID [facility] Stop: 03/29/17 21:59 Last Admin: 03/25/17 10:44 Dose: 0.25 mg Amoxicillin/Clavulanate Potassium (Augmentin - 875mg Tablet) 1 tab PO BID@0800, 1730 [facility] Apixaban (Eliquis -) 5 mg PO BID [facility] Last Admin: 03/25/17 10:44 Dose: 5 mg Digoxin (Lanoxin -) 0.125 mg PO DAILY [facility] Diltiazem HCl (Cardizem Injection -) 10 mg IVPUSH Q1H PRN PRN Reason: TACHYCARDIA Last Admin: 03/21/17 23:23 Dose: 10 mg Diltiazem HCl (Cardizem -) 60 mg PO ONCE ONE Stop: 03/25/17 17:01 Diltiazem HCl (Cardizem Cd -) 240 mg PO DAILY [facility] Docusate Sodium (Colace -) 100 mg PO TID [facility] Last Admin: 03/25/17 13:35 Dose: 100 mg Furosemide (Lasix -) 20 mg PO DAILY [facility] Last Admin: 03/25/17 10:44 Dose: 20 mg Methylprednisolone Sodium Succinate (Solu-Medrol -) 40 mg IVPB BID [facility] Last Admin: 03/25/17 10:32 Dose: 40 mg Ondansetron HCl (Zofran Injection) 4 mg IVPB Q6H PRN PRN Reason: NAUSEA Ramipril (Altace -) 5 mg PO DAILY [facility] Last Admin: 03/25/17 10:44 Dose: 5 mg - Objective Vital Signs: Vital Signs Temperature 98.2 F 03/25/17 09:00 Pulse Rate 88 03/25/17 13:50 Respiratory Rate 20 03/25/17 09:00 Blood Pressure 140/55 03/25/17 09:00 O2 Sat by Pulse Oximetry (%) 90 L 03/25/17 13:50 Constitutional: Yes: No Distress Cardiovascular: Yes: Regular Rate and Rhythm, S1, S2 Respiratory: Yes: Diminished Gastrointestinal: Yes: Normal Bowel Sounds, Soft Edema: No Labs: CBC, BMP 03/25/17 08:30 03/21/17 05:20 INR, PTT INR 1.42 (0.82-1.09) H 03/19/17 07:25 Assessment/Plan S/P thoracentesis- pleural fluid c/s no growth Exacerbation COPD Leukocytosis- likely steroid-induced S/P BAV +BC SCN = contaminant Lung ca Day #7 zosyn Substitute po Augmentin x 3days
[2017-03-25] MEDS: AMOX TR/POT CLAV 875MG/125MG TABLETS (FP) PO SCH (17:34)
--- NOTE | 2017-03-25 22:34 | PN ---
Physical Exam: SUBJECTIVE: Patient seen and examined at bedside. She's less short of breath compared to yesterday, partly due to xanax that helps with her anxiety. Per nurse, patient started having a-fib with RVR at ~10am and cardiology was notified. OBJECTIVE: Vital Signs Period Temp Pulse Resp BP Sys/[place] Pulse Ox Last 24 Hr 97.2 F-98.2 F 86-142 16-20 116-140/47-62 90-90 GENERAL: AAO x 3, mild to moderate respiratory distress on NC 4L NECK: no JVD. LUNGS: CTAB HEART: irregularly irregular, S1, S2 present with systolic murmur. ABDOMEN: Soft, NT, ND, +bs EXTREMITIES: no edema NEUROLOGICAL: Cranial nerves II through XII grossly intact. Normal speech. SKIN: Warm, dry, normal turgor CBCD WBC 28.0 K/mm3 (4.0-10.0) H 03/25/17 08:30 RBC 3.95 M/mm3 (3.60-5.2) 03/25/17 08:30 Hgb 11.1 GM/dL (10.7-15.3) 03/25/17 08:30 Hct 35.7 % (32.4-45.2) 03/25/17 08:30 MCV 90.4 fl (80-96) 03/25/17 08:30 MCHC 31.1 g/dl (32.0-36.0) L 03/25/17 08:30 RDW 14.6 % (11.6-15.6) 03/25/17 08:30 Plt Count 171 K/MM3 (134-434) 03/25/17 08:30 MPV 9.1 fl (7.5-11.1) 03/25/17 08:30 Active Medications Generic Name Dose Route Start Last Admin Trade Name Freq PRN Reason Stop Dose Admin Acetaminophen 650 mg 03/21/17 16:38 03/25/17 18:29 Tylenol - PO 650 mg Q6H PRN Administration FEVER OR PAIN Albuterol Sulfate 1 amp 03/21/17 16:38 03/25/17 18:50 Ventolin 0.083% Nebulizer Soln - NEB 1 amp Q8H PRN Administration SHORT OF BREATH/WHEEZING Albuterol/Ipratropium 1 amp 03/23/17 14:00 03/25/17 13:41 Duoneb - NEB 1 amp TID [facility] Administration Alprazolam 0.25 mg 03/22/17 22:00 03/25/17 22:07 Xanax - PO 03/29/17 21:59 0.25 mg BID [facility] Administration Amoxicillin/Clavulanate Potassium 1 tab 03/25/17 17:30 03/25/17 17:34 Augmentin - 875mg Tablet PO 1 tab BID@0800,1730 [facility] Administration Apixaban 5 mg 03/21/17 22:00 03/25/17 22:07 Eliquis - PO 5 mg BID [facility] Administration Digoxin 0.125 mg 03/26/17 10:00 Lanoxin - PO DAILY [facility] Diltiazem HCl 10 mg 03/21/17 16:38 03/21/17 23:23 Cardizem Injection - IVPUSH 10 mg Q1H PRN Administration TACHYCARDIA Diltiazem HCl 240 mg 03/26/17 10:00 Cardizem Cd - PO DAILY [facility] Docusate Sodium 100 mg 03/21/17 22:00 03/25/17 22:07 Colace - PO 100 mg TID [facility] Administration Furosemide 20 mg 03/22/17 10:00 03/25/17 10:44 Lasix - PO 20 mg DAILY [facility] Administration Methylprednisolone Sodium Succinate 40 mg 03/22/17 22:00 03/25/17 22:07 Solu-Medrol - IVPB 40 mg BID [facility] Administration Ondansetron HCl 4 mg 03/21/17 16:38 Zofran Injection IVPB Q6H PRN NAUSEA Ramipril 5 mg 03/24/17 10:00 03/25/17 10:44 Altace - PO 5 mg DAILY [facility] Administration IMAGING CXR on 03/21: No change compared to prior study CT chest after thoracentesis on 03/20: Bilateral pleural effusions left greater than right. Atelectasis of the left lower lobe and right middle lobe with atelectatic changes at the right lung base noted as well. CXR on 03/21 after thoracentesis: Since 03/20/2017, there is interval better evaluation of the left lower lobe with residual consolidation/atelectasis, medially. Mild atelectatic changes and infiltrates are again noted in the right lung base. Residual small left and persistent small right pleural effusion are present CXR on 03/20 before thoracentesis: moderate L pleural effusion with compressive atelectasis Duplex on 03/19: No DVT ASSESSMENT/PLAN: 81 yo F h/o COPD on 3L [place] home O2, lung ca on radiation therapy last on Saturday, colon ca s/p resection in 2000, atrial fibrillation on Eliquis and cardizem, HTN , and aortic stenosis s/p balloon valvuloplasty admitted to the ICU for acute on chronic hypercapnic respiratory failure. Cardio: paroxysmal a-fib; HTN - A-fib with RVR this AM * Increased Cardizem 180mg PO DAILY to 240mg with 10mg IVPUSH PRN * Started digoxin 0.125mg PO Daily - CHADSVASC =3 on eliquis 5mg PO BID - Cont. ramipril for BP control ID: SIRS; Positive blood culture - Resolved - Leukocytosis likely 2/2 steroid - Blood culture positive for coagulase -ve staph * butt sensitive to all abx - Completed zosyn course - Transitioned to augmentin 875mg BID x 3 days (Day 1) Pulm: Acute on chronic hypercapnic respiratory failure - 2/2 pleural effusion - Pleural protein/serum protein = 0.5 * likely mixed transdate and exudate * Cont. lasix 20 PO daily - Taper Solu-medrol 40mg IV BID to 40mg PO Once Daily - BiPAP PRN - Duoneb PRN - CXR if symptomatic FEN - IVF not indicated - Cont. to monitor lytes - Sodium controlled diet Prophylaxis - DVT: on eliquis - GI: not indicated Disposition - Will discharge if patient is rate controlled Code status - Full code Visit type - Emergency Visit Emergency Visit: No - New Patient This patient is new to me today: No - Critical Care Critical Care patient: No
[2017-03-26] MEDS: DOCUSATE SODIUM 100 MG CAPSULE (FP) PO SCH ×3 (06:10→21:16)
[2017-03-26] MEDS: ALBUTEROL SO4 2.5/IPRATROPIUM 0.5 INH SOL 3 ML VIAL.NEB. NEB SCH ×3 (06:22→22:26)
[2017-03-26] MEDS: AMOX TR/POT CLAV 875MG/125MG TABLETS (FP) PO SCH ×2 (08:20→17:58)
[2017-03-26] MEDS ORDERED: predniSONE 20 MG TABLET (UD) PO SCH (10:00)
--- NOTE | 2017-03-26 10:16 | PN ---
Progress Note (short form) - Note Progress Note: Chief Complaint: resp failure, acute History of Present Illness: palps improved no cp no leg swelling + cigs Current Medications Acetaminophen (Tylenol -) 650 mg PO Q6H PRN PRN Reason: FEVER OR PAIN Last Admin: 03/25/17 18:29 Dose: 650 mg Albuterol Sulfate (Ventolin 0.083% Nebulizer Soln -) 1 amp NEB Q8H PRN PRN Reason: SHORT OF BREATH/WHEEZING Last Admin: 03/25/17 18:50 Dose: 1 amp Albuterol/Ipratropium (Duoneb -) 1 amp NEB TID [facility] Last Admin: 03/26/17 06:22 Dose: 1 amp Alprazolam (Xanax -) 0.25 mg PO BID [facility] Stop: 03/29/17 21:59 Last Admin: 03/25/17 22:07 Dose: 0.25 mg Amoxicillin/Clavulanate Potassium (Augmentin - 875mg Tablet) 1 tab PO BID@0800, 1730 [facility] Last Admin: 03/26/17 08:20 Dose: 1 tab Apixaban (Eliquis -) 5 mg PO BID [facility] Last Admin: 03/25/17 22:07 Dose: 5 mg Digoxin (Lanoxin -) 0.125 mg PO DAILY [facility] Diltiazem HCl (Cardizem Injection -) 10 mg IVPUSH Q1H PRN PRN Reason: TACHYCARDIA Last Admin: 03/21/17 23:23 Dose: 10 mg Diltiazem HCl (Cardizem Cd -) 240 mg PO DAILY [facility] Docusate Sodium (Colace -) 100 mg PO TID [facility] Last Admin: 03/26/17 06:10 Dose: 100 mg Furosemide (Lasix -) 20 mg PO DAILY [facility] Last Admin: 03/25/17 10:44 Dose: 20 mg Ondansetron HCl (Zofran Injection) 4 mg IVPB Q6H PRN PRN Reason: NAUSEA Prednisone (Deltasone -) 40 mg PO DAILY [facility] Stop: 03/27/17 10:01 Prednisone (Deltasone -) 20 mg PO DAILY [facility] Stop: 03/29/17 10:01 Prednisone (Deltasone -) 10 mg PO DAILY [facility] Stop: 03/31/17 10:01 Ramipril (Altace -) 5 mg PO DAILY [facility] Last Admin: 03/25/17 10:44 Dose: 5 mg Vital Signs - 24 hr 03/25/17 03/25/17 03/25/17 12:45 13:50 18:00 Temperature 97.2 F L Pulse Rate 142 H 88 90 Respiratory 18 Rate Blood Pressure 116/47 O2 Sat by Pulse 90 L Oximetry (%) 03/25/17 03/26/17 03/26/17 22:00 02:06 06:00 Temperature 98.6 F 97.6 F Pulse Rate 90 75 Respiratory 20 18 20 Rate Blood Pressure 120/50 108/50 O2 Sat by Pulse 92 L Oximetry (%) Intake & Output 03/24/17 03/25/17 03/26/17 03/27/17 07:59 07:59 07:59 07:59 Intake Total 830 1140 70 Output Total 200 Balance 630 1140 70 Weight 88 lb 89 lb 14.4 oz Constitutional: Yes: No Distress, Calm Eyes: No: Sclera Icterus HENT: No: Nasal Congestion Cardiovascular: Yes: Pulse regular, Murmur ( murmur LUSB), S1, S2, Other (PMI non diplaced). No: JVD, Gallop Respiratory: Yes: Diminished (R side vs L), Wheezes. No: Accessory Muscle Use, Rales Gastrointestinal: Yes: Normal Bowel Sounds, Soft. No: Tenderness Musculoskeletal: Yes: Other (No kyphosis) Extremities: No: Cold, Cyanosis Edema: No Integumentary: No: Jaundice Neurological: Yes: Alert, Oriented (x3) Psychiatric: No: Agitated Labs: no CBC, BMP - ....Imaging EKG: Other (tele: SR with int aflutter. pvc's. ) Assessment/Plan L/RHC 12/28: wedge 22 (down to 16 post BAV); PA 55/25 (40/18 post); CI 3.0 (3.1 post); AV 50/38 mmHg-->20/16 post; CHASE 0.5-->1.0 post; 30-50% pRCA with mild/diffuse dz LAD/LCX CTA [facility] 12/2016: severe , severe calcification of asc aorta with protruding atheroma. severe asymmetric LV hypertrophy (1.8 at base), small focal LV aneursym. LLL spiculated mass concerning for malignancy F/u CT scan 12/2016: new mucus impaction of peripheral bronchial tree. patulous esophagus c/w dysmotility or reflux . PET MSH 12/2016: Increased size of LLL area of consolidation 2.8 x 3.3 cm --> 6 x 6 cm. Heterogenous uptake LLL uptake with central focus (suspicious for malignancy). Uptake in left hilar node reactive vs metastatic. YADIRA mildly hypermetabolic ground glass changes infection/ inflammation echo 03/2017: nl lv/rv, mild mr, rvsp 30-40, severe , trace AR Assessment/Plan 81 yo afib, as s/p bav 12/2016, phtn, severe copd, recent dx lung adenoCa started XRT (no surgery planned), htn p/w respiratory failure acute on chronic hypoxic/hypercapneic resp failure, COPD, lung adenoCa with malignant pleural effusion: - being followed and tx'd by pulm, onc and rad onc at [place] - on home O2 - deemed prohibitive surgical risk for lung resection by thoracic surgery at [place], started RT recently - dx'd malign effusion here--plan per pulm and onc paroxysmal AF: -with rapid HRs when in afib in hospital previously, including at [place] on diltiazem (no BB given wheezing/copd severity) -CHADS VASC = 3, on Eliquis -dilt incr'd here to 180 qd, 03/25 in AF (sinus yest) with HR climbing 130s, now 140s--likely being driven by ongoing resp distress. extra diltiazem 10 ivp given, then 60 po and at 4pm --> started CD 240 qd this morning -added low dose dig 0.125 03/25 (level ordered for 03/27) - 03/26 back in SR. 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 - further outpt TAVR considerations as previously planned, on hold at the moment due to progressive lung Ca - not likely contributing to current resp status, no prior h/o chf with her chronic severe prior to tx HTN: -cont dilt, resumed home ramipril 03/25. Monitor for hypotension (also increased diltiazem dose). + tobacco - smoking cessation counseling.
--- NOTE | 2017-03-26 10:49 | PN ---
Progress Note, Physician History of Present Illness: PULMONARY ALERT,FEELING BETTER,LESS DYSPNEIC,OOB-CHAIR,O2 SAT 89% ON NASAL O2 - Current Medication List Current Medications: Active Medications Acetaminophen (Tylenol -) 650 mg PO Q6H PRN PRN Reason: FEVER OR PAIN Last Admin: 03/25/17 18:29 Dose: 650 mg Albuterol Sulfate (Ventolin 0.083% Nebulizer Soln -) 1 amp NEB Q8H PRN PRN Reason: SHORT OF BREATH/WHEEZING Last Admin: 03/25/17 18:50 Dose: 1 amp Albuterol/Ipratropium (Duoneb -) 1 amp NEB TID [facility] Last Admin: 03/26/17 06:22 Dose: 1 amp Alprazolam (Xanax -) 0.25 mg PO BID [facility] Stop: 03/29/17 21:59 Last Admin: 03/25/17 22:07 Dose: 0.25 mg Amoxicillin/Clavulanate Potassium (Augmentin - 875mg Tablet) 1 tab PO BID@0800, 1730 [facility] Last Admin: 03/26/17 08:20 Dose: 1 tab Apixaban (Eliquis -) 5 mg PO BID [facility] Last Admin: 03/25/17 22:07 Dose: 5 mg Digoxin (Lanoxin -) 0.125 mg PO DAILY [facility] Diltiazem HCl (Cardizem Injection -) 10 mg IVPUSH Q1H PRN PRN Reason: TACHYCARDIA Last Admin: 03/21/17 23:23 Dose: 10 mg Diltiazem HCl (Cardizem Cd -) 240 mg PO DAILY [facility] Docusate Sodium (Colace -) 100 mg PO TID [facility] Last Admin: 03/26/17 06:10 Dose: 100 mg Furosemide (Lasix -) 20 mg PO DAILY [facility] Last Admin: 03/25/17 10:44 Dose: 20 mg Ondansetron HCl (Zofran Injection) 4 mg IVPB Q6H PRN PRN Reason: NAUSEA Prednisone (Deltasone -) 40 mg PO DAILY [facility] Stop: 03/27/17 10:01 Prednisone (Deltasone -) 20 mg PO DAILY [facility] Stop: 03/29/17 10:01 Prednisone (Deltasone -) 10 mg PO DAILY [facility] Stop: 03/31/17 10:01 Ramipril (Altace -) 5 mg PO DAILY [facility] Last Admin: 03/25/17 10:44 Dose: 5 mg - Objective Vital Signs: Vital Signs Temperature 97.6 F 03/26/17 06:00 Pulse Rate 75 03/26/17 06:00 Respiratory Rate 20 03/26/17 06:00 Blood Pressure 108/50 03/26/17 06:00 O2 Sat by Pulse Oximetry (%) 92 L 03/26/17 02:06 Constitutional: Yes: Calm, Thin Eyes: Yes: WNL HENT: Yes: WNL Neck: Yes: WNL Cardiovascular: Yes: Pulse Irregular, S1, S2 Respiratory: Yes: Diminished, Rhonchi (FEW SCATTERED DEV RHONCHI) Gastrointestinal: Yes: Normal Bowel Sounds, Soft Extremities: Yes: WNL Edema: No Labs: CBC, BMP 03/25/17 08:30 03/21/17 05:20 INR, PTT INR 1.42 (0.82-1.09) H 03/19/17 07:25 Problem List - Problems (1) Atrial flutter Code(s): I48.92 - UNSPECIFIED ATRIAL FLUTTER (2) Lung cancer Code(s): C34.90 - MALIGNANT NEOPLASM OF UNSP PART OF UNSP BRONCHUS OR LUNG (3) Pleural effusion, left Code(s): J90 - PLEURAL EFFUSION, NOT ELSEWHERE CLASSIFIED (4) Pneumonia Code(s): J18.9 - PNEUMONIA, UNSPECIFIED ORGANISM (5) Sepsis Code(s): A41.9 - SEPSIS, UNSPECIFIED ORGANISM (6) Acute on chronic respiratory failure with hypoxia and hypercapnia Code(s): J96.21 - ACUTE AND CHRONIC RESPIRATORY FAILURE WITH HYPOXIA J96.22 - ACUTE AND CHRONIC RESPIRATORY FAILURE WITH HYPERCAPNIA (7) Aortic stenosis Code(s): I35.0 - NONRHEUMATIC AORTIC (VALVE) STENOSIS (8) COPD with acute exacerbation Code(s): J44.1 - CHRONIC OBSTRUCTIVE PULMONARY DISEASE W (ACUTE) EXACERBATION (9) HTN (hypertension) Code(s): I10 - ESSENTIAL (PRIMARY) HYPERTENSION Qualifiers: Hypertension type: essential hypertension Qualified Code(s): I10 - Essential (primary) hypertension (10) History of colon cancer Code(s): Z85.038 - PERSONAL HISTORY OF MALIGNANT NEOPLASM OF LARGE INTESTINE Assessment/Plan ASSESSMENT AND PLAN: Acute on Chronic Hypoxic and Hypercapneic Respiratory Failure improving Atrial Fibrillation with RVR Stage I Lung Ca s/p RT COPD/Emphysema Left Pleural Effusion transudate ( MALIGNANT) r/o Pneumonia HTN h/o Colon Ca - BiPAP PRN - Eliquis BID - Slow Prednisone taper - inhaled bronchodilators standing and PRN - O2 to keep SpO2 >90% - continue pulse oximetry monitoring - comfort care DR RYAN
[2017-03-26] MEDS ORDERED: PT OWN MED DRAWER 7, Y5N ONE (10:56)
[2017-03-26] MEDS: FUROSEMIDE 20 MG TABLET (FP) PO SCH (10:58)
[2017-03-26] MEDS: APIXABAN 5 MG TABLET PO SCH ×2 (10:58→21:16)
[2017-03-26] MEDS: RAMIPRIL 5 MG CAPSULE (FP) PO SCH (10:58)
[2017-03-26] MEDS: ALPRAZolam 0.25 MG TABLET PO SCH ×2 (10:58→21:16)
[2017-03-26] MEDS: DIGOXIN 0.125 MG TABLET (FP) PO SCH (10:59)
[2017-03-26] MEDS: predniSONE 20 MG TABLET (UD) PO SCH (10:59)
[2017-03-26 12:01] LABS: CALCIUM 8.5 mg/dL (8.5-10.1); COCKROFT - GAULT 39.1935; CREATININE 0.7 mg/dL (0.55-1.02)
--- NOTE | 2017-03-26 12:25 | PN ---
Teaching Attending Note Name of Resident: Luisito Evangelista ATTENDING PHYSICIAN STATEMENT I saw and evaluated the patient. I reviewed the resident's note and discussed the case with the resident. I agree with the resident's findings and plan as documented. SUBJECTIVE:currently asymptomatic. denies CP, palpitations, N/V/C/D. SOb, fever chills, swelling OBJECTIVE: Last Vital Signs Temp Pulse Resp BP Pulse Ox 97.6 F 86 20 108/50 93 L 03/26/17 06:00 03/26/17 10:59 03/26/17 06:00 03/26/17 06:00 03/26/17 10:15 General NAD CV S1 S2 +5/6 systolic murmur Lungs decrease breath sounds, poor inspiratory effort Extremities no pedal edema ASSESSMENT AND PLAN: 81yo F with PMH COPD on home O2, lung ca s/p RTx, colon ca, afib on eliquis, s/p BVP presented to the ER and was admitted for further evaluation of their emergent condition 1. Afib with RVR- now in sinus rhythm, started on digoxin and cardisem increased yesterday. now sinus rhythm and rate is controlled. on eliquis. cardio on board 2. Acute on Chronic hypoxic respiratory failure- due to malignant pleural effusion vs COD exacerbation vs suspected PNA. received zosyn x7D and now on augmentin for additional 3days. pleural fluid reported with +adenocarcinoma. which changes lung cancer to stage IV. will consult oncology for overall prognosis. son is to bring records to oncologist to determine course at this time. will also palliative care as overall prognosis is poor. cont prednisone taper. currently on home O2 of 4L NC. cont supplemental oxygen as needed 3. Severe - TAVR was planned as outpatient but placed on hold during rtx. 4. DVT ppx- eliquis 5.Poor overall prognosis. case d/w son present at bedside, not HCP. understands overall prognosis looks poor. requesting to speak with oncologist and palliative care about overall prognosis with brother and mother to determine goals of care. pt will need to go to hospice vs [facility] as pt is only able to ambulate a few steps.
--- NOTE | 2017-03-26 17:25 | PN ---
Physical Exam: SUBJECTIVE: Patient seen and examined at bedside. She had to be on venti-mask 40% overnight and this AM she's on NC 4L. property assessment monitor shows no Afib with rapid ventricular rate overnight. OBJECTIVE: Vital Signs Period Temp Pulse Resp BP Sys/[place] Pulse Ox Last 24 Hr 97.2 F-98.6 F 75-99 18-20 108-124/47-54 92-93 GENERAL: AAO x 3, mild to moderate respiratory distress on NC 4L NECK: no JVD. LUNGS: CTAB HEART: irregularly irregular, S1, S2 present with systolic murmur. ABDOMEN: Soft, NT, ND, +bs EXTREMITIES: no edema NEUROLOGICAL: Cranial nerves II through XII grossly intact. Normal speech. SKIN: Warm, dry, normal turgor Laboratory Results - last 24 hr 03/26/17 11:18 Sodium 142 Potassium 3.7 Chloride 94 L Carbon Dioxide 38 H Anion Gap 10 BUN 30 H D Creatinine 0.7 Random Glucose 292 H D Calcium 8.5 Active Medications Generic Name Dose Route Start Last Admin Trade Name Freq PRN Reason Stop Dose Admin Acetaminophen 650 mg 03/21/17 16:38 03/25/17 18:29 Tylenol - PO 650 mg Q6H PRN Administration FEVER OR PAIN Albuterol/Ipratropium 1 amp 03/23/17 14:00 03/26/17 14:00 Duoneb - NEB 1 amp TID [facility] Administration Alprazolam 0.25 mg 03/22/17 22:00 03/26/17 10:58 Xanax - PO 03/29/17 21:59 0.25 mg BID [facility] Administration Amoxicillin/Clavulanate Potassium 1 tab 03/25/17 17:30 03/26/17 08:20 Augmentin - 875mg Tablet PO 1 tab BID@0800,1730 [facility] Administration Apixaban 5 mg 03/21/17 22:00 03/26/17 10:58 Eliquis - PO 5 mg BID [facility] Administration Digoxin 0.125 mg 03/26/17 10:00 03/26/17 10:59 Lanoxin - PO 0.125 mg DAILY [facility] Administration Diltiazem HCl 10 mg 03/21/17 16:38 03/21/17 23:23 Cardizem Injection - IVPUSH 10 mg Q1H PRN Administration TACHYCARDIA Diltiazem HCl 240 mg 03/26/17 10:00 03/26/17 10:58 Cardizem Cd - PO 240 mg DAILY [facility] Administration Docusate Sodium 100 mg 03/21/17 22:00 03/26/17 14:27 Colace - PO 100 mg TID [facility] Administration Furosemide 20 mg 03/22/17 10:00 03/26/17 10:58 Lasix - PO 20 mg DAILY [facility] Administration Ondansetron HCl 4 mg 03/21/17 16:38 Zofran Injection IVPB Q6H PRN NAUSEA Prednisone 40 mg 03/26/17 10:00 03/26/17 10:59 Deltasone - PO 03/27/17 10:01 40 mg DAILY [facility] Administration Prednisone 20 mg 03/28/17 10:00 Deltasone - PO 03/29/17 10:01 DAILY [facility] Prednisone 10 mg 03/30/17 10:00 Deltasone - PO 03/31/17 10:01 DAILY [facility] Ramipril 5 mg 03/24/17 10:00 03/26/17 10:58 Altace - PO 5 mg DAILY [facility] Administration IMAGING CXR on 03/21: No change compared to prior study CT chest after thoracentesis on 03/20: Bilateral pleural effusions left greater than right. Atelectasis of the left lower lobe and right middle lobe with atelectatic changes at the right lung base noted as well. CXR on 03/21 after thoracentesis: Since 03/20/2017, there is interval better evaluation of the left lower lobe with residual consolidation/atelectasis, medially. Mild atelectatic changes and infiltrates are again noted in the right lung base. Residual small left and persistent small right pleural effusion are present CXR on 03/20 before thoracentesis: moderate L pleural effusion with compressive atelectasis Duplex on 03/19: No DVT ASSESSMENT/PLAN: 81 yo F h/o COPD on 3L [place] home O2, lung ca on radiation therapy last on Saturday, colon ca s/p resection in 2000, atrial fibrillation on and cardizem, HTN , and aortic stenosis s/p balloon valvuloplasty admitted to the ICU for acute on chronic hypercapnic respiratory failure. Lung cancer - Pathology is consistent with metastatic lung adenocarcinoma - F/u oncology consult Cardio: paroxysmal a-fib; HTN - Rate controlled * Cont. cardiazem 240mg with 10mg IVPUSH PRN * Cont. digoxin 0.125mg PO Daily - CHADSVASC =3 on eliquis 5mg PO BID - Cont. ramipril for BP control ID: SIRS; Positive blood culture - Resolved - Leukocytosis likely 2/2 steroid - Blood culture positive for coagulase -ve staph * butt sensitive to all abx - Completed zosyn course - Transitioned to augmentin 875mg BID x 3 days (Day 2) Pulm: Acute on chronic hypercapnic respiratory failure - 2/2 malignant pleural effusion - On predisone taper - BiPAP PRN - Duoneb PRN FEN - IVF not indicated - Cont. to monitor lytes - Sodium controlled diet Prophylaxis - DVT: on eliquis - GI: not indicated Disposition - Discharge tomorrow to sub-acute rehab facility Code status - Full code Visit type - Emergency Visit Emergency Visit: No - New Patient This patient is new to me today: No - Critical Care Critical Care patient: No
--- NOTE | 2017-03-26 22:30 | CONSULT ---
Consult Consult Specialty:: medical oncology Referred by:: Kim Aaron Reason for Consultation:: NSCLC - History of Present Illness Chief Complaint: SOB since Nov recent exacerbation History of Present Illness: 81 y/o WF w hx colon resection many yrs ago for colon cancer, hx active smoking /COPD/Home O2 , reportedly dx'd w NSCLC L side at [facility] earlier this year , not felt to be a surgical candidate and recently completed a short course of RT only. She did not get any systemic Rx; recently she experienced sudden worsening of her breathing and admitted, found to have a L pleural effusion , Rx for pneumonia. A CT chest after a thoracentesis showed b/l pleural effusions L>R and atelectasis LLL/RML. Cytology of fluid reportedly + for adenocarcinoma lung primary . Pt does not want any systemic chemotherapy , even if offered. Her breathing has improved since admission but O2 dependent. - History Source History Provided By: Patient Limitations to Obtaining History: No Limitations - Past Medical History SHOE REPAIRER: No: Alzheimer's, CVA, Dementia, Migraine, Multiple Sclerosis, Peripheral Neuropathy, Parkinson's, Seizure, Syncope, TIA, Vertigo, Other Cardio/Vascular: Yes: AFIB, Aortic Stenosis, HTN, Pulmonary Hypertension. No: Aneurysm, Aortic Insufficiency, CAD, CHF, Deep Vein Thrombosis, Hyperlipdemia, IA, Mitral Insufficiency, Mitral Stenosis, Murmur, Other Pulmonary: Yes: COPD, O2 Dependent, Pneumonia. No: Asthma, Bronchitis, Cancer, Previously Intubated, Pulmonary Embolus, Pulmonary Fibrosis, Sleep Apnea, Other Gastrointestinal: No: Ascites, Cancer, Constipation, Crohn's Disease, Diverticulitis, Diverticulosis, Esophageal Varices, Gastritis, GERD, GI Bleed, Hemorrhoids, Hiatal Hernia, Inflamatory Bowel Disease, Irritable Bowel Disease, Pancreatitis, Peptic Ulcer Disease, Ulcerative Colitis, Other Hepatobiliary: No: Cirrhosis, Cholelithiasis, Cholecystitis, Choledocholithiasis , Hepatitis A, Hepatitis B, Hepatitis C, Other Renal/: No: Renal Failure, Renal Inusuff, BPH, Cancer, Hematuria, Hemodialysis , Neurogenic Bladder, Renal Calculi, UTI, Other Heme/Onc: No: Anemia, B12 Deficiency, Bleeding Disorder, Cancer, Current Chemotherapy, Current Radiation Therapy, Hemochromatosis, Hypercoaguable State, Myeloproliferative Synd, Sickle Cell Disease, Sickle Cell Trait, Thrombocytopenia, Other Infectious Disease: No: AIDS, C-Diff, Herpes Zoster, HIV, MRSA, STD's, Tuberculosis, VREF, Other Psych: No: Addictions, Anxiety, Bipolar, Depression, Panic, Psychosis, Schizophrenia, Other Musculoskeletal: Yes: Osteoarthritis ENT: No: Allergic Rhinitis, Sinusitis, Other Endocrine: No: Whiting's Disease, Willowbrook's Disease, Diabetes Insipidus, Diabetes Mellitus, Hyperparathyroidism, Hyperthyroidism, Hypothyroidism, Osteopenia, SIADH, Other Dermatology: No: Basal Cell, Cellulitis, Eczema, Melanoma, Psoriasis, Squamous Cell, Other - Past Surgical History Past Surgical History: Yes: Colectomy - Alcohol/Substance Use Hx Alcohol Use: No - Smoking History Smoking history: Former smoker Have you smoked in the past 12 months: No Aproximately how many cigarettes per day: 5 If you are a former smoker, when did you quit?: 5 months ago - Social History Usual Living Arrangement: Alone ADL: Independent History of Recent Travel: Yes ([place]) Home Medications - Allergies Allergies/Adverse Reactions: Allergies Allergy/AdvReac Type Severity Reaction Status Date / Time No Known Allergies Allergy Verified 03/19/17 07:01 - Home Medications Home Medications: Ambulatory Orders Albuterol Sulfate Inhaler - [Ventolin HFA Inhaler -] 2 puff IH Q4H PRN #0 inhaler 12/01/16 Aspirin Coated [Ecotrin -] 81 mg PO DAILY #30 tablet.ec 12/01/16 Diltiazem Cd [Cardizem Cd -] 120 mg PO DAILY #30 cap.cd.24h 12/01/16 Ipratropium/Albuterol Sulfate [Combivent Respimat Inhal [place]] 4 gm IH QID 01/10 Albuterol Sulfate [Proair Respiclick] 90 PRN 03/19/17 Apixaban [Eliquis -] 5 mg PO DAILY 03/19/17 Furosemide [Lasix] 20 mg PO DAILY 03/19/17 Ramipril 5 mg PO DAILY 03/19/17 Family Disease History - Family Disease History Family Disease History: CA: Father (colon), Brother (prostate), Sister (breast) Other Family History: non-contributory Review of Systems - Review of Systems Constitutional: reports: Weakness Eyes: reports: No Symptoms HENT: reports: No Symptoms Neck: reports: No Symptoms Cardiovascular: reports: Shortness of Breath Respiratory: reports: Cough, Exercise Intolerance, SOB, SOB on Exertion Gastrointestinal: denies: No Symptoms, Abdominal Pain, Bloating, Constipation, Diarrhea, Dysphagia, Indigestion, Melena, Nausea, Rectal Bleeding, Vomiting, Vomiting Blood, Other Genitourinary: denies: No Symptoms, Burning, Discharge, Dysuria, Flank Pain, Frequency, Hematuria, Incontinence, Lesions, Menses, Pain, Testicular Mass, Testicular Pain, Testicular Swelling, Urgency, Vaginal Bleeding, Other Breasts: denies: No Symptoms Reported, See HPI, Breast Implants, Discharge from Nipple, Lumps, Pain, Skin Changes, Other Musculoskeletal: denies: No Symptoms, Back Pain, Crepitus, Decreased ROM, Extremity Pain, Joint Pain, Joint Swelling, Muscle Pain, Muscle Cramps, Muscle Weakness, Other Integumentary: denies: No Symptoms, Blister, Bruising, Change in Color, Eczema, Erythema, Incision, Lesions, Lump, Pallor, Pruritis, Rash, Wound, Other Neurological: denies: No Symptoms, Change in LOC, Change in Speech, Confusion, Dizziness, Headache, Incoordination, Numbness, Parasthesia, Pre-Existing Deficit , Seizure, Syncope, Tremors, Unsteady Gait, Weakness, Other Endocrine: denies: No Symptoms, Excessive Sweating, Flushing, Increased Hunger, Increased Thirst, Intolerance to Cold, Intolerance to Heat, Unexplained Weight Gain, Unexplained Weight Loss, Other Hematology/Lymphatic: reports: Easily Bruised. denies: No Symptoms, Excessive Bleeding, Swollen Glands, Other Psychiatric: denies: No Symptoms, Altered Sleep Pattern, Anxiety, Depression, Hallucinations, Panic, Paranoia, Suicidal, Other Physical Exam Vital Signs: Vital Signs Temperature 98 F 03/26/17 20:37 Pulse Rate 88 03/26/17 20:37 Respiratory Rate 20 03/26/17 20:37 Blood Pressure 130/40 03/26/17 20:37 O2 Sat by Pulse Oximetry (%) 93 L 03/26/17 10:15 Constitutional: Yes: Cachectic, Mild Distress Eyes: Yes: WNL, Conjunctiva Clear, EOM Intact HENT: Yes: WNL, Other (poor dentition) Neck: Yes: WNL, Supple, Trachea Midline Cardiovascular: Yes: Murmur, S1, S2 Respiratory: Yes: Regular, Diminished Gastrointestinal: Yes: WNL, Normal Bowel Sounds, Soft. No: Abdomen, Obese, Ascites, Distention, Hematemesis, Hemorrhoids, Hepatomegaly, Hernia, Hyperactive Bowel Sounds, Hypoactive Bowel Sounds, Melena, Palpable Mass, Pulsatile Mass, Rectal Bleeding, Splenomegaly, Tenderness, Tenderness, Epigastrium, Tenderness, Rebound, Vomiting, Other Musculoskeletal: Yes: WNL Extremities: Yes: WNL Edema: No Integumentary: No: WNL, Body Piercing, Bruising, Erythema, Incision, Jaundice, Laceration, Petechiae, Pressure Ulcer, Rash, Skin Tear, Tattoos, Tenting, Onychomycosis, Venous Stasis Changes, Other Neurological: No: WNL, Alert, Oriented, Aphasia, Asterixis, Ataxia, Babinski positive, Babinski negative, Confusion, Cran Nerves II-XII Intact, Dysarthria, Facial Droop, Lethargy, Loss of Sensation, Numbness, Paresthesia, Pre-Existing Deficit, Seizure, Tingling, Tremors, Unresponsive, Unsteady Gait, Weakness, Other ...Motor Strength: WNL Labs: CBC, BMP 03/25/17 08:30 03/26/17 11:18 Problem List - Problems (1) Lung cancer Code(s): C34.90 - MALIGNANT NEOPLASM OF UNSP PART OF UNSP BRONCHUS OR LUNG (2) Pleural effusion, left Code(s): J90 - PLEURAL EFFUSION, NOT ELSEWHERE CLASSIFIED Assessment/Plan 81 y/o F w malignant pleural effusion + adenocarcinoma stage ЕЛЕНА s/p RT to a L lung primary lesion 2016 ; in view of advanced age , comorbidities , and pt's acceptance of her condition /prognosis , a hospice plan would be appropriate. The main issue is whether pt can be at home alone at this time vs inpatient . I will review the cytology here to confirm , and will contact son . There is an option to check the cancer cells for a target (EGFR mutation, ALK/ROS-1 rearrangement) to see if pt could be a candidate for targeted RX (TKI) which is much less toxic than chemoRx and impressive responses can be achieved ; this may already have been done at [facility] ; also PDL-1 status could be checked to see if pt candidate for immunotherapy. However , pt's overall condition is very poor and I favor a hospice plan .I will need the contact information for [facility] from son.
[2017-03-27] MEDS: ALBUTEROL SO4 2.5/IPRATROPIUM 0.5 INH SOL 3 ML VIAL.NEB. NEB SCH ×3 (06:22→23:25)
[2017-03-27 09:15] LABS: COCKROFT - GAULT 54.876; CREATININE 0.5 mg/dL (0.55-1.02); DIGOXIN LEVEL 0.4001 ng/ml (0.8-2.0)
[2017-03-27] MEDS: DIGOXIN 0.125 MG TABLET (FP) PO SCH (09:31)
[2017-03-27] MEDS: AMOX TR/POT CLAV 875MG/125MG TABLETS (FP) PO SCH (09:31)
[2017-03-27] MEDS: FUROSEMIDE 20 MG TABLET (FP) PO SCH (09:32)
[2017-03-27] MEDS: APIXABAN 5 MG TABLET PO SCH (09:32)
[2017-03-27] MEDS: RAMIPRIL 5 MG CAPSULE (FP) PO SCH (09:32)
[2017-03-27] MEDS: predniSONE 20 MG TABLET (UD) PO SCH (09:32)
[2017-03-27] MEDS: ALPRAZolam 0.25 MG TABLET PO SCH (09:32)
--- NOTE | 2017-03-27 10:58 | PN ---
Teaching Attending Note Name of Resident: Luisito Evangelista ATTENDING PHYSICIAN STATEMENT I saw and evaluated the patient. I reviewed the resident's note and discussed the case with the resident. I agree with the resident's findings and plan as documented. SUBJECTIVE:asymptomatic. denies CP, SOB,fever, chills, N/V/C/D, cough or orthopnea OBJECTIVE: Last Vital Signs Temp Pulse Resp BP Pulse Ox 98 F 83 20 148/76 92 L 03/27/17 06:30 03/27/17 09:31 03/27/17 06:30 03/27/17 06:30 03/26/17 21:00 General NAD CV S1 S2 +5/6 systolic murmur Lungs decrease breath sounds, poor inspiratory effort Extremities no pedal edema ASSESSMENT AND PLAN: 81yo F with PMH COPD on home O2, lung ca s/p RTx, colon ca, afib on eliquis, s/p BVP presented to the ER and was admitted for further evaluation of their emergent condition 1. Afib with RVR- now in sinus rhythm, rate controlled on cardizem and digoxin. dig level pending. cardio on board. on eliquis. cardio on board 2. Acute on Chronic hypoxic respiratory failure- due to malignant pleural effusion vs COD exacerbation vs suspected PNA. received zosyn x7D and now on augmentin day 3 of 3. cont prednisone taper. 3. Lung ca s/p RTx- appears to now be stage Sundar. d/w pt with son present about results and overall poor prognosis. d/w them may be candidate for immunotherapy pending results of mutation. that oncologist here is to speak with private oncologist (Dr Paredes) and decide if pt is candidate and d/w pt if she desires to seek aggressive treatment vs hospice. son is waiting for brother to arrive to speak with palliative care nurse about these options as well. 3. Severe - TAVR was planned as outpatient but placed on hold during rtx. 4. DVT ppx- eliquis 5.Poor overall prognosis. awaiting family decision if would like to pursue [facility] vs hospice care at this time.
--- NOTE | 2017-03-27 10:59 | PN ---
Progress Note (short form) - Note Progress Note: S: no cp palps dizzy; sob present but better, has not needed bipap Current Medications Generic Name Dose Route Start Last Admin Trade Name Freq PRN Reason Stop Dose Admin Acetaminophen 650 mg 03/21/17 16:38 03/25/17 18:29 Tylenol - PO 650 mg Q6H PRN Administration FEVER OR PAIN Albuterol/Ipratropium 1 amp 03/23/17 14:00 03/27/17 06:22 Duoneb - NEB 1 amp TID MASON Administration Alprazolam 0.25 mg 03/22/17 22:00 03/27/17 09:32 Xanax - PO 03/29/17 21:59 0.25 mg BID MASON Administration Amoxicillin/Clavulanate Potassium 1 tab 03/25/17 17:30 03/27/17 09:31 Augmentin - 875mg Tablet PO 1 tab BID@0800,1730 MASON Administration Apixaban 5 mg 03/21/17 22:00 03/27/17 09:32 Eliquis - PO 5 mg BID MASON Administration Digoxin 0.125 mg 03/26/17 10:00 03/27/17 09:31 Lanoxin - PO 0.125 mg DAILY MASON Administration Diltiazem HCl 10 mg 03/21/17 16:38 03/21/17 23:23 Cardizem Injection - IVPUSH 10 mg Q1H PRN Administration TACHYCARDIA Diltiazem HCl 240 mg 03/26/17 10:00 03/27/17 09:32 Cardizem Cd - PO 240 mg DAILY MASON Administration Docusate Sodium 100 mg 03/21/17 22:00 03/26/17 21:16 Colace - PO 100 mg TID MASON Administration Furosemide 20 mg 03/22/17 10:00 03/27/17 09:32 Lasix - PO 20 mg DAILY MASON Administration Ondansetron HCl 4 mg 03/21/17 16:38 Zofran Injection IVPB Q6H PRN NAUSEA Prednisone 20 mg 03/28/17 10:00 Deltasone - PO 03/29/17 10:01 DAILY MASON Prednisone 10 mg 03/30/17 10:00 Deltasone - PO 03/31/17 10:01 DAILY MASON Ramipril 5 mg 03/24/17 10:00 03/27/17 09:32 Altace - PO 5 mg DAILY MASON Administration Vital Signs Period Temp Pulse Resp BP Sys/[place] Pulse Ox Last 24 Hr 98 F-98.8 F 83-99 18-20 124-148/40-76 92 Constitutional: nad Eyes: No: Sclera Icterus HENT: No: Nasal Congestion Respiratory: Yes: scattered rhonchi, nl eff. No: Accessory Muscle Use, Rales, Wheezes Gastrointestinal: Yes: Normal Bowel Sounds. No: Distention, Hepatomegaly, Palpable Mass, Tenderness Cardiovascular: Yes: Pulse regular JVD: No Heart Sounds: Yes: S1, S2. No: Gallop Murmur: Yes: Systolic Murmur (hi-pitched PRESTON LUSB radiating throughout precordium). No: Diastolic Murmur Extremities: No: Cold Edema: No Integumentary: No: Jaundice diaphoresis Neurological: Yes: Alert, Oriented (x3) Psychiatric: No: Agitated - Other Data Labs, Other Data: CBC, BMP 03/25/17 08:30 03/27/17 06:20 ekg 03/19: rapid atrial flutter; ? old ASMI (no change vs prior); no signif ST-T abnormalities when accounting for flutter waves tele: sr, occ pvcs L/RHC 12/28: wedge 22 (down to 16 post BAV); PA 55/25 (40/18 post); CI 3.0 (3.1 post); AV 50/38 mmHg-->20/16 post; CHASE 0.5-->1.0 post; 30-50% pRCA with mild/diffuse dz [place]AD/[place] [facility]: severe , severe calcification of asc aorta with protruding atheroma. severe asymmetric LV hypertrophy (1.8 at base), small focal LV aneursym. LLL spiculated mass concerning for malignancy F/u CT scan 12/2016: new mucus impaction of peripheral bronchial tree. patulous esophagus c/w dysmotility or reflux . PET [facility] [place]/2016: Increased size of LLL area of consolidation 2.8 x 3.3 cm --> 6 x 6 cm. Heterogenous uptake LLL uptake with central focus (suspicious for malignancy). Uptake in left hilar node reactive vs metastatic. YADIRA mildly hypermetabolic ground glass changes infection/ inflammation echo 03/2017: nl lv/rv, mild mr, rvsp 30-40, severe , trace AR Assessment/Plan 81 yo afib, as s/p bav 12/2016, phtn, severe copd, recent dx lung adenoCa started XRT (no surgery planned), htn p/w respiratory failure. acute on chronic hypoxic/hypercapneic resp failure, COPD, lung adenoCa with malignant pleural effusion: - being followed and tx'd by pulm, onc and rad onc at [facility] - on home O2 - deemed prohibitive surgical risk for lung resection by thoracic surgery at [facility], started RT recently - dx'd malign effusion here--plan per pulm and onc paroxysmal AF: -with rapid HRs when in afib in hospital previously, including at [facility] on diltiazem (no BB given wheezing/copd severity) -CHADS VASC = 3, on Eliquis -dilt incr'd here to 180 qd, 03/25 in AF with HR climbing 130s-140s--likely being driven by ongoing resp distress. Dilt was increased for better hr control and dig ordered as well. 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 - further outpt TAVR considerations as previously planned, on hold at the moment due to progressive lung Ca - not likely contributing to current resp status, no prior h/o chf with her chronic severe prior to tx HTN: -cont dilt, resumed home ramipril 03/25. Monitor for hypotension (also increased diltiazem dose). + tobacco - smoking cessation counseling.
--- NOTE | 2017-03-27 11:41 | PN ---
Progress Note, Physician History of Present Illness: pulmonary alert,-resp distress,laying in bed, remains hypoxic O2 sat 86% on nasal O2 3L - Current Medication List Current Medications: Active Medications Acetaminophen (Tylenol -) 650 mg PO Q6H PRN PRN Reason: FEVER OR PAIN Last Admin: 03/25/17 18:29 Dose: 650 mg Albuterol/Ipratropium (Duoneb -) 1 amp NEB TID [facility] Last Admin: 03/27/17 06:22 Dose: 1 amp Alprazolam (Xanax -) 0.25 mg PO BID [facility] Stop: 03/29/17 21:59 Last Admin: 03/27/17 09:32 Dose: 0.25 mg Amoxicillin/Clavulanate Potassium (Augmentin - 875mg Tablet) 1 tab PO BID@0800, 1730 [facility] Last Admin: 03/27/17 09:31 Dose: 1 tab Apixaban (Eliquis -) 5 mg PO BID [facility] Last Admin: 03/27/17 09:32 Dose: 5 mg Digoxin (Lanoxin -) 0.125 mg PO DAILY [facility] Last Admin: 03/27/17 09:31 Dose: 0.125 mg Diltiazem HCl (Cardizem Injection -) 10 mg IVPUSH Q1H PRN PRN Reason: TACHYCARDIA Last Admin: 03/21/17 23:23 Dose: 10 mg Diltiazem HCl (Cardizem Cd -) 240 mg PO DAILY [facility] Last Admin: 03/27/17 09:32 Dose: 240 mg Docusate Sodium (Colace -) 100 mg PO TID [facility] Last Admin: 03/26/17 21:16 Dose: 100 mg Furosemide (Lasix -) 20 mg PO DAILY [facility] Last Admin: 03/27/17 09:32 Dose: 20 mg Ondansetron HCl (Zofran Injection) 4 mg IVPB Q6H PRN PRN Reason: NAUSEA Prednisone (Deltasone -) 20 mg PO DAILY [facility] Stop: 03/29/17 10:01 Prednisone (Deltasone -) 10 mg PO DAILY [facility] Stop: 03/31/17 10:01 Ramipril (Altace -) 5 mg PO DAILY [facility] Last Admin: 03/27/17 09:32 Dose: 5 mg - Objective Vital Signs: Vital Signs Temperature 98 F 03/27/17 06:30 Pulse Rate 83 03/27/17 09:31 Respiratory Rate 20 03/27/17 06:30 Blood Pressure 148/76 03/27/17 06:30 O2 Sat by Pulse Oximetry (%) 92 L 03/26/17 21:00 Constitutional: Yes: Calm, Thin Eyes: Yes: WNL HENT: Yes: WNL Neck: Yes: WNL Cardiovascular: Yes: Pulse Irregular, S1, S2 Respiratory: Yes: Diminished Gastrointestinal: Yes: Normal Bowel Sounds, Soft Extremities: Yes: WNL Edema: No Labs: CBC, BMP 03/25/17 08:30 03/27/17 06:20 INR, PTT INR 1.42 (0.82-1.09) H 03/19/17 07:25 Problem List - Problems (1) Atrial flutter Code(s): I48.92 - UNSPECIFIED ATRIAL FLUTTER (2) Lung cancer Code(s): C34.90 - MALIGNANT NEOPLASM OF UNSP PART OF UNSP BRONCHUS OR LUNG (3) Pleural effusion, left Code(s): J90 - PLEURAL EFFUSION, NOT ELSEWHERE CLASSIFIED (4) Pneumonia Code(s): J18.9 - PNEUMONIA, UNSPECIFIED ORGANISM (5) Sepsis Code(s): A41.9 - SEPSIS, UNSPECIFIED ORGANISM (6) Acute on chronic respiratory failure with hypoxia and hypercapnia Code(s): J96.21 - ACUTE AND CHRONIC RESPIRATORY FAILURE WITH HYPOXIA J96.22 - ACUTE AND CHRONIC RESPIRATORY FAILURE WITH HYPERCAPNIA (7) Aortic stenosis Code(s): I35.0 - NONRHEUMATIC AORTIC (VALVE) STENOSIS (8) COPD with acute exacerbation Code(s): J44.1 - CHRONIC OBSTRUCTIVE PULMONARY DISEASE W (ACUTE) EXACERBATION (9) HTN (hypertension) Code(s): I10 - ESSENTIAL (PRIMARY) HYPERTENSION Qualifiers: Hypertension type: essential hypertension Qualified Code(s): I10 - Essential (primary) hypertension (10) History of colon cancer Code(s): Z85.038 - PERSONAL HISTORY OF MALIGNANT NEOPLASM OF LARGE INTESTINE Assessment/Plan ASSESSMENT AND PLAN: Acute on Chronic Hypoxic and Hypercapneic Respiratory Failure improving Atrial Fibrillation with RVR Stage I Lung Ca s/p RT COPD/Emphysema Left Pleural Effusion transudate ( MALIGNANT) r/o Pneumonia HTN h/o Colon Ca - BiPAP PRN - Eliquis BID - Prednisone taper - inhaled bronchodilators - O2 to keep SpO2 >90% - continue pulse oximetry monitoring DR RYAN
[2017-03-27] MEDS: DOCUSATE SODIUM 100 MG CAPSULE (FP) PO SCH (14:06)
--- NOTE | 2017-03-27 18:13 | DS ---
Physical Exam: SUBJECTIVE: Patient seen and examined at bedside. No acute event overnight. No cardiac event noted on monitor. OBJECTIVE: Vital Signs Period Temp Pulse Resp BP Sys/[place] Pulse Ox Last 24 Hr 98 F-98.4 F 83-97 20-22 130-148/40-76 89-92 PHYSICAL EXAM GENERAL: AAO x 3, mild respiratory distress on NC 4L NECK: no JVD. LUNGS: CTAB HEART: RRR, S1, S2 present with systolic murmur. ABDOMEN: Soft, NT, ND, +bs EXTREMITIES: no edema NEUROLOGICAL: Cranial nerves II through XII grossly intact. Normal speech. SKIN: Warm, dry, normal turgor LABS Laboratory Results - last 24 hr 03/27/17 06:20 Sodium 147 H Potassium 4.6 D Chloride 98 Carbon Dioxide 39 H Anion Gap 10 BUN 27 H Creatinine 0.5 L D Random Glucose 95 D Calcium 8.0 L Digoxin 0.4001 L HOSPITAL COURSE: Date of Admission:03/19/17 81 yo F h/o COPD on 3L NC home O2, lung ca on radiation therapy last on Saturday, colon ca s/p resection in 2000, atrial fibrillation on Eliquis and cardizem, HTN , and aortic stenosis s/p balloon valvuloplasty admitted to the ICU for acute on chronic hypercapnic respiratory failure. It's likely secondary to malignant pleural effusion. Bedside thoracentesis was performed in the ICU and pathology shows metastatic lung adenocarcinoma. She was transferred to the floor after the procedure because she was no longer in respiratory failure. On the floor, patient's blood culture was positive for gram positive staph coagulase negative , she completed zosyn course and has been on 4L NC, predisone taper, BiPAP and Duoneb as needed. During her stay, she was found to have 1 episode of a-fib with RVR. Cardiology was consulted and her cardiazem dose increased to 240mg with 10mg IVPUSH PRN. She's also started on digoxin 0.125mg PO Daily and eliquis dosing frequency changed from once daily to BID daily. She's been rate controlled since the medication adjustment. She's now in stable condition to be transferred to subacute rehab facility and follow up with Dr Paredes for oncologic management of her lung cancer. Date of Discharge: 03/27/17 Minutes to complete discharge: 45 Discharge Summary Reason For Visit: COPD,PNE,PLEURAL EFFUSION Current Active Problems Acute on chronic respiratory failure with hypoxia and hypercapnia (Acute) Atrial flutter (Acute) Pneumonia (Acute) Sepsis (Acute) HTN (hypertension) (Chronic) History of COPD (Chronic) History of colon cancer (Chronic) Lung cancer (Chronic) Lung mass (Chronic) Condition: Stable - Instructions Diet, Activity, Other Instructions: Instruction for continuing care: You were admitted to [facility] because you had fluid accumulated in your lungs which made breathing difficult for you. The fluid was likely coming from the mass in your lungs and you had lung infection. Fluid was removed and you're treated with antibiotics and your breathing got much better. You heart wasn't beating regularly so the keno terminal operator saw you and increased some of your heart medication. Here are the medication changes we made during your hospital stay: 1. cardizem dose was increased to 240mg PO once daily 2. eliquis dose was increased to 5mg PO twice daily 3. a new anti-arrhythmic medication called digoxin is added, you will take 0.125 mg PO once daily 4. a new anti-anxiety medication called xanax is added, you will take 0.25mg PO twice daily 5. you need to take 1 last dose of augmentin which is an antibiotics 6. you need to take predisone 20mg once a day for 2 days, then 10mg once a day for another 2 days. Please continue the rest of your home and hospital medications as instructed. You will need to follow up with Dr. Paredes (tumor doctor), Dr. Shirley (heart doctor), Dr. Elizabeth (lung doctor) and your primary doctor for further management of your conditions. Referrals: Jose Alberto Elizabeth MD [Staff Physician] - Emerson Shirley MD [Staff Physician] - Griffin Simon MD [Primary Care Provider] - Disposition: ALF FACILITY - Home Medications Comprehensive Discharge Medication List: Ambulatory Orders Albuterol Sulfate Inhaler - [Ventolin HFA Inhaler -] 2 puff IH Q4H PRN #0 inhaler 12/01/16 Aspirin Coated [Ecotrin -] 81 mg PO DAILY #30 tablet.ec 12/01/16 Diltiazem Cd [Cardizem Cd -] 120 mg PO DAILY #30 cap.cd.24h 12/01/16 Ipratropium/Albuterol Sulfate [Combivent Respimat Inhal [place]] 4 gm IH QID 01/10 Albuterol Sulfate [Proair Respiclick] 90 PRN 03/19/17 Furosemide [Lasix] 20 mg PO DAILY 03/19/17 Ramipril 5 mg PO DAILY 03/19/17 Acetaminophen [Tylenol .Regular Strength -] 650 mg PO Q6H PRN #0 tablet Albuterol 0.083% Nebulizer Giana [Ventolin 0.083% Nebulizer Soln -] 1 amp NEB Q8H PRN #0 amp 03/27/17 Albuterol 2.5/Ipratropium 0.5 [Duoneb -] 1 amp NEB TID amp 03/27/17 Alprazolam [Xanax] 0.25 mg PO BID #0 tablet MDD 3 03/27/17 Amox-Tr/K Cl [Augmentin 875-125mg Tablet -] 1 tab PO BID@0800,1730 #1 tablet Apixaban [Eliquis -] 5 mg PO BID tablet 03/27/17 Digoxin [Lanoxin -] 0.125 mg PO DAILY #0 tablet 03/27/17 Diltiazem Cd [Cardizem Cd -] 240 mg PO DAILY cap 03/27/17 Diltiazem Injection [Cardizem Injection -] 10 mg IVPUSH Q1H PRN #0 vial Docusate Sodium [Colace -] 100 mg PO TID tab 03/27/17 Ondansetron Injection [Zofran Injection] 4 mg IVPB Q6H PRN #0 vial 03/27/17 Prednisone [Deltasone -] 10 mg PO DAILY #0 tablet 03/27/17 Prednisone [Deltasone -] 20 mg PO DAILY #0 tablet 03/27/17 This patient is new to me today: No Emergency Visit: No Critical Care patient: No - Discharge Referral Referred to [facility] No
[2017-03-27 20:28] VITALS: BP 126/50; PULSE 93; TEMP 98.8
[2017-03-28] MEDS ORDERED: predniSONE 20 MG TABLET (UD) PO SCH (10:00)
[2017-03-30] MEDS ORDERED: predniSONE 10 MG TABLET (UD) PO SCH (10:00)
== END 2017-03-27 18:00 | DRG 871 ==
LOC: JER 06:51 → JERBED 09:24 → J4W 13:33 → JICU 15:55 → J4W 03-21 15:54
PROVIDERS: ADMIT Internal Medicine; ATTEND Internal Medicine
PROC: 0W9B3ZX Drainage of Left Pleural Cavity, Percutaneous Approach, Diagnostic (ICD-10-PCS; principal; 2017-03-20)
DX: A41.9 Sepsis, unspecified organism (principal); J96.21 Acute and chronic respiratory failure with hypoxia; J96.22 Acute and chronic respiratory failure with hypercapnia; J18.9 Pneumonia, unspecified organism; J44.0 Chronic obstructive pulmonary disease with (acute) lower respiratory infection; J44.1 Chronic obstructive pulmonary disease with (acute) exacerbation; I48.92 Unspecified atrial flutter; C34.90 Malignant neoplasm of unspecified part of unspecified bronchus or lung; J91.0 Malignant pleural effusion; J98.11 Atelectasis; R64 Cachexia; Z68.1 Body mass index [BMI] 19.9 or less, adult; I10 Essential (primary) hypertension; I35.0 Nonrheumatic aortic (valve) stenosis; I48.0 Paroxysmal atrial fibrillation; I27.2 Other secondary pulmonary hypertension; Z87.891 Personal history of nicotine dependence; Z85.038 Personal history of other malignant neoplasm of large intestine; Z99.81 Dependence on supplemental oxygen; Z95.2 Presence of prosthetic heart valve
CPT/HCPCS: 36415; 36600; 71010-TC; 71250-TC; 76942; 80048; 80053; 80162; 81003; 81015; 82042; 82150; 82550; 82803; 82945; 83605; 83615; 83735; 83880; 84157; 84478; 84484; 85025; 85027; 85610; 85730; 86850; 86900; 86901; 87040; 87070; 87075; 87086; 87102; 87116; 87186; 87205; 87206; 87210; 87899; 88108; 88305-TC; 88341-TC; 89051; 93005; 93010; 93306-TC; 93970-TC; 94640; 94660; 97116-GP; 97161-GP; 99283-25; J1644